=== PATIENT | male | born 1955 | race Caucasian/White ===

== ENCOUNTER 2020-03-28 07:58 | Inpatient (IN) | payer OTHER ==
[2020-03-28] MEDS ORDERED: MECLIZINE 25 MG TAB PO STA (08:03)
[2020-03-28] MEDS ORDERED: hydrALAZINE HCL 20 MG/ML 1 ML VIAL IVP STA ×2 (08:04→08:58)
[2020-03-28] MEDS ORDERED: SODIUM CHLORIDE 0.9% 1,000 ML IV ONE ×2 (08:04→10:40)
--- NOTE | 2020-03-28 08:19 | ED ---
General Adult HPI - General Stated complaint: Dizziness Time Seen by Provider: 03/28/20 07:58 Source: patient, RN notes reviewed, old records reviewed - History of Present Illness Initial comments: This is a 64-year-old male who presents emergency Department with a past medical history significant for COPD and untreated high blood pressure. Patient states she quit smoking 2 weeks ago. Patient states he had 2 large beers last night. Patient states this morning he woke up in bed in the room started spinning sensation got up. Patient states anytime he moves his head the symptoms worsened. Patient states is extremely nauseated but can't vomit. Patient states he has a headache on the left side of his face behind his eye. Patient denies any chest pain or palpitations. Patient denies any shortness of breath or difficulty breathing. Patient denies any recent fever chills or cough. Patient denies any abdominal pain. Patient any back pain. Patient denies any fall this morning. - Related Data Home Medications Medication Instructions Recorded Confirmed Ipratropium-Albuterol Nebulize 3 ml INHALATION RT-QID PRN 03/28/20 03/28/20 [Duoneb 0.5 mg-3 mg/3 ml Soln] Ipratropium/Albuter 20-100Mcg 1 puff INHALATION RT-QID 03/28/20 03/28/20 [Combivent Respimat 20-100Mcg Inhaler] Mometasone/Formoterol [Dulera 200 1 puff INHALATION RT-BID 03/28/20 03/28/20 Mcg-5 Mcg Inhaler] Nicotine 14Mg/24Hr Patch [Habitrol 1 patch TRANSDERM DAILY 03/28/20 03/28/20 14Mg/24Hr Patch] Tiotropium 18 Mcg/Puff [Spiriva] 1 puff INHALATION RT-DAILY 03/28/20 03/28/20 Allergies Allergy/AdvReac Type Severity Reaction Status Date / Time No Known Allergies Allergy Verified 03/28/20 10:23 Review of Systems ROS Statement: Those systems with pertinent positive or pertinent negative responses have been documented in the HPI. ROS Other: All systems not noted in ROS Statement are negative. General Exam - General Exam Comments Initial Comments: GENERAL: Patient is well-developed and well-nourished. Patient is nontoxic and well- hydrated and is in mild distress. ENT: Neck is soft and supple. No significant lymphadenopathy is noted. Oropharynx is clear. Moist mucous membranes. Neck has full range of motion without eliciting any pain. EYES: The sclera were anicteric and conjunctiva were pink and moist. Extraocular movements were intact and pupils were equal round and reactive to light. Eyelid s were unremarkable. PULMONARY: Unlabored respirations. Good breath sounds bilaterally. No audible rales rhonchi or wheezing was noted. CARDIOVASCULAR: There is a regular rate and rhythm without any murmurs gallops or rubs. ABDOMEN: Soft and nontender with normal bowel sounds. SKIN: Skin is clear with no lesions or rashes and otherwise unremarkable. NEUROLOGIC: Patient is alert and oriented x3. Cranial nerves II through XII are grossly intact. Motor and sensory are also intact. Normal speech, volume and content. Symmetrical smile. Cerebellar exam grossly intact. MUSCULOSKELETAL: Normal extremities with adequate strength and full range of motion. LYMPHATICS: No significant lymphadenopathy is noted PSYCHIATRIC: Normal psychiatric evaluation. Course Vital Signs 03/28/20 03/28/20 03/28/20 07:59 08:46 09:07 Temperature 97.7 F Pulse Rate 90 106 H 105 H Respiratory 18 18 18 Rate Blood Pressure 185/111 168/91 161/92 O2 Sat by Pulse 97 96 97 Oximetry 03/28/20 03/28/20 09:20 10:00 Temperature 97.7 F Pulse Rate 106 H 112 H Respiratory 18 18 Rate Blood Pressure 159/86 155/90 O2 Sat by Pulse 97 98 Oximetry Medical Decision Making - Medical Decision Making EKG shows normal sinus rhythm at 85 bpm NM interval is 144 QRS is 88 QT interval 376 QTC is 447. Patient's EKG shows no ST segment elevation or depression. There are no T-wave abnormalities. Patient's had high blood pressure so he did get hydralazine in the emergency department. Patient's chest x-ray showed no acute abnormalities. Patient's CT of the brain shows no acute abnormalities. However when I went back into the room the patient now complained of pain increasing in the lateral aspect of his left eye. Patient also complained of left-sided neck pain does seem to be reproducible with movement or palpation. Patient's heart rate however was up to 120 beats a minute and he stated he felt worsening dyspnea when he came in. Patient's vertigo remains with any movement of the head. I spoke with Dr. Dawson he agreed to admit the patient admitted the patient wrote admitting orders. - Lab Data Result diagrams: 03/28/20 08:11 03/28/20 08:11 Lab Results 03/28/20 03/28/20 03/28/20 Range/Units 08:11 08:11 08:11 WBC 8.1 (3.8-10.6) k/uL RBC 5.22 (4.30-5.90) m/uL Hgb 17.5 (13.0-17.5) gm/dL Hct 52.7 (39.0-53.0) % MCV 101.0 H (80.0-100.0) fL MCH 33.5 (25.0-35.0) pg MCHC 33.2 (31.0-37.0) g/dL RDW 12.4 (11.5-15.5) % Plt Count 270 (150-450) k/uL MPV 7.3 Neutrophils % 53 % Lymphocytes % 33 % Monocytes % 8 % Eosinophils % 3 % Basophils % 1 % Neutrophils # 4.3 (1.3-7.7) k/uL Lymphocytes # 2.7 (1.0-4.8) k/uL Monocytes # 0.6 (0-1.0) k/uL Eosinophils # 0.2 (0-0.7) k/uL Basophils # 0.1 (0-0.2) k/uL PT 9.4 (9.0-12.0) sec INR 0.9 (<1.2) APTT 22.6 (22.0-30.0) sec Sodium 135 L (137-145) mmol/L Potassium 5.0 (3.5-5.1) mmol/L Chloride 105 (98-107) mmol/L Carbon Dioxide 19 L (22-30) mmol/L Anion Gap 11 mmol/L BUN 5 L (9-20) mg/dL Creatinine 0.60 L (0.66-1.25) mg/dL Est GFR (CKD-EPI)AfAm >90 (>60 ml/min/1.73 sqM) Est GFR (CKD-EPI)NonAf >90 (>60 ml/min/1.73 sqM) Glucose 108 H (74-99) mg/dL Calcium 9.0 (8.4-10.2) mg/dL Magnesium 1.8 (1.6-2.3) mg/dL Total Bilirubin 0.6 (0.2-1.3) mg/dL AST 58 (17-59) U/L ALT 68 H (4-49) U/L Alkaline Phosphatase 52 (38-126) U/L Troponin I (0.000-0.034) ng/mL Total Protein 6.7 (6.3-8.2) g/dL Albumin 4.3 (3.5-5.0) g/dL Urine Color Urine Appearance (Clear) Urine pH (5.0-8.0) Ur Specific [place] (1.001-1.035) Urine Protein (Negative) Urine Glucose (UA) (Negative) Urine Ketones (Negative) Urine Blood (Negative) Urine Nitrite (Negative) Urine Bilirubin (Negative) Urine Urobilinogen (<2.0) mg/dL Ur Leukocyte Esterase (Negative) Urine WBC (0-5) /hpf Urine Bacteria (None) /hpf Urine Mucus (None) /hpf Serum Alcohol 13 mg/dL 03/28/20 03/28/20 Range/Units 08:11 09:51 WBC (3.8-10.6) k/uL RBC (4.30-5.90) m/uL Hgb (13.0-17.5) gm/dL Hct (39.0-53.0) % MCV (80.0-100.0) fL MCH (25.0-35.0) pg MCHC (31.0-37.0) g/dL RDW (11.5-15.5) % Plt Count (150-450) k/uL MPV Neutrophils % % Lymphocytes % % Monocytes % % Eosinophils % % Basophils % % Neutrophils # (1.3-7.7) k/uL Lymphocytes # (1.0-4.8) k/uL Monocytes # (0-1.0) k/uL Eosinophils # (0-0.7) k/uL Basophils # (0-0.2) k/uL PT (9.0-12.0) sec INR (<1.2) APTT (22.0-30.0) sec Sodium (137-145) mmol/L Potassium (3.5-5.1) mmol/L Chloride (98-107) mmol/L Carbon Dioxide (22-30) mmol/L Anion Gap mmol/L BUN (9-20) mg/dL Creatinine (0.66-1.25) mg/dL Est GFR (CKD-EPI)AfAm (>60 ml/min/1.73 sqM) Est GFR (CKD-EPI)NonAf (>60 ml/min/1.73 sqM) Glucose (74-99) mg/dL Calcium (8.4-10.2) mg/dL Magnesium (1.6-2.3) mg/dL Total Bilirubin (0.2-1.3) mg/dL AST (17-59) U/L ALT (4-49) U/L Alkaline Phosphatase (38-126) U/L Troponin I <0.012 (0.000-0.034) ng/mL Total Protein (6.3-8.2) g/dL Albumin (3.5-5.0) g/dL Urine Color Light Yellow Urine Appearance Clear (Clear) Urine pH 6.5 (5.0-8.0) Ur Specific [place] 1.008 (1.001-1.035) Urine Protein Negative (Negative) Urine Glucose (UA) Negative (Negative) Urine Ketones Negative (Negative) Urine Blood Negative (Negative) Urine Nitrite Negative (Negative) Urine Bilirubin Negative (Negative) Urine Urobilinogen <2.0 (<2.0) mg/dL Ur Leukocyte Esterase Small H (Negative) Urine WBC 5 (0-5) /hpf Urine Bacteria Rare H (None) /hpf Urine Mucus Rare H (None) /hpf Serum Alcohol mg/dL Critical Care Time Critical Care Time: Yes Disposition Clinical Impression: Tachycardia, Vertigo, Alcohol withdrawal, Hypertensive urgency Disposition: ADMITTED IP TO THIS HOSP Referrals: Chacha Nichols MD [Primary Care Provider] - 1-2 days Time of Disposition: 10:39
[2020-03-28 08:34] LABS: Basophils # (A) 0.1 k/uL (0-0.2); Basophils % (A) 1 %; Eosinophils # (A) 0.2 k/uL (0-0.7); Eosinophils % (A) 3 %; HCT 52.7 % (39.0-53.0); HGB 17.5 gm/dL (13.0-17.5); Lymphocytes # (A) 2.7 k/uL (1.0-4.8); Lymphocytes % (A) 33 %; MCH 33.5 pg (25.0-35.0); MCHC 33.2 g/dL (31.0-37.0); Mean Platelet Volume 7.3; Monocytes # (A) 0.6 k/uL (0-1.0); Monocytes % (A) 8 %; Neutrophils # (A) 4.3 k/uL (1.3-7.7); Neutrophils % (A) 53 %; Platelet Count 270 k/uL (150-450); RBC 5.22 m/uL (4.30-5.90); RDW 12.4 % (11.5-15.5); WBC 8.1 k/uL (3.8-10.6)
--- NOTE | 2020-03-28 08:41 | CT ---
EXAMINATION TYPE: CT brain wo con DATE OF EXAM: 03/28/2020 COMPARISON: None INDICATION: Acute Headache DLP: 1110.4 mGycm, Automated exposure control for dose reduction was used. CONTRAST: None CT of the brain is performed utilizing 3 mm thick sections through the posterior fossa and 3 mm thick sections through the remaining calvarium. Study is performed within 24 hours of arrival to the hosp ital. No abnormal hyperdensity is present to suggest an acute intracranial hemorrhage. No mass lesion is evident. No acute infarcts are evident. Ventricles and sulci are appropriate for the patient age. Paranasal sinuses and mastoid air cells within the [id number] are clear. No acute fractures are ev ident. Tiny amount of soft tissue swelling is over the frontal region centrally. IMPRESSIONS: 1. No acute intracranial process.
--- NOTE | 2020-03-28 08:45 | XR ---
EXAMINATION TYPE: XR chest 2V DATE OF EXAM: 03/28/2020 COMPARISON: NONE HISTORY: Headache and dizziness. Chest pain for period TECHNIQUE: Frontal and lateral views of the chest are obtained. FINDINGS: Slightly elevated left hemidiaphragm. Focal left basilar linear scarring and/or atelectasis . There is no suspicious focal air space opacity, pleural effusion, or pneumothorax seen. The cardi ac silhouette size is within normal limits with atherosclerotic change in the aortic knob. The osse ous structures are intact. IMPRESSION: Focal left basilar linear scarring and/or atelectasis
[2020-03-28 08:47] LABS: INR 0.9 (<1.2); Partial Thromboplastin Time 22.6 sec (22.0-30.0); Prothrombin Time 9.4 sec (9.0-12.0)
[2020-03-28] MEDS ORDERED: amLODIPine 5 MG TAB PO STA (08:58)
[2020-03-28 08:59] LABS: ALT 68 U/L (4-49); AST 58 U/L (17-59); African American GFR (CKD) >90 (>60 ml/min/1.73 sqM); Albumin 4.3 g/dL (3.5-5.0); Alcohol 13 mg/dL; Alkaline Phosphatase 52 U/L (38-126); Anion Gap 11 mmol/L; Blood Urea Nitrogen 5 mg/dL (9-20); Carbon Dioxide 19 mmol/L (22-30); Chloride 105 mmol/L (98-107); Glucose 108 mg/dL (74-99); Magnesium 1.8 mg/dL (1.6-2.3); Non-African American GFR(CKD) >90 (>60 ml/min/1.73 sqM); Sodium 135 mmol/L (137-145); Total Bilirubin 0.6 mg/dL (0.2-1.3); Total Protein 6.7 g/dL (6.3-8.2)
[2020-03-28] MEDS ORDERED: DIAZEPAM 5 MG/ML 2 ML INJ IVP STA (09:00)
[2020-03-28] MEDS ORDERED: LORazepam 2 MG/ML INJ IV STA (09:36)
[2020-03-28 10:23] LABS: Appearance,Urine Clear (Clear); Bacteria,Urine Rare /hpf; Bilirubin,Urine Negative (Negative); Blood,Urine Negative (Negative); Color,Urine Light Yellow; Glucose,Urine (UA) Negative (Negative); Ketones,Urine Negative (Negative); Leukocyte Esterase,Urine Small (Negative); Mucus,Urine Rare /hpf; Nitrite,Urine Negative (Negative); PH, Urine 6.5 (5.0-8.0); Protein,Urine Negative (Negative); Specific Gravity,Urine 1.008 (1.001-1.035); Urobilinogen,Urine <2.0 mg/dL (<2.0); WBC,Urine 5 /hpf (0-5)
[2020-03-28] MEDS ORDERED: THIAMINE 100 MG/ML 2 ML VIAL IM STA (10:41)
[2020-03-28] MEDS ORDERED: LORazepam 2 MG/ML INJ IV PRN ×3 (10:41)
[2020-03-28] MEDS ORDERED: SODIUM CHLORIDE 0.9% 1,000 ML IV STA (11:10)
[2020-03-28] MEDS ORDERED: IPRATROPIUM-ALBUTEROL 3 ML NEB INHALATION PRN ×2 (13:44→19:49)
[2020-03-28] MEDS ORDERED: ALPRAZolam 0.25 MG TAB PO PRN (13:45)
--- NOTE | 2020-03-28 14:36 | HP ---
HISTORY AND PHYSICAL DATE OF SERVICE: 03/28/2020. CHIEF COMPLAINT: Dizziness and weakness. HISTORY OF PRESENT ILLNESS: This 64-year-old gentleman with a past medical history of COPD, history of nicotine dependence, being followed by Dr. Nichols in the outpatient setting apparently quit smoking about few days ago. The patient apparently drinking also. The patient complaining of dizziness and weakness last night and spinning sensation while getting up and the patient came to [facility] admitted for further evaluation and treatment. The CAT scan did not show any acute abnormality. Chest x-ray showed some atelectasis. D-dimer is pending at this time. There is no history of any fever or rigors. The patient is mildly confused. Alcohol level is 13. There is no history of any trauma. PAST MEDICAL HISTORY: History of COPD, history of nicotine dependence. MEDICATIONS: Medications prior to admission home medications are: 1. Habitrol 14. 2. Spiriva. 3. Combivent. 4. DuoNeb. 5. Dulera. ALLERGIES: None. FAMILY HISTORY: No history of heart disease or strokes in the family. SOCIAL HISTORY: Daily alcohol, but previous smoking and stopped about 2 weeks ago. REVIEW OF SYSTEMS: ENT: As mentioned earlier. CARDIOVASCULAR SYSTEM: No angina. RESPIRATORY SYSTEM: As mentioned earlier. GI: No nausea. : No dysuria. NERVOUS SYSTEM: As mentioned earlier. ALLERGIES/IMMUNOLOGY: No asthma or hayfever. MUSCULOSKELETAL: As mentioned earlier. HEMATOLOGY: No history of anemia. ENDOCRINE: No history of diabetes mellitus or hypothyroidism. CONSTITUTIONAL: As mentioned earlier. DERMATOLOGY: Negative. RHEUMATOLOGY: Negative. PSYCHIATRY: As mentioned earlier. PHYSICAL EXAMINATION: The patient is alert and oriented x3. Pulse is 110, blood pressure 158/98, respiration 18, temperature 97.7, pulse ox 97% on room air. HEENT: Conjunctivae normal. NECK: No jugular venous distention. CARDIOVASCULAR: S1, S2 muffled. Tachycardiac. RESPIRATORY: Breath sounds diminished at the bases. A few scattered rhonchi. ABDOMEN: Soft, nontender. No mass palpable. LEGS: No edema, no swelling. NERVOUS SYSTEM: Higher function as mentioned earlier. Moves all 4 limbs. No focal motor or sensory or sensory deficits. LYMPHATICS: No lymphadenopathy of the neck, axillae or groin. SKIN: No ulcer, rash or bleeding. JOINTS: No active deforming arthropathy. LABS: Labs are at this time show: WBC 8.1, hemoglobin 17.5, sodium 135, ALT 68. ASSESSMENT: 1. Dizziness and weakness. Rule out transient ischemic attack, rule out possible alcohol withdrawal syndrome. 2. History of EtOH. 3. History of nicotine dependence. 4. Possible early delirium tremens. 5. Change in mental status, metabolic encephalopathy, possibly. 6. Hyponatremia. 7. Increased ALT. 8. History of chronic obstructive pulmonary disease. 9. History of nicotine dependence. RECOMMENDATIONS AND DISCUSSION: This 64-year-old gentleman presented with multiple complex medical issues, we will monitor the patient closely. Continue the current medications. Continue symptomatic treatment. I will check orthostatic vitals. Neurology evaluation. Complete neurovascular workup otherwise [facility] protocol. The exact reason for the patient's multiple symptomatology is unknown. The transition social worker and case maker to follow the patient with alcohol withdrawal, alcohol rehab programs. Otherwise prognosis guarded. Further recommendations to follow. Home medications continued. A copy of dictation forwarded to Dr. Nichols who is the primary physician. LAURA / TIFFANIN: [id number] /
--- NOTE | 2020-03-28 14:45 | P.CNNES ---
History of Present Illness Consult date: 03/28/20 Requesting physician: Sandee Dawson Reason for Consult: dizziness concerned for TIA History of Present Illness: This is a 64-year-old gentleman with medical history of untreated hypertension, alcohol use COPD, ex-tobacco user who quit 1-2 weeks ago who presented to the emergency department on 03/28/2020 for dizziness. Patient stated that had 2 large beers last night and upon waking up this morning he felt that the room is spinning. He described it as the room is spinning. And that it's mostly with position. When he is resting dizziness resolved. He did feel nauseous but no vomiting. He stated that he had the summary in the ears both but denies any hearing loss. He felt unsteady as a result. Patient denies off any focal weakness, numbness, difficulty getting his words out as slurring her speech. She also feels he is having headache over the left retro-orbital. Orbital left side and he stated that he felt was 10 over 10 could not describe the headache for me. Denies any photophobia photophobia. Denies any radiation. Currently he feels the headache is improved since he received pain medication. Patient stated that he drinks about 6-7 cans of beer daily and he's been doing it for long time. He smokes a pack a day for years and he said that the he had periods that he quit and then years that that he started smoking again but he quit in the last 1-2 weeks. He lives home alone. He denies and being on aspirin. He is on breathing treatment for his COPD. Workup in the hospital consisted of: Initial vital signs was blood pressure of 185/111, heart rate of 90, respiratory of 18, temperature of 97.7 Fahrenheit oral and pulse ox of 97% at room air. His heart rate has been in the 100 to 110s. His sodium is 135. His initial glucose serum was 108. Serum alcohol level is 13 which is slightly above normal (normal is <10). CT head is reported as no acute intracranial process. Upon reviewing there is no acute or subacute ischemia or there is no hemorrhage. I felt there is mild bilateral frontal atrophy. EKG is reported as normal sinus rhythm. Normal EKG. She was given meclizine 25 mg once stat in the ED. As well as the patient was given Valium 3 mg once stat in the ED. LC as well as the patient was started on thiamine 100 mg 1 tablet twice a day in the ED. Review of Systems Review of system: The 12 point system was reviewed and apparent positive and negative per HPI. Past Medical History Past Medical History: COPD History of Any Multi-Drug Resistant Organisms: None Reported Past Surgical History: No Surgical Hx Reported Past Psychological History: No Psychological Hx Reported Smoking Status: Former smoker Past Alcohol Use History: Daily Past Drug Use History: None Reported Medications and Allergies Home Medications Medication Instructions Recorded Confirmed Type Ipratropium-Albuterol Nebulize 3 ml INHALATION RT-QID PRN 03/28/20 03/28/20 History [Duoneb 0.5 mg-3 mg/3 ml Soln] Ipratropium/Albuter 20-100Mcg 1 puff INHALATION RT-QID 03/28/20 03/28/20 History [Combivent Respimat 20-100Mcg Inhaler] Mometasone/Formoterol [Dulera 200 1 puff INHALATION RT-BID 03/28/20 03/28/20 History Mcg-5 Mcg Inhaler] Nicotine 14Mg/24Hr Patch [Habitrol 1 patch TRANSDERM DAILY 03/28/20 03/28/20 History 14Mg/24Hr Patch] Tiotropium 18 Mcg/Puff [Spiriva] 1 puff INHALATION RT-DAILY 03/28/20 03/28/20 History Allergies Allergy/AdvReac Type Severity Reaction Status Date / Time No Known Allergies Allergy Verified 03/28/20 10:23 Physical Examination - Vital Signs Vital Signs: Vital Signs Temp Pulse Resp BP Pulse Ox 03/28/20 13:20 97.7 F 03/28/20 12:00 110 H 18 158/98 97 03/28/20 11:30 118 H 20 164/93 96 03/28/20 11:29 152/85 03/28/20 10:40 20 150/93 03/28/20 10:00 112 H 18 155/90 98 03/28/20 09:20 97.7 F 106 H 18 159/86 97 03/28/20 09:07 105 H 18 161/92 97 03/28/20 08:46 106 H 18 168/91 96 03/28/20 07:59 97.7 F 90 18 185/111 97 Intake and Output 03/27/20 03/28/2003/28/21 22:59 06:59 14:59 Other: Weight 63.503 kg GENERAL: The patient is lying in bed and is not in acute distress. CHEST: The heart rate is regular rate rhythm. No murmurs to auscultation. LUNG: Clear to auscultation bilaterally no wheezing noted throughout. Not labored breathing. ABDOMEN/GI: Bowel sounds present in all 4 quadrants. No tenderness to palpation throughout. NEUROLOGICAL: Higher mental function: The patient is awake, alert, oriented to self, place and time. Patient is following commands. No aphasia and no neglect. Cranial nerves: The pupils are round, equal and reactive to light and accommodation. Visual mojica are full to confrontation throughout. Extraocular movement is intact no nystagmus is noted. Facial sensation is normal to touch throughout. The facial strength is normal throughout. Hearing is normal bilaterally to hand rub. Tongue is midline and moved [id number] without any difficulty. No dysarthria is noted. Shoulder shrug is normal bilaterally. Motor: Gait was attempted but patient was feeling dizzy so gait assessment was deferred. The strength is 5 over 5 throughout. Normal tone and bulk. Cerebellum: Normal finger to nose and heel to navarro bilaterally. Sensation: Sensation is normal to touch throughout. Reflexes (right/left): 2+ throughout except ankles are 1+ bilaterally. Plantars are downgoing bilaterally. Results AST 58 and ALT of 68. Calcium of 9.0 which is normal. - Laboratory Findings CBC and BMP: 03/28/20 08:11 03/28/20 08:11 Abnormal Lab Findings: Abnormal Labs 03/28/20 03/28/20 03/28/20 08:11 08:11 09:51 MCV 101.0 H Sodium 135 L Carbon Dioxide 19 L BUN 5 L Creatinine 0.60 L Glucose 108 H ALT 68 H Ur Leukocyte Esterase Small H Urine Bacteria Rare H Urine Mucus Rare H Assessment and Plan Assessment: This is a 64-year-old gentleman chronic history of alcohol use as well as tobacco use who quit smoking in the last was 2 weeks that presents emergency department for dizziness. He describes the dizziness the room is spinning is mostly with position. He also has a headache on the left orbital retro-orbital temporal region. Has nausea but no vomiting denies any focal weakness or numbness denies getting his words out. Vertigo: Seems Benign positional vertiog Uncontrolled hypertension Very mild hyponatremia Alcohol use (with alcohol level slightly elevated of 13 (normal <10). Ex-tobacco user who quit 2 weeks ago Plan: * CT head is reported as no acute intracranial process. Upon reviewing there is no acute or subacute ischemia or there is no hemorrhage. I felt there is mild bilateral frontal atrophy. * He was given meclizine 25 mg once stat in the ED. As well as the patient was given Valium 3 mg once stat in the ED. * Orthostatic vitals are ordered by the primary team. * Continue thiamine 100 mg 1 tablet twice a day in the ED. * Patient was on folic acid 1 mg daily by the primary team * Patient was also started on aspirin 81 mg daily by the primary team. * I ordered MRI the brain with and without gadolinium to rule out any intracranial process especially the patient's been having a headache. I will think the patient has a transient ischemic attack but if there is any stroke on the MRI then we can proceed with the rest of the stroke workup such as 2-D echo, lipid panel, carotid duplex, physical and occupation therapy. If MRI the brain is negative I recommend that that the patient follows up with ENT as an outpatient as well as the to get the vestibular rehab therapy as an outpatient. * I ordered vitamin B12 and folate levels. * Patient was counseled on alcohol cessation as well as to continue avoiding tobacco use * He is on CIWA protocol defer the management to the primary team We'll defer the rest of the medical management to the primary team. Thank you for the consultation. There is no neurology service over the weekend. Please prefect Serve if needed. Dr. Caicedo will start coverage this coming-up Tuesday. Enrique Hidalgo M.D. Neuro-hospitalist Time with Patient: Greater than 30
[2020-03-28] MEDS: ASPIRIN 81 MG PO SCH (15:44)
[2020-03-28] MEDS: THIAMINE 100 MG TAB PO SCH (15:44)
[2020-03-28 15:51] LABS: C Reactive Protein <5.0 mg/L (<10.0)
[2020-03-28] MEDS: HYDROcodone/APAP 5-325MG 1 EACH TAB PO PRN (19:57)
[2020-03-28] MEDS: HEPARIN SODIUM,PORCINE 5,000 UNIT/ML 1 ML VIAL SQ SCH (19:59)
[2020-03-28] MEDS ORDERED: IPRATROPIUM-ALBUTEROL 3 ML NEB INHALATION SCH (20:00)
[2020-03-28] MEDS: IPRATROPIUM-ALBUTEROL 3 ML NEB INHALATION SCH (20:22)
[2020-03-28] MEDS: SYMBICORT 160-4.5 MCG INHALER INHALATION SCH (20:22)
[2020-03-29] MEDS: THIAMINE 100 MG TAB PO SCH ×2 (06:28→16:34)
[2020-03-29] MEDS: PANTOPRAZOLE 40 MG TABLET PO SCH (06:28)
[2020-03-29] MEDS: IPRATROPIUM-ALBUTEROL 3 ML NEB INHALATION SCH ×4 (07:08→20:30)
[2020-03-29] MEDS: SYMBICORT 160-4.5 MCG INHALER INHALATION SCH ×2 (07:09→20:30)
--- NOTE | 2020-03-29 07:39 | XR ---
EXAMINATION TYPE: XR orbit pre-MRI foreign body DATE OF EXAM: 03/29/2020 COMPARISON: NONE HISTORY: Pre-MRI orbit TECHNIQUE: 2 view submitted FINDINGS: Osseous structures intact. No metallic foreign body overlying the orbits. IMPRESSION: No metallic foreign body overlying the orbits.
[2020-03-29 07:52] LABS: Basophils % (A) 1 %; Eosinophils # (A) 0.1 k/uL (0-0.7); Eosinophils % (A) 1 %; HCT 48.1 % (39.0-53.0); HGB 16.5 gm/dL (13.0-17.5); Lymphocytes # (A) 2.2 k/uL (1.0-4.8); Lymphocytes % (A) 22 %; MCH 34.3 pg (25.0-35.0); MCHC 34.3 g/dL (31.0-37.0); Mean Platelet Volume 6.9; Monocytes # (A) 0.7 k/uL (0-1.0); Monocytes % (A) 7 %; Neutrophils # (A) 6.6 k/uL (1.3-7.7); Neutrophils % (A) 68 %; Platelet Count 271 k/uL (150-450); RBC 4.81 m/uL (4.30-5.90); RDW 11.9 % (11.5-15.5); WBC 9.8 k/uL (3.8-10.6)
[2020-03-29] MEDS ORDERED: TIOTROPIUM 2.5 MCG INHALER INHALATION SCH (08:00)
[2020-03-29 08:05] LABS: African American GFR (CKD) >90 (>60 ml/min/1.73 sqM); Anion Gap 6 mmol/L; Blood Urea Nitrogen 8 mg/dL (9-20); Calcium 9.3 mg/dL (8.4-10.2); Carbon Dioxide 26 mmol/L (22-30); Chloride 104 mmol/L (98-107); Glucose 130 mg/dL (74-99); Non-African American GFR(CKD) >90 (>60 ml/min/1.73 sqM); Potassium 4.4 mmol/L (3.5-5.1); Sodium 136 mmol/L (137-145)
[2020-03-29] MEDS: NICOTINE 14MG/24HR PATCH TRANSDERM SCH (08:34)
[2020-03-29] MEDS: ASPIRIN 81 MG PO SCH (08:34)
[2020-03-29] MEDS: HEPARIN SODIUM,PORCINE 5,000 UNIT/ML 1 ML VIAL SQ SCH ×2 (08:41→22:24)
[2020-03-29] MEDS: HYDROcodone/APAP 5-325MG 1 EACH TAB PO PRN ×3 (08:59→22:24)
[2020-03-29] MEDS: FOLIC ACID 1 MG TAB PO SCH (12:27)
[2020-03-29] MEDS: MULTIVITAMINS, THERA 1 EACH TAB PO SCH (12:27)
--- NOTE | 2020-03-29 12:42 | MR ---
EXAMINATION TYPE: MR brain wo/w con DATE OF EXAM: 03/29/2020 COMPARISON: CT brain 03/28/2020 HISTORY: Headaches TECHNIQUE: Multiplanar, multisequence images of the brain and brainstem is performed without and with IV contras t, utilizing 7 mL intravenous Gadavist . FINDINGS: There is abnormal signal on diffusion imaging within the left cerebellum suspicious for an acute stroke involving the cerebellar hemisphere and vermis. No additional abnormal signal on diffusi on imaging identified. Report was called to the patient's nurse Dorothy on 03/29/2020 at 12:36 PM Mild generalized degenerative change with abnormal signal in the white matter most typical remote lani rovascular ischemia. Craniocervical junction maintained. Partially empty sella turcica. IMPRESSION: 1. Findings suggest remote acute ischemia involving the left cerebellar hemisphere and vermis. No libia dence of midline shift or mass effect.
--- NOTE | 2020-03-29 14:15 | US ---
EXAMINATION TYPE: US carotid duplex BILAT DATE OF EXAM: 03/29/2020 COMPARISON: NONE CLINICAL HISTORY: stroke. vertgio, headache, left neck pain EXAM MEASUREMENTS: RIGHT: Peak Systolic Velocity (PSV) cm/sec ----- Right CCA: 97.3 ----- Right ICA: 66.8 ----- Right ECA: 82.0 ICA/CCA ratio: 0.7 RIGHT: End Diastole cm/sec ----- Right CCA: 21.7 ----- Right ICA: 18.0 ----- Right ECA: 19.3 LEFT: Peak Systolic Velocity (PSV) cm/sec ----- Left CCA: 95.5 ----- Left ICA: 80.5 ----- Left ECA: 113.0 ICA/CCA ratio: 0.8 LEFT: End Diastole cm/sec ----- Left CCA: 21.0 ----- Left ICA: 30.8 ----- Left ECA: 21.1 VERTEBRALS (direction of flow): Right Vertebral: Antegrade Left Vertebral: Antegrade Rhythm: Normal Mild heterogenous plaque with no significant stenosis seen IMPRESSION: There is antegrade flow in the vertebral arteries. There is minimal plaque formation. Images and emily urements suggest less than 20% stenosis in both internal carotid arteries. Criteria for Assigning % of Stenosis / Diameter reduction (Estimation based on the indirect measurements of the internal carotid artery velocities (ICA PSV). 1. Normal (no stenosis)=ICA PSV < 125 cm/s: ratio < 2.0: ICA EDV<40 cm/s. 2. Less than 50% stenosis=ICA PSV < 125 cm/s: ratio < 2.0: ICA EDV<40 cm/s. 3. 50 to 69% stenosis=ICA PSV of 125 to 230 cm/s: ration 2.0 ? 4.0: ICA EDV 40-100 cm/s. 4. Greater than 70% stenosis to near occlusion= ICA PSV > 230 cm/s: ratio > 4.0: ICA EDV > 100 cm/s. 5. Near occlusion= ICA PSV velocities may be low or undetectable: variable ratio and ICA EDV. 6. Total occlusion=unable to detect flow.
[2020-03-29] MEDS: ATORVASTATIN 10 MG TAB PO SCH (16:34)
[2020-03-29] MEDS: hydrALAZINE HCL 20 MG/ML 1 ML VIAL IVP PRN (17:26)
[2020-03-29] MEDS: MECLIZINE 12.5 MG TAB PO SCH (22:24)
[2020-03-30] MEDS: THIAMINE 100 MG TAB PO SCH ×2 (06:22→17:17)
[2020-03-30] MEDS: PANTOPRAZOLE 40 MG TABLET PO SCH (06:22)
[2020-03-30] MEDS: HYDROcodone/APAP 5-325MG 1 EACH TAB PO PRN ×2 (06:24→18:06)
[2020-03-30 07:36] LABS: Basophils % (A) 1 %; Eosinophils # (A) 0.1 k/uL (0-0.7); Eosinophils % (A) 2 %; HCT 46.2 % (39.0-53.0); HGB 16.1 gm/dL (13.0-17.5); Lymphocytes # (A) 2.1 k/uL (1.0-4.8); Lymphocytes % (A) 30 %; MCH 34.9 pg (25.0-35.0); MCHC 34.9 g/dL (31.0-37.0); MCV 100.1 fL (80.0-100.0); Mean Platelet Volume 7.1; Monocytes # (A) 0.7 k/uL (0-1.0); Monocytes % (A) 10 %; Neutrophils # (A) 3.8 k/uL (1.3-7.7); Neutrophils % (A) 56 %; Platelet Count 265 k/uL (150-450); RBC 4.61 m/uL (4.30-5.90); WBC 6.8 k/uL (3.8-10.6)
[2020-03-30 07:56] LABS: African American GFR (CKD) >90 (>60 ml/min/1.73 sqM); Anion Gap 6 mmol/L; Blood Urea Nitrogen 10 mg/dL (9-20); Calcium 9.1 mg/dL (8.4-10.2); Carbon Dioxide 25 mmol/L (22-30); Chloride 103 mmol/L (98-107); Cholesterol 145 mg/dL (<200); Glucose 111 mg/dL (74-99); HDL Cholesterol 61 mg/dL (40-60); LDL Cholesterol,Calculated 69 mg/dL (0-99); Non-African American GFR(CKD) >90 (>60 ml/min/1.73 sqM); Sodium 134 mmol/L (137-145); Triglycerides 75 mg/dL (<150)
[2020-03-30] MEDS: NICOTINE 14MG/24HR PATCH TRANSDERM SCH (08:22)
[2020-03-30] MEDS: HEPARIN SODIUM,PORCINE 5,000 UNIT/ML 1 ML VIAL SQ SCH ×2 (08:22→19:37)
[2020-03-30] MEDS: ASPIRIN 81 MG PO SCH (08:22)
[2020-03-30] MEDS: ATORVASTATIN 10 MG TAB PO SCH (08:22)
[2020-03-30] MEDS: CYCLOBENZAPRINE 5 MG TAB PO PRN ×2 (08:22→19:51)
[2020-03-30] MEDS: MECLIZINE 12.5 MG TAB PO SCH ×2 (08:23→19:37)
[2020-03-30] MEDS: hydrALAZINE HCL 20 MG/ML 1 ML VIAL IVP PRN (08:33)
[2020-03-30] MEDS: IPRATROPIUM-ALBUTEROL 3 ML NEB INHALATION SCH ×4 (08:42→19:28)
[2020-03-30] MEDS: SYMBICORT 160-4.5 MCG INHALER INHALATION SCH ×2 (08:42→19:27)
[2020-03-30] MEDS: MULTIVITAMINS, THERA 1 EACH TAB PO SCH (12:30)
[2020-03-30] MEDS: FOLIC ACID 1 MG TAB PO SCH (12:30)
[2020-03-30] MEDS ORDERED: METOPROLOL TARTRATE 25 MG TAB PO STA (13:04)
[2020-03-30] MEDS: CLOPIDOGREL 75 MG TAB PO SCH (13:07)
[2020-03-30 13:17] LABS: ALT 74 U/L (4-49); AST 41 U/L (17-59)
--- NOTE | 2020-03-30 13:36 | ECHOF ---
Referral Reason:stroke MEASUREMENTS -------- HEIGHT: 165.1 cm WEIGHT: 71.2 kg BP: IVSd: 1.2 cm (0.6 - 1.1) LVIDd: 3.0 cm (3.9 - 5.3) LVPWd: 1.6 cm (0.6 - 1.1) IVSs: 1.8 cm LVIDs: 1.7 cm LVPWs: 2.0 cm MV E Deonte: 0.64 m/s MV DecT: 140 ms MV A Deonte: 0.89 m/s MV E/A Ratio: 0.73 RAP: 5.00 mmHg RVSP: 8.09 mmHg FINDINGS -------- Sinus rhythm. Resting tachycardia (HR>100bpm). This was a technically difficult study with suboptimal views. The left ventricular size is normal. There is mild concentric left ventricular hypertrophy. Overa ll left ventricular systolic function is normal with, an EF between 55 - 60 %. The RV was not well visualized. The left atrium was not well visualized. The right atrium was not well visualized. Lumason used The aortic valve was not well visualized. The mitral valve was not well visualized. There is trace mitral regurgitation. The tricuspid valve was not well visualized. Trace tricuspid regurgitation present. Right ventric ular systolic pressure is normal at < 35 mmHg. The pulmonic valve was not well visualized. The aortic root size is normal. IVC Not well visulized. There is no pericardial effusion. CONCLUSIONS -------- 1. There is mild concentric left ventricular hypertrophy. 2. Overall left ventricular systolic function is normal with, an EF between 55 - 60 %. 3. There is trace mitral regurgitation. 4. Trace tricuspid regurgitation present. [employer]: Dorothy Rivera, [facility]
--- NOTE | 2020-03-30 15:07 | CT ---
EXAMINATION TYPE: CT angio head neck DATE OF EXAM: 03/30/2020 COMPARISON: None HISTORY: cerebellar stroke CT DLP: 1486.9 mGycm Automated exposure control for dose reduction was used. CONTRAST: Performed with IV Contrast, patient injected with 65 mL of Isovue 370. Images of the brain were obtained without contrast. Images were obtained from the aortic arch to the vertex of the brain with IV contrast and 3-D post processed images. FINDINGS: The noncontrast images show 3.5 cm rounded area of hypodensity in the medial inferior left cerebellar hemisphere consistent with an infarct. There is no mass effect. Fourth ventricle appears normal. The re is 4 mm hypodensity in the left thalamus. There is cerebral cortical atrophy. There is normal branching pattern of the great vessels on the aortic arch. There is bilateral arteria l flow in the subclavian arteries. There is arterial flow in the common internal and external carotid arteries. There is mild plaque formation at the carotid artery bifurcations. Lumen narrowing is less than 10%. There is no evidence of carotid or vertebral artery aneurysm or dissection. There is arter ial flow in the vertebral arteries and left vertebral artery is small. There is arterial flow in the vertebrobasilar artery system. There appears to be lumen narrowing of the proximal left subclavian ar hien with 50% stenosis. There is arterial flow in the anterior middle and posterior cerebral arteries. I see no evidence of i ntracranial arterial stenosis. There is no mass effect. There is normal contrast enhancement of the v enous sinuses. 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 The proximal left vertebral ar hien is small compared to the right and the distal vertebral arteries are fairly symmetric. This is s uggestive of decreased flow and hemodynamic stenosis involving the left vertebral artery. Subacute infarct left cerebral hemisphere is a change compared to the CT scan 2 days ago.
[2020-03-30] MEDS: SODIUM CHLORIDE 0.9% 1,000 ML IV SCH (17:17)
--- NOTE | 2020-03-30 17:23 | P.PN ---
Subjective Progress Note Date: 03/29/20 Principal diagnosis: dizziness and weakness Mr. Wolfe is a 63-year-old male with a past medical history of COPD, alcohol abuse being followed by Dr. Solis in outpatient setting, coming to this hospital with a chief complaint of dizziness. Patient states that he was feeling dizzy and was having weakness last night and that he has spinning sensation while getting up and so came to the hospital for further evaluation. Patient had a CAT scan of the head that was not showing any acute abnormality. He also had a chest x-ray that was showing atelectasis. His alcohol level was 13. Neurology was consulted, whose been evaluating the patient. On 03/29/2020 - patient was seen and examined on the general medical floors. Patient states that he had an MRI done, after that his dizziness has improved. Patient denies having any headaches, slurring of speech or vision changes. He states that his dizziness has improved. He is able to get up and go to the bathroom by himself without feeling dizzy. Patient denies having any weakness of his extremities. He denies having any chest pain or palpitations. Patient has mild difficulty in breathing, states that he smoked for quite a long time. He denies having any cough. Patient denies having any fevers chills or rigors. Normal pain nausea vomiting or diarrhea. No dysuria or hematuria. On reviewing his vitals temperature is 98.9, heart rate 90s to 100s, respiratory rate 18, blood pressure 160 05/19/1998, saturating at 96% on room air. Patient's labs from this morning showing white count of 9.8, hemoglobin 16.5, platelets 271. Sodium 136, potassium 4.4, chloride 104, bicarbonate 26, BUN 8, creatinine 0.82. TSH is 1.920, vitamin B12 462. Active Medications Hydrocodone Bitart/Acetaminophen (Hydrocodone/Apap 5-325mg 1 Each Tab) 1 each PO Q6HR PRN PRN Reason: Pain Last Admin: 03/29/20 16:34 Dose: 1 each Documented by: Albuterol/Ipratropium (Ipratropium-Albuterol 3 Ml Neb) 3 ml INHALATION RT-QID BENNETT Last Admin: 03/29/20 16:55 Dose: 3 ml Documented by: Albuterol/Ipratropium (Ipratropium-Albuterol 3 Ml Neb) 3 ml INHALATION RT-Q2H PRN PRN Reason: Shortness Of Breath Or Wheezing Alprazolam (Alprazolam 0.25 Mg Tab) 0.25 mg PO TID PRN PRN Reason: Anxiety Aspirin (Aspirin 81 Mg) 81 mg PO DAILY [facility] Last Admin: 03/29/20 08:34 Dose: 81 mg Documented by: Atorvastatin Calcium (Atorvastatin 10 Mg Tab) 10 mg PO DAILY [facility] Last Admin: 03/29/20 16:34 Dose: 10 mg Documented by: Budesonide/Formoterol Fumarate (Symbicort 160-4.5 Mcg Inhaler) 1 puff INHALATION RT-BID [facility] Last Admin: 03/29/20 07:09 Dose: 1 puff Documented by: Folic Acid (Folic Acid 1 Mg Tab) 1 mg PO DAILY@1200 [facility] Last Admin: 03/29/20 12:27 Dose: 1 mg Documented by: Heparin Sodium (Porcine) (Heparin Sodium,Porcine 5,000 Unit/Ml 1 Ml Vial) 5,000 unit SQ Q12HR [facility] Last Admin: 03/29/20 08:41 Dose: Not Given Documented by: Hydralazine HCl (Hydralazine Hcl 20 Mg/Ml 1 Ml Vial) 10 mg IVP Q6HR PRN PRN Reason: Blood Pressure - High Last Admin: 03/29/20 17:26 Dose: 10 mg Documented by: Lorazepam (Lorazepam 2 Mg/Ml Inj) 1 mg IV Q2HR PRN PRN Reason: CIWA 8 or 9 Last Admin: 03/28/20 11:32 Dose: 1 mg Documented by: Lorazepam (Lorazepam 2 Mg/Ml Inj) 1 mg IV Q1HR PRN PRN Reason: CIWA 10 to 15 Lorazepam (Lorazepam 2 Mg/Ml Inj) 2 mg IV Q10M PRN PRN Reason: CIWA 16 or higher Stop: 03/30/20 10:41 Meclizine HCl (Meclizine 12.5 Mg Tab) 12.5 mg PO BID [facility] Multivitamins (Multivitamins, Thera 1 Each Tab) 1 each PO DAILY@1200 [facility] Last Admin: 03/29/20 12:27 Dose: 1 each Documented by: Nicotine (Nicotine 14mg/24hr Patch) 1 patch TRANSDERM DAILY [facility] Last Admin: 03/29/20 08:34 Dose: 1 patch Documented by: Pantoprazole Sodium (Pantoprazole 40 Mg Tablet) 40 mg PO AC-BRKFST [facility] Last Admin: 03/29/20 06:28 Dose: 40 mg Documented by: Thiamine HCl (Thiamine 100 Mg Tab) 100 mg PO BID-W/MEALS [facility] Last Admin: 03/29/20 16:34 Dose: 100 mg Documented by: Objective - Vital Signs Vital signs: Vital Signs Temp 98.9 F 03/29/20 16:30 Pulse 100 03/29/20 17:04 Resp 18 03/29/20 16:30 BP 154/101 03/29/20 16:30 Pulse Ox 96 03/29/20 16:30 Intake & Output 03/28/20 03/29/20 03/29/20 18:59 06:59 18:59 Intake Total 236 336 Balance 236 336 Weight 70.5 kg 71.6 kg Intake: Oral 236 336 Other: Voiding Method Toilet Toilet Toilet # Voids 1 2 1 # Bowel Movements 1 - Exam PHYSICAL EXAMINATION: GENERAL: The patient is alert and oriented X3, in any acute distress. Well developed, well nourished. HEENT: Pupils are round and equally reacting to light. EOMI. No scleral icterus. No conjunctival pallor. Normocephalic, atraumatic. No pharyngeal erythema. No thyromegaly. CARDIOVASCULAR: S1 and S2 present. PULMONARY: Diminished breath sounds in all lung mojica. Prolonged expiration. No wheezing or crackles. ABDOMEN: Soft, nontender, nondistended, normoactive bowel sounds. No palpable organomegaly. MUSCULOSKELETAL: No joint swelling or deformity. EXTREMITIES: No cyanosis, clubbing, or pedal edema. NEUROLOGICAL: Speech is normal, no deviation of the tongue. No facial droop, strength is 5 out of 5 in all 4 extremities. Normal reflexes. Gait is normal. No focal neurological deficits. - Labs CBC & Chem 7: 03/30/20 06:45 03/30/20 06:45 Labs: Abnormal Lab Results - Last 24 Hours (Table) 03/29/20 03/29/20 Range/Units 07:22 07:22 Sodium 136 L (137-145) mmol/L BUN 8 L (9-20) mg/dL Glucose 130 H (74-99) mg/dL HDL Cholesterol 64 H (40-60) mg/dL Assessment and Plan Assessment: ASSESSMENT Dizziness/vertigo Alcohol abuse Nicotine dependence Hyponatremia mild Increased ALT History of COPD PLAN: Neurology was consulted, stroke/TIA workup in progress. Patient had a CAT scan of the brain that was negative for any acute intracranial process. MRI of the brain done earlier this afternoon showing remote acute ischemia involving the left cerebellar hemisphere and redness. No evidence of midline shift or mass effect. Patient had an echocardiogram, results are pending. For now continue every 4 neuro checks, aspirin, statin. Bilateral carotid artery Doppler ordered an MRI of the brain ordered. Continue with the rest of his current medication regimen. Further recommendations to follow depending on the progress of the patient. The results of the tests and treatment plan was discussed in detail with the patient at bedside today.
--- NOTE | 2020-03-30 17:33 | P.PN ---
Progress Note - Text Progress Note Date: 03/30/20 I was contacted via [employer] by nurse yesterday stating that she was notified that patient had remote stroke over left cerebellar. I did not hear acute on conversation. Upon reviewing the MRI of brain report today the impression was remote acute stroke over the left cerebellar/vermis. I personally reviewed the MRI Brain images and MRI showed subacute stroke over left cereberallar/versmis because of changes on FLIAIR. I spoke with reading radiologist about the findiings and he felt it should be read acute to subacute stroke. Acute left cerebelar stroke. Seems embolic. Did not receive tpa since outside window (even on presentation he was outside window). EtOH use I ordered CTA head/neck. Ordered q4 neuro checks. Pending 2D echo and possible consider MAURIZIO to rule out cardioembolic Please avoid any hypertensive medication and keep him permisissive hypertensive. Treat if SBP >200/100. Patient is currently on ASA 81mg daily and added Plavix 75mg daily (not on home antiplateletes). Increased Lipitor to 20mg daily (I think patient would benefit from high dose statin but problem is he is heavy alcohol use). Ordered repeat AST/ALT. Dr. Caicedo will start service starting tomorrow (03/31/2020). Enrique Hidalgo MD Neuro-Hospitalist.
[2020-03-30] MEDS ORDERED: METOPROLOL TARTRATE 25 MG TAB PO SCH (21:00)
[2020-03-30] MEDS ORDERED: ATORVASTATIN 20 MG TAB PO SCH (21:00)
[2020-03-31] MEDS: HEPARIN SODIUM,PORCINE 5,000 UNIT/ML 1 ML VIAL SQ SCH ×2 (01:03→09:29)
[2020-03-31] MEDS: SODIUM CHLORIDE 0.9% 1,000 ML IV SCH (06:56)
[2020-03-31] MEDS: PANTOPRAZOLE 40 MG TABLET PO SCH (06:56)
[2020-03-31] MEDS: THIAMINE 100 MG TAB PO SCH (06:56)
[2020-03-31 07:45] LABS: Basophils % (A) 1 %; Eosinophils # (A) 0.2 k/uL (0-0.7); Eosinophils % (A) 3 %; HCT 46.6 % (39.0-53.0); HGB 15.9 gm/dL (13.0-17.5); Lymphocytes % (A) 29 %; MCH 34.4 pg (25.0-35.0); MCHC 34.2 g/dL (31.0-37.0); MCV 100.5 fL (80.0-100.0); Mean Platelet Volume 7.2; Monocytes # (A) 0.6 k/uL (0-1.0); Monocytes % (A) 9 %; Neutrophils # (A) 3.9 k/uL (1.3-7.7); Neutrophils % (A) 57 %; Platelet Count 262 k/uL (150-450); RBC 4.64 m/uL (4.30-5.90); WBC 6.9 k/uL (3.8-10.6)
[2020-03-31 08:02] LABS: African American GFR (CKD) >90 (>60 ml/min/1.73 sqM); Anion Gap 7 mmol/L; Blood Urea Nitrogen 9 mg/dL (9-20); Calcium 9.1 mg/dL (8.4-10.2); Carbon Dioxide 24 mmol/L (22-30); Chloride 105 mmol/L (98-107); Glucose 108 mg/dL (74-99); Non-African American GFR(CKD) >90 (>60 ml/min/1.73 sqM); Potassium 4.1 mmol/L (3.5-5.1); Sodium 136 mmol/L (137-145)
[2020-03-31] MEDS: SYMBICORT 160-4.5 MCG INHALER INHALATION SCH (08:49)
[2020-03-31] MEDS: IPRATROPIUM-ALBUTEROL 3 ML NEB INHALATION SCH ×3 (08:49→16:02)
[2020-03-31] MEDS ORDERED: METOPROLOL TARTRATE 25 MG TAB PO SCH (09:00)
[2020-03-31] MEDS: MECLIZINE 12.5 MG TAB PO SCH (09:29)
[2020-03-31] MEDS: ASPIRIN 81 MG PO SCH (09:29)
[2020-03-31] MEDS: CLOPIDOGREL 75 MG TAB PO SCH (09:29)
[2020-03-31] MEDS: NICOTINE 14MG/24HR PATCH TRANSDERM SCH (09:30)
[2020-03-31] MEDS ORDERED: ACETAMINOPHEN TAB 325 MG TAB PO PRN (09:34)
[2020-03-31 11:28] VITALS: RESP 18; TEMP 97.8
--- NOTE | 2020-03-31 12:11 | P.GSCN ---
History of Present Illness Consult date: 03/31/20 Reason for Consult: stenosis of vetebral artery History of present illness: Is a pleasant 64-year-old male patient who came into the emergency room on Tuesday after experiencing acute onset of dizziness with nausea and vomiting. He denies any past medical history other than COPD related to smoking. He also states he drinks around 6 beers a day. He quit smoking two years ago and had a relapse at holiday, now quit again. He also states he had a headache that he describes as an aching pain behind his left eye. Symptoms persisted through Tuesday. He had multiple episodes of vomiting and dry heaves related to the dizziness. The patient had a CT angiogram of the head and neck which showed 50% stenosis of the proximal left subclavian artery. The proximal left vertebral artery is small compared to the right and the distal vertebral arteries are fairly symmetric. This is suggestive of decreased flow and hemodynamic stenosis involving the left vertebral artery and hence vascular surgery was consulted. The CT angiogram of the head showed subacute infarct left cerebral hemisphere is a change compared to a computed tomography scan 2 days prior. He had a carotid duplex performed which showed antegrade flow in the vertebral arteries. There is minimal plaque formation. Images and measurement suggests less than 20% stenosis in both internal carotid arteries. MRI of the brain findings that suggested subacute to acute ischemia involving the left cerebellar hemisphere and vermis. No midline shift or mass effect. He denies any previous knowledge of carotid stenosis or knowledge of vertebral artery stenosis. The patient states he is no longer having any dizziness, headache has resolved, however he states he has a stiff left neck with pain. He denies any upper or lower tremor any weakness, he denies any dizziness, blurred vision, difficulty speaking or swallowing. He is alert and oriented 3. He is answering his questions appropriately and follows commands. Past Medical History Past Medical History: COPD History of Any Multi-Drug Resistant Organisms: None Reported Past Surgical History: No Surgical Hx Reported Additional Past Surgical History / Comment(s): tubes in ears at a young age Past Anesthesia/Blood Transfusion Reactions: No Reported Reaction Past Psychological History: No Psychological Hx Reported Smoking Status: Former smoker Past Alcohol Use History: Daily Past Drug Use History: None Reported - Past Family History Father Additional Family Medical History / Comment(s): "his heart stopped" Medications and Allergies Home Medications Medication Instructions Recorded Confirmed Type Ipratropium-Albuterol Nebulize 3 ml INHALATION RT-QID PRN 03/28/20 03/28/20 History [Duoneb 0.5 mg-3 mg/3 ml Soln] Ipratropium/Albuter 20-100Mcg 1 puff INHALATION RT-QID 03/28/20 03/28/20 History [Combivent Respimat 20-100Mcg Inhaler] Mometasone/Formoterol [Dulera 200 1 puff INHALATION RT-BID 03/28/20 03/28/20 History Mcg-5 Mcg Inhaler] Nicotine 14Mg/24Hr Patch [Habitrol 1 patch TRANSDERM DAILY 03/28/20 03/28/20 History 14Mg/24Hr Patch] Tiotropium 18 Mcg/Puff [Spiriva] 1 puff INHALATION RT-DAILY 03/28/20 03/28/20 History Allergies Allergy/AdvReac Type Severity Reaction Status Date / Time No Known Allergies Allergy Verified 03/28/20 10:23 Surgical - Exam Vital Signs Temp Pulse Resp BP Pulse Ox 97.7 F 90 18 185/111 97 03/28/20 07:59 03/28/20 07:59 03/28/20 07:59 03/28/20 07:59 03/28/20 07:[address] of brain without contrast showed no acute intracranial process CT angiogram of the head and neck which showed 50% stenosis of the proximal left subclavian artery. The proximal left vertebral artery is small compared to the right and the distal vertebral arteries are fairly symmetric. This is suggestive of decreased flow and hemodynamic stenosis involving the left vertebral artery. The CT angiogram of the head showed subacute infarct left cerebral hemisphere is a change compared to a computed tomography scan 2 days prior. Carotid duplex performed which showed antegrade flow in the vertebral arteries. There is minimal plaque formation. Images and measurement suggests less than 20% stenosis in both internal carotid arteries. MRI of the brain findings that suggested subacute to acute ischemia involving the left cerebellar hemisphere and vermis. No midline shift or mass effect. - Labs 03/31/20 07:11 03/31/20 07:11 Abnormal Lab Results - Last 24 Hours (Table) 03/30/20 03/31/20 03/31/20 Range/Units 06:45 07:11 07:11 MCV 100.5 H (80.0-100.0) fL Sodium 136 L (137-145) mmol/L Glucose 108 H (74-99) mg/dL ALT 74 H (4-49) U/L Diabetes panel 03/30/20 03/31/20 Range/Units 06:45 07:11 Sodium 136 L (137-145) mmol/L Potassium 4.1 (3.5-5.1) mmol/L Chloride 105 (98-107) mmol/L Carbon Dioxide 24 (22-30) mmol/L BUN 9 (9-20) mg/dL Creatinine 0.74 (0.66-1.25) mg/dL Glucose 108 H (74-99) mg/dL Calcium 9.1 (8.4-10.2) mg/dL AST 41 (17-59) U/L ALT 74 H (4-49) U/L Calcium panel 03/31/20 Range/Units 07:11 Calcium 9.1 (8.4-10.2) mg/dL Pituitary panel 03/31/20 Range/Units 07:11 Sodium 136 L (137-145) mmol/L Potassium 4.1 (3.5-5.1) mmol/L Chloride 105 (98-107) mmol/L Carbon Dioxide 24 (22-30) mmol/L BUN 9 (9-20) mg/dL Creatinine 0.74 (0.66-1.25) mg/dL Glucose 108 H (74-99) mg/dL Calcium 9.1 (8.4-10.2) mg/dL Adrenal panel 03/30/20 03/31/20 Range/Units 06:45 07:11 Sodium 136 L (137-145) mmol/L Potassium 4.1 (3.5-5.1) mmol/L Chloride 105 (98-107) mmol/L Carbon Dioxide 24 (22-30) mmol/L BUN 9 (9-20) mg/dL Creatinine 0.74 (0.66-1.25) mg/dL Glucose 108 H (74-99) mg/dL Calcium 9.1 (8.4-10.2) mg/dL AST 41 (17-59) U/L ALT 74 H (4-49) U/L Assessment and Plan Assessment: 1. Stenosis of left vertebral artery 2. Acute left cerebelar stroke, per neurology likely embolic 3. Dizziness, resolved 4. Headache, resolved 5. The COPD 6. Tobacco use Plan: 1. Smoking cessation 2. Supportive care 3. Agree with aspirin, statin, and Plavix 4. History of heavy EtOH use 5. Appreciate neurology and cardiology recommendations 6. There are no acute indications for any vascular surgical intervention at this time. Patient to follow-up with Dr. Urrutia in outpatient setting. Thank you for this consultation and allowing us to take part in the plan of care of your patient during his hospital stay. The impression and plan of care has been dictated as directed. Dr. Urrutia I performed a history and examination of this patient, discussed the same with the dictator. I agree with the dictator's note ,documented as a scribe. Any additional findings or plans will be noted.
[2020-03-31] MEDS: FOLIC ACID 1 MG TAB PO SCH (12:42)
[2020-03-31] MEDS: MULTIVITAMINS, THERA 1 EACH TAB PO SCH (12:42)
--- NOTE | 2020-03-31 13:32 | P.CRDCN ---
History of Present Illness Consult date: 03/31/20 History of present illness: CHIEF COMPLAINT: Tachycardia HISTORY OF PRESENT ILLNESS: This is a 64-year-old male with a past medical history significant for COPD, nicotine dependence, and alcohol abuse. 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 We have been asked to see the patient in consultation for tachycardia. Patient initially presented to the hospital secondary to dizziness. He has been diagnosed with a CVA. He is being followed by neurology. He is receiving aspirin, Plavix, and Lipitor. An event monitor has been ordered by neurology. Telemetry reviewed revealing sinus tachycardia yesterday. No evidence of atrial fibrillation. Patients heart rate is controlled at this time. DIAGNOSTICS: EKG reveals sinus rhythm with no signs of acute ischemia Chest xray focal left basilar linear scarring and/or atelectasis Laboratory data: WBC 6.9. Hemoglobin 15.9. Platelet count 262. Sodium 136. Potassium 4.1. BUN 9. Creatinine 0.74. Current home cardiac medications include none Echocardiogram completed revealing ejection fraction 55-60%, trace mitral regurgitation and trace tricuspid regurgitation REVIEW OF SYSTEMS: At the time of my exam: CONSTITUTIONAL: Denies fever or chills. HEENT: Denies blurred vision, vision changes, or eye pain. Denies hemoptysis CARDIOVASCULAR: Denies chest pain, orthopnea, PND or palpitations RESPIRATORY: No shortness of breath. GASTROINTESTINAL: Denies abdominal pain. Denies nausea or vomiting. HEMATOLOGIC: Denies bleeding disorders. GENITOURINARY: Denies any blood in urine. SKIN: Denies pruitis. Denies rash. PHYSICAL EXAM: VITAL SIGNS: Reviewed. GENERAL: Well-developed in no acute distress. HEENT: Head is normocephalic. Pupils are equal, round. Sclerae anicteric. Mucous membranes of the mouth are moist. Neck supple. No JVD or thyromegaly LUNGS: Respirations even and unlabored. Lungs essentially clear to auscultation bilaterally. HEART: Regular rate and rhythm. S1 and S2 heard. Systolic murmur noted. ABDOMEN: Soft. Nondistended. Nontender. EXTREMITIES: Normal range of motion. No clubbing or cyanosis. Peripheral pulses intact. No lower extremity edema NEUROLOGIC: Awake and alert. Oriented x 3. ASSESSMENT: Acute CVA Alcohol withdrawal Sinus tachycardia, likely secondary to ETOH withdrawal COPD Nicotine dependence PLAN: Neurology following Continue current cardiac medications Begin metoprolol 25 mg BID Patient to have event monitor placed at discharge Patient is currently stable from a cardiac perspective. We will sign off. Please reconsult if needed. He may follow up outpatient with Dr. Redman. Nurse practitioner note has been reviewed by physician. Signing provider agrees with the documented findings, assessment, and plan of care. Past Medical History Past Medical History: COPD History of Any Multi-Drug Resistant Organisms: None Reported Past Surgical History: No Surgical Hx Reported Additional Past Surgical History / Comment(s): tubes in ears at a young age Past Anesthesia/Blood Transfusion Reactions: No Reported Reaction Past Psychological History: No Psychological Hx Reported Smoking Status: Former smoker Past Alcohol Use History: Daily Past Drug Use History: None Reported - Past Family History Father Additional Family Medical History / Comment(s): "his heart stopped" Medications and Allergies Home Medications Medication Instructions Recorded Confirmed Type Ipratropium-Albuterol Nebulize 3 ml INHALATION RT-QID PRN 03/28/20 03/28/20 History [Duoneb 0.5 mg-3 mg/3 ml Soln] Ipratropium/Albuter 20-100Mcg 1 puff INHALATION RT-QID 03/28/20 03/28/20 History [Combivent Respimat 20-100Mcg Inhaler] Mometasone/Formoterol [Dulera 200 1 puff INHALATION RT-BID 03/28/20 03/28/20 History Mcg-5 Mcg Inhaler] Nicotine 14Mg/24Hr Patch [Habitrol 1 patch TRANSDERM DAILY 03/28/20 03/28/20 History 14Mg/24Hr Patch] Tiotropium 18 Mcg/Puff [Spiriva] 1 puff INHALATION RT-DAILY 03/28/20 03/28/20 History Allergies Allergy/AdvReac Type Severity Reaction Status Date / Time No Known Allergies Allergy Verified 03/28/20 10:23 Physical Exam Vitals: Vital Signs Temp Pulse Pulse Resp BP Pulse Ox 03/31/20 11:27 97.8 F 92 18 157/100 97 03/31/20 08:59 92 03/31/20 08:49 92 03/31/20 08:00 97.3 F L 87 17 164/91 96 03/31/20 04:00 97.6 F 83 18 144/94 94 L 03/31/20 02:00 90 18 03/31/20 00:00 98 F 90 18 141/88 94 L 03/30/20 20:00 97.7 F 87 18 143/98 92 L 03/30/20 16:44 100 03/30/20 16:35 100 03/30/20 16:00 98.8 F 84 16 159/96 97 03/30/20 12:30 98.1 F 132 H 16 115/84 95 03/30/20 12:06 102 H 03/30/20 11:53 106 H Intake and Output 03/30/20 03/31/20 03/31/20 22:59 06:59 14:59 Intake Total 236 480 Balance 236 480 Intake: Oral 236 480 Other: Voiding Method Toilet Toilet Toilet # Voids 2 3 1 Weight 63.8 kg Results 03/31/20 07:11 03/31/20 07:11 Cardiac Enzymes 03/30/20 Range/Units 06:45 AST 41 (17-59) U/L CBC 03/31/20 Range/Units 07:11 WBC 6.9 (3.8-10.6) k/uL RBC 4.64 (4.30-5.90) m/uL Hgb 15.9 (13.0-17.5) gm/dL Hct 46.6 (39.0-53.0) % Plt Count 262 (150-450) k/uL Comprehensive Metabolic Panel 03/30/20 03/31/20 Range/Units 06:45 07:11 Sodium 136 L (137-145) mmol/L Potassium 4.1 (3.5-5.1) mmol/L Chloride 105 (98-107) mmol/L Carbon Dioxide 24 (22-30) mmol/L BUN 9 (9-20) mg/dL Creatinine 0.74 (0.66-1.25) mg/dL Glucose 108 H (74-99) mg/dL Calcium 9.1 (8.4-10.2) mg/dL AST 41 (17-59) U/L ALT 74 H (4-49) U/L Current Medications Generic Name Dose Route Start Last Admin Trade Name Freq PRN Reason Stop Dose Admin Acetaminophen 650 mg 03/31/20 09:34 03/31/20 09:42 Acetaminophen Tab 325 Mg Tab PO 650 mg Q6HR PRN Administration Fever and/ or Pain Hydrocodone Bitart/Acetaminophen 1 each 03/28/20 13:45 03/30/20 18:06 Hydrocodone/Apap 5-325mg 1 Each Tab PO 1 each Q6HR PRN Administration Pain Albuterol/Ipratropium 3 ml 03/28/20 20:00 03/31/20 08:49 Ipratropium-Albuterol 3 Ml Neb INHALATION 3 ml RT-QID EBNNETT Administration Albuterol/Ipratropium 3 ml 03/28/20 19:49 Ipratropium-Albuterol 3 Ml Neb INHALATION RT-Q2H PRN Shortness Of Breath Or Wheezing Alprazolam 0.25 mg 03/28/20 13:45 Alprazolam 0.25 Mg Tab PO TID PRN Anxiety Aspirin 81 mg 03/28/20 14:00 03/31/20 09:29 Aspirin 81 Mg PO 81 mg DAILY BENNETT Administration Atorvastatin Calcium 20 mg 03/30/20 21:00 03/30/20 19:37 Atorvastatin 20 Mg Tab PO 20 mg HS BENNETT Administration Budesonide/Formoterol Fumarate 1 puff 03/28/20 20:00 03/31/20 08:49 Symbicort 160-4.5 Mcg Inhaler INHALATION 1 puff RT-BID BENNETT Administration Clopidogrel Bisulfate 75 mg 03/30/20 12:30 03/31/20 09:29 Clopidogrel 75 Mg Tab PO 75 mg DAILY BENNETT Administration Cyclobenzaprine HCl 5 mg 03/30/20 07:59 03/30/20 19:51 Cyclobenzaprine 5 Mg Tab PO 5 mg BID PRN Administration Muscle Spasm Folic Acid 1 mg 03/29/20 12:00 03/30/20 12:30 Folic Acid 1 Mg Tab PO 1 mg DAILY@1200 BENNETT Administration Heparin Sodium (Porcine) 5,000 unit 03/28/20 21:00 03/31/20 09:29 Heparin Sodium,Porcine 5,000 Unit/Ml 1 Ml Vial SQ Not Given Q12HR BENNETT Sodium Chloride 1,000 mls @ 75 mls/hr 03/30/20 16:30 03/31/20 06:56 Saline 0.9% IV 75 mls/hr .[id number] BENNETT Administration Lorazepam 1 mg 03/28/20 10:41 03/28/20 11:32 Lorazepam 2 Mg/Ml Inj IV 1 mg Q2HR PRN Administration CIWA 8 or 9 Lorazepam 1 mg 03/28/20 10:41 Lorazepam 2 Mg/Ml Inj IV Q1HR PRN CIWA 10 to 15 Meclizine HCl 12.5 mg 03/29/20 21:00 03/31/20 09:29 Meclizine 12.5 Mg Tab PO 12.5 mg BID BENNETT Administration Metoprolol Tartrate 25 mg 03/31/20 09:00 Metoprolol Tartrate 25 Mg Tab PO BID [facility] Multivitamins 1 each 03/29/20 12:00 03/30/20 12:30 Multivitamins, Thera 1 Each Tab PO 1 each DAILY@1200 BENNETT Administration Nicotine 1 patch 03/29/20 09:00 03/31/20 09:30 Nicotine 14mg/24hr Patch TRANSDERM 1 patch DAILY BENNETT Administration Pantoprazole Sodium 40 mg 03/29/20 07:30 03/31/20 06:56 Pantoprazole 40 Mg Tablet PO 40 mg [id number] BENNETT Administration Thiamine HCl 100 mg 03/28/20 17:30 03/31/20 06:56 Thiamine 100 Mg Tab PO 100 mg BID-W/MEALS BENNETT Administration Intake and Output 03/30/20 03/31/20 03/31/20 22:59 06:59 14:59 Intake Total 236 480 Balance 236 480 Intake: Oral 236 480 Other: Voiding Method Toilet Toilet Toilet # Voids 2 3 1 Weight 63.8 kg 03/31/20 07:11 03/31/20 07:11
[2020-03-31 17:10] VITALS: BP 164/95; PULSE 83
--- NOTE | 2020-03-31 17:32 | P.PN ---
Subjective Progress Note Date: 03/31/20 Patient was seen by Dr. Enrique Hidalgo in consultation on 03/28/2020. Please refer to his consultation for details. Patient actually admitted for dizziness, nausea. Patient's MRI of the brain revealed subacute to acute ischemia involving the left cerebellar hemisphere and vermis. No midline shift or mass effect. 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 The proximal left vertebral artery is small compared to the right and distal vertebral arteries are fairly symmetric. This suggestive of decreased flow and hemodynamic stenosis involving the left vertebral artery. Subacute infarct in the left cerebral hemisphere is a change compared to computed tomography scan of head 2 days ago. 2-D echo showed mild concentric LVH. EF is 55-60%. Trace MR. Carotid Doppler showed antegrade flow in the vertebral arteries. Less than 20% stenosis bilateral ICA. B12 462, TSH is normal, total cholesterol 145, LDL 69, HDL 61 and triglycerides 75. Blood alcohol level was borderline 13. Patient at present offers no complaints. Wants to go home. Patient says all his symptoms have resolved. Telemetry monitoring showing sinus rhythm with sinus tachycardia. No aphasia. Objective - Vital Signs Vital signs: Vital Signs Temp 97.8 F 03/31/20 16:00 Pulse 83 03/31/20 16:00 Resp 18 03/31/20 16:00 BP 164/95 03/31/20 16:00 Pulse Ox 97 03/31/20 16:00 Intake & Output 03/30/20 03/31/20 03/31/20 18:59 06:59 18:59 Intake Total 1396 1020 Balance 1396 1020 Weight 63.8 kg Intake: Oral 1396 1020 Other: Voiding Method Toilet Toilet Toilet # Voids 2 3 2 - Exam Patient's mental status, speech and language services are normal. Cranial nerves are normal. On muscle strength testing there is no pronator drift and the strength is normal in arms and legs. Sensations are equal with no neglect. No ataxia for [id number] testing. Tone and bulk of muscles normal. - Labs CBC & Chem 7: 03/31/20 07:11 03/31/20 07:11 Labs: Abnormal Lab Results - Last 24 Hours (Table) 03/31/20 03/31/20 Range/Units 07:11 07:11 MCV 100.5 H (80.0-100.0) fL Sodium 136 L (137-145) mmol/L Glucose 108 H (74-99) mg/dL Assessment and Plan Assessment: * Continue dual antiplatelet medications, perhaps for 3 weeks and then maintain on aspirin regimen. * Continue Lipitor. * 2-D echo showed no embolic source. * Telemetric monitoring showing no atrial fibrillation. May consider Holter monitoring/loop recorder as outpatient. * Recommended abstinence from alcohol. * Tobacco cessation. * Neurologically clear for discharge. Plan: * Acute to subacute stroke left cerebellar hemisphere and vermis. * Hypertension * Tobacco use * Alcoholism
--- NOTE | 2020-03-31 19:03 | P.DS ---
Providers Date of admission: 03/28/20 10:41 Expected date of discharge: 03/31/20 Attending physician: Sandee Dawson Consults: 03/28/20 13:45 Consult Physician Routine Consulting Provider: Enrique Hidalgo Consult Reason/Comments: tia?? Do you want consulting provider notified?: Yes 03/30/20 13:00 Consult Physician Routine Consulting Provider: Tea Hensley Consult Reason/Comments: tachycardia Do you want consulting provider notified?: Yes 03/30/20 16:21 Consult Physician Urgent Consulting Provider: Eduin Richards Consult Reason/Comments: stenosis of vetebral artery Do you want consulting provider notified?: Yes Primary care physician: Simone Abbott [facility] Course: C/0 - dizziness and weakness HPI - Mr. Wolfe is a 63-year-old male with a past medical history of COPD, alcohol abuse being followed by Dr. Solis in outpatient setting, coming to this hospital with a chief complaint of dizziness. Patient states that he was feeling dizzy and was having weakness last night and that he has spinning sensation while getting up and so came to the hospital for further evaluation. Patient had a CAT scan of the head that was not showing any acute abnormality. He also had a chest x-ray that was showing atelectasis. His alcohol level was 13. Hospital course -Neurology was consulted, stroke/TIA workup in progress. Patient had a CAT scan of the brain that was negative for any acute intracranial process. Patient had an echocardiogram showing ejection fraction of 55-60%. Bilateral carotid artery Doppler showing antegrade flow in the vertebral arteries, minimal plague formation, less than 20% stenosis in both internal carotid arteries. MRI of the brain done showing subacute to acute ischemia involving the left cerebellar hemisphere and vermis. No evidence of midline shift or mass effect. 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 The proximal left vertebral artery is small compared to the right and distal vertebral arteries are fairly symmetric. This is suggestive of decreased flow went home on dynamic stenosis involving the left vertebral artery. Subacute fracture left cerebral hemisphere is a change compared to the CAT scan 2 days ago. Patient's to be continued on aspirin, statin. Plavix was added. Vascular surgery will be consulted - no acute intervention recommended, continue with medical management.. Cardiology will also be consulted- echocardiogram done showed ejection fraction of 55-60% with trace mitral regurgitation. They recommended event monitor, which the patient received at the time of discharge. So the patient was cleared by neurology, vascular surgery and cardiology. He is being discharged home on aspirin, Plavix, atorvastatin, metoprolol. Discussed with him in detail about being compliant with these medications. Also discussed at length about quitting alcohol. He is advised to follow-up with his PCP in 2- 3 days. Also advised to follow-up with cardiology in 1 week. DISCHARGE DIAGNOSIS Acute/subacute stroke Alcohol abuse Nicotine dependence Hyponatremia mild Increased ALT History of COPD Follow-up : He is advised to follow-up with his PCP in 2-3 days. Also advised to follow-up with cardiology in 1 week. 40 minutes spent towards the discharge of the patient Patient Condition at Discharge: Fair Plan - Discharge Summary New Discharge Prescriptions: New Meclizine [Antivert] 12.5 mg PO BID 10 Days #20 tab Aspirin 81 mg PO DAILY 30 Days #30 chew Folic Acid 1 mg PO DAILY@1200 30 Days #30 tab Atorvastatin [Lipitor] 20 mg PO HS 30 Days #30 tab Metoprolol Tartrate [Lopressor] 25 mg PO BID 30 Days #60 tab Multivitamins, Thera [Multivitamin (formulary)] 1 each PO DAILY@1200 30 Days #30 tab Clopidogrel [Plavix] 75 mg PO DAILY 30 Days #30 tab Thiamine [Vitamin B-1] 100 mg PO BID-W/MEALS 30 Days #30 tab Continue Tiotropium 18 Mcg/Puff [Spiriva] 1 puff INHALATION RT-DAILY Ipratropium/Albuter 20-100Mcg [Combivent Respimat 20-100Mcg Inhaler] 1 puff INHALATION RT-QID Ipratropium-Albuterol Nebulize [Duoneb 0.5 mg-3 mg/3 ml Soln] 3 ml INHALATION RT-QID PRN PRN Reason: Shortness Of Breath Mometasone/Formoterol [Dulera 200 Mcg-5 Mcg Inhaler] 1 puff INHALATION RT-BID Nicotine 14Mg/24Hr Patch [Habitrol] 1 patch TRANSDERM DAILY 14 Days #14 patch Discharge Medication List Ipratropium-Albuterol Nebulize [Duoneb 0.5 mg-3 mg/3 ml Soln] 3 ml INHALATION RT-QID PRN 03/28/20 [History] Ipratropium/Albuter 20-100Mcg [Combivent Respimat 20-100Mcg Inhaler] 1 puff INHALATION RT-QID 03/28/20 [History] Mometasone/Formoterol [Dulera 200 Mcg-5 Mcg Inhaler] 1 puff INHALATION RT-BID 03/28/20 [History] Tiotropium 18 Mcg/Puff [Spiriva] 1 puff INHALATION RT-DAILY 03/28/20 [History] Aspirin 81 mg PO DAILY 30 Days #30 chew 03/31/20 [Rx] Atorvastatin [Lipitor] 20 mg PO HS 30 Days #30 tab 03/31/20 [Rx] Clopidogrel [Plavix] 75 mg PO DAILY 30 Days #30 tab 03/31/20 [Rx] Folic Acid 1 mg PO DAILY@1200 30 Days #30 tab 03/31/20 [Rx] Meclizine [Antivert] 12.5 mg PO BID 10 Days #20 tab 03/31/20 [Rx] Metoprolol Tartrate [Lopressor] 25 mg PO BID 30 Days #60 tab 03/31/20 [Rx] Multivitamins, Thera [Multivitamin (formulary)] 1 each PO DAILY@1200 30 Days #30 tab 03/31/20 [Rx] Nicotine 14Mg/24Hr Patch [Habitrol] 1 patch TRANSDERM DAILY 14 Days #14 patch 03/31/20 [Rx] Thiamine [Vitamin B-1] 100 mg PO BID-W/MEALS 30 Days #30 tab 03/31/20 [Rx] Follow up Appointment(s)/Referral(s): Chacha Nichols MD [Primary Care Provider] - 1-2 days (April 03 9:10) Keagan Brooks MD [REFERRING] - 1 Week (neurology ) Rodrigo Redman DO [STAFF PHYSICIAN] - 1 Week (office will call you with appt. time) Patient Instructions/Handouts: Vertigo (DC), Self Care Measures After a Stroke (GEN), Tachycardia (GEN) Activity/Diet/Wound Care/Special Instructions: activity limited until follow up heart healthy diet Discharge Disposition: HOME SELF-CARE
--- NOTE | 2020-03-31 19:03 | P.PN ---
Subjective Progress Note Date: 03/30/20 Principal diagnosis: Acute / Sub Acute Stroke Mr. Wolfe is a 63-year-old male with a past medical history of COPD, alcohol abuse being followed by Dr. Solis in outpatient setting, coming to this hospital with a chief complaint of dizziness. Patient states that he was feelin g dizzy and was having weakness last night and that he has spinning sensation while getting up and so came to the hospital for further evaluation. Patient had a CAT scan of the head that was not showing any acute abnormality. He also had a chest x-ray that was showing atelectasis. His alcohol level was 13. Neurology was consulted, whose been evaluating the patient. On 03/29/2020 - patient was seen and examined on the general medical floors. Patient states that he had an MRI done, after that his dizziness has improved. Patient denies having any headaches, slurring of speech or vision changes. He states that his dizziness has improved. He is able to get up and go to the bathroom by himself without feeling dizzy. Patient denies having any weakness of his extremities. He denies having any chest pain or palpitations. Patient has mild difficulty in breathing, states that he smoked for quite a long time. He denies having any cough. Patient denies having any fevers chills or rigors. Normal pain nausea vomiting or diarrhea. No dysuria or hematuria. On reviewing his vitals temperature is 98.9, heart rate 90s to 100s, respiratory rate 18, blood pressure 160 05/19/1998, saturating at 96% on room air. Patient's labs from this morning showing white count of 9.8, hemoglobin 16.5, platelets 271. Sodium 136, potassium 4.4, chloride 104, bicarbonate 26, BUN 8, creatinine 0.82. TSH is 1.920, vitamin B12 462. On 03/30/2020 - patient is seen and examined on the general medical floors. Patient states that his dizziness is improved. He denies having any headaches, slurring of speech or vision changes. Patient denies having any weakness of his extremities. No chest pain or palpitations. No cough or difficulty breathing. Patient denies having any abdominal pain, nausea vomiting or diarrhea. No dysuria or hematuria. On reviewing the vitals temperature of 98.9, heart rate between 100s to 110s, respiratory rate 18, blood pressure 148 been 98, saturating at 94% on room air. On reviewing her labs from this morning white count of 6.8, hemoglobin 16.1 MCV 100.1 and platelets 265. Sodium 134, impression 4, chloride 103, bicarbonate 25, BUN 10, creatinine 0.73. TSH of 1.9-0, LDL 69, HDL 61, total cholesterol 145. Active Medications Hydrocodone Bitart/Acetaminophen (Hydrocodone/Apap 5-325mg 1 Each Tab) 1 each PO Q6HR PRN PRN Reason: Pain Last Admin: 03/30/20 06:24 Dose: 1 each Documented by: Albuterol/Ipratropium (Ipratropium-Albuterol 3 Ml Neb) 3 ml INHALATION RT-QID [facility] Last Admin: 03/30/20 16:35 Dose: 3 ml Documented by: Albuterol/Ipratropium (Ipratropium-Albuterol 3 Ml Neb) 3 ml INHALATION RT-Q2H PRN PRN Reason: Shortness Of Breath Or Wheezing Alprazolam (Alprazolam 0.25 Mg Tab) 0.25 mg PO TID PRN PRN Reason: Anxiety Aspirin (Aspirin 81 Mg) 81 mg PO DAILY [facility] Last Admin: 03/30/20 08:22 Dose: 81 mg Documented by: Atorvastatin Calcium (Atorvastatin 20 Mg Tab) 20 mg PO [facility] Budesonide/Formoterol Fumarate (Symbicort 160-4.5 Mcg Inhaler) 1 puff INHALATION RT-BID [facility] Last Admin: 03/30/20 08:42 Dose: 1 puff Documented by: Clopidogrel Bisulfate (Clopidogrel 75 Mg Tab) 75 mg PO DAILY [facility] Last Admin: 03/30/20 13:07 Dose: 75 mg Documented by: Cyclobenzaprine HCl (Cyclobenzaprine 5 Mg Tab) 5 mg PO BID PRN PRN Reason: Muscle Spasm Last Admin: 03/30/20 08:22 Dose: 5 mg Documented by: Folic Acid (Folic Acid 1 Mg Tab) 1 mg PO DAILY@1200 [facility] Last Admin: 03/30/20 12:30 Dose: 1 mg Documented by: Heparin Sodium (Porcine) (Heparin Sodium,Porcine 5,000 Unit/Ml 1 Ml Vial) 5,000 unit SQ Q12HR [facility] Last Admin: 03/30/20 08:22 Dose: Not Given Documented by: Sodium Chloride (Saline 0.9%) 1,000 mls @ 75 mls/hr IV .[id number] [facility] Last Admin: 03/30/20 17:17 Dose: 75 mls/hr Documented by: Lorazepam (Lorazepam 2 Mg/Ml Inj) 1 mg IV Q2HR PRN PRN Reason: CIWA 8 or 9 Last Admin: 03/28/20 11:32 Dose: 1 mg Documented by: Lorazepam (Lorazepam 2 Mg/Ml Inj) 1 mg IV Q1HR PRN PRN Reason: CIWA 10 to 15 Meclizine HCl (Meclizine 12.5 Mg Tab) 12.5 mg PO BID [facility] Last Admin: 03/30/20 08:23 Dose: 12.5 mg Documented by: Multivitamins (Multivitamins, Thera 1 Each Tab) 1 each PO DAILY@1200 [facility] Last Admin: 03/30/20 12:30 Dose: 1 each Documented by: Nicotine (Nicotine 14mg/24hr Patch) 1 patch TRANSDERM DAILY [facility] Last Admin: 03/30/20 08:22 Dose: 1 patch Documented by: Pantoprazole Sodium (Pantoprazole 40 Mg Tablet) 40 mg PO AC-BRKFST [facility] Last Admin: 03/30/20 06:22 Dose: 40 mg Documented by: Thiamine HCl (Thiamine 100 Mg Tab) 100 mg PO BID-W/MEALS [facility] Last Admin: 03/30/20 17:17 Dose: 100 mg Documented by: Objective - Vital Signs Vital signs: Vital Signs Temp 98.2 F 03/30/20 08:20 Pulse 102 H 03/30/20 12:06 Resp 16 03/30/20 08:20 BP 164/96 03/30/20 08:20 Pulse Ox 96 03/30/20 08:20 Intake & Output 03/29/20 03/30/20 03/30/20 18:59 06:59 18:59 Intake Total 336 680 Balance 336 680 Weight 63.6 kg Intake: Oral 336 680 Other: Voiding Method Toilet Toilet Toilet # Voids 1 1 - Exam PHYSICAL EXAMINATION: GENERAL: The patient is alert and oriented X3, in any acute distress. Well developed, well nourished. HEENT: Pupils are round and equally reacting to light. EOMI. No scleral icterus. No conjunctival pallor. Normocephalic, atraumatic. CARDIOVASCULAR: S1 and S2 present. PULMONARY: Diminished breath sounds in all lung mojica. Prolonged expiration. No wheezing or crackles. ABDOMEN: Soft, nontender, nondistended, normoactive bowel sounds. No palpable organomegaly. MUSCULOSKELETAL: No joint swelling or deformity. EXTREMITIES: No cyanosis, clubbing, or pedal edema. NEUROLOGICAL: Speech is normal, no deviation of the tongue. No facial droop, strength is 5 out of 5 in all 4 extremities. Normal reflexes. Gait is normal. No focal neurological deficits. - Labs CBC & Chem 7: 03/30/20 06:45 03/30/20 06:45 Labs: Abnormal Lab Results - Last 24 Hours (Table) 03/29/20 03/30/20 03/30/20 Range/Units 07:22 06:45 06:45 MCV 100.1 H (80.0-100.0) fL Sodium 134 L (137-145) mmol/L Glucose 111 H (74-99) mg/dL HDL Cholesterol 64 H 61 H (40-60) mg/dL Assessment and Plan Assessment: ASSESSMENT Acute/subacute stroke Alcohol abuse Nicotine dependence Hyponatremia mild Increased ALT History of COPD PLAN: Neurology was consulted, stroke/TIA workup in progress. Patient had a CAT scan of the brain that was negative for any acute intracranial process. Patient had an echocardiogram showing ejection fraction of 55-60%. Bilateral carotid artery Doppler showing antegrade flow in the vertebral arteries, minimal plague formation, less than 20% stenosis in both internal carotid arteries. MRI of the brain done showing subacute to acute ischemia involving the left cerebellar hemisphere and vermis. No evidence of midline shift or mass effect. 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 The proximal left vertebral artery is small compared to the right and distal vertebral arteries are fairly symmetric. This is suggestive of decreased flow went home on dynamic stenosis involving the left vertebral artery. Subacute fracture left cerebral hemisphere is a change compared to the CAT scan 2 days ago. Patient's to be continued on aspirin, statin. Plavix was added. Vascular surgery will be consulted. Cardiology will also be consulted. Discussed the patient's stated results with neurology Dr. Hidalgo over the phone. Further recommendations to follow depending on the progress of the patient. The results of the tests and treatment plan was discussed in detail with the patient at bedside today.
== END 2020-03-31 17:33 | disposition home or self-care (01) | DRG 64 ==
LOC: EC 07:58 → 3SCARD 10:41
PROVIDERS: ADMIT Hospitalist; ATTEND Hospitalist
DX: I63.442 Cerebral infarction due to embolism of left cerebellar artery (principal); G93.41 Metabolic encephalopathy; E87.1 Hypo-osmolality and hyponatremia; F10.239 Alcohol dependence with withdrawal, unspecified; J98.11 Atelectasis; J44.9 Chronic obstructive pulmonary disease, unspecified; I11.9 Hypertensive heart disease without heart failure; I16.0 Hypertensive urgency; H81.10 Benign paroxysmal vertigo, unspecified ear; Z20.822 Contact with and (suspected) exposure to COVID-19; G31.9 Degenerative disease of nervous system, unspecified; I77.1 Stricture of artery; I65.02 Occlusion and stenosis of left vertebral artery; M62.838 Other muscle spasm; F41.9 Anxiety disorder, unspecified; F17.211 Nicotine dependence, cigarettes, in remission; M54.2 Cervicalgia; Y90.0 Blood alcohol level of less than 20 mg/100 ml; M54.9 Dorsalgia, unspecified; Z79.51 Long term (current) use of inhaled steroids; Z79.899 Other long term (current) drug therapy
CPT/HCPCS: 36415; 70030; 70450; 70496; 70498; 70553; 71046; 80048; 80053; 80061; 80320; 81001; 82607; 82747; 83735; 84443; 84450; 84460; 84484; 85025; 85379; 85610; 85652; 85730; 86140; 87635; 93005; 93270; 93306; 93880; 94640; 96361; 96372; 96374; 96375; 96376; 99291

== ENCOUNTER 2021-07-04 16:05 | Emergency (ER) | payer OTHER ==
[2021-07-04 16:30] VITALS: TEMP 98
[2021-07-04] MEDS ORDERED: MORPHINE SULFATE 2 MG/ML SYRINGE IVP STA (17:42)
[2021-07-04] MEDS ORDERED: ONDANSETRON 4 MG/2 ML VIAL IVP STA (17:42)
[2021-07-04] MEDS ORDERED: SODIUM CHLORIDE 0.9% 1,000 ML IV STA (17:42)
[2021-07-04 18:16] LABS: Appearance,Urine Clear (Clear); Bilirubin,Urine Negative (Negative); Blood,Urine Negative (Negative); Color,Urine Colorless; Glucose,Urine (UA) Negative (Negative); Ketones,Urine Negative (Negative); Leukocyte Esterase,Urine Negative (Negative); Nitrite,Urine Negative (Negative); PH, Urine 6.5 (5.0-8.0); Protein,Urine Negative (Negative); Specific Gravity,Urine 1.002 (1.001-1.035); Urobilinogen,Urine <2.0 mg/dL (<2.0)
[2021-07-04 18:20] LABS: Basophils # (A) 0.1 k/uL (0-0.2); Basophils % (A) 1 %; Eosinophils # (A) 0.2 k/uL (0-0.7); Eosinophils % (A) 2 %; HCT 49.6 % (39.0-53.0); HGB 16.9 gm/dL (13.0-17.5); Lymphocytes % (A) 36 %; MCHC 34.1 g/dL (31.0-37.0); MCV 99.9 fL (80.0-100.0); Mean Platelet Volume 6.9; Monocytes # (A) 0.6 k/uL (0-1.0); Monocytes % (A) 5 %; Neutrophils # (A) 5.9 k/uL (1.3-7.7); Neutrophils % (A) 53 %; Platelet Count 325 k/uL (150-450); RBC 4.97 m/uL (4.30-5.90); RDW 13.2 % (11.5-15.5); WBC 11.2 k/uL (3.8-10.6)
[2021-07-04 18:23] LABS: INR 0.8 (<1.2); Partial Thromboplastin Time 24.5 sec (22.0-30.0); Prothrombin Time 9.5 sec (9.0-12.0)
[2021-07-04 18:26] LABS: ALT 23 U/L (4-49); AST 27 U/L (17-59); African American GFR (CKD) >90 (>60 ml/min/1.73 sqM); Alkaline Phosphatase 70 U/L (38-126); Amylase 68 U/L (30-110); Anion Gap 15 mmol/L; Blood Urea Nitrogen 4 mg/dL (9-20); Calcium 9.3 mg/dL (8.4-10.2); Carbon Dioxide 20 mmol/L (22-30); Chloride 94 mmol/L (98-107); Glucose 79 mg/dL (74-99); Lipase 67 U/L (23-300); Non-African American GFR(CKD) >90 (>60 ml/min/1.73 sqM); Potassium 4.2 mmol/L (3.5-5.1); Sodium 129 mmol/L (137-145); Total Bilirubin 0.6 mg/dL (0.2-1.3); Total Protein 7.5 g/dL (6.3-8.2)
--- NOTE | 2021-07-04 18:36 | ED ---
General Adult HPI - General Chief complaint: Abdominal Pain Stated complaint: back pain-abdominal pain Time Seen by Provider: 07/04/21 17:27 Source: patient Mode of arrival: ambulatory Limitations: no limitations - History of Present Illness Initial comments: This 65-year-old male with a past medical history of COPD presents to the emergency department with abdominal pain that has been constant since Tuesday. Patient states on Tuesday he noticed a dull aching in his lower right quadrant that has been there since. He states over the last couple days he has noticed a radiating to his right flank. Patient states he has been taking Tylenol which has minimally relieved the pain. Patient states the pain worsens if he pushes on his right lower quadrant. Patient describes the pain as burning and a dull ache. Patient states his pain is 6/10. Patient states he experienced some similar pain in his past when he had diverticulitis states on his left side. Patient denies any history of kidney stones. Patient states he does still have his appendix. Patient denies any fevers or changes in bowel or bladder retention/incontinence, lower back pain, neck pain. Patient denies any chest pain, shortness of breath, nausea, vomiting or diarrhea/constipation, urinary burning, urgency, hesitancy, increased urgency, headache or lightheadedness, dizziness, change in vision, or change in appetite. - Related Data Home Medications Medication Instructions Recorded Confirmed Ipratropium/Albuter 20-100Mcg 1 puff INHALATION RT-QID 03/28/20 07/04/21 [Combivent Respimat 20-100Mcg Inhaler] Mometasone/Formoterol [Dulera 200 1 puff INHALATION RT-BID 03/28/20 07/04/21 Mcg-5 Mcg Inhaler] Tiotropium 18 Mcg/Puff [Spiriva] 1 puff INHALATION RT-DAILY 03/28/20 07/04/21 Allergies Allergy/AdvReac Type Severity Reaction Status Date / Time No Known Allergies Allergy Verified 07/04/21 19:30 Review of Systems ROS Statement: Those systems with pertinent positive or pertinent negative responses have been documented in the HPI. ROS Other: All systems not noted in ROS Statement are negative. Past Medical History Past Medical History: COPD History of Any Multi-Drug Resistant Organisms: None Reported Past Surgical History: No Surgical Hx Reported Additional Past Surgical History / Comment(s): tubes in ears at a young age Past Anesthesia/Blood Transfusion Reactions: No Reported Reaction Past Psychological History: No Psychological Hx Reported Smoking Status: Current every day smoker Past Alcohol Use History: Daily Past Drug Use History: None Reported - Past Family History Father Additional Family Medical History / Comment(s): "his heart stopped" General Exam Limitations: no limitations General appearance: alert, in no apparent distress Head exam: Present: atraumatic, normocephalic, normal inspection Eye exam: Present: normal appearance, PERRL, EOMI. Absent: scleral icterus, conjunctival injection, periorbital swelling Pupils: Present: normal accommodation ENT exam: Present: normal exam, normal oropharynx, mucous membranes moist Neck exam: Present: normal inspection, full ROM. Absent: tenderness, meningis mus, lymphadenopathy Respiratory exam: Present: normal lung sounds bilaterally. Absent: respiratory distress, wheezes, rales, rhonchi, stridor, chest wall tenderness Cardiovascular Exam: Present: regular rate, normal rhythm, normal heart sounds. Absent: systolic murmur, diastolic murmur, rubs, gallop, clicks GI/Abdominal exam: Present: soft, tenderness (Right lower quadrant tenderness to palpation), normal bowel sounds. Absent: distended, guarding, rebound, rigid Extremities exam: Present: normal inspection, full ROM, normal capillary refill. Absent: tenderness, pedal edema, joint swelling, calf tenderness Back exam: Present: normal inspection, full ROM. Absent: CVA tenderness (R), CVA tenderness (L), paraspinal tenderness, vertebral tenderness Neurological exam: Present: alert, oriented X3, CN II-XII intact Psychiatric exam: Present: normal affect, normal mood Skin exam: Present: warm, dry, intact, normal color. Absent: rash Course Vital Signs 07/04/21 07/04/21 07/04/21 16:28 19:43 21:12 Temperature 98 F Pulse Rate 73 79 78 Respiratory 20 18 18 Rate Blood Pressure 146/85 182/99 161/98 O2 Sat by Pulse 97 97 97 Oximetry Medical Decision Making - Medical Decision Making This 65-year-old male presents to the emergency department with right lower quadrant pain radiating to his right flank 5 days. Labs with white blood cells 11.2, sodium 129, 1 L normal saline given to patient, regulation without any acute abnormalities. Urine unremarkable. CT abdomen and pelvis with contrast impression 1 normality of the abdomen and pelvis. Appendix not seen. There are some large bowel diverticula without evidence of diverticulitis. Enlarged prostate measuring 5.7 cm with calcifications. Bladder scan with 500; patient verbally agreed for catheter to be placed and 1,000 was drained. I did advise that catheter be kept in place until patient followed up with urology, however patient did refuse and stated he wanted it removed prior to being discharged. I did discuss that with urinary retention we recommend that patient be sent home with catheter until seen by urology, however he still refused. I did inform patient that he does have an enlarged prostate per CT scan and instruct him to follow up with his primary care doctor regarding this and he verbally stated he would call on Tuesday. Patient did not want me to perform a rectal exam. Patient 's abdominal pain did significantly decrease after urine was drained from the patient's bladder. Patient was requesting discharge and stated he would follow- up and call his primary care doctor along with the urologist on Tuesday morning. Strict return precautions were discussed. Patient verbally agreed to plan. Patient sent home in stable condition. Case discussed in detail with my attending, . - Lab Data Result diagrams: 07/04/21 17:59 07/04/21 17:59 Lab Results 07/04/21 07/04/21 07/04/21 Range/Units 17:59 17:59 17:59 WBC 11.2 H (3.8-10.6) k/uL RBC 4.97 (4.30-5.90) m/uL Hgb 16.9 (13.0-17.5) gm/dL Hct 49.6 (39.0-53.0) % MCV 99.9 (80.0-100.0) fL MCH 34.0 (25.0-35.0) pg MCHC 34.1 (31.0-37.0) g/dL RDW 13.2 (11.5-15.5) % Plt Count 325 (150-450) k/uL MPV 6.9 Neutrophils % 53 % Lymphocytes % 36 % Monocytes % 5 % Eosinophils % 2 % Basophils % 1 % Neutrophils # 5.9 (1.3-7.7) k/uL Lymphocytes # 4.0 (1.0-4.8) k/uL Monocytes # 0.6 (0-1.0) k/uL Eosinophils # 0.2 (0-0.7) k/uL Basophils # 0.1 (0-0.2) k/uL PT 9.5 (9.0-12.0) sec INR 0.8 (<1.2) APTT 24.5 (22.0-30.0) sec Sodium (137-145) mmol/L Potassium (3.5-5.1) mmol/L Chloride (98-107) mmol/L Carbon Dioxide (22-30) mmol/L Anion Gap mmol/L BUN (9-20) mg/dL Creatinine (0.66-1.25) mg/dL Est GFR (CKD-EPI)AfAm (>60 ml/min/1.73 sqM) Est GFR (CKD-EPI)NonAf (>60 ml/min/1.73 sqM) Glucose (74-99) mg/dL Plasma Lactic Acid Sagar (0.7-2.0) mmol/L Calcium (8.4-10.2) mg/dL Total Bilirubin (0.2-1.3) mg/dL AST (17-59) U/L ALT (4-49) U/L Alkaline Phosphatase (38-126) U/L Total Protein (6.3-8.2) g/dL Albumin (3.5-5.0) g/dL Amylase (30-110) U/L Lipase (23-300) U/L Urine Color Colorless Urine Appearance Clear (Clear) Urine pH 6.5 (5.0-8.0) Ur Specific [place] 1.002 (1.001-1.035) Urine Protein Negative (Negative) Urine Glucose (UA) Negative (Negative) Urine Ketones Negative (Negative) Urine Blood Negative (Negative) Urine Nitrite Negative (Negative) Urine Bilirubin Negative (Negative) Urine Urobilinogen <2.0 (<2.0) mg/dL Ur Leukocyte Esterase Negative (Negative) 07/04/21 07/04/21 Range/Units 17:59 17:59 WBC (3.8-10.6) k/uL RBC (4.30-5.90) m/uL Hgb (13.0-17.5) gm/dL Hct (39.0-53.0) % MCV (80.0-100.0) fL MCH (25.0-35.0) pg MCHC (31.0-37.0) g/dL RDW (11.5-15.5) % Plt Count (150-450) k/uL MPV Neutrophils % % Lymphocytes % % Monocytes % % Eosinophils % % Basophils % % Neutrophils # (1.3-7.7) k/uL Lymphocytes # (1.0-4.8) k/uL Monocytes # (0-1.0) k/uL Eosinophils # (0-0.7) k/uL Basophils # (0-0.2) k/uL PT (9.0-12.0) sec INR (<1.2) APTT (22.0-30.0) sec Sodium 129 L (137-145) mmol/L Potassium 4.2 (3.5-5.1) mmol/L Chloride 94 L (98-107) mmol/L Carbon Dioxide 20 L (22-30) mmol/L Anion Gap 15 mmol/L BUN 4 L (9-20) mg/dL Creatinine 0.57 L (0.66-1.25) mg/dL Est GFR (CKD-EPI)AfAm >90 (>60 ml/min/1.73 sqM) Est GFR (CKD-EPI)NonAf >90 (>60 ml/min/1.73 sqM) Glucose 79 (74-99) mg/dL Plasma Lactic Acid Sagar 1.5 (0.7-2.0) mmol/L Calcium 9.3 (8.4-10.2) mg/dL Total Bilirubin 0.6 (0.2-1.3) mg/dL AST 27 (17-59) U/L ALT 23 (4-49) U/L Alkaline Phosphatase 70 (38-126) U/L Total Protein 7.5 (6.3-8.2) g/dL Albumin 5.0 (3.5-5.0) g/dL Amylase 68 (30-110) U/L Lipase 67 (23-300) U/L Urine Color Urine Appearance (Clear) Urine pH (5.0-8.0) Ur Specific [place] (1.001-1.035) Urine Protein (Negative) Urine Glucose (UA) (Negative) Urine Ketones (Negative) Urine Blood (Negative) Urine Nitrite (Negative) Urine Bilirubin (Negative) Urine Urobilinogen (<2.0) mg/dL Ur Leukocyte Esterase (Negative) Disposition Clinical Impression: Abdominal pain, Urinary retention, Enlarged prostate Disposition: HOME SELF-CARE Condition: Stable Instructions (If sedation given, give patient instructions): Urinary Retention in Men (ED), Enlarged Prostate (BPH) (ED), Abdominal Pain (ED) Additional Instructions: Please follow-up with urology on Tuesday. Follow-up with her primary care provider early next week. Return to the emergency department with any new, worsening, or concerning symptoms. Is patient prescribed a controlled substance at d/c from ED?: No Referrals: Chacha Nichols MD [Primary Care Provider] - 1-2 days James Carbajal MD [STAFF PHYSICIAN] - 1-2 days Time of Disposition: 22:03
--- NOTE | 2021-07-04 19:12 | CT ---
EXAMINATION TYPE: CT abdomen pelvis w con DATE OF EXAM: 07/04/2021 COMPARISON: None HISTORY: Right sided abdominal pain x [address] DLP: 557.1 mGycm Automated exposure control for dose reduction was used. CONTRAST: Performed with IV Contrast, patient injected with 100 mL of Isovue 300. Images obtained from the diaphragm to the floor of the pelvis with IV contrast. Lung bases are clear. There is no pleural effusion. Heart size is normal. No pericardial effusion. Liver spleen and stomach gallbladder appear intact. Bile ducts are nondilated. Pancreas appears morenita l. There is no adrenal mass. Kidneys show satisfactory contrast opacification. There is no hydronephrosi s. Delayed images show normal renal excretion. Ureters are not dilated. Bladder distends smoothly. Th ere is enlarged prostate measuring 5.7 cm with calcification. There is no inguinal hernia. No free fl uid in the pelvis. There are some sigmoid diverticula. No diverticulitis. There is no retroperitoneal adenopathy. There is no mesenteric edema. No ascites or free air. No bowel obstruction. Appendix not seen. No sig n of thickened appendix. Lumbar vertebra appear intact. No compression fracture. There is narrowing at the L4-5 disc space wit h spurring. Posterior elements are intact. No compression fracture. The bony pelvis is intact. Hip hector ints are intact. There is slight lumbar levoscoliosis. IMPRESSION: No acute abnormality of the abdomen and pelvis. I do not see a cause for right-sided pain. Appendix not seen. There are some large bowel diverticula without evidence of diverticulitis. Enlarge d prostate.
[2021-07-04 19:46] VITALS: RESP 18
[2021-07-04] MEDS ORDERED: LIDOCAINE URO-JET JELLY 2% 5 ML KIT URETHRAL ONE (20:53)
[2021-07-04 21:13] VITALS: PULSE 78
[2021-07-04 22:19] VITALS: BP 159/98
== END 2021-07-04 22:34 | disposition home or self-care (01) ==
LOC: EC 16:05
DX: N40.0 Benign prostatic hyperplasia without lower urinary tract symptoms (principal); F17.200 Nicotine dependence, unspecified, uncomplicated
CPT/HCPCS: 51798; 36415; 80053; 82150; 83605; 83690; 85025; 85610; 85730; 81003; 74177; 99284; Q9967

== ENCOUNTER 2022-01-16 13:08 | Emergency (ER) | payer OTHER, MEDICARE ==
[2022-01-16 13:19] VITALS: PULSE 68; RESP 16; TEMP 98.5
[2022-01-16] MEDS ORDERED: ACET/COD 300 MG/30 MG STARTER PACK 6 TAB BTL PO STA (13:45)
[2022-01-16] MEDS ORDERED: METOPROLOL TARTRATE 25 MG TAB PO STA (13:45)
[2022-01-16] MEDS ORDERED: PENICILLIN VK 500MG STARTER 4 TAB BTL PO STA (13:45)
--- NOTE | 2022-01-16 13:51 | ED ---
General Adult HPI - General Chief complaint: Dental/Oral Stated complaint: jaw swelling Time Seen by Provider: 01/16/22 13:19 Source: patient, RN notes reviewed Mode of arrival: ambulatory Limitations: no limitations - History of Present Illness Initial comments: Patient is a pleasant 66-year-old male presenting to the emergency department with concerns for toothache and jaw swelling. Onset of symptoms was yesterday, symptoms worsen this morning. Swelling has somewhat decreased since this morning. Discomfort is left lower tooth. Patient states he is only seen a dentist a couple times previously. No fevers. No dyspnea or dysphagia. - Related Data Home Medications Medication Instructions Recorded Confirmed Ipratropium/Albuter 20-100Mcg 1 puff INHALATION RT-QID 03/28/20 07/04/21 [Combivent Respimat 20-100Mcg Inhaler] Mometasone/Formoterol [Dulera 200 1 puff INHALATION RT-BID 03/28/20 07/04/21 Mcg-5 Mcg Inhaler] Tiotropium 18 Mcg/Puff [Spiriva] 1 puff INHALATION RT-DAILY 03/28/20 07/04/21 Previous Rx's Medication Instructions Recorded Penicillin V Potassium [Pen Vee K] 500 mg PO QID #40 tablet 01/16/22 Allergies Allergy/AdvReac Type Severity Reaction Status Date / Time No Known Allergies Allergy Verified 07/04/21 19:30 Review of Systems ROS Statement: Those systems with pertinent positive or pertinent negative responses have been documented in the HPI. ROS Other: All systems not noted in ROS Statement are negative. Constitutional: Denies: fever Eyes: Denies: eye pain ENT: Reports: as per HPI, dental pain. Denies: ear pain, throat pain Respiratory: Denies: dyspnea Cardiovascular: Denies: chest pain Endocrine: Denies: fatigue Gastrointestinal: Denies: abdominal pain Genitourinary: Denies: dysuria Musculoskeletal: Denies: back pain Skin: Denies: rash Neurological: Denies: weakness Past Medical History Past Medical History: COPD History of Any Multi-Drug Resistant Organisms: None Reported Past Surgical History: No Surgical Hx Reported Additional Past Surgical History / Comment(s): tubes in ears at a young age Past Anesthesia/Blood Transfusion Reactions: No Reported Reaction Past Psychological History: No Psychological Hx Reported Smoking Status: Current every day smoker Past Alcohol Use History: Daily Past Drug Use History: None Reported - Past Family History Father Additional Family Medical History / Comment(s): "his heart stopped" General Exam Limitations: no limitations General appearance: alert, in no apparent distress Head exam: Present: normocephalic Eye exam: Present: normal appearance ENT exam: Present: other (Left lower second premolar with mild lateral swelling and tenderness. No erythema. Externally there is mild left mandibular swelling.) Neck exam: Present: normal inspection. Absent: tenderness, lymphadenopathy Respiratory exam: Present: normal lung sounds bilaterally Cardiovascular Exam: Present: regular rate, normal rhythm GI/Abdominal exam: Present: soft. Absent: tenderness Extremities exam: Present: normal inspection Neurological exam: Present: alert Psychiatric exam: Present: normal affect, normal mood Skin exam: Present: normal color Course Vital Signs 01/16/22 13:16 Temperature 98.5 F Pulse Rate 68 Respiratory 16 Rate Blood Pressure 186/106 O2 Sat by Pulse 98 Oximetry Medical Decision Making - Medical Decision Making Patient advised I&D however refuses and wants to try antibiotics. Patient also advised medication and workup for hypertension. Patient also refuses this. Patient states he does have history of hypertension however was taken off his medications. Patient states he is going to have close follow-up with his primary care physician and is agreeable to this. Patient states he has old prescription at home for antihypertensives and can restart this. Disposition Clinical Impression: Dental abscess, Hypertension Disposition: HOME SELF-CARE Instructions (If sedation given, give patient instructions): Dental Abscess (ED), Hypertension (ED) Additional Instructions: Prescription sent to pharmacy. Please do follow-up with your primary care physician beginning of the week. Have primary care physician recheck blood pressure. Resume your blood pressure medication. Please do also follow-up with dentist as soon as possible. Return for increased pain, swelling, fever, difficulty breathing or swallowing, worsening symptoms or any other concerns. Prescriptions: Penicillin V Potassium [Pen Vee K] 500 mg PO QID #40 tablet Is patient prescribed a controlled substance at d/c from ED?: No Referrals: Caridad Malone DO [Primary Care Provider] - 1-2 days Time of Disposition: 13:51
[2022-01-16 14:03] VITALS: BP 140/100
== END 2022-01-16 14:08 | disposition home or self-care (01) ==
LOC: EC 13:08
DX: K04.7 Periapical abscess without sinus (principal); I10 Essential (primary) hypertension; J44.9 Chronic obstructive pulmonary disease, unspecified; F17.200 Nicotine dependence, unspecified, uncomplicated; Z79.899 Other long term (current) drug therapy; Z88.0 Allergy status to penicillin
CPT/HCPCS: 99282

== ENCOUNTER 2022-02-25 09:24 | Inpatient (IN) | payer MEDICARE, OTHER ==
[2022-02-25] MEDS ORDERED: SODIUM CHLORIDE 0.9% 1,000 ML IV STA ×4 (09:55→14:20)
[2022-02-25] MEDS ORDERED: IPRATROPIUM-ALBUTEROL 3 ML NEB INHALATION STA (09:55)
[2022-02-25] MEDS ORDERED: methylPREDNISolone SOD SUCCI 125 MG/2 ML VIAL IV STA (09:55)
[2022-02-25 10:12] LABS: Basophils # (A) 0.1 k/uL (0-0.2); Basophils % (A) 1 %; Eosinophils % (A) 0 %; HCT 47.7 % (39.0-53.0); HGB 17.1 gm/dL (13.0-17.5); Lymphocytes # (A) 1.4 k/uL (1.0-4.8); Lymphocytes % (A) 11 %; MCHC 35.8 g/dL (31.0-37.0); MCV 97.8 fL (80.0-100.0); Mean Platelet Volume 7.8; Monocytes # (A) 0.4 k/uL (0-1.0); Monocytes % (A) 3 %; Neutrophils # (A) 10.9 k/uL (1.3-7.7); Neutrophils % (A) 84 %; Platelet Count 227 k/uL (150-450); RBC 4.87 m/uL (4.30-5.90); RDW 12.6 % (11.5-15.5); WBC 12.9 k/uL (3.8-10.6)
[2022-02-25 10:26] LABS: ALT 22 U/L (4-49); AST 44 U/L (17-59); African American GFR (CKD) >90 (>60 ml/min/1.73 sqM); Albumin 4.7 g/dL (3.5-5.0); Alkaline Phosphatase 66 U/L (38-126); Anion Gap 13 mmol/L; Blood Urea Nitrogen 6 mg/dL (9-20); Calcium 8.9 mg/dL (8.4-10.2); Carbon Dioxide 22 mmol/L (22-30); Chloride 86 mmol/L (98-107); Glucose 120 mg/dL (74-99); Magnesium 1.6 mg/dL (1.6-2.3); Non-African American GFR(CKD) >90 (>60 ml/min/1.73 sqM); Potassium 4.4 mmol/L (3.5-5.1); Sodium 121 mmol/L (137-145); Total Bilirubin 0.5 mg/dL (0.2-1.3); Total Protein 6.9 g/dL (6.3-8.2)
[2022-02-25 10:34] LABS: INR 0.9 (<1.2); Partial Thromboplastin Time 28.9 sec (22.0-30.0); Prothrombin Time 9.7 sec (9.0-12.0)
--- NOTE | 2022-02-25 10:48 | XR ---
EXAMINATION TYPE: XR chest 2V DATE OF EXAM: 02/25/2022 COMPARISON: 03/28/2020 TECHNIQUE: PA and lateral views submitted. HISTORY: Fever and cough FINDINGS: The lungs are clear and there is no pneumothorax, pleural effusion, or focal pneumonia. Sclerotic d ensity overlying the left humerus likely on the basis of bone island. Heart size normal. Diffuse hype rinflation. Atherosclerotic change aorta. No overt failure. IMPRESSION: 1. No acute process. Correlate for COPD.
[2022-02-25] MEDS ORDERED: HEPARIN SODIUM 1,000 UN/ML (10ML VL) IV ONE (11:28)
[2022-02-25] MEDS ORDERED: HEPARIN SODIUM 1,000 UN/ML (10ML VL) IV PRN (11:28)
--- NOTE | 2022-02-25 11:31 | ED ---
General Adult HPI - General Chief complaint: Upper Respiratory Infection Stated complaint: ALPA Time Seen by Provider: 02/25/22 09:30 Source: patient, RN notes reviewed, old records reviewed Mode of arrival: ambulatory Limitations: no limitations - History of Present Illness Initial comments: Patient is a 66-year-old male with past medical history remarkable for COPD, history of intermittent daily beer use without any history of withdrawals who presents emergency Department complaining of shortness of breath. Has been ongoing for at least 1-2 days and progressively worse. Thinks it may be related to bronchitis. No known sick contacts. Does have a mildly productive cough. Endorses subjective fevers at home as well. Denies any chest pain. Endorses shortness of breath. Denies abdominal pain, nausea, vomiting. Denies lightheadedness. States he does feel little anxious at this time. States he has been attempting to use his home breathing treatments without much success which swiped presents today for further evaluation.Denies any leg swelling, heart failure. Denies any history of blood clots. - Related Data Home Medications Medication Instructions Recorded Confirmed Albuterol Sulfate [Ventolin HFA] 2 puff INHALATION RT-QID PRN 02/25/22 02/25/22 Fluticasone/Umeclidin/Vilanter 1 puff INHALATION RT-DAILY 02/25/22 02/25/22 [Trelemonica Ellipta 200-62.5-25] Allergies Allergy/AdvReac Type Severity Reaction Status Date / Time No Known Allergies Allergy Verified 02/25/22 11:42 Review of Systems ROS Statement: Those systems with pertinent positive or pertinent negative responses have been documented in the HPI. Review of Systems: CONST: Denies fever EYES: Denies blurry vision ENT: Denies nasal congestion C/V: Denies Chest pain RESP: Endorses shortness of breath GI: Denies abdominal pain : Denies dysuria SKIN: Denies rash. MSK: Denies joint pain. NEURO: Denies headache ROS Other: All systems not noted in ROS Statement are negative. Past Medical History Past Medical History: COPD Additional Past Medical History / Comment(s): chronic bronchitis History of Any Multi-Drug Resistant Organisms: None Reported Past Surgical History: No Surgical Hx Reported Additional Past Surgical History / Comment(s): tubes in ears at a young age Past Anesthesia/Blood Transfusion Reactions: No Reported Reaction Past Psychological History: No Psychological Hx Reported Smoking Status: Current every day smoker Past Alcohol Use History: Daily Past Drug Use History: None Reported - Past Family History Father Additional Family Medical History / Comment(s): "his heart stopped" General Exam - General Exam Comments Initial Comments: General: Appears in no acute distress. HEAD: Normal with no signs of head trauma. EYES: PERRLA, EOMI, conjunctiva normal, no discharge. ENT: Hearing grossly intact, normal oropharynx. RESPIRATORY: Reduced breath sounds bilaterally, wheezing bilaterally. Mildly increased work of breathing. Pulse ox is within normal limits on 2 L nasal can nula. It is not on oxygen at home. C/V: Tachycardic with a regular rhythm.. S1 and S2 auscultated, no edema, peripheral pulses 2+ and intact throughout ABD: Abd is soft, nontender, nondistended EXT: Normal range of motion, no obvious deformity SKIN: No rashes or lesions observed on exposed skin. NEURO: Alert and oriented x 4. Cranial nerves II-XII intact. No focal sensory or strength deficits. Limitations: no limitations Course Vital Signs 02/25/22 02/25/22 02/25/22 09:27 10:14 10:23 Temperature 98.9 F Pulse Rate 132 H 120 H 122 H Respiratory 20 Rate Blood Pressure 155/109 O2 Sat by Pulse 97 Oximetry Fraction of Inspired Oxygen (FIO2) 02/25/22 02/25/22 02/25/22 11:10 11:23 11:35 Temperature Pulse Rate 147 H 126 H Respiratory 28 H 24 Rate Blood Pressure 162/104 158/94 O2 Sat by Pulse 95 98 Oximetry Fraction of 28 Inspired Oxygen (FIO2) 02/25/22 02/25/22 02/25/22 12:18 12:49 13:28 Temperature Pulse Rate 126 H 152 H Respiratory 24 Rate Blood Pressure 165/95 O2 Sat by Pulse 99 Oximetry Fraction of 35 Inspired Oxygen (FIO2) 02/25/22 02/25/22 02/25/22 13:30 13:31 14:29 Temperature 98.8 F Pulse Rate 165 H 165 H 160 H Respiratory 40 H 38 H Rate Blood Pressure 170/101 170/101 155/102 O2 Sat by Pulse 94 L 96 Oximetry Fraction of Inspired Oxygen (FIO2) 02/25/22 15:46 Temperature Pulse Rate 158 H Respiratory 38 H Rate Blood Pressure 175/107 O2 Sat by Pulse 98 Oximetry Fraction of Inspired Oxygen (FIO2) Medical Decision Making - Medical Decision Making Based on the patient's presentation and physical exam, I do believe that the patient is likely having a respiratory infectious process as well as a COPD exacerbation. Cannot rule out ACS at this time either. We will obtain broad workup including chest x-ray, d-dimer screening, EKG, cardiac infectious labs. Covid, flu, RSV will be sent and tested for. He'll be placed on BiPAP to help w ith his breathing, as well as administer IV steroids and breathing treatments. Patient was in agreement this plan. He'll be given an aspirin. Vital signs other than the sinus tachycardia are within acceptable limits. EKG shows sinus tachycardia with no signs of acute ischemia. Chest x-ray as in terpreted by me reveals no evidence of acute cardio pulmonary process. No infiltrate. Laboratory studies revealed a mild leukocytosis of 12.9. D-dimer is within normal limits. She has an elevated lactic acid of 3.3, he is hyponatremic to 121 and hypochloremic 86, and the patient has an elevated troponin of 3.42 and normal BNP. Patient is flu positive, Covid and RSV negative. Repeat EKG was obtained at this time due to the elevated troponin and it showed no dynamic changes. No suggestion of acute ischemic changes. I did update the patient at this time. Appears he is dehydrated, septic. He also has neck to COPD exacerbation. On reevaluation, patient remains tachycardic however he does appear anxious at this time and will be given a dose of Ativan. I discussed with him his workup. Due to the NSTEMi I will start him on a heparin drip. He received 2 boluses of normal saline and we will repeat basic metabolic panel to evaluate sodium at that time. He'll be sent on Tamiflu and was also started on empiric thank mice and cefepime for sepsis. Sepsis criteria was met at 11:40. Patient was started on empiric in about accept this time. Patient is already received 30 mL per KG IV fluids and was started on a maintenance drip. Lactic acid is elevated. Vital signs are relatively stable as he remains tachycardic appears acutely anxious at this time. We'll continue to monitor him. He was in agreement with this plan. Patient was in agreement with the plan for admission. I spoke with the admitting physician, Dr. Shafer who was in agreement this plan. He'll follow- up on the repeat troponin as he agrees it is likely a type II NSTEMI. Cardiology was consulted. Echo was ordered. Pulmonology was consulted. Patient was admitted in serious condition. We'll continue BiPAP, breathing treatments at this time. We will also continue IV steroids. - Lab Data Result diagrams: 02/25/22 09:58 02/25/22 09:58 Lab Results 02/25/22 02/25/22 02/25/22 Range/Units 09:58 09:58 09:58 WBC 12.9 H (3.8-10.6) k/uL RBC 4.87 (4.30-5.90) m/uL Hgb 17.1 (13.0-17.5) gm/dL Hct 47.7 (39.0-53.0) % MCV 97.8 (80.0-100.0) fL MCH 35.0 (25.0-35.0) pg MCHC 35.8 (31.0-37.0) g/dL RDW 12.6 (11.5-15.5) % Plt Count 227 (150-450) k/uL MPV 7.8 Neutrophils % 84 % Lymphocytes % 11 % Monocytes % 3 % Eosinophils % 0 % Basophils % 1 % Neutrophils # 10.9 H (1.3-7.7) k/uL Lymphocytes # 1.4 (1.0-4.8) k/uL Monocytes # 0.4 (0-1.0) k/uL Eosinophils # 0.0 (0-0.7) k/uL Basophils # 0.1 (0-0.2) k/uL PT 9.7 (9.0-12.0) sec INR 0.9 (<1.2) APTT 28.9 (22.0-30.0) sec D-Dimer 0.44 (<0.60) mg/L FEU Sodium 121 L (137-145) mmol/L Potassium 4.4 (3.5-5.1) mmol/L Chloride 86 L (98-107) mmol/L Carbon Dioxide 22 (22-30) mmol/L Anion Gap 13 mmol/L BUN 6 L (9-20) mg/dL Creatinine 0.61 L (0.66-1.25) mg/dL Est GFR (CKD-EPI)AfAm >90 (>60 ml/min/1.73 sqM) Est GFR (CKD-EPI)NonAf >90 (>60 ml/min/1.73 sqM) Glucose 120 H (74-99) mg/dL Lactic Ac Sepsis Rflx Plasma Lactic Acid Sagar (0.7-2.0) mmol/L Calcium 8.9 (8.4-10.2) mg/dL Magnesium 1.6 (1.6-2.3) mg/dL Total Bilirubin 0.5 (0.2-1.3) mg/dL AST 44 (17-59) U/L ALT 22 (4-49) U/L Alkaline Phosphatase 66 (38-126) U/L Troponin I (0.000-0.034) ng/mL NT-Pro-B Natriuret Pep pg/mL Total Protein 6.9 (6.3-8.2) g/dL Albumin 4.7 (3.5-5.0) g/dL Coronavirus (PCR) (Not Detectd) Influenza Type A RNA (Not Detectd) Influenza Type B (PCR) (Not Detectd) RSV (PCR) (Negative) 02/25/22 02/25/22 02/25/22 Range/Units 09:58 09:58 09:58 WBC (3.8-10.6) k/uL RBC (4.30-5.90) m/uL Hgb (13.0-17.5) gm/dL Hct (39.0-53.0) % MCV (80.0-100.0) fL MCH (25.0-35.0) pg MCHC (31.0-37.0) g/dL RDW (11.5-15.5) % Plt Count (150-450) k/uL MPV Neutrophils % % Lymphocytes % % Monocytes % % Eosinophils % % Basophils % % Neutrophils # (1.3-7.7) k/uL Lymphocytes # (1.0-4.8) k/uL Monocytes # (0-1.0) k/uL Eosinophils # (0-0.7) k/uL Basophils # (0-0.2) k/uL PT (9.0-12.0) sec INR (<1.2) APTT (22.0-30.0) sec D-Dimer (<0.60) mg/L FEU Sodium (137-145) mmol/L Potassium (3.5-5.1) mmol/L Chloride (98-107) mmol/L Carbon Dioxide (22-30) mmol/L Anion Gap mmol/L BUN (9-20) mg/dL Creatinine (0.66-1.25) mg/dL Est GFR (CKD-EPI)AfAm (>60 ml/min/1.73 sqM) Est GFR (CKD-EPI)NonAf (>60 ml/min/1.73 sqM) Glucose (74-99) mg/dL Lactic Ac Sepsis Rflx Plasma Lactic Acid Sagar 3.3 H* (0.7-2.0) mmol/L Calcium (8.4-10.2) mg/dL Magnesium (1.6-2.3) mg/dL Total Bilirubin (0.2-1.3) mg/dL AST (17-59) U/L ALT (4-49) U/L Alkaline Phosphatase (38-126) U/L Troponin I 3.420 H* (0.000-0.034) ng/mL NT-Pro-B Natriuret Pep 276 pg/mL Total Protein (6.3-8.2) g/dL Albumin (3.5-5.0) g/dL Coronavirus (PCR) (Not Detectd) Influenza Type A RNA (Not Detectd) Influenza Type B (PCR) (Not Detectd) RSV (PCR) (Negative) 02/25/22 02/25/22 02/25/22 Range/Units 10:15 10:15 11:02 WBC (3.8-10.6) k/uL RBC (4.30-5.90) m/uL Hgb (13.0-17.5) gm/dL Hct (39.0-53.0) % MCV (80.0-100.0) fL MCH (25.0-35.0) pg MCHC (31.0-37.0) g/dL RDW (11.5-15.5) % Plt Count (150-450) k/uL MPV Neutrophils % % Lymphocytes % % Monocytes % % Eosinophils % % Basophils % % Neutrophils # (1.3-7.7) k/uL Lymphocytes # (1.0-4.8) k/uL Monocytes # (0-1.0) k/uL Eosinophils # (0-0.7) k/uL Basophils # (0-0.2) k/uL PT (9.0-12.0) sec INR (<1.2) APTT (22.0-30.0) sec D-Dimer (<0.60) mg/L FEU Sodium (137-145) mmol/L Potassium (3.5-5.1) mmol/L Chloride (98-107) mmol/L Carbon Dioxide (22-30) mmol/L Anion Gap mmol/L BUN (9-20) mg/dL Creatinine (0.66-1.25) mg/dL Est GFR (CKD-EPI)AfAm (>60 ml/min/1.73 sqM) Est GFR (CKD-EPI)NonAf (>60 ml/min/1.73 sqM) Glucose (74-99) mg/dL Lactic Ac Sepsis Rflx Y Plasma Lactic Acid Sagar (0.7-2.0) mmol/L Calcium (8.4-10.2) mg/dL Magnesium (1.6-2.3) mg/dL Total Bilirubin (0.2-1.3) mg/dL AST (17-59) U/L ALT (4-49) U/L Alkaline Phosphatase (38-126) U/L Troponin I (0.000-0.034) ng/mL NT-Pro-B Natriuret Pep pg/mL Total Protein (6.3-8.2) g/dL Albumin (3.5-5.0) g/dL Coronavirus (PCR) Not Detected (Not Detectd) Influenza Type A RNA Detected H (Not Detectd) Influenza Type B (PCR) Not Detected (Not Detectd) RSV (PCR) Negative (Negative) - EKG Data -: EKG Interpreted by Me EKG Comments: 12-lead Electrocardiogram Interpretation Note EKG was reviewed and interpreted by myself. 12-lead ECG performed at 0926 is interpreted by me as revealing sinus tachycardia at a rate of 127 beats per minute. Amelia is normal. TN interval is 157 ms, QRS duration is 101 ms, QTc is 378 ms.. There were no ST or T wave abnormalities to suggest myocardial ischemia or injury. R wave progression across the precordium was satisfactory. By my interpretation this EKG is non-diagnostic for acute ischemia. When compared with EKG from March 2020, no significant change except for the sinus tachycardia 12-lead Electrocardiogram Interpretation Note EKG was reviewed and interpreted by myself. 12-lead ECG performed at 1120 is interpreted by me as revealing sinus tachycardia at a rate of 134 beats per minute. Amelia is normal. TN interval is 150 ms, QRS duration is 101 ms, QTc is 379 ms.. There were no ST or T wave abnormalities to suggest myocardial ischemia or injury. R wave progression across the precordium was satisfactory. By my interpretation this EKG is non-diagnostic for acute ischemia. This change when compared with EKG from earlier today. Critical Care Time Critical Care Time: Yes Total Critical Care Time: 35 Critical Care Time: Upon my evaluation, this patient had a high probability of imminent or life-threatening deterioration due to NSTEMI, sepsis, influenza infection, sinus tachycardia, noninvasive positive pressure ventilation requirements which required my direct attention, intervention, and personal management. I have personally provided 35 minutes of critical care time exclusive of time spent on separately billable procedures. Time includes review of laboratory data, radiology results, discussion with consultants, and monitoring for potential decompensation. Interventions were performed as documented in my note. Disposition Clinical Impression: NSTEMI (non-ST elevated myocardial infarction), Tachycardia, Dehydration, COPD exacerbation, Influenza, Sepsis Disposition: ADMITTED IP TO THIS HOSP Condition: Serious Time of Disposition: 11:50
[2022-02-25] MEDS ORDERED: VANCOMYCIN IV PER PHARMACY 1 EACH MISC MISCELLANE PRN (11:40)
[2022-02-25] MEDS ORDERED: VANCOMYCIN 1,250 MG in SODIUM CHLORIDE 0.9% 250 ML IVPB STA (11:42)
[2022-02-25] MEDS: HEPARIN SOD,PORK IN 0.45% NACL 25,000 UNIT in 0.45% NACL 1 250ML.BAG IV SCH (11:46)
[2022-02-25] MEDS: CEFEPIME 2 GM in SODIUM CHLORIDE 0.9% 100 ML IVPB SCH ×2 (12:18→20:05)
[2022-02-25] MEDS ORDERED: NICOTINE 21MG/24HR PATCH TRANSDERM STA (12:25)
[2022-02-25] MEDS: IPRATROPIUM-ALBUTEROL 3 ML NEB INHALATION STA ×2 (12:48→13:00)
[2022-02-25] MEDS ORDERED: ASPIRIN 325 MG TAB PO STA (12:50)
[2022-02-25] MEDS ORDERED: NALOXONE 0.4 MG/ML 1 ML VIAL IV PRN (12:57)
[2022-02-25] MEDS ORDERED: LORazepam 2 MG/ML INJ IV STA ×3 (13:07→17:38)
[2022-02-25] MEDS ORDERED: ONDANSETRON 4 MG/2 ML VIAL IVP STA (13:26)
[2022-02-25] MEDS ORDERED: KETOROLAC 15 MG/ML 1 ML VIAL IVP STA (13:35)
[2022-02-25] MEDS: OSELTAMIVIR 75 MG CAP PO SCH ×2 (15:42→20:05)
--- NOTE | 2022-02-25 15:50 | P.CNPUL ---
History of Present Illness Consult date: 02/25/22 Requesting physician: Caridad Malone Reason for consult: dyspnea, cough, COPD, hypoxemia, abnormal CXR/CT Chief complaint: Shortness of breath. History of present illness: Pulmonary consult dated 02/25/2022. 66-year-old male with history of COPD, presents to the emergency room, on February 25, at 9:30 in the morning, with complaints of shortness of breath, chest congestion, and cough. He's been feeling ill for the last 1-2 days prior to admission, and more so in the last 24 hours. The patient has a mildly productive cough. No chest pain. No abdominal pain, nausea, vomiting, or diarrhea. The patient is seen in the emergency room, room 11. The patient is short of breath, and is on BiPAP at 12/5 and 35%. He is receiving IV heparin. No IV fluids. The patient has a history of heavy tobacco use, and does have a history of COPD. Chest x-ray showed only COPD. Troponin was elevated at 3.420. He did test positive for influenza A. White count 12.9, hemoglobin 17.1, hematocrit 47.7, and platelet count was normal. Coagulation studies and d-dimer were noted. They were normal. Sodium 121, potassium 4.4, chlorides 86, CO2 22, anion gap 13, BUN 6, creatinine 0.61. Lactic acid was 3.3. Repeat was 2.1. Troponin was 3.420. N-terminal proBNP was normal. Repeat troponin was 5.390. He did test positive for influenza A. Chest x-ray showed changes only of COPD. Review of Systems REVIEW OF SYSTEMS: CONSTITUTIONAL: Weakness. NEUROLOGIC: [ Negative.] HEENT: [ Negative.] CARDIAC: Denies chest pain. PULMONARY: Shortness of breath, and mildly productive cough. GI: [Negative.] : [Negative.] RHEUMATOLOGIC: [ Negative.] IMMUNOLOGIC: [ Negative.] ENDOCRINE: [Negative. ] DERMATOLOGIC: [Negative.] Past Medical History Past Medical History: COPD Additional Past Medical History / Comment(s): chronic bronchitis History of Any Multi-Drug Resistant Organisms: None Reported Past Surgical History: No Surgical Hx Reported Additional Past Surgical History / Comment(s): tubes in ears at a young age Past Anesthesia/Blood Transfusion Reactions: No Reported Reaction Past Psychological History: No Psychological Hx Reported Smoking Status: Current every day smoker Past Alcohol Use History: Daily Past Drug Use History: None Reported - Past Family History Father Additional Family Medical History / Comment(s): "his heart stopped" Medications and Allergies Home Medications Medication Instructions Recorded Confirmed Type Albuterol Sulfate [Ventolin HFA] 2 puff INHALATION RT-QID PRN 02/25/22 02/25/22 History Fluticasone/Umeclidin/Vilanter 1 puff INHALATION RT-DAILY 02/25/22 02/25/22 History [Trelemonica Ellipta 200-62.5-25] Allergies Allergy/AdvReac Type Severity Reaction Status Date / Time No Known Allergies Allergy Verified 02/25/22 11:42 Physical Exam Osteopathic Statement: *. No significant issues noted on an osteopathic structural exam other than those noted in the History and Physical/Consult. Vitals: Vital Signs Temp Pulse Resp BP Pulse Ox FiO2 02/25/22 14:29 98.8 F 160 H 38 H 155/102 96 02/25/22 13:31 165 H 40 H 170/101 94 L 02/25/22 13:30 165 H 170/101 02/25/22 13:28 35 02/25/22 12:49 152 H 02/25/22 12:18 126 H 24 165/95 99 02/25/22 11:35 126 H 24 158/94 98 02/25/22 11:23 28 02/25/22 11:10 147 H 28 H 162/104 95 02/25/22 10:23 122 H 02/25/22 10:14 120 H 02/25/22 09:27 98.9 F 132 H 20 155/109 97 Intake and Output 02/25/22 02/25/22 02/25/22 06:59 14:59 22:59 Other: Weight 63.503 kg No acute distress, lethargic, but does arouse. Patient mildly tachypneic. R espiratory rate in the low 20s. Currently on BiPAP at 12/5 and 35%. HEENT examination is grossly unremarkable. Neck supple. Full range of motion. No adenopathy thyromegaly or neck vein distention. Cardiovascular examination reveals regular rhythm rate. S1-S2 normal. No S3 or S4. No discernible murmur noted. Heart rate 150. Lungs reveal coarse bilateral rhonchi. No wheezes. No crackles. Breath sounds equal but diminished throughout. Saturations are 96% on BiPAP. Abdomen soft bowel sounds are heard. No masses or tenderness. Extremities are intact. No cyanosis clubbing or edema. Skin is without rash or lesion. Neurologic examination is brief but nonfocal. Results - Laboratory Findings CBC and BMP: 02/25/22 09:58 12 09:58 PT/INR, D-dimer PT 9.7 sec (9.0-12.0) 02/25/22 09:58 INR 0.9 (<1.2) 02/25/22 09:58 D-Dimer 0.44 mg/L FEU (<0.60) 02/25/22 09:58 Abnormal lab findings: Abnormal Labs 02/25/22 02/25/22 02/25/22 09:58 09:58 09:58 WBC 12.9 H Neutrophils # 10.9 H Sodium 121 L Chloride 86 L BUN 6 L Creatinine 0.61 L Glucose 120 H Plasma Lactic Acid Sagar 3.3 H* Troponin I Influenza Type A RNA 02/25/22 02/25/22 02/25/22 09:58 10:15 14:30 WBC Neutrophils # Sodium Chloride BUN Creatinine Glucose Plasma Lactic Acid Sagar Troponin I 3.420 H* 5.390 H* Influenza Type A RNA Detected H 02/25/22 14:30 WBC Neutrophils # Sodium Chloride BUN Creatinine Glucose Plasma Lactic Acid Sagar 2.1 H* Troponin I Influenza Type A RNA - Diagnostic Findings Chest x-ray: image reviewed Assessment and Plan Assessment: Shortness of breath, likely secondary to COPD exacerbation, complicated by and/or triggered by influenza A, without obvious viral pneumonia. Rule out non-ST segment elevation myocardial infarction. History of COPD from chronic tobacco use. History of alcohol abuse. History of acute/subacute stroke. Plan: Plan dated 03/07/2022. The patient was started on cefepime and vancomycin. The patient was also given a dose of Solu-Medrol, and is currently on BiPAP. He was given albuterol sulfate and ipratropium bromide. I will add a pro-calcitonin level if not or ready done. The patient will be placed on Symbicort, as well as updrafts. In addition, I will continue him on some steroids. Additional recommendations and suggestions are forthcoming. If the pro-calcitonin level is normal, we will discontinue antibiotics. The patient was given Tamiflu. Time with Patient: Greater than 30
[2022-02-25] MEDS ORDERED: METOPROLOL SUCCINATE (ER) 25 MG TAB.ER.24H PO STA (15:56)
[2022-02-25] MEDS ORDERED: LABETALOL 5 MG/ML VIAL MDV IVP STA (16:00)
[2022-02-25] MEDS ORDERED: METOPROLOL TARTRATE 5 MG/5 ML VIAL IVP STA (16:09)
[2022-02-25 17:42] LABS: VBG PH 7.26 (7.31-7.41)
[2022-02-25] MEDS: SYMBICORT 160-4.5 MCG INHALER INHALATION SCH (19:44)
[2022-02-25] MEDS: methylPREDNISolone SOD SUCCI 125 MG/2 ML VIAL IV SCH ×2 (20:00→23:46)
[2022-02-25] MEDS ORDERED: METOPROLOL TARTRATE 5 MG/5 ML VIAL IVP SCH (21:00)
[2022-02-26] MEDS: VANCOMYCIN 1,250 MG in SODIUM CHLORIDE 0.9% 250 ML IVPB SCH ×3 (00:01→23:14)
[2022-02-26] MEDS: CEFEPIME 2 GM in SODIUM CHLORIDE 0.9% 100 ML IVPB SCH ×3 (03:20→21:17)
[2022-02-26] MEDS: methylPREDNISolone SOD SUCCI 125 MG/2 ML VIAL IV SCH ×4 (06:09→23:14)
[2022-02-26 06:25] LABS: Glucose,Whole Blood 123 mg/dL (70-110)
[2022-02-26] MEDS ORDERED: HEPARIN SODIUM,PORCINE 2,500 UNIT in SODIUM CHLORIDE 0.9% 250 ML IRRIGATION PRN (07:00)
[2022-02-26] MEDS ORDERED: HEPARIN SODIUM,PORCINE 10,000 UNIT in SODIUM CHLORIDE 0.9% 1,000 ML IRRIGATION PRN (07:00)
[2022-02-26] MEDS: SYMBICORT 160-4.5 MCG INHALER INHALATION SCH ×2 (07:50→20:09)
[2022-02-26] MEDS: ATORVASTATIN 80 MG TAB PO SCH (09:07)
[2022-02-26] MEDS: METOPROLOL TARTRATE 50 MG TAB PO SCH ×2 (09:07→21:17)
[2022-02-26] MEDS: ASPIRIN 81 MG PO SCH (09:07)
[2022-02-26] MEDS: OSELTAMIVIR 75 MG CAP PO SCH ×2 (09:07→21:39)
[2022-02-26] MEDS ORDERED: ALPRAZolam 0.25 MG TAB PO PRN (09:37)
[2022-02-26] MEDS ORDERED: NITROGLYCERIN SL TABS 0.4 MG TAB SUBLINGUAL PRN (09:37)
[2022-02-26] MEDS ORDERED: ASPIRIN 325 MG TAB PO STA (09:37)
[2022-02-26] MEDS ORDERED: ALPRAZolam 0.5 MG TAB PO PRN (09:37)
[2022-02-26] MEDS ORDERED: ASPIRIN 81 MG PO STA (09:46)
[2022-02-26] MEDS ORDERED: ACETAMINOPHEN TAB 325 MG TAB PO PRN (11:12)
--- NOTE | 2022-02-26 11:48 | CA ---
Transthoracic Echo Report Name: Bud Wolfe Age: 66 Gender: M : 1955 Exam Date: 02/26/2022 08:58 Exam Location: [facility] Ht (in): 65 Wt (lb): 140 Ordering Physician: Bernabe Malone MD Attending/Referring Phys: Er Nurse Ruby Allen RDCS Procedure CPT: Indications: nstemi Cardiac Hx: Technical Quality: Very technically difficult study Contrast 1: Lumason Total Dose (mL): 4 Contrast 2: Total Dose (mL): MEASUREMENTS (Male / Female) Normal Values 2D ECHO LV Diastolic Diameter PLAX 4.3 cm 4.2 - 5.9 / 3.9 - 5.3 cm LV Systolic Diameter PLAX 3.6 cm IVS Diastolic Thickness 1.2 cm 0.6 - 1.0 / 0.6 - 0.9 cm LVPW Diastolic Thickness 1.2 cm 0.6 - 1.0 / 0.6 - 0.9 cm LV Relative Wall Thickness 0.6 RV Internal Dim ED PLAX 2.6 cm LA Systolic Diameter LX 3.3 cm 3.0 - 4.0 / 2.7 - 3.8 cm M-MODE Aortic Root Diameter MM 3.0 cm LA Systolic Diameter MM 2.9 cm LA Ao Ratio MM 1.0 MV E Point Septal Separation 1.7 cm AV Cusp Separation MM 1.7 cm DOPPLER TR Peak Velocity 261.9 cm/s TR Peak Gradient 27.4 mmHg Right Ventricular Systolic Press 32.4 mmHg FINDINGS Left Ventricle Mildly increased septal wall thickness. Mildly increased left ventricular wall thickness. Left ventricular ejection fraction is estimated at 35-40 %. Anterseptal, septal hypokinesis. Right Ventricle Normal right ventricular size and function. Right ventricular systolic pressure within normal limits. Right Atrium Normal right atrial size. Left Atrium Normal left atrial size. Mitral Valve Mitral annular calcification. Mild mitral regurgitation. Aortic Valve Trileaflet aortic valve. Aortic valve sclerosis. Tricuspid Valve Structurally normal tricuspid valve. Mild tricuspid regurgitation. Pulmonic Valve Structurally normal pulmonic valve. Pericardium Echo free space anterior to the right ventricle likely represents a fat pad. Aorta Normal size aortic root and proximal ascending aorta. CONCLUSIONS Reduced LV systolic function with anterior apical and distal septal, severe hypokinesis/akinesis Left ventricular ejection fraction 35% Previewed by: Dr. Kyle Smallwood MD (Electronically Signed) Final Date: 26 February 2022 11:47
[2022-02-26 12:02] LABS: Basophils # (A) 0.1 k/uL (0-0.2); Basophils % (A) 1 %; Eosinophils # (A) 0.1 k/uL (0-0.7); Eosinophils % (A) 1 %; HCT 46.6 % (39.0-53.0); HGB 15.7 gm/dL (13.0-17.5); Lymphocytes # (A) 2.4 k/uL (1.0-4.8); Lymphocytes % (A) 19 %; MCH 34.6 pg (25.0-35.0); MCHC 33.7 g/dL (31.0-37.0); MCV 102.6 fL (80.0-100.0); Macrocytosis Slight; Monocytes # (A) 0.2 k/uL (0-1.0); Monocytes % (A) 2 %; Neutrophils # (A) 9.8 k/uL (1.3-7.7); Neutrophils % (A) 77 %; Platelet Count 201 k/uL (150-450); RBC 4.54 m/uL (4.30-5.90); WBC 12.7 k/uL (3.8-10.6)
[2022-02-26] MEDS: PANTOPRAZOLE 40 MG/10 ML VIAL IVP SCH (12:03)
--- NOTE | 2022-02-26 12:03 | P.CRDCN ---
History of Present Illness History of present illness: HISTORY OF PRESENT ILLNESS: This is a 66-year-old male with a past medical history significant for CVA, COPD, tobacco dependence, and alcohol abuse.He followed up once in the office in [address] Redman. We have been asked to see the patient in consultation for NSTEMI. Patient presented to the hospital secondary to shortness of breath and cough. Over the past 2 days his shortness of breath has worsened. He also endorsed cough, fever and chills at home. He denies any chest pain, palpitations, lightheadedness, dizziness. On admission he was found to be positive for influenza A. He was hypoxic, tachycardic, tachypnea. He also was noted to have significantly elevated troponins up to 7.9. No known history of CAD, VT. No recent cardiac workup. DIAGNOSTICS: * EKG reveals revealed sinus tachycardia, rate 127, no significant ischemic changes or ST-T wave abnormalities * Echocardiogram revealed an EF of 3540 % and tear septal and septal hypokinesis, mild mitral regurgitation, mild tricuspid regurgitation, prior echocardiogram and 2020 patient had normal EF of 5560% * Chest xray COPD * Laboratory data: Troponin 3.4, 5.3, 7.9. WBC 12.19, 17.1, platelets 227, sodium 121, potassium 4.4, BUN 6, serum creatinine 0.6, magnesium 1.6 REVIEW OF SYSTEMS: At the time of my exam: CONSTITUTIONAL: +reported fever +chills. HEENT: Denies blurred vision, vision changes, or eye pain. Denies hemoptysis CARDIOVASCULAR: Denies chest pain, orthopnea, PND or palpitations RESPIRATORY: + shortness of breath. +cough GASTROINTESTINAL: Denies abdominal pain. Denies nausea or vomiting. HEMATOLOGIC: Denies bleeding disorders. GENITOURINARY: Denies any blood in urine. SKIN: Denies pruitis. Denies rash. PHYSICAL EXAM: VITAL SIGNS: Reviewed. GENERAL: Well-developed in no acute distress. HEENT: Head is normocephalic. Pupils are equal, round. Sclerae anicteric. Mucous membranes of the mouth are moist. Neck supple. No JVD or thyromegaly LUNGS: Respirations even and unlabored. Lungs diminished to auscultation bilaterally. HEART: Regular rate and rhythm. S1 and S2 heard. Systolic murmur noted. ABDOMEN: Soft. Nondistended. Nontender. EXTREMITIES: Normal range of motion. No clubbing or cyanosis. Peripheral pulses intact. No lower extremity edema NEUROLOGIC: Awake and alert. Oriented x 3. ASSESSMENT: NSTEMI Cardiomyopathy, ischemic vs non-ischemic Shortness of breath Influenza A COPD Exacerbation History of CVA History of alcohol abuse Nicotine dependence PLAN: Recommend cardiac catheterization I have discussed the risks, benefits and alternative therapies for the above- mentioned procedure and for both sedation/analgesia as well as necessary blood product administration, if indicated, as they pertain to this patient. The patient has indicated understanding and acceptance of the risks and procedures discussed. Questions have been answered appropriately and he is agreeable to move forward with the above-stated procedure. Discontinue IV Lopressor and start metoprolol tartrate 50mg BID Continue IV heparin, aspirin, statin Start ACEI Further recommendations based on clinical course Nurse practitioner note has been reviewed by physician. Signing provider agrees with the documented findings, assessment, and plan of care. Past Medical History Past Medical History: COPD, Seizure Disorder Additional Past Medical History / Comment(s): chronic bronchitis History of Any Multi-Drug Resistant Organisms: None Reported Past Surgical History: No Surgical Hx Reported Additional Past Surgical History / Comment(s): tubes in ears at a young age Past Anesthesia/Blood Transfusion Reactions: No Reported Reaction Past Psychological History: No Psychological Hx Reported Smoking Status: Current every day smoker Past Alcohol Use History: Daily Past Drug Use History: None Reported - Past Family History Father Additional Family Medical History / Comment(s): "his heart stopped" Medications and Allergies Home Medications Medication Instructions Recorded Confirmed Type Albuterol Sulfate [Ventolin HFA] 2 puff INHALATION RT-QID PRN 02/25/22 02/25/22 History Fluticasone/Umeclidin/Vilanter 1 puff INHALATION RT-DAILY 02/25/22 02/25/22 History [Trelemonica Ellipta 200-62.5-25] Allergies Allergy/AdvReac Type Severity Reaction Status Date / Time No Known Allergies Allergy Verified 02/25/22 11:42 Physical Exam Vitals: Vital Signs Temp Pulse Pulse Resp BP BP Pulse Ox 02/26/22 04:00 98.8 F 109 H 24 140/95 97 02/26/22 00:10 28 H 100 02/26/22 00:00 97.8 F 100 30 H 114/81 99 02/25/22 21:40 101 H 26 H 121/89 99 02/25/22 20:00 97.6 F 119 H 36 H 125/95 99 02/25/22 19:42 02/25/22 17:45 124 H 34 H 109/82 98 02/25/22 16:43 128 H 113/86 02/25/22 16:17 02/25/22 16:15 97.9 F 121 H 38 H 100/68 96 02/25/22 15:46 158 H 38 H 175/107 98 02/25/22 14:29 98.8 F 160 H 38 H 155/102 96 02/25/22 13:31 165 H 40 H 170/101 94 L 02/25/22 13:30 165 H 170/101 02/25/22 13:28 02/25/22 12:49 152 H 02/25/22 12:18 126 H 24 165/95 99 02/25/22 11:35 126 H 24 158/94 98 02/25/22 11:23 02/25/22 11:10 147 H 28 H 162/104 95 02/25/22 10:23 122 H 02/25/22 10:14 120 H 02/25/22 09:27 98.9 F 132 H 20 155/109 97 FiO2 02/26/22 04:00 02/26/22 00:10 02/26/22 00:00 35 02/25/22 21:40 35 02/25/22 20:00 35 02/25/22 19:42 35 02/25/22 17:45 02/25/22 16:43 02/25/22 16:17 35 02/25/22 16:15 02/25/22 15:46 02/25/22 14:29 02/25/22 13:31 02/25/22 13:30 02/25/22 13:28 35 02/25/22 12:49 02/25/22 12:18 02/25/22 11:35 02/25/22 11:23 28 02/25/22 11:10 02/25/22 10:23 02/25/22 10:14 02/25/22 09:27 Intake and Output 02/25/22 02/26/22 02/26/22 22:59 06:59 14:59 Intake Total 49.149 Output Total 200 300 Balance -150.851 -300 Intake: Intake, IV Titration 49.149 Amount Heparin Sod,Pork in 0.45% 49.149 NaCl 25,000 unit In 0.45 % NaCl 1 250ml.bag @ 12 UNITS/KG/HR 7.62 mls/hr IV .Q24H [facility] Rx#: [id number] Output: Urine 200 300 Other: Voiding Method Urinal Urinal # Voids 1 1 Weight 63.503 kg Results 02/25/22 09:58 02/25/22 09:58 Cardiac Enzymes 02/25/22 02/25/22 02/25/22 Range/Units 09:58 09:58 14:30 AST 44 (17-59) U/L Troponin I 3.420 H* 5.390 H* (0.000-0.034) ng/mL 02/25/22 Range/Units 17:17 AST (17-59) U/L Troponin I 7.970 H* (0.000-0.034) ng/mL Coagulation 02/25/22 02/25/22 02/25/22 Range/Units 09:58 17:17 23:41 PT 9.7 (9.0-12.0) sec APTT 28.9 >200.0 H* 50.3 H (22.0-30.0) sec CBC 02/25/22 Range/Units 09:58 WBC 12.9 H (3.8-10.6) k/uL RBC 4.87 (4.30-5.90) m/uL Hgb 17.1 (13.0-17.5) gm/dL Hct 47.7 (39.0-53.0) % Plt Count 227 (150-450) k/uL Comprehensive Metabolic Panel 02/25/22 Range/Units 09:58 Sodium 121 L (137-145) mmol/L Potassium 4.4 (3.5-5.1) mmol/L Chloride 86 L (98-107) mmol/L Carbon Dioxide 22 (22-30) mmol/L BUN 6 L (9-20) mg/dL Creatinine 0.61 L (0.66-1.25) mg/dL Glucose 120 H (74-99) mg/dL Calcium 8.9 (8.4-10.2) mg/dL AST 44 (17-59) U/L ALT 22 (4-49) U/L Alkaline Phosphatase 66 (38-126) U/L Total Protein 6.9 (6.3-8.2) g/dL Albumin 4.7 (3.5-5.0) g/dL Current Medications Generic Name Dose Route Start Last Admin Trade Name Freq PRN Reason Stop Dose Admin Albuterol/Ipratropium 3 ml 02/25/22 12:42 Ipratropium-Albuterol 3 Ml Neb INHALATION RT-Q2H PRN Shortness Of Breath Or Wheezing Budesonide/Formoterol Fumarate 2 puff 02/25/22 20:00 02/25/22 19:44 Symbicort 160-4.5 Mcg Inhaler INHALATION 2 puff RT-BID [facility] Administration Heparin Sodium (Porcine) 0 unit 02/25/22 11:28 Heparin Sodium 1,000 Un/Ml (10ml Vl) IV PER PROTOCOL PRN Low PTT Protocol Heparin Sodium/Sodium Chloride 250 mls @ 7.62 mls/hr 02/25/22 11:30 02/25/22 20:17 25,000 unit/ Sodium Chloride IV 8 units/kg/hr .Q24H [facility] 5.08 mls/hr Titration Protocol 12 UNITS/KG/HR Cefepime HCl 2 gm/ Sodium 100 mls @ 25 mls/hr 02/25/22 12:00 02/26/22 03:20 Chloride IVPB 25 mls/hr Q8H [facility] Administration Protocol Vancomycin HCl 1,250 mg/ 250 mls @ 125 mls/hr 02/26/22 00:00 02/26/22 00:01 Sodium Chloride IVPB 125 mls/hr Q12H [facility] Administration Methylprednisolone Sodium Succinate 60 mg 02/25/22 18:00 02/26/22 06:09 Methylprednisolone Sod Succi 125 Mg/2 Ml Vial IV 60 mg Q6HR [facility] Administration Metoprolol Tartrate 5 mg 02/25/22 21:00 02/25/22 20:04 Metoprolol Tartrate 5 Mg/5 Ml Vial IVP 5 mg BID B[facility]T Administration Naloxone HCl 0.2 mg 02/25/22 12:57 Naloxone 0.4 Mg/Ml 1 Ml Vial IV Q2M PRN Opioid Reversal Oseltamivir Phosphate 75 mg 02/25/22 12:45 02/25/22 20:05 Oseltamivir 75 Mg Cap PO 03/01/22 21:01 75 mg Q12HR [facility] Administration Protocol Intake and Output 02/25/22 02/26/22 02/26/22 22:59 06:59 14:59 Intake Total 49.149 Output Total 200 300 Balance -150.851 -300 Intake: Intake, IV Titration 49.149 Amount Heparin Sod,Pork in 0.45% 49.149 NaCl 25,000 unit In 0.45 % NaCl 1 250ml.bag @ 12 UNITS/KG/HR 7.62 mls/hr IV .Q24H [facility] Rx#: [id number] Output: Urine 200 300 Other: Voiding Method Urinal Urinal # Voids 1 1 Weight 63.503 kg 02/25/22 09:58 02/25/22 09:58
[2022-02-26] MEDS: lisinopriL 5 MG TAB PO SCH (12:11)
[2022-02-26 12:12] LABS: Glucose,Whole Blood 183 mg/dL (70-110)
[2022-02-26 12:13] LABS: INR 0.9 (<1.2); Partial Thromboplastin Time 52.6 sec (22.0-30.0); Prothrombin Time 9.9 sec (9.0-12.0)
[2022-02-26 12:22] LABS: African American GFR (CKD) >90 (>60 ml/min/1.73 sqM); Anion Gap 7 mmol/L; Blood Urea Nitrogen 16 mg/dL (9-20); Calcium 8.1 mg/dL (8.4-10.2); Carbon Dioxide 19 mmol/L (22-30); Chloride 104 mmol/L (98-107); Glucose 182 mg/dL (74-99); Non-African American GFR(CKD) >90 (>60 ml/min/1.73 sqM); Potassium 4.3 mmol/L (3.5-5.1); Sodium 130 mmol/L (137-145)
[2022-02-26] MEDS: HEPARIN SOD,PORK IN 0.45% NACL 25,000 UNIT in 0.45% NACL 1 250ML.BAG IV SCH ×2 (12:52→23:14)
--- NOTE | 2022-02-26 15:09 | P.PN ---
Subjective Progress Note Date: 02/26/22 Principal diagnosis: Shortness of breath. Pulmonary consult dated 02/25/2022. 66-year-old male with history of COPD, presents to the emergency room, on February 25, at 9:30 in the morning, with complaints of shortness of breath, chest congestion, and cough. He's been feeling ill for the last 1-2 days prior to admission, and more so in the last 24 hours. The patient has a mildly productive cough. No chest pain. No abdominal pain, nausea, vomiting, or diarrhea. The patient is seen in the emergency room, room 11. The patient is short of breath, and is on BiPAP at 12/5 and 35%. He is receiving IV heparin. No IV fluids. The patient has a history of heavy tobacco use, and does have a history of COPD. Chest x-ray showed only COPD. Troponin was elevated at 3.420. He did test positive for influenza A. White count 12.9, hemoglobin 17.1, hematocrit 47.7, and platelet count was normal. Coagulation studies and d-dimer were noted. They were normal. Sodium 121, potassium 4.4, chlorides 86, CO2 22, anion gap 13, BUN 6, creatinine 0.61. Lactic acid was 3.3. Repeat was 2.1. Troponin was 3.420. N-terminal proBNP was normal. Repeat troponin was 5.390. He did test positive for influenza A. Chest x-ray showed changes only of COPD. Progress note dated 02/26/2022. 66-year-old male, seen in the emergency room yesterday in consultation. He seen today in room 369. The patient is currently on 0.9, at 100 mL an hour, IV heparin, and 2 L of nasal oxygen. The patient was admitted with a COPD exacerbation, influenza A infection, and possible non-ST segment elevation myocardial infarction. White count 12.7, hemoglobin 15.7, hematocrit 46.6, and platelet count 201,000. PT 9.9, INR 0.9, and PTT is 52.6. Sodium 130, potassium 4.3, chlorides 104, CO2 19, BUN 16, creatinine 0.56. Troponins were 3.420, 5.390, and 7.970. Objective - Vital Signs Vital signs: Vital Signs Temp 98.8 F 02/26/22 12:01 Pulse 85 02/26/22 14:07 Resp 19 02/26/22 14:07 BP 128/86 02/26/22 12:01 Pulse Ox 98 02/26/22 12:01 FiO2 35 02/26/22 00:00 Intake & Output 02/25/22 02/26/22 02/26/22 18:59 06:59 18:59 Intake Total 49.149 0 Output Total 500 300 Balance 49.149 -500 -300 Weight 63.503 kg 63.503 kg Intake: Intake, IV Titration 49.149 0 Amount Heparin Sod,Pork in 0.45% 49.149 0 NaCl 25,000 unit In 0.45 % NaCl 1 250ml.bag @ 12 UNITS/KG/HR 7.62 mls/hr IV .Q24H [facility] Rx#: [id number] Output: Urine 500 300 Other: Voiding Method Urinal Urinal # Voids 1 2 - Exam No acute distress, alert and awake, and no respiratory distress, currently on 2 L. Yesterday, he was on BiPAP. HEENT examination is grossly unremarkable. Neck supple. Full range of motion. No adenopathy thyromegaly or neck vein distention. Cardiovascular examination reveals regular rhythm rate. S1-S2 normal. No S3 or S4. No discernible murmur noted. Heart rate 85 bpm. Lungs reveal coarse bilateral rhonchi. No wheezes. No crackles. Breath sounds equal but diminished throughout. 2 L saturation is 98%. Abdomen soft bowel sounds are heard. No masses or tenderness. Extremities are intact. No cyanosis clubbing or edema. Skin is without rash or lesion. Neurologic examination is brief but nonfocal. - Labs CBC & Chem 7: 02/26/22 11:49 02/26/22 11:49 Labs: Abnormal Lab Results - Last 24 Hours (Table) 02/25/22 02/25/22 02/25/22 Range/Units 14:30 17:17 17:17 WBC (3.8-10.6) k/uL MCV (80.0-100.0) fL Neutrophils # (1.3-7.7) k/uL APTT >200.0 H* (22.0-30.0) sec VBG pH (7.31-7.41) VBG HCO3 (24-28) mmol/L Sodium (137-145) mmol/L Carbon Dioxide (22-30) mmol/L Creatinine (0.66-1.25) mg/dL Glucose (74-99) mg/dL POC Glucose (mg/dL) (70-110) mg/dL Plasma Lactic Acid Sagar (0.7-2.0) mmol/L Calcium (8.4-10.2) mg/dL Troponin I 5.390 H* 7.970 H* (0.000-0.034) ng/mL Procalcitonin (0.02-0.09) ng/mL 02/25/22 02/25/22 02/25/22 Range/Units 17:17 17:17 17:17 WBC (3.8-10.6) k/uL MCV (80.0-100.0) fL Neutrophils # (1.3-7.7) k/uL APTT (22.0-30.0) sec VBG pH 7.26 L (7.31-7.41) VBG HCO3 18 L (24-28) mmol/L Sodium (137-145) mmol/L Carbon Dioxide (22-30) mmol/L Creatinine (0.66-1.25) mg/dL Glucose (74-99) mg/dL POC Glucose (mg/dL) (70-110) mg/dL Plasma Lactic Acid Sagar 3.1 H* (0.7-2.0) mmol/L Calcium (8.4-10.2) mg/dL Troponin I (0.000-0.034) ng/mL Procalcitonin 2.10 H (0.02-0.09) ng/mL 02/25/22 02/25/22 02/26/22 Range/Units 20:37 23:41 06:22 WBC (3.8-10.6) k/uL MCV (80.0-100.0) fL Neutrophils # (1.3-7.7) k/uL APTT 50.3 H (22.0-30.0) sec VBG pH (7.31-7.41) VBG HCO3 (24-28) mmol/L Sodium (137-145) mmol/L Carbon Dioxide (22-30) mmol/L Creatinine (0.66-1.25) mg/dL Glucose (74-99) mg/dL POC Glucose (mg/dL) 123 H (70-110) mg/dL Plasma Lactic Acid Sagar 2.6 H* (0.7-2.0) mmol/L Calcium (8.4-10.2) mg/dL Troponin I (0.000-0.034) ng/mL Procalcitonin (0.02-0.09) ng/mL 02/26/22 02/26/22 02/26/22 Range/Units 11:49 11:49 11:49 WBC 12.7 H (3.8-10.6) k/uL MCV 102.6 H (80.0-100.0) fL Neutrophils # 9.8 H (1.3-7.7) k/uL APTT 52.6 H (22.0-30.0) sec VBG pH (7.31-7.41) VBG HCO3 (24-28) mmol/L Sodium 130 L (137-145) mmol/L Carbon Dioxide 19 L (22-30) mmol/L Creatinine 0.56 L (0.66-1.25) mg/dL Glucose 182 H (74-99) mg/dL POC Glucose (mg/dL) (70-110) mg/dL Plasma Lactic Acid Sagar (0.7-2.0) mmol/L Calcium 8.1 L (8.4-10.2) mg/dL Troponin I (0.000-0.034) ng/mL Procalcitonin (0.02-0.09) ng/mL 02/26/22 Range/Units 12:10 WBC (3.8-10.6) k/uL MCV (80.0-100.0) fL Neutrophils # (1.3-7.7) k/uL APTT (22.0-30.0) sec VBG pH (7.31-7.41) VBG HCO3 (24-28) mmol/L Sodium (137-145) mmol/L Carbon Dioxide (22-30) mmol/L Creatinine (0.66-1.25) mg/dL Glucose (74-99) mg/dL POC Glucose (mg/dL) 183 H (70-110) mg/dL Plasma Lactic Acid Sagar (0.7-2.0) mmol/L Calcium (8.4-10.2) mg/dL Troponin I (0.000-0.034) ng/mL Procalcitonin (0.02-0.09) ng/mL Microbiology - Last 24 Hours (Table) 02/25/22 11:45 Blood Culture - Preliminary Blood No Growth after 24 hours 02/25/22 11:30 Blood Culture - Preliminary Blood No Growth after 24 hours Assessment and Plan Assessment: Shortness of breath, likely secondary to COPD exacerbation, complicated by and/or triggered by influenza A, without obvious viral pneumonia. Rule out non-ST segment elevation myocardial infarction. History of COPD from chronic tobacco use. History of alcohol abuse. History of acute/subacute stroke. Plan: Plan dated 02/25/2022. The patient was started on cefepime and vancomycin. The patient was also given a dose of Solu-Medrol, and is currently on BiPAP. He was given albuterol sulfate and ipratropium bromide. I will add a pro-calcitonin level if not or ready done. The patient will be placed on Symbicort, as well as updrafts. In addition, I will continue him on some steroids. Additional recommendations and suggestions are forthcoming. If the pro-calcitonin level is normal, we will discontinue antibiotics. The patient was given Tamiflu. Plan dated 02/26/2022. From the pulmonary standpoint, the patient's on Symbicort, updrafts with albuterol sulfate and ipratropium bromide, and Solu-Medrol. The patient is much more stable from the pulmonary standpoint, as he's currently on 2 L, whereas yesterday, he was on BiPAP. We will continue to follow and make recommendations along the way. The patient is on Tamiflu. He has been seen by cardiology. The patient continues on IV heparin. Prognosis is guarded. Time with Patient: Less than 30
[2022-02-26] MEDS: IPRATROPIUM-ALBUTEROL 3 ML NEB INHALATION PRN ×2 (15:40→20:09)
--- NOTE | 2022-02-26 15:51 | P.HPIM ---
History of Present Illness H&P Date: 02/26/22 Chief Complaint: Worsening shortness of breath, cough This is a 66-year-old gentleman passed medical history of COPD, nicotine dependence, alcohol abuse, CVA and multiple other medical issues presented to the ER with worsening shortness of breath , productive cough and fevers over the last week. Reports he attempted NyQuil, chicken noodle soup ,Vernors and breathing treatments at home but symptoms progressed. Denies chest pain, palpitations or shortness of breath. Denies any nausea, vomiting or diarrhea. Denies any abdominal pain. On admission, tachypnic, tachycardic, hypoxic requiring BiPAP at 35%, IV fluid resuscitation. Tested positive for influenza A ,chest x-ray reporting COPD.Elevated troponins,up to 7.9 ( 3.4, 5.3, 7.9),. EKG reporting sinus tachycardia, echo pending. T-max 99.1, WBC 12.7, preliminary blood cultures no growth after 24 hours. MCV 102.6, platelets 201, d-dimer 0.44, venous gas as noted, sodium 121 on admission-with IV fluid resuscitation, improved up to 1:30 as well as lactic acid 2.6 now 1.3, potassium 4.3 bicarb 19 BUN 16, creatinine 0.56 blood sugars 120s to 180s. Magnesium 1.6, repeat level pending. Antibiotics of cefepime and vancomycin initiated. Respiratory status much improved this morning, weaned off of BiPAP and currently down to 2 L nasal cannula maintaining O2 sats in the 90s. Review of Systems ROS Statement: Those systems with pertinent positive or pertinent negative responses have been documented in the HPI. ROS Other: All systems not noted in ROS Statement are negative. Past Medical History Past Medical History: COPD, Seizure Disorder Additional Past Medical History / Comment(s): chronic bronchitis History of Any Multi-Drug Resistant Organisms: None Reported Past Surgical History: No Surgical Hx Reported Additional Past Surgical History / Comment(s): tubes in ears at a young age Past Anesthesia/Blood Transfusion Reactions: No Reported Reaction Past Psychological History: No Psychological Hx Reported Smoking Status: Current every day smoker Past Alcohol Use History: Daily Past Drug Use History: None Reported - Past Family History Father Additional Family Medical History / Comment(s): "his heart stopped" Medications and Allergies Home Medications Medication Instructions Recorded Confirmed Type Albuterol Sulfate [Ventolin HFA] 2 puff INHALATION RT-QID PRN 02/25/22 02/25/22 History Fluticasone/Umeclidin/Vilanter 1 puff INHALATION RT-DAILY 02/25/22 02/25/22 History [Yesica May 200-62.5-25] Allergies Allergy/AdvReac Type Severity Reaction Status Date / Time No Known Allergies Allergy Verified 02/25/22 11:42 Physical Exam Vitals: Vital Signs Temp Pulse Pulse Resp BP BP Pulse Ox 02/26/22 10:41 107 H 20 02/26/22 09:00 99.1 F 107 H 20 142/90 100 02/26/22 07:50 90 L 02/26/22 04:00 98.8 F 109 H 24 140/95 97 02/26/22 00:10 28 H 100 02/26/22 00:00 97.8 F 100 30 H 114/81 99 02/25/22 21:40 101 H 26 H 121/89 99 02/25/22 20:00 97.6 F 119 H 36 H 125/95 99 02/25/22 19:42 02/25/22 17:45 124 H 34 H 109/82 98 02/25/22 16:43 128 H 113/86 02/25/22 16:17 02/25/22 16:15 97.9 F 121 H 38 H 100/68 96 02/25/22 15:46 158 H 38 H 175/107 98 02/25/22 14:29 98.8 F 160 H 38 H 155/102 96 02/25/22 13:31 165 H 40 H 170/101 94 L 02/25/22 13:30 165 H 170/101 02/25/22 13:28 02/25/22 12:49 152 H 02/25/22 12:18 126 H 24 165/95 99 02/25/22 11:35 126 H 24 158/94 98 02/25/22 11:23 02/25/22 11:10 147 H 28 H 162/104 95 FiO2 02/26/22 10:41 02/26/22 09:00 02/26/22 07:50 02/26/22 04:00 02/26/22 00:10 02/26/22 00:00 35 02/25/22 21:40 35 02/25/22 20:00 35 02/25/22 19:42 35 02/25/22 17:45 02/25/22 16:43 02/25/22 16:17 35 02/25/22 16:15 02/25/22 15:46 02/25/22 14:29 02/25/22 13:31 02/25/22 13:30 02/25/22 13:28 35 02/25/22 12:49 02/25/22 12:18 02/25/22 11:35 02/25/22 11:23 28 02/25/22 11:10 Intake and Output 02/25/22 02/26/22 02/26/22 22:59 06:59 14:59 Intake Total 49.149 Output Total 200 300 Balance -150.851 -300 Intake: Intake, IV Titration 49.149 Amount Heparin Sod,Pork in 0.45% 49.149 NaCl 25,000 unit In 0.45 % NaCl 1 250ml.bag @ 12 UNITS/KG/HR 7.62 mls/hr IV .Q24H [facility] Rx#: [id number] Output: Urine 200 300 Other: Voiding Method Urinal Urinal Urinal # Voids 1 1 2 Weight 63.503 kg PHYSICAL EXAM: VITAL SIGNS: As above GENERAL: Sitting up in bed, mildly increased respiratory effort HEENT: Conjunctivae normal. eyes normal.MMM. NECK: Supple, No JVD. No thyroid enlargement. No LNs CARDIOVASCULAR: S1, S2 regular. Positive systolic murmur RESPIRATION: Breath sounds diminished in the bases. Scattered coarse rhonchi throughout. ABDOMEN: Soft, nontender . Nondistended ,No guarding. no masses palpable. No ascites, No hepatosplenomegaly.Bowel sounds heard. LEGS: No edema. no swelling PSYCHIATRY: Alert and oriented X3, mood and affect normal. NERVOUS SYSTEM: Cranial N 2-12 grossly normal. No focal deficits. Strength and sensation grossly intact. Skin: Warm and dry ,no rash Results CBC & Chem 7: 02/26/22 11:49 02/26/22 11:49 Labs: Abnormal Lab Results - Last 24 Hours (Table) 02/25/22 02/25/22 02/25/22 Range/Units 09:58 09:58 10:15 APTT (22.0-30.0) sec VBG pH (7.31-7.41) VBG HCO3 (24-28) mmol/L POC Glucose (mg/dL) (70-110) mg/dL Plasma Lactic Acid Sagar 3.3 H* (0.7-2.0) mmol/L Troponin I 3.420 H* (0.000-0.034) ng/mL Procalcitonin (0.02-0.09) ng/mL Influenza Type A RNA Detected H (Not Detectd) 02/25/22 02/25/22 02/25/22 Range/Units 14:30 14:30 17:17 APTT >200.0 H* (22.0-30.0) sec VBG pH (7.31-7.41) VBG HCO3 (24-28) mmol/L POC Glucose (mg/dL) (70-110) mg/dL Plasma Lactic Acid Sagar 2.1 H* (0.7-2.0) mmol/L Troponin I 5.390 H* (0.000-0.034) ng/mL Procalcitonin (0.02-0.09) ng/mL Influenza Type A RNA (Not Detectd) 02/25/22 02/25/22 02/25/22 Range/Units 17:17 17:17 17:17 APTT (22.0-30.0) sec VBG pH 7.26 L (7.31-7.41) VBG HCO3 18 L (24-28) mmol/L POC Glucose (mg/dL) (70-110) mg/dL Plasma Lactic Acid Sagar (0.7-2.0) mmol/L Troponin I 7.970 H* (0.000-0.034) ng/mL Procalcitonin 2.10 H (0.02-0.09) ng/mL Influenza Type A RNA (Not Detectd) 02/25/22 02/25/22 02/25/22 Range/Units 17:17 20:37 23:41 APTT 50.3 H (22.0-30.0) sec VBG pH (7.31-7.41) VBG HCO3 (24-28) mmol/L POC Glucose (mg/dL) (70-110) mg/dL Plasma Lactic Acid Sagar 3.1 H* 2.6 H* (0.7-2.0) mmol/L Troponin I (0.000-0.034) ng/mL Procalcitonin (0.02-0.09) ng/mL Influenza Type A RNA (Not Detectd) 02/26/22 Range/Units 06:22 APTT (22.0-30.0) sec VBG pH (7.31-7.41) VBG HCO3 (24-28) mmol/L POC Glucose (mg/dL) 123 H (70-110) mg/dL Plasma Lactic Acid Sagar (0.7-2.0) mmol/L Troponin I (0.000-0.034) ng/mL Procalcitonin (0.02-0.09) ng/mL Influenza Type A RNA (Not Detectd) Thrombosis Risk Factor Assmnt - Choose All That Apply Each Risk Factor Represents 2 Points: Age 61-74 years Thrombosis Risk Factor Assessment Total Risk Factor Score: 2 Thrombosis Risk Factor Assessment Level: Low Risk Assessment and Plan Assessment: Acute hypoxic respiratory failure secondary to acute COPD exacerbation related to acute influenza A Sepsis secondary to the above Elevated troponins, NSTEMI Cardiomyopathy, type unclear, EF decreased 35% from normal LV function. Dehydrated Nicotine dependence Alcohol abuse History of CVA Plan: Continue on current medication regime ,monitoring and symptomatic treatment. Continue on Tamiflu .Aggressive pulmonary toileting with nebulized bronchodilators, Symbicort, IV steroids, IV antibiotics of vancomycin, cefepime. Close monitoring of renal function with repeat labs ordered for a.m. Evaluated by cardiology, echo reporting reduced LV systolic function with anterior apical and distal septal, severe hypokinesis/akinesis, EF 35%,recommending cardiac catheterization. Anticoagulated on IV heparin drip, continues on beta charly, JOSE inhibitor, aspirin and statin. Smoking cessation and alcohol abstinence reinforced. Prognosis guarded given multiple complex medical issues. The impression and plan of care has been dictated as directed. : I performed a history and examination of this patient, discussed the same with the dictator. I agree with the dictator's note ,documented as a scribe. Any additional findings or plans will be noted.
[2022-02-26] MEDS ORDERED: DEXTROSE 50% SYRINGE 50 ML IVP PRN ×2 (16:50)
[2022-02-26 16:52] LABS: Glucose,Whole Blood 153 mg/dL (70-110)
[2022-02-26] MEDS: INSULIN ASPART (NovoLOG) 100 UNIT/ML VIAL SQ SCH ×2 (17:41→21:17)
[2022-02-26] MEDS: NICOTINE 21MG/24HR PATCH TRANSDERM SCH (18:47)
[2022-02-26 20:22] LABS: Glucose,Whole Blood 152 mg/dL (70-110)
[2022-02-26] MEDS: SODIUM CHLORIDE 0.9% 1,000 ML in EMPTY BAG 1 BAG IV SCH (21:16)
[2022-02-27] MEDS: SODIUM CHLORIDE 0.9% 1,000 ML in EMPTY BAG 1 BAG IV SCH ×2 (00:12→17:04)
[2022-02-27] MEDS: CEFEPIME 2 GM in SODIUM CHLORIDE 0.9% 100 ML IVPB SCH ×3 (03:23→20:42)
--- NOTE | 2022-02-27 06:00 | P.PN ---
Subjective Progress Note Date: 02/27/22 Principal diagnosis: Non-ST elevation KS This is a 66-year-old gentleman who was admitted to the hospital with increasing shortness of breath. He was diagnosed with influenza. We consulted to see the patient because of abnormal troponin which was consistent with acute coronary syndrome. He underwent further investigation including an echo which revealed impaired LV function with EF between 30-35% and evidence of anterior wall hypokinesia. February [id number] The patient was seen this morning. He continues to be symptomatic into shortness of breath. No symptoms of chest pain or chest discomfort. Currently he is on aspirin and heparin. The plan is to proceed with coronary angiogram later on today in the next few hours. Objective - Vital Signs Vital signs: Vital Signs Temp 97.7 F 02/27/22 03:36 Pulse 66 02/27/22 03:36 Resp 20 02/27/22 03:36 BP 152/94 02/27/22 03:36 Pulse Ox 99 02/27/22 03:36 FiO2 35 02/26/22 00:00 Intake & Output 02/26/22 02/26/22 02/27/22 06:59 18:59 06:59 Intake Total 0 376.906 Output Total 500 300 700 Balance -500 -300 -323.094 Weight 63.503 kg Intake: Intake, IV Titration 0 136.906 Amount Heparin Sod,Pork in 0.45% 0 136.906 NaCl 25,000 unit In 0.45 % NaCl 1 250ml.bag @ 12 UNITS/KG/HR 7.62 mls/hr IV .Q24H [facility] Rx#: [id number] Oral 240 Output: Urine 500 300 700 Other: Voiding Method Urinal Urinal Urinal # Voids 1 2 1 - Constitutional General appearance: Present: no acute distress - Respiratory Respiratory: bilateral: diminished - Cardiovascular Rhythm: regular - Labs CBC & Chem 7: 02/26/22 11:49 02/26/22 11:49 Labs: Abnormal Lab Results - Last 24 Hours (Table) 02/26/22 02/26/22 02/26/22 Range/Units 06:22 11:49 11:49 WBC 12.7 H (3.8-10.6) k/uL MCV 102.6 H (80.0-100.0) fL Neutrophils # 9.8 H (1.3-7.7) k/uL APTT (22.0-30.0) sec Sodium 130 L (137-145) mmol/L Carbon Dioxide 19 L (22-30) mmol/L Creatinine 0.56 L (0.66-1.25) mg/dL Glucose 182 H (74-99) mg/dL POC Glucose (mg/dL) 123 H (70-110) mg/dL Calcium 8.1 L (8.4-10.2) mg/dL 02/26/22 02/26/22 02/26/22 Range/Units 11:49 12:10 16:50 WBC (3.8-10.6) k/uL MCV (80.0-100.0) fL Neutrophils # (1.3-7.7) k/uL APTT 52.6 H (22.0-30.0) sec Sodium (137-145) mmol/L Carbon Dioxide (22-30) mmol/L Creatinine (0.66-1.25) mg/dL Glucose (74-99) mg/dL POC Glucose (mg/dL) 183 H 153 H (70-110) mg/dL Calcium (8.4-10.2) mg/dL 02/26/22 Range/Units 20:21 WBC (3.8-10.6) k/uL MCV (80.0-100.0) fL Neutrophils # (1.3-7.7) k/uL APTT (22.0-30.0) sec Sodium (137-145) mmol/L Carbon Dioxide (22-30) mmol/L Creatinine (0.66-1.25) mg/dL Glucose (74-99) mg/dL POC Glucose (mg/dL) 152 H (70-110) mg/dL Calcium (8.4-10.2) mg/dL Microbiology - Last 24 Hours (Table) 02/25/22 11:45 Blood Culture - Preliminary Blood No Growth after 24 hours 02/25/22 11:30 Blood Culture - Preliminary Blood No Growth after 24 hours Assessment and Plan Assessment: Assessment Acute non-ST elevation myocardial infarction Shortness of breath Influenza A Multiple comorbid conditions None Continue the current medical regimen Proceed with coronary angiogram Further recommendation to follow that
[2022-02-27] MEDS: methylPREDNISolone SOD SUCCI 125 MG/2 ML VIAL IV SCH ×4 (06:08→23:43)
[2022-02-27] MEDS: OSELTAMIVIR 75 MG CAP PO SCH ×2 (06:08→20:42)
[2022-02-27] MEDS: ASPIRIN 81 MG PO SCH (06:08)
[2022-02-27] MEDS: NICOTINE 21MG/24HR PATCH TRANSDERM SCH (06:08)
[2022-02-27] MEDS: lisinopriL 5 MG TAB PO SCH (06:08)
[2022-02-27] MEDS: METOPROLOL TARTRATE 50 MG TAB PO SCH ×2 (06:08→20:42)
[2022-02-27] MEDS: PANTOPRAZOLE 40 MG/10 ML VIAL IVP SCH (06:08)
[2022-02-27] MEDS: ATORVASTATIN 80 MG TAB PO SCH (06:08)
[2022-02-27 06:16] LABS: Glucose,Whole Blood 142 mg/dL (70-110)
[2022-02-27] MEDS: INSULIN ASPART (NovoLOG) 100 UNIT/ML VIAL SQ SCH ×4 (06:16→20:42)
[2022-02-27] MEDS: IPRATROPIUM-ALBUTEROL 3 ML NEB INHALATION PRN ×4 (08:41→20:17)
[2022-02-27] MEDS: SYMBICORT 160-4.5 MCG INHALER INHALATION SCH ×2 (08:41→20:18)
[2022-02-27] MEDS ORDERED: VERAPAMIL 2.5 MG/ML 2 ML AMP ONE (09:36)
[2022-02-27] MEDS ORDERED: IV FLUID CONTINUATION 1,000 ML IV ONE (10:00)
[2022-02-27 10:01] LABS: Basophils % (A) 0 %; Eosinophils % (A) 0 %; HCT 41.4 % (39.0-53.0); HGB 14.2 gm/dL (13.0-17.5); Lymphocytes # (A) 2.2 k/uL (1.0-4.8); Lymphocytes % (A) 19 %; MCH 34.3 pg (25.0-35.0); MCHC 34.4 g/dL (31.0-37.0); MCV 99.8 fL (80.0-100.0); Mean Platelet Volume 8.3; Monocytes # (A) 0.5 k/uL (0-1.0); Monocytes % (A) 5 %; Neutrophils # (A) 8.4 k/uL (1.3-7.7); Neutrophils % (A) 75 %; Platelet Count 186 k/uL (150-450); RBC 4.14 m/uL (4.30-5.90); RDW 13.3 % (11.5-15.5); WBC 11.3 k/uL (3.8-10.6)
[2022-02-27] MEDS ORDERED: HEPARIN SODIUM 1,000 UN/ML (10ML VL) ONE (10:09)
[2022-02-27] MEDS ORDERED: MIDAZOLAM 2 MG/2 ML VIAL IV ONE ×2 (10:14→10:22)
[2022-02-27] MEDS ORDERED: fentaNYL (PF) 50 MCG/ML 2 ML AMP ONE (10:15)
[2022-02-27] MEDS ORDERED: fentaNYL (PF) 50 MCG/1 ML VIAL IV ONE (10:15)
[2022-02-27] MEDS ORDERED: LIDOCAINE 1% INJ 10MG/ML (5 ML VIAL-PF) SQ ONE (10:16)
[2022-02-27] MEDS ORDERED: VERAPAMIL SYRINGE (5 MG/10 ML) INTRAARTER ONE (10:17)
[2022-02-27 10:27] LABS: African American GFR (CKD) >90 (>60 ml/min/1.73 sqM); Anion Gap 6 mmol/L; Blood Urea Nitrogen 16 mg/dL (9-20); Calcium 8.4 mg/dL (8.4-10.2); Carbon Dioxide 24 mmol/L (22-30); Chloride 103 mmol/L (98-107); Glucose 127 mg/dL (74-99); Non-African American GFR(CKD) >90 (>60 ml/min/1.73 sqM); Potassium 4.1 mmol/L (3.5-5.1); Sodium 133 mmol/L (137-145)
[2022-02-27] MEDS ORDERED: HEPARIN SODIUM 1,000 UN/ML (10ML VL) IV ONE (10:35)
[2022-02-27] MEDS ORDERED: IOPAMIDOL-370 100ML BTL INJ ONE (10:36)
[2022-02-27] MEDS ORDERED: RX INFO: IV CONTRAST WAS GIVEN 1 EACH MISC MISCELLANE PRN (10:38)
--- NOTE | 2022-02-27 10:44 | P.PCN ---
Date of Procedure: 02/27/22 Operative Findings: CARDIAC CATHETERIZATION PERFORMING PHYSICIAN: Fox Gusman MD, RPVI PROCEDURE PERFORMED: 1. Selective right and left coronary angiogram 2. Left heart catheterization 3. Right radial angiogram INDICATION: Acute non-ST elevation myocardial infarction COMPLICATION: None APPROACH: Right radial artery LEVEL OF SEDATION: Moderate with a sedation length of 20 minutes PROCEDURE DESCRIPTION: After obtaining an informed consent, the patient was brought to cardiac laborer wharf. Local anesthesia was performed using lidocaine subcutaneously. The right radial artery was cannulated using Seldinger technique, the guidewire passed easily, following that we advanced a 5-[place] sheath dilator assembly, the wire and dilator were removed and sheath was flushed. Following that, 2 mg of verapamil. Selective right and left coronary angiogram using a 6-[place] JR4 and JL 3.5 catheters. Following that we did left heart catheterization using 6-[place] pigtail catheter. The procedure was completed there was no complication. SELECTIVE CORONARY ANGIOGRAM: The right coronary artery: Medium caliber vessel ansa dominant vessel. The mid RCA has a focal lesion by the bifurcation of the acute marginal branch appeared to be in the range of 50- 60%. Left main: Is angiographically normal. Bifurcates into a LCx and LAD. The left main short The left circumflex: Large caliber vessel and nondominant vessel. The LCx appears to have mild disease only. It gives rises into an OM1 which is a large caliber vessel seems to be angiographically normal and 0.2 which works as PDA and also appears to be angiographically normal The left anterior descending artery: Large-caliber vessel. The LAD appears to be angiographically normal. Gives rises into a large septal patient intake representative branch. HEMODYNAMICS: The LVEDP was about 20 mmHg was no significant gradient across aortic valve CONCLUSION: 1. Intermediate lesion involving the mid RCA appears to be in the range of 50%. 2. Elevated left-sided filling pressure. The LVEDP was 20 mmHg POSTPROCEDURE MANAGEMENT: The patient had an echo showed wall motion abnormalities in the anterior/septal territories. The lesion was identified on the heart catheterization was in the RCA territory. Giving that I feel that the RCA lesion is a bystander lesion and beside that the lesion is only intermediate and seems to be stable and not thrombotic lesion. With that being said I advised conservative medical approach including aggressive cholesterol control and risk factors modification and follow-up with the patient. Beside that maximize medical treatment for cardiomyopathy.
[2022-02-27] MEDS ORDERED: SODIUM CHLORIDE 0.9% 1,000 ML IV SCH (10:45)
[2022-02-27] MEDS: VANCOMYCIN 1,250 MG in SODIUM CHLORIDE 0.9% 250 ML IVPB SCH ×2 (11:42→23:44)
[2022-02-27 11:57] LABS: Glucose,Whole Blood 140 mg/dL (70-110)
--- NOTE | 2022-02-27 13:19 | P.PN ---
Subjective Progress Note Date: 02/27/22 Principal diagnosis: Shortness of breath. Pulmonary consult dated 02/25/2022. 66-year-old male with history of COPD, presents to the emergency room, on February 25, at 9:30 in the morning, with complaints of shortness of breath, chest congestion, and cough. He's been feeling ill for the last 1-2 days prior to admission, and more so in the last 24 hours. The patient has a mildly productive cough. No chest pain. No abdominal pain, nausea, vomiting, or diarrhea. The patient is seen in the emergency room, room 11. The patient is short of breath, and is on BiPAP at 12/5 and 35%. He is receiving IV heparin. No IV fluids. The patient has a history of heavy tobacco use, and does have a history of COPD. Chest x-ray showed only COPD. Troponin was elevated at 3.420. He did test positive for influenza A. White count 12.9, hemoglobin 17.1, hematocrit 47.7, and platelet count was normal. Coagulation studies and d-dimer were noted. They were normal. Sodium 121, potassium 4.4, chlorides 86, CO2 22, anion gap 13, BUN 6, creatinine 0.61. Lactic acid was 3.3. Repeat was 2.1. Troponin was 3.420. N-terminal proBNP was normal. Repeat troponin was 5.390. He did test positive for influenza A. Chest x-ray showed changes only of COPD. Progress note dated 02/26/2022. 66-year-old male, seen in the emergency room yesterday in consultation. He seen today in room 369. The patient is currently on 0.9, at 100 mL an hour, IV heparin, and 2 L of nasal oxygen. The patient was admitted with a COPD exacerbation, influenza A infection, and possible non-ST segment elevation myocardial infarction. White count 12.7, hemoglobin 15.7, hematocrit 46.6, and platelet count 201,000. PT 9.9, INR 0.9, and PTT is 52.6. Sodium 130, potassium 4.3, chlorides 104, CO2 19, BUN 16, creatinine 0.56. Troponins were 3.420, 5.390, and 7.970. Progress note dated 02/27/2022. 66-year-old male seen in the emergency room 2 days ago. He seen in room 369 today. He had a cardiac catheterization today which showed a 50% lesion in his mid RCA. There was no intervention. Currently, the patient is on 2 L of oxygen. He is getting saline at 75 mL an hour. The patient did test positive for influenza A. White count 11.3, he will 14.2, hematocrit 41.4, platelet count 286,000. PTT was 44.8. Sodium 133, potassium 4.1, chlorides 103, CO2 24, BUN 16, creatinine 0.58. Calcium is 8.4. Objective - Vital Signs Vital signs: Vital Signs Temp 97.7 F 02/27/22 03:36 Pulse 82 02/27/22 12:23 Resp 18 02/27/22 12:23 BP 135/84 02/27/22 12:23 Pulse Ox 97 02/27/22 12:23 FiO2 35 02/26/22 00:00 Intake & Output 02/26/22 02/27/22 02/27/22 18:59 06:59 18:59 Intake Total 376.906 100 Output Total 300 700 Balance -300 -323.094 100 Intake: IV 100 Intake, IV Titration 136.906 Amount Heparin Sod,Pork in 0.45% 136.906 NaCl 25,000 unit In 0.45 % NaCl 1 250ml.bag @ 12 UNITS/KG/HR 7.62 mls/hr IV .Q24H [facility] Rx#: [id number] Oral 240 Output: Urine 300 700 Other: Voiding Method Urinal Urinal Urinal # Voids 2 1 - Exam No acute distress, alert and awake, and no respiratory distress, currently on 2 L. Yesterday, he was on BiPAP. HEENT examination is grossly unremarkable. Neck supple. Full range of motion. No adenopathy thyromegaly or neck vein distention. Cardiovascular examination reveals regular rhythm rate. S1-S2 normal. No S3 or S4. No discernible murmur noted. Heart rate 80 bpm. Lungs reveal coarse bilateral rhonchi. No wheezes. No crackles. Breath sounds equal but diminished throughout. 2 L saturation is 97 %. Abdomen soft bowel sounds are heard. No masses or tenderness. Extremities are intact. No cyanosis clubbing or edema. Skin is without rash or lesion. Neurologic examination is brief but nonfocal. - Labs CBC & Chem 7: 02/27/22 09:04 02/27/22 09:04 Labs: Abnormal Lab Results - Last 24 Hours (Table) 02/26/22 02/26/22 02/26/22 Range/Units 11:49 16:50 20:21 WBC (3.8-10.6) k/uL RBC (4.30-5.90) m/uL Neutrophils # 9.8 H (1.3-7.7) k/uL APTT (22.0-30.0) sec Sodium (137-145) mmol/L Creatinine (0.66-1.25) mg/dL Glucose (74-99) mg/dL POC Glucose (mg/dL) 153 H 152 H (70-110) mg/dL 02/27/22 02/27/22 02/27/22 Range/Units 06:14 09:04 09:04 WBC 11.3 H (3.8-10.6) k/uL RBC 4.14 L (4.30-5.90) m/uL Neutrophils # 8.4 H (1.3-7.7) k/uL APTT (22.0-30.0) sec Sodium 133 L (137-145) mmol/L Creatinine 0.58 L (0.66-1.25) mg/dL Glucose 127 H (74-99) mg/dL POC Glucose (mg/dL) 142 H (70-110) mg/dL 02/27/22 02/27/22 Range/Units 09:04 11:55 WBC (3.8-10.6) k/uL RBC (4.30-5.90) m/uL Neutrophils # (1.3-7.7) k/uL APTT 44.8 H (22.0-30.0) sec Sodium (137-145) mmol/L Creatinine (0.66-1.25) mg/dL Glucose (74-99) mg/dL POC Glucose (mg/dL) 140 H (70-110) mg/dL Microbiology - Last 24 Hours (Table) 02/25/22 11:45 Blood Culture - Preliminary Blood No Growth after 24 hours 02/25/22 11:30 Blood Culture - Preliminary Blood No Growth after 24 hours Assessment and Plan Assessment: Shortness of breath, likely secondary to COPD exacerbation, complicated by and/or triggered by influenza A, without obvious viral pneumonia. Rule out non-ST segment elevation myocardial infarction. Cardiac catheterization revealing a 50% lesion in the mid RCA, without intervention on catheterization. History of COPD from chronic tobacco use. History of alcohol abuse. History of acute/subacute stroke. Plan: Plan dated 02/25/2022. The patient was started on cefepime and vancomycin. The patient was also given a dose of Solu-Medrol, and is currently on BiPAP. He was given albuterol sulfate and ipratropium bromide. I will add a pro-calcitonin level if not or ready done. The patient will be placed on Symbicort, as well as updrafts. In addition, I will continue him on some steroids. Additional recommendations and suggestions are forthcoming. If the pro-calcitonin level is normal, we will discontinue antibiotics. The patient was given Tamiflu. Plan dated 02/26/2022. From the pulmonary standpoint, the patient's on Symbicort, updrafts with albuterol sulfate and ipratropium bromide, and Solu-Medrol. The patient is much more stable from the pulmonary standpoint, as he's currently on 2 L, whereas yesterday, he was on BiPAP. We will continue to follow and make recommendations along the way. The patient is on Tamiflu. He has been seen by cardiology. The patient continues on IV heparin. Prognosis is guarded. Plan dated 02/27/2022. The patient's getting appropriate treatment for his pulmonary status. Cardiac catheterization revealed a mid RCA lesion, 50%. There is no intervention. The patient is currently on Tamiflu for his influenza A. We will continue to follow make recommendations were appropriate. Labs, x-rays, medications are reviewed. Prognosis is guarded. Time with Patient: Less than 30
[2022-02-27 16:46] LABS: Glucose,Whole Blood 228 mg/dL (70-110)
[2022-02-27 17:05] LABS: Chol/HDL Ratio 2.54 Ratio; LDL Cholesterol,Calculated 55.5 mg/dL (0.0-131.0)
[2022-02-27 20:27] LABS: Glucose,Whole Blood 227 mg/dL (70-110)
[2022-02-28] MEDS: CEFEPIME 2 GM in SODIUM CHLORIDE 0.9% 100 ML IVPB SCH ×3 (03:29→21:20)
[2022-02-28 05:56] LABS: African American GFR (CKD) >90 (>60 ml/min/1.73 sqM); Non-African American GFR(CKD) >90 (>60 ml/min/1.73 sqM)
[2022-02-28 06:09] LABS: Glucose,Whole Blood 155 mg/dL (70-110)
--- NOTE | 2022-02-28 06:17 | P.PN ---
Subjective Progress Note Date: 02/28/22 Principal diagnosis: Non-ST elevation NV This is a 66-year-old gentleman who was admitted to the hospital with increasing shortness of breath. He was diagnosed with influenza. We consulted to see the patient because of abnormal troponin which was consistent with acute coronary syndrome. He underwent further investigation including an echo which revealed impaired LV function with EF between 30-35% and evidence of anterior wall hypokinesia. February [id number] The patient was seen this morning. He continues to be symptomatic into shortness of breath. No symptoms of chest pain or chest discomfort. Currently he is on aspirin and heparin. The plan is to proceed with coronary angiogram later on today in the next few hours. February [id number] The patient was seen and evaluated this morning. He states he is feeling better. The shortness of breath has improved. No symptoms of chest pain or chest discomfort and no dizziness or lightheadedness and no feeling of heart racing or fluttering or presyncope or syncope. He underwent coronary angiogram yesterday and that showed intermediate lesion involving the mid right coronary artery was mild disease involving the left coronary system. Maximize medical treatment was advised. He continues to be hypertensive. I'm going to increase the dose of lisinopril and add Aldactone to the current medical regimen for b nakia blood pressure control and also for the cardiomyopathy. Potential discharge in the next 24 hours. 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 Objective - Vital Signs Vital signs: Vital Signs Temp 97.7 F 02/28/22 03:56 Pulse 70 02/28/22 03:56 Resp 16 02/28/22 03:56 BP 164/95 02/28/22 03:56 Pulse Ox 97 02/28/22 03:56 FiO2 35 02/26/22 00:00 Intake & Output 02/27/22 02/27/22 02/28/22 06:59 18:59 06:59 Intake Total 376.287 783 6823 Output Total 700 350 500 Balance -323.094 -250 580 Intake: IV 100 Intake, IV Titration 136.906 Amount Heparin Sod,Pork in 0.45% 136.906 NaCl 25,000 unit In 0.45 % NaCl 1 250ml.bag @ 12 UNITS/KG/HR 7.62 mls/hr IV .Q24H [facility] Rx#: [id number] Oral 240 1080 Output: Urine 700 350 500 Other: Voiding Method Urinal Urinal Urinal # Voids 1 1 1 - Constitutional General appearance: Present: no acute distress - Respiratory Respiratory: bilateral: CTA - Cardiovascular Rhythm: regular Heart sounds: normal: S1, S2 Abnormal Heart Sounds: Present: systolic murmur - Labs CBC & Chem 7: 02/27/22 09:04 02/28/22 03:49 Labs: Abnormal Lab Results - Last 24 Hours (Table) 02/27/22 02/27/22 02/27/22 Range/Units 06:14 09:04 09:04 WBC 11.3 H (3.8-10.6) k/uL RBC 4.14 L (4.30-5.90) m/uL Neutrophils # 8.4 H (1.3-7.7) k/uL APTT (22.0-30.0) sec Sodium 133 L (137-145) mmol/L Creatinine 0.58 L (0.66-1.25) mg/dL Glucose 127 H (74-99) mg/dL POC Glucose (mg/dL) 142 H (70-110) mg/dL 02/27/22 02/27/22 02/27/22 Range/Units 09:04 11:55 16:44 WBC (3.8-10.6) k/uL RBC (4.30-5.90) m/uL Neutrophils # (1.3-7.7) k/uL APTT 44.8 H (22.0-30.0) sec Sodium (137-145) mmol/L Creatinine (0.66-1.25) mg/dL Glucose (74-99) mg/dL POC Glucose (mg/dL) 140 H 228 H (70-110) mg/dL 02/27/22 02/28/22 Range/Units 20:25 06:08 WBC (3.8-10.6) k/uL RBC (4.30-5.90) m/uL Neutrophils # (1.3-7.7) k/uL APTT (22.0-30.0) sec Sodium (137-145) mmol/L Creatinine (0.66-1.25) mg/dL Glucose (74-99) mg/dL POC Glucose (mg/dL) 227 H 155 H (70-110) mg/dL Microbiology - Last 24 Hours (Table) 02/25/22 11:45 Blood Culture - Preliminary Blood No Growth after 48 hours 02/25/22 11:30 Blood Culture - Preliminary Blood No Growth after 48 hours Assessment and Plan Assessment: Assessment Acute non-ST elevation myocardial infarction Shortness of breath Influenza A Intermediate CAD involving the mid RCA Stress-induced cardiomyopathy None Continue the current medical regimen Increase the dose of lisinopril Add Aldactone to the current medical regimen Possible discharge in the next 24 hour
[2022-02-28] MEDS: methylPREDNISolone SOD SUCCI 125 MG/2 ML VIAL IV SCH ×3 (06:27→16:58)
[2022-02-28] MEDS: INSULIN ASPART (NovoLOG) 100 UNIT/ML VIAL SQ SCH ×4 (06:27→21:17)
[2022-02-28] MEDS: SYMBICORT 160-4.5 MCG INHALER INHALATION SCH ×2 (07:41→19:13)
[2022-02-28] MEDS: IPRATROPIUM-ALBUTEROL 3 ML NEB INHALATION PRN ×4 (07:41→19:13)
[2022-02-28] MEDS: SPIRONOLACTONE 25 MG TAB PO SCH (09:03)
[2022-02-28] MEDS: OSELTAMIVIR 75 MG CAP PO SCH ×2 (09:03→21:19)
[2022-02-28] MEDS: METOPROLOL TARTRATE 50 MG TAB PO SCH ×2 (09:03→21:20)
[2022-02-28] MEDS: ATORVASTATIN 80 MG TAB PO SCH (09:03)
[2022-02-28] MEDS: PANTOPRAZOLE 40 MG/10 ML VIAL IVP SCH (09:04)
[2022-02-28] MEDS: lisinopriL 10 MG TAB PO SCH (09:04)
[2022-02-28] MEDS: ASPIRIN 81 MG PO SCH (09:04)
[2022-02-28] MEDS: NICOTINE 21MG/24HR PATCH TRANSDERM SCH (09:04)
--- NOTE | 2022-02-28 11:58 | P.PN ---
Subjective Progress Note Date: 02/28/22 Principal diagnosis: Shortness of breath. Pulmonary consult dated 02/25/2022. 66-year-old male with history of COPD, presents to the emergency room, on February 25, at 9:30 in the morning, with complaints of shortness of breath, chest congestion, and cough. He's been feeling ill for the last 1-2 days prior to admission, and more so in the last 24 hours. The patient has a mildly productive cough. No chest pain. No abdominal pain, nausea, vomiting, or diarrhea. The patient is seen in the emergency room, room 11. The patient is short of breath, and is on BiPAP at 12/5 and 35%. He is receiving IV heparin. No IV fluids. The patient has a history of heavy tobacco use, and does have a history of COPD. Chest x-ray showed only COPD. Troponin was elevated at 3.420. He did test positive for influenza A. White count 12.9, hemoglobin 17.1, hematocrit 47.7, and platelet count was normal. Coagulation studies and d-dimer were noted. They were normal. Sodium 121, potassium 4.4, chlorides 86, CO2 22, anion gap 13, BUN 6, creatinine 0.61. Lactic acid was 3.3. Repeat was 2.1. Troponin was 3.420. N-terminal proBNP was normal. Repeat troponin was 5.390. He did test positive for influenza A. Chest x-ray showed changes only of COPD. Progress note dated 02/26/2022. 66-year-old male, seen in the emergency room yesterday in consultation. He seen today in room 369. The patient is currently on 0.9, at 100 mL an hour, IV heparin, and 2 L of nasal oxygen. The patient was admitted with a COPD exacerbation, influenza A infection, and possible non-ST segment elevation myocardial infarction. White count 12.7, hemoglobin 15.7, hematocrit 46.6, and platelet count 201,000. PT 9.9, INR 0.9, and PTT is 52.6. Sodium 130, potassium 4.3, chlorides 104, CO2 19, BUN 16, creatinine 0.56. Troponins were 3.420, 5.390, and 7.970. Progress note dated 02/27/2022. 66-year-old male seen in the emergency room 2 days ago. He seen in room 369 today. He had a cardiac catheterization today which showed a 50% lesion in his mid RCA. There was no intervention. Currently, the patient is on 2 L of oxygen. He is getting saline at 75 mL an hour. The patient did test positive for influenza A. White count 11.3, he will 14.2, hematocrit 41.4, platelet count 286,000. PTT was 44.8. Sodium 133, potassium 4.1, chlorides 103, CO2 24, BUN 16, creatinine 0.58. Calcium is 8.4. Progress note dated 02/28/2022. 66-year-old male seen in the emergency room, 3 days ago. He is seen today in room 369. The patient had a cardiac catheterization which showed a 50% lesion in the mid RCA. There is no intervention. Currently, he is resting comfortably. He's on no supplemental oxygen. Saturations are 92%. He did test positive for influenza A. Labs today include a creatinine of 0.67. Glucose was 155. Blood cultures are negative. Objective - Vital Signs Vital signs: Vital Signs Temp 98.1 F 02/28/22 09:01 Pulse 80 02/28/22 11:37 Resp 18 02/28/22 10:31 BP 174/93 02/28/22 09:01 Pulse Ox 92 L 02/28/22 09:01 FiO2 35 02/26/22 00:00 Intake & Output 02/27/22 02/28/22 02/28/22 18:59 06:59 18:59 Intake Total 100 1080 450 Output Total 350 900 Balance -250 180 450 Intake: IV 100 Oral 1080 450 Output: Urine 350 900 Other: Voiding Method Urinal Urinal Urinal # Voids 1 1 - Exam No acute distress, alert and awake, and no respiratory distress, currently on room air. HEENT examination is grossly unremarkable. Neck supple. Full range of motion. No adenopathy thyromegaly or neck vein distention. Cardiovascular examination reveals regular rhythm rate. S1-S2 normal. No S3 or S4. No discernible murmur noted. Heart rate 80 bpm. Lungs reveal coarse bilateral rhonchi. No wheezes. No crackles. Breath sounds equal but diminished throughout. Room air saturation is 92%. Abdomen soft bowel sounds are heard. No masses or tenderness. Extremities are intact. No cyanosis clubbing or edema. Skin is without rash or lesion. Neurologic examination is brief but nonfocal. - Labs CBC & Chem 7: 02/27/22 09:04 02/28/22 03:49 Labs: Abnormal Lab Results - Last 24 Hours (Table) 02/27/22 02/27/22 02/27/22 Range/Units 11:55 16:44 20:25 POC Glucose (mg/dL) 140 H 228 H 227 H (70-110) mg/dL 02/28/22 Range/Units 06:08 POC Glucose (mg/dL) 155 H (70-110) mg/dL Microbiology - Last 24 Hours (Table) 02/25/22 11:45 Blood Culture - Preliminary Blood No Growth after 48 hours 02/25/22 11:30 Blood Culture - Preliminary Blood No Growth after 48 hours Assessment and Plan Assessment: Shortness of breath, likely secondary to COPD exacerbation, complicated by and/or triggered by influenza A, without obvious viral pneumonia. Rule out non-ST segment elevation myocardial infarction. Cardiac catheterization revealing a 50% lesion in the mid RCA, without intervention on catheterization. History of COPD from chronic tobacco use. History of alcohol abuse. History of acute/subacute stroke. Plan: Plan dated 02/25/2022. The patient was started on cefepime and vancomycin. The patient was also given a dose of Solu-Medrol, and is currently on BiPAP. He was given albuterol sulfate and ipratropium bromide. I will add a pro-calcitonin level if not or ready done. The patient will be placed on Symbicort, as well as updrafts. In addition, I will continue him on some steroids. Additional recommendations and suggestions are forthcoming. If the pro-calcitonin level is normal, we will discontinue antibiotics. The patient was given Tamiflu. Plan dated 02/26/2022. From the pulmonary standpoint, the patient's on Symbicort, updrafts with albuterol sulfate and ipratropium bromide, and Solu-Medrol. The patient is much more stable from the pulmonary standpoint, as he's currently on 2 L, whereas yesterday, he was on BiPAP. We will continue to follow and make recommendations along the way. The patient is on Tamiflu. He has been seen by cardiology. The patient continues on IV heparin. Prognosis is guarded. Plan dated 02/27/2022. The patient's getting appropriate treatment for his pulmonary status. Cardiac catheterization revealed a mid RCA lesion, 50%. There is no intervention. The patient is currently on Tamiflu for his influenza A. We will continue to follow make recommendations were appropriate. Labs, x-rays, medications are reviewed. Prognosis is guarded. Plan dated 02/28/2022. The patient continues on Symbicort, and breathing treatments with albuterol sulfate and ipratropium bromide. The patient also continues on Solu-Medrol. In addition, the patient continues on Tamiflu. He was started on vancomycin and cefepime in the emergency room. I believe those made as could probably be discontinued. No additional recommendations are made at this time. Clinically, the patient looks well. The catheterization report was reviewed. No intervention. Time with Patient: Less than 30
[2022-02-28] MEDS: SODIUM CHLORIDE 0.9% 1,000 ML in EMPTY BAG 1 BAG IV SCH (12:03)
[2022-02-28] MEDS: VANCOMYCIN 1,250 MG in SODIUM CHLORIDE 0.9% 250 ML IVPB SCH (12:10)
[2022-02-28 12:11] LABS: Glucose,Whole Blood 148 mg/dL (70-110)
--- NOTE | 2022-02-28 12:46 | P.PN ---
Subjective Progress Note Date: 02/27/22 66-year-old gentleman passed medical history of COPD, nicotine dependence, alcohol abuse, CVA and multiple other medical issues presented to the ER with worsening shortness of breath , productive cough and fevers over the last week. Reports he attempted NyQuil, chicken noodle soup ,Vernors and breathing treatments at home but symptoms progressed. Denies chest pain, palpitations or shortness of breath. Denies any nausea, vomiting or diarrhea. Denies any abdominal pain. On admission, tachypnic, tachycardic, hypoxic requiring BiPAP at 35%, IV fluid resuscitation. Tested positive for influenza A ,chest x-ray reporting COPD.Elevated troponins,up to 7.9 ( 3.4, 5.3, 7.9),. EKG reporting sinus tachycardia, echo pending. T-max 99.1, WBC 12.7, preliminary blood cultures no growth after 24 hours. MCV 102.6, platelets 201, d-dimer 0.44, venous gas as noted, sodium 121 on admission-with IV fluid resuscitation, improved up to 1:30 as well as lactic acid 2.6 now 1.3, potassium 4.3 bicarb 19 BUN 16, creatinine 0.56 blood sugars 120s to 180s. Magnesium 1.6, repeat level pending. Antibiotics of cefepime and vancomycin initiated. Respiratory status much improved this morning, weaned off of BiPAP and currently down to 2 L nasal cannula maintaining O2 sats in the 90s. Objective - Vital Signs Vital signs: Vital Signs Temp 97.7 F 02/27/22 03:36 Pulse 80 02/27/22 12:07 Resp 18 02/27/22 11:53 BP 149/88 02/27/22 11:53 Pulse Ox 95 02/27/22 11:53 FiO2 35 02/26/22 00:00 Intake & Output 02/26/22 02/27/22 02/27/22 18:59 06:59 18:59 Intake Total 376.906 100 Output Total 300 700 Balance -300 -323.094 100 Intake: IV 100 Intake, IV Titration 136.906 Amount Heparin Sod,Pork in 0.45% 136.906 NaCl 25,000 unit In 0.45 % NaCl 1 250ml.bag @ 12 UNITS/KG/HR 7.62 mls/hr IV .Q24H [facility] Rx#: [id number] Oral 240 Output: Urine 300 700 Other: Voiding Method Urinal Urinal Urinal # Voids 2 1 - Exam GENERAL: Sitting up in bed, mildly increased respiratory effort HEENT: Conjunctivae normal. eyes normal.MMM. NECK: Supple, No JVD. No thyroid enlargement. No LNs CARDIOVASCULAR: S1, S2 regular. Positive systolic murmur RESPIRATION: Breath sounds diminished in the bases. Scattered coarse rhonchi throughout. ABDOMEN: Soft, nontender . Nondistended ,No guarding. no masses palpable. No ascites, No hepatosplenomegaly.Bowel sounds heard. LEGS: No edema. no swelling PSYCHIATRY: Alert and oriented X3, mood and affect normal. NERVOUS SYSTEM: Cranial N 2-12 grossly normal. No focal deficits. Strength and sensation grossly intact. Skin: Warm and dry ,no rash - Labs CBC & Chem 7: 02/27/22 09:04 02/28/22 03:49 Labs: Abnormal Lab Results - Last 24 Hours (Table) 02/26/22 02/26/22 02/26/22 Range/Units 11:49 11:49 11:49 WBC 12.7 H (3.8-10.6) k/uL RBC (4.30-5.90) m/uL MCV 102.6 H (80.0-100.0) fL Neutrophils # 9.8 H (1.3-7.7) k/uL APTT 52.6 H (22.0-30.0) sec Sodium 130 L (137-145) mmol/L Carbon Dioxide 19 L (22-30) mmol/L Creatinine 0.56 L (0.66-1.25) mg/dL Glucose 182 H (74-99) mg/dL POC Glucose (mg/dL) (70-110) mg/dL Calcium 8.1 L (8.4-10.2) mg/dL 02/26/22 02/26/22 02/27/22 Range/Units 16:50 20:21 06:14 WBC (3.8-10.6) k/uL RBC (4.30-5.90) m/uL MCV (80.0-100.0) fL Neutrophils # (1.3-7.7) k/uL APTT (22.0-30.0) sec Sodium (137-145) mmol/L Carbon Dioxide (22-30) mmol/L Creatinine (0.66-1.25) mg/dL Glucose (74-99) mg/dL POC Glucose (mg/dL) 153 H 152 H 142 H (70-110) mg/dL Calcium (8.4-10.2) mg/dL 02/27/22 02/27/22 02/27/22 Range/Units 09:04 09:04 09:04 WBC 11.3 H (3.8-10.6) k/uL RBC 4.14 L (4.30-5.90) m/uL MCV (80.0-100.0) fL Neutrophils # 8.4 H (1.3-7.7) k/uL APTT 44.8 H (22.0-30.0) sec Sodium 133 L (137-145) mmol/L Carbon Dioxide (22-30) mmol/L Creatinine 0.58 L (0.66-1.25) mg/dL Glucose 127 H (74-99) mg/dL POC Glucose (mg/dL) (70-110) mg/dL Calcium (8.4-10.2) mg/dL 02/27/22 Range/Units 11:55 WBC (3.8-10.6) k/uL RBC (4.30-5.90) m/uL MCV (80.0-100.0) fL Neutrophils # (1.3-7.7) k/uL APTT (22.0-30.0) sec Sodium (137-145) mmol/L Carbon Dioxide (22-30) mmol/L Creatinine (0.66-1.25) mg/dL Glucose (74-99) mg/dL POC Glucose (mg/dL) 140 H (70-110) mg/dL Calcium (8.4-10.2) mg/dL Microbiology - Last 24 Hours (Table) 02/25/22 11:45 Blood Culture - Preliminary Blood No Growth after 24 hours 02/25/22 11:30 Blood Culture - Preliminary Blood No Growth after 24 hours Assessment and Plan Assessment: Acute hypoxic respiratory failure secondary to acute COPD exacerbation related to acute influenza A Sepsis secondary to the above Elevated troponins, NSTEMI Cardiomyopathy, type unclear, EF decreased 35% from normal LV function. Dehydrated Nicotine dependence Alcohol abuse History of CVA Plan: Continue on current medication regime ,monitoring and symptomatic treatment. Continue on Tamiflu .Aggressive pulmonary toileting with nebulized bronchodilators, Symbicort, IV steroids, IV antibiotics of vancomycin, cefepime. Close monitoring of renal function with repeat labs ordered for a.m. Evaluated by cardiology, echo reporting reduced LV systolic function with anterior apical and distal septal, severe hypokinesis/akinesis, EF 35%,recommending cardiac catheterization. Anticoagulated on IV heparin drip, continues on beta charly, JOSE inhibitor, aspirin and statin. Smoking cessation and alcohol abstinence reinforced. Prognosis guarded given multiple complex medical issues.
[2022-02-28 16:41] LABS: Glucose,Whole Blood 160 mg/dL (70-110)
--- NOTE | 2022-02-28 18:07 | P.PN ---
Subjective Progress Note Date: 02/28/22 Principal diagnosis: Acute hypoxic respiratory failure secondary to acute COPD exacerbation related to acute influenza A Sepsis secondary to the above Elevated troponins, NSTEMI 66-year-old gentleman passed medical history of COPD, nicotine dependence, alcohol abuse, CVA and multiple other medical issues presented to the ER with worsening shortness of breath , productive cough and fevers over the last week. Reports he attempted NyQuil, chicken noodle soup ,Vernors and breathing treatments at home but symptoms progressed. Denies chest pain, palpitations or shortness of breath. Denies any nausea, vomiting or diarrhea. Denies any abdominal pain. On admission, tachypnic, tachycardic, hypoxic requiring BiPAP at 35%, IV fluid resuscitation. Tested positive for influenza A ,chest x-ray reporting COPD.Elevated troponins,up to 7.9 ( 3.4, 5.3, 7.9),. EKG reporting sinus tachycardia, echo pending. T-max 99.1, WBC 12.7, preliminary blood cul tures no growth after 24 hours. MCV 102.6, platelets 201, d-dimer 0.44, venous gas as noted, sodium 121 on admission-with IV fluid resuscitation, improved up to 1:30 as well as lactic acid 2.6 now 1.3, potassium 4.3 bicarb 19 BUN 16, creatinine 0.56 blood sugars 120s to 180s. Magnesium 1.6, repeat level pending. Antibiotics of cefepime and vancomycin initiated. Respiratory status much improved this morning, weaned off of BiPAP and currently down to 2 L nasal cannula maintaining O2 sats in the 90s. 02/28/2022 Patient is seen and evaluated in room at bedside The patient had a cardiac catheterization which showed a 50% lesion in the mid RCA. There is no intervention. Currently, he is resting comfortably. He's on no supplemental oxygen. Saturations are 92%. He did test positive for influenza A. Labs today include a creatinine of 0.67. Glucose was 155. Blood cultures are negative. patient continues on Symbicort, and breathing treatments with albuterol sulfate and ipratropium bromide. The patient also continues on Solu-Medrol. In addition, the patient continues on Tamiflu. He underwent coronary angiogram yesterday and that showed intermediate lesion involving the mid right coronary artery was mild disease involving the left coronary system. Maximize medical treatment was advised. He continues to be hypertensive. I'm going to increase the dose of lisinopril and add Aldactone to the current medical regimen for better blood pressure control and also for the cardiomyopathy. Potential discharge in the next 24 hours. 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 Objective - Vital Signs Vital signs: Vital Signs Temp 98.1 F 02/28/22 09:01 Pulse 81 02/28/22 12:09 Resp 18 02/28/22 12:09 BP 167/97 02/28/22 12:09 Pulse Ox 94 L 02/28/22 12:09 FiO2 35 02/26/22 00:00 Intake & Output 02/27/22 02/28/22 02/28/22 18:59 06:59 18:59 Intake Total 100 1080 450 Output Total 350 900 Balance -250 180 450 Intake: IV 100 Oral 1080 450 Output: Urine 350 900 Other: Voiding Method Urinal Urinal Urinal # Voids 1 1 - Exam GENERAL: Sitting up in bed, mildly increased respiratory effort HEENT: Conjunctivae normal. eyes normal.MMM. NECK: Supple, No JVD. No thyroid enlargement. No LNs CARDIOVASCULAR: S1, S2 regular. Positive systolic murmur RESPIRATION: Breath sounds diminished in the bases. Scattered coarse rhonchi throughout. ABDOMEN: Soft, nontender . Nondistended ,No guarding. no masses palpable. No ascites, No hepatosplenomegaly.Bowel sounds heard. LEGS: No edema. no swelling PSYCHIATRY: Alert and oriented X3, mood and affect normal. NERVOUS SYSTEM: Cranial N 2-12 grossly normal. No focal deficits. Strength and sensation grossly intact. Skin: Warm and dry ,no rash - Labs CBC & Chem 7: 02/27/22 09:04 02/28/22 03:49 Labs: Abnormal Lab Results - Last 24 Hours (Table) 02/27/22 02/27/22 02/28/22 Range/Units 16:44 20:25 06:08 POC Glucose (mg/dL) 228 H 227 H 155 H (70-110) mg/dL 02/28/22 Range/Units 12:00 POC Glucose (mg/dL) 148 H (70-110) mg/dL Microbiology - Last 24 Hours (Table) 02/25/22 11:45 Blood Culture - Preliminary Blood No Growth after 48 hours 02/25/22 11:30 Blood Culture - Preliminary Blood No Growth after 48 hours Assessment and Plan Assessment: Acute hypoxic respiratory failure secondary to acute COPD exacerbation related to acute influenza A Sepsis secondary to the above Elevated troponins, NSTEMI Cardiomyopathy, type unclear, EF decreased 35% from normal LV function. Dehydrated Nicotine dependence Alcohol abuse History of CVA Plan: Continue on current medication regime ,monitoring and symptomatic treatment. Continue on Tamiflu .Aggressive pulmonary toileting with nebulized bronchodilators, Symbicort, IV steroids, IV antibiotics of vancomycin, cefepime. Close monitoring of renal function with repeat labs ordered for a.m. Evaluated by cardiology, echo reporting reduced LV systolic function with anterior apical and distal septal, severe hypokinesis/akinesis, EF 35%,recommending cardiac catheterization. Anticoagulated on IV heparin drip, continues on beta charly, JOSE inhibitor, aspirin and statin. Smoking cessation and alcohol abstinence reinforced. Prognosis guarded given multiple complex medical issues.
[2022-02-28 19:54] LABS: Glucose,Whole Blood 182 mg/dL (70-110)
[2022-03-01] MEDS: methylPREDNISolone SOD SUCCI 125 MG/2 ML VIAL IV SCH ×3 (01:28→12:43)
[2022-03-01] MEDS: VANCOMYCIN 1,250 MG in SODIUM CHLORIDE 0.9% 250 ML IVPB SCH ×2 (01:28→12:09)
[2022-03-01] MEDS: SODIUM CHLORIDE 0.9% 1,000 ML in EMPTY BAG 1 BAG IV SCH ×2 (01:28→17:04)
[2022-03-01] MEDS: CEFEPIME 2 GM in SODIUM CHLORIDE 0.9% 100 ML IVPB SCH ×2 (05:41→12:08)
[2022-03-01 06:33] LABS: Glucose,Whole Blood 163 mg/dL (70-110)
[2022-03-01] MEDS: INSULIN ASPART (NovoLOG) 100 UNIT/ML VIAL SQ SCH ×4 (06:44→21:28)
[2022-03-01 08:01] LABS: Basophils % (A) 0 %; Eosinophils % (A) 0 %; HCT 39.6 % (39.0-53.0); HGB 14.2 gm/dL (13.0-17.5); Lymphocytes % (A) 30 %; MCH 35.1 pg (25.0-35.0); MCHC 35.9 g/dL (31.0-37.0); MCV 97.8 fL (80.0-100.0); Mean Platelet Volume 9.1; Monocytes # (A) 0.7 k/uL (0-1.0); Monocytes % (A) 7 %; Neutrophils % (A) 60 %; Platelet Count 183 k/uL (150-450); RBC 4.05 m/uL (4.30-5.90); RDW 13.5 % (11.5-15.5); WBC 10.1 k/uL (3.8-10.6)
[2022-03-01 08:24] LABS: African American GFR (CKD) >90 (>60 ml/min/1.73 sqM); Anion Gap 5 mmol/L; Blood Urea Nitrogen 15 mg/dL (9-20); Calcium 7.9 mg/dL (8.4-10.2); Carbon Dioxide 29 mmol/L (22-30); Chloride 97 mmol/L (98-107); Glucose 151 mg/dL (74-99); Non-African American GFR(CKD) >90 (>60 ml/min/1.73 sqM); Potassium 2.8 mmol/L (3.5-5.1); Sodium 131 mmol/L (137-145)
[2022-03-01] MEDS: ATORVASTATIN 80 MG TAB PO SCH (08:24)
[2022-03-01] MEDS: SPIRONOLACTONE 25 MG TAB PO SCH (08:24)
[2022-03-01] MEDS: OSELTAMIVIR 75 MG CAP PO SCH ×2 (08:24→21:34)
[2022-03-01] MEDS: METOPROLOL TARTRATE 50 MG TAB PO SCH ×2 (08:24→21:35)
[2022-03-01] MEDS: lisinopriL 10 MG TAB PO SCH ×2 (08:24→21:35)
[2022-03-01] MEDS: ASPIRIN 81 MG PO SCH (08:25)
[2022-03-01] MEDS: PANTOPRAZOLE 40 MG/10 ML VIAL IVP SCH (08:25)
[2022-03-01] MEDS: NICOTINE 21MG/24HR PATCH TRANSDERM SCH (08:25)
[2022-03-01] MEDS: SYMBICORT 160-4.5 MCG INHALER INHALATION SCH ×2 (08:29→19:05)
[2022-03-01] MEDS: IPRATROPIUM-ALBUTEROL 3 ML NEB INHALATION PRN ×4 (08:29→19:05)
[2022-03-01] MEDS ORDERED: POTASSIUM CHLORIDE ER 20 MEQ TAB.ER PO STA (10:29)
[2022-03-01 11:41] LABS: Glucose,Whole Blood 130 mg/dL (70-110)
[2022-03-01] MEDS ORDERED: Potassium Replacement Protocol 1 EACH MISC MISCELLANE PRN ×2 (12:54→16:27)
[2022-03-01] MEDS ORDERED: MAGNESIUM SULFATE-D5W PMX 1 GM in DEXTROSE/WATER 1 100ML.BAG IVPB ONE (13:00)
--- NOTE | 2022-03-01 13:02 | P.PN ---
Subjective Progress Note Date: 03/01/22 C6-year-old gentleman who was admitted to the hospital with increasing shortness of breath. He was diagnosed with influenza. And was noted to have abnormal troponins consistent with acute coronary syndrome. Echocardiogram revealed impaired LV function with EF between 30-35% and evidence of anterior wall hypokinesia. He subsequently underwent coronary angiogram on February 27 which showed intermediate lesion involving the mid RCA with mild disease involving the left coronary system. He is overall been feeling a bit better. He is currently on aspirin 81 mg daily, atorvastatin 80 mg daily, lisinopril 10 mg daily, metoprolol 50 mg by mouth twice a day and Aldactone 25 mg by mouth daily. Labs this morning showed a potassium of 2.7 and he's been supplemented. Renal function is stable. Blood pressure remains elevated. Objective - Vital Signs Vital signs: Vital Signs Temp 98.2 F 03/01/22 08:18 Pulse 80 03/01/22 08:42 Resp 18 03/01/22 08:18 BP 168/84 03/01/22 08:18 Pulse Ox 94 L 03/01/22 08:32 FiO2 35 02/26/22 00:00 Intake & Output 02/28/22 03/01/22 03/01/22 18:59 06:59 18:59 Intake Total 912 Balance 912 Intake: Oral 912 Other: Voiding Method Urinal Urinal # Voids 3 1 2 - Exam PHYSICAL EXAMINATION: HEENT: Head is atraumatic, normocephalic. Pupils equal, round. Neck is supple. There is no elevated jugular venous pressure. HEART EXAMINATION: Heart sounds regular, S1 and S2 normal. Systolic murmur. CHEST EXAMINATION: Lungs are clear to auscultation and precussion. No chest wall tenderness is noted on palpation or with deep breathing. ABDOMEN: Soft, nontender. Bowel sounds are heard. No organomegaly noted. EXTREMITIES: 2+ peripheral pulses with no evidence of peripheral edema and no calf tenderness noted. NEUROLOGIC patient is awake, alert and oriented x3. . - Labs CBC & Chem 7: 03/01/22 07:07 03/01/22 12:02 Labs: Abnormal Lab Results - Last 24 Hours (Table) 02/28/22 02/28/22 02/28/22 Range/Units 12:00 16:30 19:52 RBC (4.30-5.90) m/uL MCH (25.0-35.0) pg Sodium (137-145) mmol/L Potassium (3.5-5.1) mmol/L Chloride (98-107) mmol/L Creatinine (0.66-1.25) mg/dL Glucose (74-99) mg/dL POC Glucose (mg/dL) 148 H 160 H 182 H (70-110) mg/dL Calcium (8.4-10.2) mg/dL 03/01/22 03/01/22 03/01/22 Range/Units 06:31 07:07 07:07 RBC 4.05 L (4.30-5.90) m/uL MCH 35.1 H (25.0-35.0) pg Sodium 131 L (137-145) mmol/L Potassium 2.8 L (3.5-5.1) mmol/L Chloride 97 L (98-107) mmol/L Creatinine 0.46 L (0.66-1.25) mg/dL Glucose 151 H (74-99) mg/dL POC Glucose (mg/dL) 163 H (70-110) mg/dL Calcium 7.9 L (8.4-10.2) mg/dL 03/01/22 03/01/22 Range/Units 08:41 11:40 RBC (4.30-5.90) m/uL MCH (25.0-35.0) pg Sodium (137-145) mmol/L Potassium 2.7 L* (3.5-5.1) mmol/L Chloride (98-107) mmol/L Creatinine (0.66-1.25) mg/dL Glucose (74-99) mg/dL POC Glucose (mg/dL) 130 H (70-110) mg/dL Calcium (8.4-10.2) mg/dL Microbiology - Last 24 Hours (Table) 02/25/22 11:45 Blood Culture - Preliminary Blood No Growth after 72 hours 02/25/22 11:30 Blood Culture - Preliminary Blood No Growth after 72 hours Assessment and Plan Assessment: Acute non-ST elevation myocardial infarction Shortness of breath Influenza A Intermediate 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 From our standpoint patient may be discharged home he will follow-up in the office with Dr. Redman in about a week. MATCHBOOK [employer] note has been reviewed, I agree with a documented findings and plan of care. Patient was seen and examined.
--- NOTE | 2022-03-01 13:15 | P.PN ---
Subjective Progress Note Date: 03/01/22 66-year-old male with history of COPD, admission, with mildly productive cough. No chest pain. No abdominal pain, nausea, vomiting, or diarrhea. The patient is short of breath, and was on BiPAP at 12/5 and 35%. He is receiving IV heparin. No IV fluids. The patient has a history of heavy tobacco use, and does have a history of COPD. Chest x-ray showed only COPD. Troponin was elevated at 3.420. He did test positive for influenza A. Chest x-ray showed changes only of COPD. the patient improved and the patient is currently off the BiPAP and the patient is currently on room air oxygen. Cardiac catheterization was done and the patient was found to have 50% lesion in the mid RCA. No intervention was recommended. He is doing extremely well for now. Pulse ox is 94% on room air oxygen. He is currently on IV Solu-Medrol 60 mg every 6 hours. Is on DuoNeb nebulized treatments as needed, he is also on a combination of cefepime and vancomycin and this was started on the patient from emergency department. His chest x-ray at the time of admission was consistent with COPD without any acute cardiopulmonary process. His pro calcitonin level was at 2.1. The WBC count is at 10.1 with a hemoglobin of 14 and a platelet count of 183. Rest of the electrolytes are being replaced including the potassium level, BUN is a 50 with a creatinine of 0.46 and a magnesium level is at 1.7. Sodium is at 131. He has been maintained on Trelegy Ellipta on an outpatient basis in addition to albuterol rescue inhaler when necessary. Objective - Vital Signs Vital signs: Vital Signs Temp 98.2 F 03/01/22 08:18 Pulse 77 03/01/22 12:27 Resp 16 03/01/22 11:51 BP 139/84 03/01/22 11:51 Pulse Ox 94 L 03/01/22 11:51 FiO2 35 02/26/22 00:00 Intake & Output 02/28/22 03/01/22 03/01/22 18:59 06:59 18:59 Intake Total 912 Balance 912 Intake: Oral 912 Other: Voiding Method Urinal Urinal # Voids 3 1 2 - Exam No acute distress, alert and awake, and no respiratory distress, currently on room air. HEENT examination is grossly unremarkable. Neck supple. Full range of motion. No adenopathy thyromegaly or neck vein distention. Cardiovascular examination reveals regular rhythm rate. S1-S2 normal. No S3 or S4. No discernible murmur noted. Heart rate 80 bpm. Lungs reveal coarse bilateral rhonchi. No wheezes. No crackles. Breath sounds equal but diminished throughout. Room air saturation is 92%. Abdomen soft bowel sounds are heard. No masses or tenderness. Extremities are intact. No cyanosis clubbing or edema. Skin is without rash or lesion. Neurologic examination is brief but nonfocal. - Labs CBC & Chem 7: 03/01/22 07:07 03/01/22 12:02 Labs: Abnormal Lab Results - Last 24 Hours (Table) 02/28/22 02/28/22 03/01/22 Range/Units 16:30 19:52 06:31 RBC (4.30-5.90) m/uL MCH (25.0-35.0) pg Sodium (137-145) mmol/L Potassium (3.5-5.1) mmol/L Chloride (98-107) mmol/L Creatinine (0.66-1.25) mg/dL Glucose (74-99) mg/dL POC Glucose (mg/dL) 160 H 182 H 163 H (70-110) mg/dL Calcium (8.4-10.2) mg/dL 03/01/22 03/01/22 03/01/22 Range/Units 07:07 07:07 08:41 RBC 4.05 L (4.30-5.90) m/uL MCH 35.1 H (25.0-35.0) pg Sodium 131 L (137-145) mmol/L Potassium 2.8 L 2.7 L* (3.5-5.1) mmol/L Chloride 97 L (98-107) mmol/L Creatinine 0.46 L (0.66-1.25) mg/dL Glucose 151 H (74-99) mg/dL POC Glucose (mg/dL) (70-110) mg/dL Calcium 7.9 L (8.4-10.2) mg/dL 03/01/22 03/01/22 Range/Units 11:40 12:02 RBC (4.30-5.90) m/uL MCH (25.0-35.0) pg Sodium (137-145) mmol/L Potassium 3.0 L (3.5-5.1) mmol/L Chloride (98-107) mmol/L Creatinine (0.66-1.25) mg/dL Glucose (74-99) mg/dL POC Glucose (mg/dL) 130 H (70-110) mg/dL Calcium (8.4-10.2) mg/dL Microbiology - Last 24 Hours (Table) 02/25/22 11:45 Blood Culture - Preliminary Blood No Growth after 72 hours 02/25/22 11:30 Blood Culture - Preliminary Blood No Growth after 72 hours Assessment and Plan Plan: Shortness of breath, likely secondary to COPD exacerbation, complicated by and/or triggered by influenza A, without obvious viral pneumonia. Rule out non-ST segment elevation myocardial infarction. Cardiac catheterization revealing a 50% lesion in the mid RCA, without intervention on catheterization. History of COPD from chronic tobacco use. History of alcohol abuse. History of acute/subacute stroke. Plan: The patient will keep continue Tamiflu and will complete the course of Tamiflu Discontinue the IV Solu-Medrol and start the patient on prednisone burst taper The patient has Trelegy Ellipta 100 at home which she should continue Repeat pro-calcitonin level Stop all other antibiotics Possible discharge home
[2022-03-01] MEDS: predniSONE 20 MG TAB PO SCH (13:22)
[2022-03-01] MEDS: POTASSIUM CHLORIDE ER 20 MEQ TAB.ER PO SCH ×6 (13:22→22:29)
--- NOTE | 2022-03-01 16:24 | P.DS ---
Providers Date of admission: 02/25/22 12:57 Expected date of discharge: 03/01/22 Attending physician: Mathew Shafer MD Consults: 02/25/22 11:43 Consult Physician Urgent Consulting Provider: [facility] Consult Reason/Comments: nstemi Do you want consulting provider notified?: Yes 02/25/22 12:57 Consult Physician Routine Consulting Provider: Obed Hidalgo Consult Reason/Comments: copd exacerbation, pneumonia Do you want consulting provider notified?: Yes, Notify in am Primary care physician: Caridad Malone Hospital Course: Final Diagnoses: Acute hypoxic respiratory failure secondary to acute COPD exacerbation related to acute influenza A Sepsis secondary to the above Elevated troponins, Acute NSTEMI, Cardiac catheterization completed with 50% lesion in the mid RCA discovered,without intervention. Cardiomyopathy, type unclear, EF decreased 35% from normal LV function. Hypertension Dehydrated Nicotine dependence. Alcohol abuse. History of CVA Hospital course:This is a 66-year-old gentleman passed medical history of COPD, nicotine dependence, alcohol abuse, CVA and multiple other medical issues presented to the ER with worsening shortness of breath , productive cough and fevers over the last week. Reports he attempted NyQuil, chicken noodle soup ,Vern[place] and breathing treatments at home but symptoms progressed. Denies chest pain, palpitations or shortness of breath. Denies any nausea, vomiting or diarrhea. Denies any abdominal pain. On admission, tachypnic, tachycardic, hypoxic requiring BiPAP at 35%, IV fluid resuscitation. Tested positive for influenza A ,chest x-ray reporting COPD.Elevated troponins,up to 7.9 ( 3.4, 5.3, 7.9),. EKG reporting sinus tachycardia, echo pending. T-max 99.1, WBC 12.7, preliminary blood cultures no growth after 24 hours. MCV 102.6, platelets 201, d-dimer 0.44, venous gas as noted, sodium 121 on admission-with IV fluid resuscitation, improved up to 1:30 as well as lactic acid 2.6 now 1.3, potassium 4.3 bicarb 19 BUN 16, creatinine 0.56 blood sugars 120s to 180s. Magnesium 1.6, repeat level pending. Antibiotics of cefepime and vancomycin initiated. Respiratory status much improved this morning, weaned off of BiPAP and currently down to 2 L nasal cannula maintaining O2 sats in the 90s. Continues on Tamiflu .Aggressive pulmonary toileting with nebulized bronchodilators, Symbicort, IV steroids, IV antibiotics of vancomycin, cefepime. Evaluated by cardiology, echo reporting reduced LV systolic function with anterior apical and distal septal, severe hypokinesis/akinesis, EF 35% ,recommending cardiac catheterization. Cardiac catheterization completed with 50% lesion in the mid RCA discovered. No intervention was recommended. Maintained on beta charly, JOSE inhibitor, aspirin and statin. Significant clinical improvement .Smoking cessation and alcohol abstinence reinforced. Cleared by both pulmonary and cardiology for discharge. No further antibiotic therapy recommended as per pulmonary. Patient will be discharged home today in a stable condition with guarded prognosis pending supplementation of potassium and magnesium with repeat levels within normal limits. The impression and plan of care has been dictated as directed. : I performed a history and examination of this patient, discussed the same with the dictator. I agree with the dictator's note ,documented as a scribe. Any additional findings or plans will be noted. Patient Condition at Discharge: Stable Plan - Discharge Summary Discharge Rx Participant: No New Discharge Prescriptions: New Spironolactone [Aldactone] 25 mg PO DAILY #30 tab Metoprolol Tartrate [Lopressor] 50 mg PO BID #60 tab Nitroglycerin Sl Tabs [Nitrostat] 0.4 mg SUBLINGUAL Q5M PRN #100 tab PRN Reason: Chest Pain lisinopriL [Zestril] 10 mg PO BID #60 tab predniSONE 10 mg PO DIRECTED #18 tab Nicotine 21Mg/24Hr Patch [Habitrol] 1 patch TRANSDERM DAILY #30 patch Oseltamivir [Tamiflu] 75 mg PO Q12HR #2 cap Aspirin 81 mg PO DAILY #30 tab Atorvastatin [Lipitor] 80 mg PO DAILY #30 tab Continue Fluticasone/Umeclidin/Vilanter [Trelegy Ellipta 200-62.5-25] 1 puff INHALATION RT-DAILY Albuterol Sulfate [Ventolin HFA] 2 puff INHALATION RT-QID PRN PRN Reason: Shortness Of Breath Discharge Medication List Albuterol Sulfate [Ventolin HFA] 2 puff INHALATION RT-QID PRN 02/25/22 [History] Fluticasone/Umeclidin/Vilanter [Trelegy Ellipta 200-62.5-25] 1 puff INHALATION RT-DAILY 02/25/22 [History] Aspirin 81 mg PO DAILY #30 tab 03/01/22 [Rx] Atorvastatin [Lipitor] 80 mg PO DAILY #30 tab 03/01/22 [Rx] Metoprolol Tartrate [Lopressor] 50 mg PO BID #60 tab 03/01/22 [Rx] Nicotine 21Mg/24Hr Patch [Habitrol] 1 patch TRANSDERM DAILY #30 patch 03/01/22 [Rx] Nitroglycerin Sl Tabs [Nitrostat] 0.4 mg SUBLINGUAL Q5M PRN #100 tab 03/01/22 [Rx] Oseltamivir [Tamiflu] 75 mg PO Q12HR #2 cap 03/01/22 [Rx] Spironolactone [Aldactone] 25 mg PO DAILY #30 tab 03/01/22 [Rx] lisinopriL [Zestril] 10 mg PO BID #60 tab 03/01/22 [Rx] predniSONE 10 mg PO DIRECTED #18 tab 03/01/22 [Rx] Follow up Appointment(s)/Referral(s): Mathew Shafer MD [STAFF PHYSICIAN] - 1 Week Rodrigo Redman DO [STAFF PHYSICIAN] - 1 Week Activity/Diet/Wound Care/Special Instructions: Pending electrolytes supplementation and repeat levels. No further antibiotics as per airbrush artist photography/sexual assault social worker.
[2022-03-01 16:41] LABS: Glucose,Whole Blood 182 mg/dL (70-110)
[2022-03-01 20:38] LABS: Glucose,Whole Blood 183 mg/dL (70-110)
[2022-03-02] MEDS: INSULIN ASPART (NovoLOG) 100 UNIT/ML VIAL SQ SCH ×2 (06:10→12:06)
[2022-03-02 06:11] LABS: Glucose,Whole Blood 134 mg/dL (70-110)
[2022-03-02 08:07] VITALS: BP 173/96; RESP 16; TEMP 98.1
[2022-03-02] MEDS: IPRATROPIUM-ALBUTEROL 3 ML NEB INHALATION PRN ×2 (08:42→12:27)
[2022-03-02] MEDS: SYMBICORT 160-4.5 MCG INHALER INHALATION SCH (08:42)
[2022-03-02] MEDS: NICOTINE 21MG/24HR PATCH TRANSDERM SCH (09:27)
[2022-03-02] MEDS: SPIRONOLACTONE 25 MG TAB PO SCH (09:27)
[2022-03-02] MEDS: lisinopriL 10 MG TAB PO SCH (09:27)
[2022-03-02] MEDS: ASPIRIN 81 MG PO SCH (09:27)
[2022-03-02] MEDS: predniSONE 20 MG TAB PO SCH (09:27)
[2022-03-02] MEDS: METOPROLOL TARTRATE 50 MG TAB PO SCH (09:27)
[2022-03-02] MEDS: ATORVASTATIN 80 MG TAB PO SCH (09:27)
[2022-03-02] MEDS: PANTOPRAZOLE 40 MG/10 ML VIAL IVP SCH (09:27)
[2022-03-02 10:57] LABS: African American GFR (CKD) >90 (>60 ml/min/1.73 sqM); Anion Gap 6 mmol/L; Blood Urea Nitrogen 17 mg/dL (9-20); Calcium 8.5 mg/dL (8.4-10.2); Carbon Dioxide 27 mmol/L (22-30); Chloride 99 mmol/L (98-107); Glucose 142 mg/dL (74-99); Magnesium 2.1 mg/dL (1.6-2.3); Non-African American GFR(CKD) >90 (>60 ml/min/1.73 sqM); Potassium 4.1 mmol/L (3.5-5.1); Sodium 132 mmol/L (137-145)
[2022-03-02 11:34] VITALS: BMI 23.3
[2022-03-02 12:47] VITALS: PULSE 84
--- NOTE | 2022-03-02 14:49 | P.PN ---
Subjective Progress Note Date: 03/02/22 66-year-old male with history of COPD, admission, with mildly productive cough. No chest pain. No abdominal pain, nausea, vomiting, or diarrhea. The patient is short of breath, and was on BiPAP at 12/5 and 35%. He is receiving IV heparin. No IV fluids. The patient has a history of heavy tobacco use, and does have a history of COPD. Chest x-ray showed only COPD. Troponin was elevated at 3.420. He did test positive for influenza A. Chest x-ray showed changes only of COPD. the patient improved and the patient is currently off the BiPAP and the patient is currently on room air oxygen. Cardiac catheterization was done and the patient was found to have 50% lesion in the mid RCA. No intervention was recommended. He is doing extremely well for now. Pulse ox is 94% on room air oxygen. He is currently on IV Solu-Medrol 60 mg every 6 hours. Is on DuoNeb nebulized treatments as needed, he is also on a combination of cefepime and vancomycin and this was started on the patient from emergency department. His chest x-ray at the time of admission was consistent with COPD without any acute cardiopulmonary process. His pro calcitonin level was at 2.1. The WBC count is at 10.1 with a hemoglobin of 14 and a platelet count of 183. Rest of the electrolytes are being replaced including the potassium level, BUN is a 50 with a creatinine of 0.46 and a magnesium level is at 1.7. Sodium is at 131. He has been maintained on Trelegy Ellipta on an outpatient basis in addition to albuterol rescue inhaler when necessary. On 03/02/2022, the patient is no specific complaints. The patient's pro- calcitonin level has dropped. No cough. No sputum production. Shortness of breath. Considerably. No nausea or vomiting. No fever or chills. The patient will be discharged home today on Trelegy Ellipta 1 puff a day in addition to his respiratory failure and a prednisone burst taper. The patient will be also given nicotine patch. Smoking cessation counseling was already done. Antibiotics were stopped yesterday. On today's evaluation, BUN is at 70 with a creatinine of 0.5 and a sodium level is at 132. Objective - Vital Signs Vital signs: Vital Signs Temp 98.1 F 03/02/22 08:00 Pulse 84 12/13/22 12:46 Resp 16 03/02/22 08:00 BP 173/96 03/02/22 08:00 Pulse Ox 96 03/02/22 08:45 FiO2 35 02/26/22 00:00 Intake & Output 03/01/22 03/02/22 03/02/22 18:59 06:59 18:59 Intake Total 240 Balance 240 Weight 63.503 kg Intake: Oral 240 Other: Voiding Method Urinal # Voids 1 1 - Exam No acute distress, alert and awake, and no respiratory distress, currently on room air. HEENT examination is grossly unremarkable. Neck supple. Full range of motion. No adenopathy thyromegaly or neck vein distention. Cardiovascular examination reveals regular rhythm rate. S1-S2 normal. No S3 or S4. No discernible murmur noted. Heart rate 80 bpm. Lungs reveal coarse bilateral rhonchi. No wheezes. No crackles. Breath sounds equal but diminished throughout. Room air saturation is 92%. Abdomen soft bowel sounds are heard. No masses or tenderness. Extremities are intact. No cyanosis clubbing or edema. Skin is without rash or lesion. Neurologic examination is brief but nonfocal. - Labs CBC & Chem 7: 03/01/22 07:07 03/02/22 10:12 Labs: Abnormal Lab Results - Last 24 Hours (Table) 03/01/22 03/01/22 03/01/22 Range/Units 12:02 15:57 16:39 Sodium (137-145) mmol/L Potassium 2.9 L (3.5-5.1) mmol/L Creatinine (0.66-1.25) mg/dL Glucose (74-99) mg/dL POC Glucose (mg/dL) 182 H (70-110) mg/dL Procalcitonin 0.25 H (0.02-0.09) ng/mL 03/01/22 03/02/22 03/02/22 Range/Units 20:36 06:10 10:12 Sodium 132 L (137-145) mmol/L Potassium (3.5-5.1) mmol/L Creatinine 0.58 L (0.66-1.25) mg/dL Glucose 142 H (74-99) mg/dL POC Glucose (mg/dL) 183 H 134 H (70-110) mg/dL Procalcitonin (0.02-0.09) ng/mL Microbiology - Last 24 Hours (Table) 02/25/22 11:45 Blood Culture - Preliminary Blood No Growth after 120 hours 02/25/22 11:30 Blood Culture - Preliminary Blood No Growth after 120 hours Assessment and Plan Plan: Shortness of breath, likely secondary to COPD exacerbation, complicated by and/or triggered by influenza A, without obvious viral pneumonia. Clinically improved and the patient overall respiratory status is improved and shortness of breath is recovered and the patient is back to baseline Rule out non-ST segment elevation myocardial infarction. Cardiac catheterization revealing a 50% lesion in the mid RCA, without intervention on catheterization. History of COPD from chronic tobacco use. History of alcohol abuse. History of acute/subacute stroke. Plan: The patient completed a course of Tamiflu Pro calcitonin level has dropped The patient has Trelegy Ellipta 100 at home and this can be continued on outpatient basis Prednisone burst taper Albuterol rescue inhaler Possible discharge home today
--- NOTE | 2022-03-04 08:13 | CDI ---
Documentation Clarification Form Date: 03/04/22 From: Carolyn Newton Admit Date: 02/25/2022 12:57:00 PM Patient Name: Bud Wolfe Visit Number: [id number] Discharge Date: 03/02/2022 01:29:00 PM ATTENTION: The Clinical Documentation Specialists (CDI) and [facility] Coding Staff appreciate your assistance in clarifying documentation. Please respond to the clarification below the line at the bottom and electronically sign. The CDI & [facility] Coding staff will review the response and follow-up if needed. Please note: Queries are made part of the Legal Health Record. If you have any questions, please contact the author of this message via ITS. Dr. Mathew Shafer, Conflicting documentation has been found in the medical record. As attending physician, please provide clarification. ED Note state "I spoke with the admitting physician, Dr. Shafer who was in agreement this plan. He'll follow- up on the repeat troponin as he agrees it is likely a type II NSTEMI." Per your H&P "Elevated troponins, NSTEMI" Cardiology consult "NSTEMI" History/Risk Factors: Sepsis, acute hypoxia respiratory failure, AE COPD, hyponatremia, takotsubo syndrome Clinical Indicators: SOB and cough with fever at home. No chest pain. Positive for influenza A. Heart cath performed - The lesion was identified on the heart catheterization was in the RCA territory. Giving that I feel that the RCA lesion is a bystander lesion and beside that the lesion is only intermediate and seems to be stable and not thrombotic lesion. Treatment: Heparin drip Please clarify which diagnosis is most appropriate: [ ] Type II AL [ X] NSTEMI [ ] Other (please specify) [ ] Unable to determine MTDD
== END 2022-03-02 13:29 | disposition home or self-care (01) | DRG 871 ==
LOC: EC 09:24 → 3SCARD 12:57
PROVIDERS: ADMIT Family Medicine; ATTEND Family Medicine
PROC: 5A09357 Assistance with Respiratory Ventilation, Less than 24 Consecutive Hours, Continuous Positive Airway Pressure (ICD-10-PCS; 2022-02-25)
PROC: B2111ZZ Fluoroscopy of Multiple Coronary Arteries using Low Osmolar Contrast (ICD-10-PCS; principal; 2022-02-27 10:25)
PROC: 4A023N7 Measurement of Cardiac Sampling and Pressure, Left Heart, Percutaneous Approach (ICD-10-PCS; principal; 2022-02-27 10:25)
DX: A41.9 Sepsis, unspecified organism (principal); I21.4 Non-ST elevation (NSTEMI) myocardial infarction; J96.01 Acute respiratory failure with hypoxia; J44.1 Chronic obstructive pulmonary disease with (acute) exacerbation; E87.1 Hypo-osmolality and hyponatremia; I51.81 Takotsubo syndrome; Z20.822 Contact with and (suspected) exposure to COVID-19; E87.8 Other disorders of electrolyte and fluid balance, not elsewhere classified; J10.1 Influenza due to other identified influenza virus with other respiratory manifestations; I25.10 Atherosclerotic heart disease of native coronary artery without angina pectoris; E86.0 Dehydration; I10 Essential (primary) hypertension; F10.10 Alcohol abuse, uncomplicated; F17.200 Nicotine dependence, unspecified, uncomplicated; Z71.6 Tobacco abuse counseling; Z79.51 Long term (current) use of inhaled steroids; Z86.73 Personal history of transient ischemic attack (TIA), and cerebral infarction without residual deficits
CPT/HCPCS: 36415; 71046; 80048; 80053; 80061; 80202; 82565; 82803; 83605; 83735; 83880; 84132; 84145; 84484; 85025; 85379; 85610; 85730; 87040; 87502; 87634; 87635; 93005; 93306; 93458; 94640; 94660; 94760; 96361; 96365; 96366; 96368; 96375; 96376; 99291

== ENCOUNTER 2022-06-22 15:45 | Inpatient (IN) | payer MEDICARE, OTHER ==
[2022-06-22] MEDS ORDERED: FAMOTIDINE 20 MG/2 ML VIAL IV STA (16:04)
[2022-06-22] MEDS ORDERED: methylPREDNISolone SOD SUCCI 125 MG/2 ML VIAL IV STA (16:04)
[2022-06-22] MEDS ORDERED: diphenhydrAMINE 50 MG/ML 1 ML VIAL IVP STA (16:04)
--- NOTE | 2022-06-22 16:17 | ED ---
General Adult HPI - General Chief complaint: Allergic Reaction Stated complaint: Allergic reaction Time Seen by Provider: 06/22/22 15:57 Source: patient, RN notes reviewed, old records reviewed Mode of arrival: ambulatory Limitations: no limitations - History of Present Illness Initial comments: 66 yo male who presents for evaluation of lower lip swelling. Patient notices this morning when he woke. He had seen his dentist for evaluation and the dent ist did not feel this was related to dental infection. The patient is currently on lisinopril. He took this medication this morning. No tongue swelling, no difficulty breathing. No vomiting. - Related Data Home Medications Medication Instructions Recorded Confirmed Albuterol Sulfate [Ventolin HFA] 2 puff INHALATION RT-QID PRN 02/25/22 06/22/22 Fluticasone/Umeclidin/Vilanter 1 puff INHALATION RT-DAILY 02/25/22 06/22/22 [Trelegy Ellipta 200-62.5-25] Previous Rx's Medication Instructions Recorded Aspirin 81 mg PO DAILY #30 tab 03/01/22 Atorvastatin [Lipitor] 80 mg PO DAILY #30 tab 03/01/22 Metoprolol Tartrate [Lopressor] 50 mg PO BID #60 tab 03/01/22 Nitroglycerin Sl Tabs [Nitrostat] 0.4 mg SUBLINGUAL Q5M PRN #100 tab 03/01/22 Spironolactone [Aldactone] 25 mg PO DAILY #30 tab 03/01/22 Allergies Allergy/AdvReac Type Severity Reaction Status Date / Time lisinopril Allergy Anaphylaxis Verified 06/22/22 16:39 Review of Systems ROS Statement: Those systems with pertinent positive or pertinent negative responses have been documented in the HPI. ROS Other: All systems not noted in ROS Statement are negative. Past Medical History Past Medical History: Coronary Artery Disease (CAD), COPD, Seizure Disorder Additional Past Medical History / Comment(s): chronic bronchitis History of Any Multi-Drug Resistant Organisms: None Reported Past Surgical History: No Surgical Hx Reported Additional Past Surgical History / Comment(s): tubes in ears at a young age Past Anesthesia/Blood Transfusion Reactions: No Reported Reaction Past Psychological History: No Psychological Hx Reported Smoking Status: Current every day smoker Past Alcohol Use History: Daily Past Drug Use History: None Reported - Past Family History Father Additional Family Medical History / Comment(s): "his heart stopped" General Exam Limitations: no limitations General appearance: alert, in no apparent distress Head exam: Present: atraumatic, normocephalic Eye exam: Present: normal appearance, PERRL ENT exam: Present: other (Swelling and angioedema of the lower lip. The tongue is within normal limits, there is no uvular swelling or posterior oropharyngeal swelling. No stridor.) Respiratory exam: Present: normal lung sounds bilaterally. Absent: respiratory distress, wheezes, stridor Cardiovascular Exam: Present: regular rate, normal rhythm GI/Abdominal exam: Present: soft. Absent: distended, tenderness, guarding Extremities exam: Present: normal inspection, normal capillary refill. Absent: pedal edema Neurological exam: Present: alert, oriented X3, CN II-XII intact. Absent: motor sensory deficit Psychiatric exam: Present: normal affect, normal mood Skin exam: Present: warm, dry, intact. Absent: cyanosis, diaphoretic Course Vital Signs 06/22/22 06/22/22 06/22/22 15:49 16:19 18:00 Temperature 97.9 F 97.7 F Pulse Rate 76 70 Respiratory 20 16 16 Rate Blood Pressure 190/92 167/80 O2 Sat by Pulse 92 L 96 Oximetry 06/22/22 18:53 Temperature Pulse Rate 76 Respiratory 16 Rate Blood Pressure 154/86 O2 Sat by Pulse 96 Oximetry Medical Decision Making - Medical Decision Making Was pt. sent in by a medical professional or institution ([facility], [employer] INST[employer]ER, urgent care, hospital, or penitentiary...) When possible be specific @ -[No] Did you speak to anyone other than the patient for history (EMS, parent, family, police, friend...)? What history was obtained from this source @ -[No] Did you review nursing and triage notes (agree or disagree)? Why? @ -[I reviewed and agree with nursing and triage notes] Were old charts reviewed (outside hosp., previous admission, EMS record, old EKG, old radiological studies, urgent care reports/EKG's, penitentiary records)? Report findings @ -Reviewed prior laboratory testing Differential Diagnosis (chest pain, altered mental status, abdominal pain women, abdominal pain men, vaginal bleeding, weakness, fever, dyspnea, syncope, headache, dizziness, GI bleed, back pain, seizure, CVA, palpatations, mental health, musculoskeletal)? @ -Angioedema, ALLERGIC reaction, dental infection EKG interpreted by me (3pts min.). @ -[As above] X-rays interpreted by me (1pt min.). @ -Chest x-ray showing hyperinflation, no focal pneumonia or acute findings. CT interpreted by me (1pt min.). @ -[None done] U/S interpreted by me (1pt. min.). @ -[None done] What testing was considered but not performed or refused? (CT, X-rays, U/S, labs)? Why? @ -[None] What meds were considered but not given or refused? Why? @ -[None] Did you discuss the management of the patient with other professionals (professionals i.e. , PA, METER INSTALLER, lab, RT, psych nurse, social insurance adviser, cigar head piercer, teacher, safety security officer, rehabilitation caseworker)? Give summary @ -Case discussed with Dr. Shafer Was smoking cessation discussed for >3mins.? @ -[No] Was critical care preformed (if so, how long)? @ -[No] Were there social determinants of health that impacted care today? How? (Homelessness, low income, unemployed, alcoholism, drug addiction, transportation, low edu. Level, literacy, decrease access to med. care, retirement, rehab)? @ -[No] Was there de-escalation of care discussed even if they declined (Discuss DNR or withdrawal of care, Hospice)? DNR status @ -[No] What co-morbidities impacted this encounter? (DM, HTN, Smoking, COPD, CAD, Cancer, CVA, ARF, Chemo, Hep., AIDS, mental health diagnosis, sleep apnea, morbid obesity)? @ -Hypertension Was patient admitted / discharged? Hospital course, mention meds given and route, prescriptions, significant lab abnormalities, going to OR and other pertinent info. @ -66-year-old male presenting with lower lip swelling, exam consistent with angioedema likely secondary to JOSE inhibitor. This medication will be discontinued and listed as an ALLERGY. The patient is given steroids, Benadryl, Pepcid. Did obtain basic laboratory testing which revealed a significant hyponatremia at 116. Patient placed on normal saline at 75 mL an hour. This will be repeated in the morning. He is asymptomatic with regards to his hyponatremia. Patient will be continued on steroids, Pepcid and Benadryl. Undiagnosed new problem with uncertain prognosis? @ -[No] Drug Therapy requiring intensive monitoring for toxicity (Heparin, Nitro, Insulin, Cardizem)? @ -[No] Were any procedures done? @ -[No] Diagnosis/symptom? @ -[Angioedema, hyponatremia] Acute, or Chronic, or Acute on Chronic? @ -[Acute] Uncomplicated (without systemic symptoms) or Complicated (systemic symptoms)? @ -[Complicated] Side effects of treatment? @ -[No] Exacerbation, Progression, or Severe Exacerbation? @ -[No] Poses a threat to life or bodily function? How? (Chest pain, USA, GA, pneumonia, PE, COPD, DKA, ARF, appy, cholecystitis, CVA, Diverticulitis, Homicidal, Suicidal, threat to staff... and all critical care pts) @ -[JOSE inhibitor-induced angioedema with concern for airway compromise and respiratory arrest] - Lab Data Result diagrams: 06/22/22 16:15 06/22/22 17:58 Lab Results 06/22/22 06/22/22 06/22/22 Range/Units 16:15 16:15 16:15 WBC 16.6 H (3.8-10.6) k/uL RBC 3.45 L (4.30-5.90) m/uL Hgb 12.2 L (13.0-17.5) gm/dL Hct 35.0 L (39.0-53.0) % MCV 101.4 H (80.0-100.0) fL MCH 35.4 H (25.0-35.0) pg MCHC 34.9 (31.0-37.0) g/dL RDW 13.0 (11.5-15.5) % Plt Count 432 (150-450) k/uL MPV 7.0 Neutrophils % 51 % Lymphocytes % 42 % Monocytes % 5 % Eosinophils % 1 % Basophils % 0 % Neutrophils # 8.4 H (1.3-7.7) k/uL Lymphocytes # 6.9 H (1.0-4.8) k/uL Monocytes # 0.8 (0-1.0) k/uL Eosinophils # 0.1 (0-0.7) k/uL Basophils # 0.1 (0-0.2) k/uL Manual Slide Review Performed PT 9.7 (9.0-12.0) sec INR 0.9 (<1.2) APTT 26.4 (22.0-30.0) sec Sodium 116 L* (137-145) mmol/L Potassium 5.9 H (3.5-5.1) mmol/L Chloride 82 L (98-107) mmol/L Carbon Dioxide 19 L (22-30) mmol/L Anion Gap 15 mmol/L BUN 13 (9-20) mg/dL Creatinine 0.82 (0.66-1.25) mg/dL Est GFR (CKD-EPI)AfAm >90 (>60 ml/min/1.73 sqM) Est GFR (CKD-EPI)NonAf >90 (>60 ml/min/1.73 sqM) Glucose 83 (74-99) mg/dL Calcium 9.4 (8.4-10.2) mg/dL Total Bilirubin 0.8 (0.2-1.3) mg/dL AST 31 (17-59) U/L ALT 23 (4-49) U/L Alkaline Phosphatase 65 (38-126) U/L Total Protein 7.0 (6.3-8.2) g/dL Albumin 4.7 (3.5-5.0) g/dL 06/22/22 Range/Units 17:58 WBC (3.8-10.6) k/uL RBC (4.30-5.90) m/uL Hgb (13.0-17.5) gm/dL Hct (39.0-53.0) % MCV (80.0-100.0) fL MCH (25.0-35.0) pg MCHC (31.0-37.0) g/dL RDW (11.5-15.5) % Plt Count (150-450) k/uL MPV Neutrophils % % Lymphocytes % % Monocytes % % Eosinophils % % Basophils % % Neutrophils # (1.3-7.7) k/uL Lymphocytes # (1.0-4.8) k/uL Monocytes # (0-1.0) k/uL Eosinophils # (0-0.7) k/uL Basophils # (0-0.2) k/uL Manual Slide Review PT (9.0-12.0) sec INR (<1.2) APTT (22.0-30.0) sec Sodium 114 L* (137-145) mmol/L Potassium 5.3 H (3.5-5.1) mmol/L Chloride 84 L (98-107) mmol/L Carbon Dioxide 19 L (22-30) mmol/L Anion Gap 11 mmol/L BUN 13 (9-20) mg/dL Creatinine 0.74 (0.66-1.25) mg/dL Est GFR (CKD-EPI)AfAm >90 (>60 ml/min/1.73 sqM) Est GFR (CKD-EPI)NonAf >90 (>60 ml/min/1.73 sqM) Glucose 75 (74-99) mg/dL Calcium 9.0 (8.4-10.2) mg/dL Total Bilirubin (0.2-1.3) mg/dL AST (17-59) U/L ALT (4-49) U/L Alkaline Phosphatase (38-126) U/L Total Protein (6.3-8.2) g/dL Albumin (3.5-5.0) g/dL Disposition Clinical Impression: Angioedema, Dehydration, Hyponatremia Disposition: ADMITTED IP TO THIS HOSP Condition: Stable Is patient prescribed a controlled substance at d/c from ED?: No Referrals: Caridad Malone DO [Primary Care Provider] - 1-2 days Time of Disposition: 19:02
[2022-06-22 17:05] LABS: Basophils # (A) 0.1 k/uL (0-0.2); Basophils % (A) 0 %; Eosinophils # (A) 0.1 k/uL (0-0.7); Eosinophils % (A) 1 %; HGB 12.2 gm/dL (13.0-17.5); Lymphocytes # (A) 6.9 k/uL (1.0-4.8); Lymphocytes % (A) 42 %; MCH 35.4 pg (25.0-35.0); MCHC 34.9 g/dL (31.0-37.0); MCV 101.4 fL (80.0-100.0); Monocytes # (A) 0.8 k/uL (0-1.0); Monocytes % (A) 5 %; Neutrophils # (A) 8.4 k/uL (1.3-7.7); Neutrophils % (A) 51 %; Platelet Count 432 k/uL (150-450); RBC 3.45 m/uL (4.30-5.90); WBC 16.6 k/uL (3.8-10.6)
[2022-06-22 17:22] LABS: ALT 23 U/L (4-49); AST 31 U/L (17-59); African American GFR (CKD) >90 (>60 ml/min/1.73 sqM); Albumin 4.7 g/dL (3.5-5.0); Alkaline Phosphatase 65 U/L (38-126); Anion Gap 15 mmol/L; Blood Urea Nitrogen 13 mg/dL (9-20); Calcium 9.4 mg/dL (8.4-10.2); Carbon Dioxide 19 mmol/L (22-30); Chloride 82 mmol/L (98-107); Glucose 83 mg/dL (74-99); Non-African American GFR(CKD) >90 (>60 ml/min/1.73 sqM); Total Bilirubin 0.8 mg/dL (0.2-1.3)
[2022-06-22 17:39] LABS: INR 0.9 (<1.2); Partial Thromboplastin Time 26.4 sec (22.0-30.0); Prothrombin Time 9.7 sec (9.0-12.0)
[2022-06-22 17:40] LABS: Potassium 5.9 mmol/L (3.5-5.1); Sodium 116 mmol/L (137-145)
[2022-06-22] MEDS: SODIUM CHLORIDE 0.9% 1,000 ML IV SCH (18:26)
[2022-06-22 18:31] LABS: African American GFR (CKD) >90 (>60 ml/min/1.73 sqM); Anion Gap 11 mmol/L; Blood Urea Nitrogen 13 mg/dL (9-20); Carbon Dioxide 19 mmol/L (22-30); Chloride 84 mmol/L (98-107); Glucose 75 mg/dL (74-99); Non-African American GFR(CKD) >90 (>60 ml/min/1.73 sqM); Potassium 5.3 mmol/L (3.5-5.1)
[2022-06-22 18:33] LABS: Sodium 114 mmol/L (137-145)
[2022-06-22] MEDS ORDERED: diphenhydrAMINE 50 MG/ML 1 ML VIAL IVP PRN (18:56)
[2022-06-22] MEDS ORDERED: NALOXONE 0.4 MG/ML 1 ML VIAL IV PRN (18:57)
[2022-06-22] MEDS ORDERED: ALBUTEROL HFA INHALER INHALATION PRN (18:58)
--- NOTE | 2022-06-22 19:09 | XR ---
EXAMINATION TYPE: XR chest 2V DATE OF EXAM: 06/22/2022 6:48 PM COMPARISON: Chest radiographs from 02/25/2022 TECHNIQUE: XR chest 2V Frontal and lateral views of the chest. CLINICAL INDICATION:Male, 66 years old with history of hypoxia +; FINDINGS: Lungs/Pleura: There is flattening of the diaphragm with increased lucency of the lungs. No evidence o f pneumothorax, pleural effusion or focal consolidation. Pulmonary vascularity: Unremarkable. Heart/mediastinum: Cardiomediastinal silhouette is unremarkable. Atherosclerotic calcifications are seen in the aorta. Musculoskeletal: No acute osseous pathology. IMPRESSION: 1. No acute cardiopulmonary disease process. 2. COPD changes.
[2022-06-22] MEDS ORDERED: DEXAMETHASONE SOD PHOSPHATE 10 MG/ML 1 ML VIAL IVP STA (19:14)
[2022-06-22] MEDS ORDERED: LORazepam 2 MG/ML INJ IV PRN ×3 (19:17)
[2022-06-22] MEDS ORDERED: THIAMINE 100 MG/ML 2 ML VIAL IM STA (19:17)
[2022-06-22] MEDS: NICOTINE 21MG/24HR PATCH TRANSDERM SCH (21:03)
[2022-06-22] MEDS: METOPROLOL TARTRATE 50 MG TAB PO SCH (21:03)
[2022-06-22] MEDS: FAMOTIDINE 20 MG TAB PO SCH (21:03)
[2022-06-23] MEDS ORDERED: methylPREDNISolone SOD SUCCI 125 MG/2 ML VIAL IV SCH
[2022-06-23] MEDS: ACETAMINOPHEN TAB 325 MG TAB PO PRN ×2 (00:08→16:38)
[2022-06-23] MEDS: DEXAMETHASONE SOD PHOSPHATE 4 MG/ML 1 ML VIAL IVP SCH ×5 (00:09→23:41)
[2022-06-23 01:48] LABS: Chloride 85 mmol/L (98-107)
[2022-06-23 01:49] LABS: African American GFR (CKD) >90 (>60 ml/min/1.73 sqM); Anion Gap 10 mmol/L; Blood Urea Nitrogen 15 mg/dL (9-20); Calcium 9.3 mg/dL (8.4-10.2); Carbon Dioxide 20 mmol/L (22-30); Glucose 138 mg/dL (74-99); Non-African American GFR(CKD) >90 (>60 ml/min/1.73 sqM); Potassium 5.8 mmol/L (3.5-5.1)
[2022-06-23 01:55] LABS: Sodium 115 mmol/L (137-145)
[2022-06-23] MEDS ORDERED: NON FORMULARY DRUG (Fluticasone/Umeclidin/Vilanter [Trelegy Ellipta 200-62.5-25] 1 EACH Bl INHALATION SCH (08:00)
--- NOTE | 2022-06-23 08:10 | P.CNPUL ---
History of Present Illness Consult date: 06/23/22 Requesting physician: Obed Davey Reason for consult: other (Angioedema) Chief complaint: Throat and lip swelling History of present illness: I am seeing this patient in new consultation today 06/23/2022 in regard to some angioedema. This is a pleasant 66-year-old male with past medical history of hypertension maintained on lisinopril, coronary artery disease, COPD, seizure disorder, alcoholism, current smoker. Yesterday morning the patient noticed some lip swelling and went to his dentist for evaluation. The dentist did not feel that the inflammation is related to infection or abscess, and he was sent to [facility]. Patient is currently sitting up in bed, on room air, in no acute distress. There is obvious lower facial swelling sparing his tongue and posterior pharynx. Patient has no audible stridor. He is maintained on Decadron IV 4 mg every 6 hours, Pepcid twice a day, Benadryl. Patient's lisinopril has been stopped. Incidentally, patient was found to be severely hyponatremic on arrival. Initial sodium level is 116, and most recent sodium 115. He is currently asymptomatic. Nephrology is on the case. Patient has normal saline infusing at 50 ML's per hour. Patient does have significant history of alcoholism. He drinks about a sixpack of beer per day. A urine sodium, urine osmolality, serum osmolality, TSH are pending. Patient denies starting any new medications recently. Chest x-ray done on arrival showed no acute cardiopulmonary process with some background COPD. CBC on arrival shows a WBC count of 16.6, hemoglobin 12.2, hematocrit 35, platelets 432,000. Patient's most recent BMP 1 AM shows sodium 115, potassium 5.8, chloride 85, serum CO2 20, BUN 15, creatinine 0.79, glucose 138. Vital signs are stable at this time. Review of Systems REVIEW OF SYSTEMS: CONSTITUTIONAL: Denies any recent significant weight loss or weight gain. EYES: Denies change in vision. EARS, NOSE, MOUTH, THROAT: Denies headaches, denies sore throat. Reports lower facial swelling. CARDIOVASCULAR: Denies chest pain, palpitations or syncopal episodes. RESPIRATORY: Denies shortness of breath, cough, congestion or hemoptysis. GASTROINTESTINAL: Denies change in appetite, abdominal pain, nausea and vomit ing, or diarrhea GENITOURINARY: Denies hematuria, denies infections. MUSKULOSKELETAL: Denies pain, denies swelling. INTEGUMENTARY: Denies rash, denies eczema. NEUROLOGICAL: Denies recent memory loss, no recent seizure activity. PSYCHIATRIC: Denies anxiety, denies depression. HEMATOLOGIC/LYMPHATIC: Denies anemia, denies enlarged lymph node Past Medical History Past Medical History: Coronary Artery Disease (CAD), COPD, Seizure Disorder Additional Past Medical History / Comment(s): chronic bronchitis History of Any Multi-Drug Resistant Organisms: None Reported Past Surgical History: Tonsillectomy Additional Past Surgical History / Comment(s): tubes in ears at a young age- unsure if he had this Past Anesthesia/Blood Transfusion Reactions: No Reported Reaction Past Psychological History: No Psychological Hx Reported Smoking Status: Current every day smoker Past Alcohol Use History: Daily Additional Past Alcohol Use History / Comment(s): smokes 1 pack/day or uses nicotine patches. Drinks 4-5 beer/day Past Drug Use History: None Reported - Past Family History Father Additional Family Medical History / Comment(s): "his heart stopped" Medications and Allergies Home Medications Medication Instructions Recorded Confirmed Type Albuterol Sulfate [Ventolin HFA] 2 puff INHALATION RT-QID PRN 02/25/22 06/22/22 History Fluticasone/Umeclidin/Vilanter 1 puff INHALATION RT-DAILY 02/25/22 06/22/22 History [Trelegy Ellipta 200-62.5-25] Aspirin 81 mg PO DAILY #30 tab 03/01/22 06/22/22 Rx Atorvastatin [Lipitor] 80 mg PO DAILY #30 tab 03/01/22 06/22/22 Rx Metoprolol Tartrate [Lopressor] 50 mg PO BID #60 tab 03/01/22 06/22/22 Rx Nitroglycerin Sl Tabs [Nitrostat] 0.4 mg SUBLINGUAL Q5M PRN #100 tab 03/01/22 06/22/22 Rx Spironolactone [Aldactone] 25 mg PO DAILY #30 tab 03/01/22 06/22/22 Rx lisinopriL [Zestril] 10 mg PO BID 06/22/22 06/22/22 History Allergies Allergy/AdvReac Type Severity Reaction Status Date / Time lisinopril Allergy Anaphylaxis Verified 06/22/22 16:39 Physical Exam Vitals: Vital Signs Temp Pulse Pulse Resp BP BP Pulse Ox 06/23/22 04:00 98.2 F 75 18 154/70 96 06/23/22 00:04 97.9 F 74 16 151/73 97 06/22/22 22:22 97.9 F 73 16 129/74 98 06/22/22 18:53 76 16 154/86 96 06/22/22 18:00 97.7 F 70 16 167/80 96 06/22/22 16:19 16 06/22/22 15:49 97.9 F 76 20 190/92 92 L Intake and Output 06/22/22 06/23/22 06/23/22 22:59 06:59 14:59 Other: # Voids 1 Weight 54.431 kg GENERAL EXAM: Alert, 66-year-old white male, comfortable in no apparent distres s. HEAD: Normocephalic and atraumatic EYES: Normal reaction of pupils, equal size. NOSE: Clear with pink turbinates. THROAT: No erythema or exudates. NECK: No masses, no JVD. CHEST: No chest wall deformity. LUNGS: Equal air entry with diminished lung sounds throughout with minimal expiratory wheezes. No stridor. no crackles, rhonchi or dullness. On room air. No conversational dyspnea or accessory muscle use.. CVS: S1 and S2 normal with no audible murmur, regular rhythm. No extra heart sounds ABDOMEN: No hepatosplenomegaly, active bowel sounds, no guarding or rigidity. SPINE: No scoliosis or deformity SKIN: No rashes CENTRAL NERVOUS SYSTEM: No focal deficits, tone is normal in all 4 extremities. EXTREMITIES: There is no peripheral edema, clubbing, or cyanosis. Peripheral pulses are intact. Results - Laboratory Findings CBC and BMP: 06/22/22 16:15 06/23/22 00:58 PT/INR, D-dimer PT 9.7 sec (9.0-12.0) 06/22/22 16:15 INR 0.9 (<1.2) 06/22/22 16:15 Abnormal lab findings: Abnormal Labs 06/22/22 06/22/22 06/22/22 16:15 16:15 17:58 WBC 16.6 H RBC 3.45 L Hgb 12.2 L Hct 35.0 L MCV 101.4 H MCH 35.4 H Neutrophils # 8.4 H Lymphocytes # 6.9 H Sodium 116 L* 114 L* Potassium 5.9 H 5.3 H Chloride 82 L 84 L Carbon Dioxide 19 L 19 L Glucose 06/23/22 00:58 WBC RBC Hgb Hct MCV MCH Neutrophils # Lymphocytes # Sodium 115 L* Potassium 5.8 H Chloride 85 L Carbon Dioxide 20 L Glucose 138 H - Diagnostic Findings Chest x-ray: image reviewed Assessment and Plan Assessment: Angioedema probably related to lisinopril. This medication has been stopped. No airway compromise at the moment. Patient is currently receiving Decadron every 6 hours Severe hyponatremia with most recent sodium 115. Normal saline is infusing at 50 ML's per hour. Possibly related to beer potomania. Patient is clinically asymptomatic at this time. Alcoholism. Patient admits to drinking about 6, 12 ounce beers per day Stable COPD normally maintained on Trelegy and as needed albuterol inhaler Hypertension Hyperlipidemia Coronary artery disease Current smoker Plan: Patient's medications, labs, chest x-ray reviewed Continue IV Decadron every 6 hours, Pepcid twice a day, Benadryl No stridor or sign of airway compromise On room air Continue normal saline infusion at 50 ML's per hour per nephrology recommendation Check TSH Check urine sodium, urine osmolality, serum osmolality Continue bronchodilators, Symbicort inhaler Nicotine replacement offered [facility] protocol We will continue to follow I have personally seen and examined the patient, performed the documentation and the assessment and plan as written. Number of minutes spent on the visit:20 Time with Patient: Greater than 30
[2022-06-23] MEDS: IPRATROPIUM 0.5 MG/2.5 ML NEBU INHALATION SCH ×4 (08:58→22:02)
[2022-06-23] MEDS: SYMBICORT 160-4.5 MCG INHALER INHALATION SCH ×2 (08:58→22:02)
[2022-06-23] MEDS: ASPIRIN 81 MG PO SCH (08:59)
[2022-06-23] MEDS: THIAMINE 100 MG TAB PO SCH (08:59)
[2022-06-23] MEDS: NICOTINE 21MG/24HR PATCH TRANSDERM SCH (08:59)
[2022-06-23] MEDS: FAMOTIDINE 20 MG TAB PO SCH ×2 (08:59→20:28)
[2022-06-23] MEDS: METOPROLOL TARTRATE 50 MG TAB PO SCH ×2 (08:59→20:28)
[2022-06-23] MEDS: ATORVASTATIN 80 MG TAB PO SCH (08:59)
[2022-06-23 09:22] LABS: Basophils % (A) 0 %; Eosinophils % (A) 0 %; HCT 34.3 % (39.0-53.0); HGB 12.2 gm/dL (13.0-17.5); Lymphocytes # (A) 6.8 k/uL (1.0-4.8); Lymphocytes % (A) 42 %; MCH 35.6 pg (25.0-35.0); MCHC 35.6 g/dL (31.0-37.0); MCV 99.8 fL (80.0-100.0); Monocytes # (A) 0.1 k/uL (0-1.0); Monocytes % (A) 1 %; Neutrophils # (A) 8.9 k/uL (1.3-7.7); Neutrophils % (A) 55 %; Platelet Count 412 k/uL (150-450); RBC 3.43 m/uL (4.30-5.90); WBC 16.1 k/uL (3.8-10.6)
[2022-06-23 09:43] LABS: African American GFR (CKD) >90 (>60 ml/min/1.73 sqM); Anion Gap 12 mmol/L; Blood Urea Nitrogen 16 mg/dL (9-20); Calcium 9.3 mg/dL (8.4-10.2); Carbon Dioxide 20 mmol/L (22-30); Chloride 87 mmol/L (98-107); Glucose 216 mg/dL (74-99); Magnesium 1.6 mg/dL (1.6-2.3); Non-African American GFR(CKD) >90 (>60 ml/min/1.73 sqM); Potassium 5.2 mmol/L (3.5-5.1)
[2022-06-23 10:06] LABS: Sodium 119 mmol/L (137-145)
--- NOTE | 2022-06-23 10:36 | P.NPCON ---
History of Present Illness - Reason for Consult hyponatremia - History of Present Illness Reason for consultation: Hyponatremia History of present illness: Patient is a 66-year-old male seen in renal consultation for hyponatremia. Patient states yesterday morning he noticed swelling office left cheek and was concerned about her dental infection. He went to go see his dentist and was subsequently advised to go to the hospital due to concern for ALLERGIC reaction. Patient states he takes lisinopril but has been taking it for years. His sodium level on admission was 116 and dropped to 114 and is up to 119 today. He is currently receiving normal saline at 50 mL an hour. Patient denies history of any malignancy. Denies use of thiazide diuretics. No vomiting or diarrhea. Oral intake has been good. Patient does drink 5-6 cans of beer and about a quart of ice tea on a daily basis. No chest pain or shortness of breath. No history of diabetes. No hematuria. No history of renal disease. Vital signs are stable. General: No acute distress. HEENT: Head exam is unremarkable. LUNGS: No audible rhonchi or wheezes. HEART: Rate and Rhythm are regular. ABDOMEN: Soft, nontender. EXTREMITITES: No edema. Past Medical History Past Medical History: Coronary Artery Disease (CAD), COPD, Seizure Disorder Additional Past Medical History / Comment(s): chronic bronchitis History of Any Multi-Drug Resistant Organisms: None Reported Past Surgical History: Tonsillectomy Additional Past Surgical History / Comment(s): tubes in ears at a young age- unsure if he had this Past Anesthesia/Blood Transfusion Reactions: No Reported Reaction Past Psychological History: No Psychological Hx Reported Smoking Status: Current every day smoker Past Alcohol Use History: Daily Additional Past Alcohol Use History / Comment(s): smokes 1 pack/day or uses nicotine patches. Drinks 4-5 beer/day Past Drug Use History: None Reported - Past Family History Father Additional Family Medical History / Comment(s): "his heart stopped" Medications and Allergies Home Medications Medication Instructions Recorded Confirmed Type Albuterol Sulfate [Ventolin HFA] 2 puff INHALATION RT-QID PRN 02/25/22 06/22/22 History Fluticasone/Umeclidin/Vilanter 1 puff INHALATION RT-DAILY 02/25/22 06/22/22 History [Trelegy Ellipta 200-62.5-25] Aspirin 81 mg PO DAILY #30 tab 03/01/22 06/22/22 Rx Atorvastatin [Lipitor] 80 mg PO DAILY #30 tab 03/01/22 06/22/22 Rx Metoprolol Tartrate [Lopressor] 50 mg PO BID #60 tab 03/01/22 06/22/22 Rx Nitroglycerin Sl Tabs [Nitrostat] 0.4 mg SUBLINGUAL Q5M PRN #100 tab 03/01/22 06/22/22 Rx Spironolactone [Aldactone] 25 mg PO DAILY #30 tab 03/01/22 06/22/22 Rx lisinopriL [Zestril] 10 mg PO BID 06/22/22 06/22/22 History Allergies Allergy/AdvReac Type Severity Reaction Status Date / Time lisinopril Allergy Anaphylaxis Verified 06/22/22 16:39 Physical Exam Vitals: Vital Signs Temp Pulse Pulse Resp BP BP Pulse Ox 06/23/22 09:11 90 06/23/22 09:04 97 06/23/22 09:03 80 06/23/22 04:00 98.2 F 75 18 154/70 96 06/23/22 00:04 97.9 F 74 16 151/73 97 06/22/22 22:22 97.9 F 73 16 129/74 98 06/22/22 18:53 76 16 154/86 96 06/22/22 18:00 97.7 F 70 16 167/80 96 06/22/22 16:19 16 06/22/22 15:49 97.9 F 76 20 190/92 92 L Intake and Output 06/22/22 06/23/22 06/23/22 22:59 06:59 14:59 Intake Total 500 Balance 500 Intake: Oral 500 Other: # Voids 1 Weight 54.431 kg Results - Lab Results Most recent lab results Calcium 9.3 mg/dL (8.4-10.2) 06/23/22 07:55 Magnesium 1.6 mg/dL (1.6-2.3) 06/23/22 07:55 06/23/22 07:55 06/23/22 07:55 Assessment and Plan Plan: Assessment: 1. Hypovolemic hyponatremia with component of excessive fluid intake improving with IV hydration. Sodium level CXIX as of this morning. TSH normal. 2. Hyperkalemia secondary to lisinopril. Improved. 3. Metabolic acidosis secondary to IV fluids. 4. Angioedema likely from lisinopril. 5. Benign hypertension. 6. Alcohol abuse. Plan: Maintain IV fluids. Add 1200 mL fluid restriction. Continue to avoid lisinopril. Add amlodipine. Check serum and urine osmolality and urine sodium level. Check PTH related peptide. Repeat sodium level this afternoon. Thank you for the consultation. I will continue to follow the patient with you during his hospital stay.
[2022-06-23] MEDS: amLODIPine 5 MG TAB PO SCH (11:04)
[2022-06-23] MEDS: MAGNESIUM OXIDE 400 MG TAB PO SCH ×2 (11:04→20:28)
[2022-06-23] MEDS: SODIUM CHLORIDE 0.9% 1,000 ML IV SCH ×2 (11:15→23:54)
[2022-06-24] MEDS: DEXAMETHASONE SOD PHOSPHATE 4 MG/ML 1 ML VIAL IVP SCH (06:18)
[2022-06-24] MEDS: ATORVASTATIN 80 MG TAB PO SCH (08:03)
[2022-06-24] MEDS: THIAMINE 100 MG TAB PO SCH (08:03)
[2022-06-24] MEDS: METOPROLOL TARTRATE 50 MG TAB PO SCH (08:03)
[2022-06-24] MEDS: amLODIPine 5 MG TAB PO SCH (08:03)
[2022-06-24] MEDS: FAMOTIDINE 20 MG TAB PO SCH (08:03)
[2022-06-24] MEDS: MAGNESIUM OXIDE 400 MG TAB PO SCH (08:03)
[2022-06-24] MEDS: ASPIRIN 81 MG PO SCH (08:03)
[2022-06-24] MEDS ORDERED: NICOTINE 21MG/24HR PATCH TRANSDERM SCH (09:00)
[2022-06-24] MEDS: IPRATROPIUM 0.5 MG/2.5 ML NEBU INHALATION SCH ×2 (09:20→12:27)
[2022-06-24] MEDS: SYMBICORT 160-4.5 MCG INHALER INHALATION SCH (09:20)
[2022-06-24 09:42] LABS: African American GFR (CKD) >90 (>60 ml/min/1.73 sqM); Anion Gap 12 mmol/L; Blood Urea Nitrogen 21 mg/dL (9-20); Calcium 9.6 mg/dL (8.4-10.2); Carbon Dioxide 21 mmol/L (22-30); Chloride 94 mmol/L (98-107); Glucose 193 mg/dL (74-99); Non-African American GFR(CKD) >90 (>60 ml/min/1.73 sqM); Potassium 5.3 mmol/L (3.5-5.1); Sodium 127 mmol/L (137-145)
--- NOTE | 2022-06-24 10:55 | P.PN ---
Subjective Patient is seen in follow-up for hyponatremia. Sodium level improving. Maintained on fluid restriction. Oral intake is good. No vomiting or diarrhea. Vital signs are stable. General: No acute distress. HEENT: Head exam is unremarkable. LUNGS: No audible rhonchi or wheezes. HEART: Rate and Rhythm are regular. ABDOMEN: Soft, nontender. EXTREMITITES: No edema. Objective - Vital Signs Vital signs: Vital Signs Temp 98.2 F 06/24/22 08:00 Pulse 81 06/24/22 09:31 Resp 18 06/24/22 08:00 BP 121/59 06/24/22 08:00 Pulse Ox 98 06/24/22 09:22 FiO2 Intake & Output 06/23/22 06/24/22 06/24/22 18:59 06:59 18:59 Intake Total 1218 118 Output Total 400 500 Balance 1218 -400 -382 Intake: Oral 1218 118 Output: Urine 400 500 Other: Voiding Method Toilet # Voids 1 1 - Labs CBC & Chem 7: 06/23/22 07:55 06/24/22 08:57 Labs: Abnormal Lab Results - Last 24 Hours (Table) 06/23/22 06/23/22 06/23/22 Range/Units 07:55 11:34 13:12 Sodium 120 L (137-145) mmol/L Potassium (3.5-5.1) mmol/L Chloride (98-107) mmol/L Carbon Dioxide (22-30) mmol/L BUN (9-20) mg/dL Glucose (74-99) mg/dL Osmolality 258 L (280-301) mosm/kg Ur Random Sodium <20 L (40-220) mmol/L 06/23/22 06/23/22 06/24/22 Range/Units 15:41 20:48 08:57 Sodium 121 L 121 L 127 L (137-145) mmol/L Potassium 5.3 H (3.5-5.1) mmol/L Chloride 94 L (98-107) mmol/L Carbon Dioxide 21 L (22-30) mmol/L BUN 21 H (9-20) mg/dL Glucose 193 H (74-99) mg/dL Osmolality (280-301) mosm/kg Ur Random Sodium (40-220) mmol/L Assessment and Plan Plan: Assessment: 1. Hypovolemic hyponatremia with component of excessive fluid intake improving with IV hydration. Sodium level 127 as of this morning. TSH normal. Urine sodium less than 20 and urine osmolality 263. 2. Hyperkalemia secondary to lisinopril. Stable. 3. Metabolic acidosis secondary to IV fluids. Better. 4. Angioedema likely from lisinopril. Improved. 5. Benign hypertension. Controlled. 6. Alcohol abuse. Plan: Off IV fluids. Maintain fluid restriction. Continue to avoid lisinopril. Add sodium chloride tablet daily. Follow-up PTH related peptide. Repeat BMP and magnesium level 2-3 days postdischarge. Follow up outpatient in 1 week. Advised patient to maintain less than 50 ounces per day fluid restriction.
[2022-06-24] MEDS ORDERED: SODIUM CHLORIDE TAB 1 GM TAB PO SCH (11:00)
--- NOTE | 2022-06-24 11:44 | P.HPIM ---
History of Present Illness H&P Date: 06/23/22 Chief Complaint: ALLERGIC reaction This is a 66-year-old gentleman with past medical history of COPD, nicotine dependence, alcohol abuse, CVA and multiple other medical issues presented to the ER with left cheek swelling, lip swelling without shortness of breath chest pain or palpitations. Presented to the tenderness, concerned about potential dental infection and advised to proceed to the ER secondary to ALLERGIC reaction suspected. Reports he has been on lisinopril since February, has not increased the dose from missed any doses. Consumed beef stroganoff for dinner the evening before that he had cooked himself, with no new spices, mild heartburn during the night. Reports his tongue felt tingly for a few minutes as well. denies throat closing sensation.Denies nausea vomiting or diarrhea. Consumes 5-6 cans of beer daily along with ice tea. Review of Systems ROS Statement: Those systems with pertinent positive or pertinent negative responses have been documented in the HPI. ROS Other: All systems not noted in ROS Statement are negative. Past Medical History Past Medical History: Coronary Artery Disease (CAD), COPD, Seizure Disorder Additional Past Medical History / Comment(s): chronic bronchitis History of Any Multi-Drug Resistant Organisms: None Reported Past Surgical History: Tonsillectomy Additional Past Surgical History / Comment(s): tubes in ears at a young age- unsure if he had this Past Anesthesia/Blood Transfusion Reactions: No Reported Reaction Past Psychological History: No Psychological Hx Reported Smoking Status: Current every day smoker Past Alcohol Use History: Daily Additional Past Alcohol Use History / Comment(s): smokes 1 pack/day or uses nicotine patches. Drinks 4-5 beer/day Past Drug Use History: None Reported - Past Family History Father Additional Family Medical History / Comment(s): "his heart stopped" Medications and Allergies Home Medications Medication Instructions Recorded Confirmed Type Albuterol Sulfate [Ventolin HFA] 2 puff INHALATION RT-QID PRN 02/25/22 06/22/22 History Fluticasone/Umeclidin/Vilanter 1 puff INHALATION RT-DAILY 02/25/22 06/22/22 History [Trelemonica Ellipta 200-62.5-25] Aspirin 81 mg PO DAILY #30 tab 03/01/22 06/22/22 Rx Atorvastatin [Lipitor] 80 mg PO DAILY #30 tab 03/01/22 06/22/22 Rx Metoprolol Tartrate [Lopressor] 50 mg PO BID #60 tab 03/01/22 06/22/22 Rx Nitroglycerin Sl Tabs [Nitrostat] 0.4 mg SUBLINGUAL Q5M PRN #100 tab 03/01/22 06/22/22 Rx Nicotine 21Mg/24Hr Patch [Habitrol] 1 patch TRANSDERM DAILY patch 06/24/22 Rx Thiamine [Vitamin B-1] 100 mg PO DAILY tab 06/24/22 Rx amLODIPine [Norvasc] 5 mg PO DAILY #30 tab 06/24/22 Rx predniSONE 10 mg PO DIRECTED #30 tab 06/24/22 Rx Allergies Allergy/AdvReac Type Severity Reaction Status Date / Time lisinopril Allergy Anaphylaxis Verified 06/22/22 16:39 Physical Exam Vitals: Vital Signs Temp Pulse Pulse Resp BP BP Pulse Ox 06/23/22 12:47 83 06/23/22 12:40 84 06/23/22 12:00 98.1 F 102 H 16 153/71 99 06/23/22 09:11 90 06/23/22 09:04 97 06/23/22 09:03 80 06/23/22 08:00 97.6 F 90 16 141/65 97 06/23/22 04:00 98.2 F 75 18 154/70 96 06/23/22 00:04 97.9 F 74 16 151/73 97 06/22/22 22:22 97.9 F 73 16 129/74 98 06/22/22 18:53 76 16 154/86 96 06/22/22 18:00 97.7 F 70 16 167/80 96 06/22/22 16:19 16 06/22/22 15:49 97.9 F 76 20 190/92 92 L Intake and Output 06/22/22 06/23/22 06/23/22 22:59 06:59 14:59 Intake Total 900 Balance 900 Intake: Oral 900 Other: # Voids 1 1 Weight 54.431 kg PHYSICAL EXAM: VITAL SIGNS: As above GENERAL: Sitting up in bed, mildly increased respiratory effort HEENT: Conjunctivae normal. eyes normal.minimal lip edema ,MMM. NECK: Supple, No JVD. No thyroid enlargement. No LNs CARDIOVASCULAR: S1, S2 regular. Positive systolic murmur RESPIRATION: Breath sounds diminished in the bases. Scattered coarse rhonchi throughout. ABDOMEN: Soft, nontender . Nondistended ,No guarding. no masses palpable. No ascites, No hepatosplenomegaly.Bowel sounds heard. LEGS: No edema. no swelling PSYCHIATRY: Alert and oriented X3, mood and affect normal. NERVOUS SYSTEM: Cranial N 2-12 grossly normal. No focal deficits. Strength and sensation grossly intact. Skin: Warm and dry ,no rash Results CBC & Chem 7: 06/23/22 07:55 06/24/22 08:57 Labs: Abnormal Lab Results - Last 24 Hours (Table) 06/22/22 06/22/22 06/22/22 Range/Units 16:15 16:15 17:58 WBC 16.6 H (3.8-10.6) k/uL RBC 3.45 L (4.30-5.90) m/uL Hgb 12.2 L (13.0-17.5) gm/dL Hct 35.0 L (39.0-53.0) % MCV 101.4 H (80.0-100.0) fL MCH 35.4 H (25.0-35.0) pg Neutrophils # 8.4 H (1.3-7.7) k/uL Lymphocytes # 6.9 H (1.0-4.8) k/uL Sodium 116 L* 114 L* (137-145) mmol/L Potassium 5.9 H 5.3 H (3.5-5.1) mmol/L Chloride 82 L 84 L (98-107) mmol/L Carbon Dioxide 19 L 19 L (22-30) mmol/L Glucose (74-99) mg/dL Osmolality (280-301) mosm/kg 06/23/22 06/23/22 06/23/22 Range/Units 00:58 07:55 07:55 WBC 16.1 H (3.8-10.6) k/uL RBC 3.43 L (4.30-5.90) m/uL Hgb 12.2 L (13.0-17.5) gm/dL Hct 34.3 L (39.0-53.0) % MCV (80.0-100.0) fL MCH 35.6 H (25.0-35.0) pg Neutrophils # 8.9 H (1.3-7.7) k/uL Lymphocytes # 6.8 H (1.0-4.8) k/uL Sodium 115 L* 119 L* (137-145) mmol/L Potassium 5.8 H 5.2 H (3.5-5.1) mmol/L Chloride 85 L 87 L (98-107) mmol/L Carbon Dioxide 20 L 20 L (22-30) mmol/L Glucose 138 H 216 H (74-99) mg/dL Osmolality 258 L (280-301) mosm/kg Thrombosis Risk Factor Assmnt - Choose All That Apply Each Risk Factor Represents 2 Points: Age 61-74 years Thrombosis Risk Factor Assessment Total Risk Factor Score: 2 Thrombosis Risk Factor Assessment Level: Low Risk Assessment and Plan Assessment: Angioedema, suspect related to JOSE inhibitor, discontinued on admission, improving Hypovolemic hyponatremia improving with IV fluid hydration Hyperkalemia, improving CAD, history of NSTEMI, cardiac stenting Cardiomyopathy, type unclear, EF decreased 35% from normal LV function. Hypertension Dehydrated Nicotine dependence. Alcohol abuse. History of CVA Plan: Continue on current medication regime ,monitoring and symptomatic treatment. Continue on Steroids and Benadryl. IV fluids/fluid restriction as per nephrology, close monitoring of sodium. JOSE inhibitor discontinued, Norvasc initiated. Discharge planning in progress for tomorrow The impression and plan of care has been dictated as directed. : I performed a history and examination of this patient, discussed the same with the dictator. I agree with the dictator's note ,documented as a scribe. Any additional findings or plans will be noted.
--- NOTE | 2022-06-24 11:57 | P.DS ---
Providers Date of admission: 06/22/22 18:58 Expected date of discharge: 06/24/22 Attending physician: Mathew Shafer MD Consults: 06/22/22 19:15 Consult Physician Routine Consulting Provider: Sanjeev Santana Consult Reason/Comments: Angioedema, hyponatremia Do you want consulting provider notified?: Already Contacted 06/22/22 22:58 Consult Physician Routine Consulting Provider: Americo Granados Consult Reason/Comments: sodium 114 Do you want consulting provider notified?: Yes, Notify in am Primary care physician: Caridad Malone [facility] Course: Final Diagnoses: Angioedema, suspect related to SIM inhibitor, discontinued on admission, possible beer potomania, improving Hypovolemic hyponatremia improving with IV fluid hydration Hyperkalemia, improving Hypomagnesemia, normalized CAD, history of NSTEMI, cardiac stenting Cardiomyopathy, type unclear, EF decreased 35% from normal LV function. Hypertension Dehydrated Nicotine dependence, nicotine cessation reinforced. Alcohol abuse, alcohol abstinence reinforced History of CVA Hospital course:This is a 66-year-old gentleman with past medical history of COPD, nicotine dependence, alcohol abuse, CVA and multiple other medical issues presented to the ER with left cheek swelling, lip swelling without shortness of breath chest pain or palpitations. Presented to the tenderness, concerned about potential dental infection and advised to proceed to the ER secondary to ALLERGIC reaction suspected. Reports he has been on lisinopril since February, has not increased the dose from missed any doses. Consumed beef stroganoff for dinner the evening before that he had cooked himself, with no new spices, mild heartburn during the night. Reports his tongue felt tingly for a few minutes as well. denies throat closing sensation.Denies nausea vomiting or diarrhea. Consumes 5-6 cans of beer daily along with ice tea. Maintained on Steroids, Benadryl, IV fluids/fluid restriction, Norvasc with SIM inhibitor. Positive diet intake. Sodium improved up to 127. Significant clinical improvement. Denies numbness or tingling. Denies chest pain, palpitations or shortness of breath. Maintaining O2 sats in the high 90s on room air. Ambulating in room, tolerating exertion well. Eager for discharge. Cleared by nephrology for discharge. Patient reporting he has chronic hyponatremia.Patient will be discharged home today in a stable condition with guarded prognosis. The impression and plan of care has been dictated as directed. : I performed a history and examination of this patient, discussed the same with the dictator. I agree with the dictator's note ,documented as a scribe. Any additional findings or plans will be noted. Patient Condition at Discharge: Stable Plan - Discharge Summary Discharge Rx Participant: No New Discharge Prescriptions: New amLODIPine [Norvasc] 5 mg PO DAILY #30 tab predniSONE 10 mg PO DIRECTED #30 tab Thiamine [Vitamin B-1] 100 mg PO DAILY tab Nicotine 21Mg/24Hr Patch [Habitrol] 1 patch TRANSDERM DAILY patch Continue Fluticasone/Umeclidin/Vilanter [Trelegy Ellipta 200-62.5-25] 1 puff INHALATION RT-DAILY Metoprolol Tartrate [Lopressor] 50 mg PO BID #60 tab Nitroglycerin Sl Tabs [Nitrostat] 0.4 mg SUBLINGUAL Q5M PRN #100 tab PRN Reason: Chest Pain Albuterol Sulfate [Ventolin HFA] 2 puff INHALATION RT-QID PRN PRN Reason: Shortness Of Breath Aspirin 81 mg PO DAILY #30 tab Atorvastatin [Lipitor] 80 mg PO DAILY #30 tab Discontinued Spironolactone [Aldactone] 25 mg PO DAILY #30 tab lisinopriL [Zestril] 10 mg PO BID Discharge Medication List Albuterol Sulfate [Ventolin HFA] 2 puff INHALATION RT-QID PRN 02/25/22 [History] Fluticasone/Umeclidin/Vilanter [Trelegy Ellipta 200-62.5-25] 1 puff INHALATION RT-DAILY 02/25/22 [History] Aspirin 81 mg PO DAILY #30 tab 03/01/22 [Rx] Atorvastatin [Lipitor] 80 mg PO DAILY #30 tab 03/01/22 [Rx] Metoprolol Tartrate [Lopressor] 50 mg PO BID #60 tab 03/01/22 [Rx] Nitroglycerin Sl Tabs [Nitrostat] 0.4 mg SUBLINGUAL Q5M PRN #100 tab 03/01/22 [Rx] Nicotine 21Mg/24Hr Patch [Habitrol] 1 patch TRANSDERM DAILY patch 06/24/22 [Rx] Thiamine [Vitamin B-1] 100 mg PO DAILY tab 06/24/22 [Rx] amLODIPine [Norvasc] 5 mg PO DAILY #30 tab 06/24/22 [Rx] predniSONE 10 mg PO DIRECTED #30 tab 06/24/22 [Rx] Follow up Appointment(s)/Referral(s): Mathew Shafer MD [STAFF PHYSICIAN] - 1 Week Americo Granados DO [STAFF PHYSICIAN] - 1 Week Ambulatory/Diagnostic Orders: Basic Metabolic Panel [LAB.AMB] Time Frame: 3 Days, Location: None Selected Patient Instructions/Handouts: Angioedema (GEN) Activity/Diet/Wound Care/Special Instructions: Aldactone on hold secondary to potassum levels 5+. Sim inhib. discontinued, norvasc initiated. Purchase over the counter Sodium Chloride Tabs, take 1 gram daily until follow up.
[2022-06-24 12:11] VITALS: BP 130/71; RESP 16; TEMP 98.1
[2022-06-24 12:36] VITALS: PULSE 82
--- NOTE | 2022-06-24 16:53 | P.PN ---
Subjective Progress Note Date: 06/24/22 Principal diagnosis: Angioedema secondary to lisinopril/JOSE inhibitor and hyponatremia, secondary to be a potomania I am seeing this patient in new consultation today 06/23/2022 in regard to some angioedema. This is a pleasant 66-year-old male with past medical history of hypertension maintained on lisinopril, coronary artery disease, COPD, seizure disorder, alcoholism, current smoker. Yesterday morning the patient noticed some lip swelling and went to his dentist for evaluation. The dentist did not feel that the inflammation is related to infection or abscess, and he was sent to [facility]. Patient is currently sitting up in bed, on room air, in no acute distress. There is obvious lower facial swelling sparing his tongue and posterior pharynx. Patient has no audible stridor. He is maintained on Decadron IV 4 mg every 6 hours, Pepcid twice a day, Benadryl. Patient's lisinopril has been stopped. Incidentally, patient was found to be severely hyponatremic on arrival. Initial sodium level is 116, and most recent sodium 115. He is currently asymptomatic. Nephrology is on the case. Patient has normal saline infusing at 50 ML's per hour. Patient does have significant history of alcoholism. He drinks about a sixpack of beer per day. A urine s odium, urine osmolality, serum osmolality, TSH are pending. Patient denies starting any new medications recently. Chest x-ray done on arrival showed no acute cardiopulmonary process with some background COPD. CBC on arrival shows a WBC count of 16.6, hemoglobin 12.2, hematocrit 35, platelets 432,000. Patient's most recent BMP 1 AM shows sodium 115, potassium 5.8, chloride 85, serum CO2 20, BUN 15, creatinine 0.79, glucose 138. Vital signs are stable at this time. Reevaluated today on 06/24/2022, patient is doing well, his angioedema has resolved, his sodium is up to 127, patient is doing great, asymptomatic, and I will clear him to be discharged home on Medrol Dosepak as directed. And to follow-up with his primary care physician on outpatient basis Objective - Vital Signs Vital signs: Vital Signs Temp 98.1 F 06/24/22 12:00 Pulse 82 06/24/22 12:36 Resp 16 06/24/22 12:00 BP 130/71 06/24/22 12:00 Pulse Ox 100 06/24/22 12:00 FiO2 Intake & Output 06/23/22 06/24/22 06/24/22 18:59 06:59 18:59 Intake Total 1218 118 Output Total 400 500 Balance 1218 -400 -382 Intake: Oral 1218 118 Output: Urine 400 500 Other: Voiding Method Toilet # Voids 1 1 - Exam Physical Exam HEENT:: Revealed a 66-year-old white male in no distress Head: Atraumatic normocephalic [No neck masses.] [No thyromegaly.] [No JVD.] Chest: [Clear throughout, no crackles, no rhonchi, no wheezes.] Cardiac Exam: [Normal S1 and S2, no S3 gallop, no murmur.] Abdomen: [Soft, nontender, no megaly, no rebound, no guarding, normal bowel sounds.] Extremities: [No clubbing, no edema, no cyanosis.] Neurological Exam: [No focal neurologic deficit.] Psychiatric: Normal mood affect and normal mental status examination. Skin: No rashes - Labs CBC & Chem 7: 06/23/22 07:55 06/24/22 08:57 Labs: Abnormal Lab Results - Last 24 Hours (Table) 06/23/22 06/23/22 06/24/22 Range/Units 11:34 20:48 08:57 Sodium 121 L 127 L (137-145) mmol/L Potassium 5.3 H (3.5-5.1) mmol/L Chloride 94 L (98-107) mmol/L Carbon Dioxide 21 L (22-30) mmol/L BUN 21 H (9-20) mg/dL Glucose 193 H (74-99) mg/dL Ur Random Sodium <20 L (40-220) mmol/L Assessment and Plan Assessment: Angioedema probably related to lisinopril. This medication has been stopped. No airway compromise at the moment. Patient is currently receiving Decadron every 6 hours Severe hyponatremia /beer potomania Alcoholism. Patient admits to drinking about 6, 12 ounce beers per day Stable COPD normally maintained on Trelegy and as needed albuterol inhaler Hypertension Hyperlipidemia Coronary artery disease Current smoker Recommendation: We'll clear the patient to be discharged home on Medrol Dosepak as I recommended Advised patient to follow-up with his primary care physician Avoid JOSE inhibitor's Could be seen in the office for COPD if necessary. Time with Patient: Less than 30
[2022-06-25] MEDS ORDERED: methylPREDNISolone 4 MG TAB TAPER PO SCH (09:00)
== END 2022-06-24 13:06 | disposition home or self-care (01) | DRG 916 ==
LOC: EC 15:45 → 3SCARD 18:58
PROVIDERS: ADMIT Family Medicine; ATTEND Family Medicine
DX: T78.3XXA Angioneurotic edema, initial encounter (principal); I42.9 Cardiomyopathy, unspecified; E87.1 Hypo-osmolality and hyponatremia; F10.288 Alcohol dependence with other alcohol-induced disorder; I10 Essential (primary) hypertension; G40.909 Epilepsy, unspecified, not intractable, without status epilepticus; J44.9 Chronic obstructive pulmonary disease, unspecified; T46.4X5A Adverse effect of angiotensin-converting-enzyme inhibitors, initial encounter; I25.10 Atherosclerotic heart disease of native coronary artery without angina pectoris; E86.0 Dehydration; F17.210 Nicotine dependence, cigarettes, uncomplicated; E86.1 Hypovolemia; E87.5 Hyperkalemia; E78.5 Hyperlipidemia, unspecified; E83.42 Hypomagnesemia; K04.7 Periapical abscess without sinus; Z95.5 Presence of coronary angioplasty implant and graft; I25.2 Old myocardial infarction; Z86.73 Personal history of transient ischemic attack (TIA), and cerebral infarction without residual deficits; Z88.8 Allergy status to other drugs, medicaments and biological substances; Z79.899 Other long term (current) drug therapy; Z79.82 Long term (current) use of aspirin; Z79.51 Long term (current) use of inhaled steroids; Z28.311 Partially vaccinated for COVID-19
CPT/HCPCS: 36415; 71046; 80048; 80053; 83735; 83930; 83935; 84295; 84300; 84443; 85025; 85610; 85730; 94640; 94760; 96372; 96374; 96375; 99285

== ENCOUNTER 2022-09-26 19:49 | Inpatient (IN) | payer MEDICARE, OTHER ==
--- NOTE | 2022-09-26 20:33 | ED ---
General Adult HPI - General Chief complaint: Neck Pain/Injury Stated complaint: Nausea Time Seen by Provider: 09/26/22 20:10 Source: EMS Mode of arrival: EMS Limitations: no limitations - History of Present Illness Initial comments: Patient is a 67-year-old male presenting to the emergency room via EMS with multiple complaints including left-sided neck pain, left-sided jaw pain, intermittent dizziness and intermittent blurred vision along with occasional nausea without vomiting. He also reports light sensitivity as well. He states that he was concerned regarding his symptoms as last time he had neck pain and stiffness similar to this he was diagnosed with a TIA. He reports that the symptoms have been ongoing for approximately 1 week. He reports that he has nausea primarily when he is dizzy and his dizziness is worse when laying down. He is unable to describe the dizziness. He reports an unsteadiness but no falls. He was given Zofran by EMS and has not had any nausea or vomiting since his arrival. He denies any chest pain, shortness of breath, abdominal pain, vomiting with his nausea, ear pain, tinnitus, other focal neurological deficits, fevers or chills. In addition to his TIA history is a past medical history significant for CAD, COPD, hypertension, hyperlipidemia, and seizures. - Related Data Home Medications Medication Instructions Recorded Confirmed Albuterol Sulfate [Ventolin HFA] 2 puff INHALATION RT-QID PRN 02/25/22 06/22/22 Fluticasone/Umeclidin/Vilanter 1 puff INHALATION RT-DAILY 02/25/22 06/22/22 [Trelegy Ellipta 200-62.5-25] Previous Rx's Medication Instructions Recorded Aspirin 81 mg PO DAILY #30 tab 03/01/22 Atorvastatin [Lipitor] 80 mg PO DAILY #30 tab 03/01/22 Metoprolol Tartrate [Lopressor] 50 mg PO BID #60 tab 03/01/22 Nitroglycerin Sl Tabs [Nitrostat] 0.4 mg SUBLINGUAL Q5M PRN #100 tab 03/01/22 Nicotine 21Mg/24Hr Patch [Habitrol] 1 patch TRANSDERM DAILY patch 06/24/22 Thiamine [Vitamin B-1] 100 mg PO DAILY tab 06/24/22 amLODIPine [Norvasc] 5 mg PO DAILY #30 tab 06/24/22 predniSONE 10 mg PO DIRECTED #30 tab 06/24/22 Allergies Allergy/AdvReac Type Severity Reaction Status Date / Time lisinopril Allergy Anaphylaxis Verified 06/22/22 16:39 Review of Systems ROS Statement: Those systems with pertinent positive or pertinent negative responses have been documented in the HPI. ROS Other: All systems not noted in ROS Statement are negative. Past Medical History Past Medical History: Coronary Artery Disease (CAD), COPD, CVA/TIA (TIA), Seizure Disorder Additional Past Medical History / Comment(s): chronic bronchitis History of Any Multi-Drug Resistant Organisms: None Reported Past Surgical History: Tonsillectomy Additional Past Surgical History / Comment(s): tubes in ears at a young age- unsure if he had this Past Anesthesia/Blood Transfusion Reactions: No Reported Reaction Past Psychological History: No Psychological Hx Reported Smoking Status: Current every day smoker Past Alcohol Use History: Daily Additional Past Alcohol Use History / Comment(s): smokes 1 pack/day or uses nicotine patches. Drinks 4-5 beer/day Past Drug Use History: None Reported - Past Family History Father Additional Family Medical History / Comment(s): "his heart stopped" General Exam Limitations: no limitations General appearance: alert, in no apparent distress Head exam: Present: atraumatic, normocephalic, normal inspection Eye exam: Present: normal appearance, PERRL, EOMI. Absent: scleral icterus, conjunctival injection, nystagmus, periorbital swelling Pupils: Present: normal accommodation ENT exam: Present: normal exam, mucous membranes moist Neck exam: Present: normal inspection, tenderness (Left), full ROM. Absent: meningismus Respiratory exam: Present: normal lung sounds bilaterally. Absent: respiratory distress, wheezes, rales, rhonchi, stridor Cardiovascular Exam: Present: regular rate, normal rhythm, normal heart sounds. Absent: systolic murmur, diastolic murmur, rubs, gallop, clicks GI/Abdominal exam: Present: soft, normal bowel sounds. Absent: distended, tenderness, guarding, rebound, rigid Extremities exam: Present: normal inspection, full ROM. Absent: pedal edema, joint swelling Back exam: Present: normal inspection, full ROM. Absent: paraspinal tenderness, vertebral tenderness Neurological exam: Present: alert, oriented X3, CN II-XII intact Expanded Speech: Present: fluid speech Cranial nerves: EOM's Intact: Normal, Gag Reflex: Normal, Nystagmus: Normal, Facial Sensation: Normal Cerebellar function: Finger to Nose: Normal, Heel to [place]: Normal Motor strength exam: RUE: 5, LUE: 5, RLE: 5, LLE: 5 [place] Total: 15 Psychiatric exam: Present: flat affect Skin exam: Present: warm, dry, intact, normal color. Absent: rash Course Vital Signs 09/26/22 09/26/22 19:53 22:41 Pulse Rate 73 73 Respiratory 18 18 Rate Blood Pressure 137/78 139/95 O2 Sat by Pulse 98 96 Oximetry Medical Decision Making - Medical Decision Making Was pt. sent in by a medical professional or institution (, PA, STEAM ROLLER OPERATOR, urgent care, hospital, or halfway...) When possible be specific @ -No Did you speak to anyone other than the patient for history (EMS, parent, family, police, friend...)? What history was obtained from this source @ -No Did you review nursing and triage notes (agree or disagree)? Why? @ -I reviewed and agree with nursing and triage notes except also complains of jaw pain, dizziness and intermittent blurred vision all ongoing for approximately a week and half Were old charts reviewed (outside hosp., previous admission, EMS record, old EKG, old radiological studies, urgent care reports/EKG's, halfway records)? Report findings @ -No old charts were reviewed Differential Diagnosis (chest pain, altered mental status, abdominal pain women, abdominal pain men, vaginal bleeding, weakness, fever, dyspnea, syncope, headache, dizziness, GI bleed, back pain, seizure, CVA, palpatations, mental health, musculoskeletal)? @ -Differential Dizziness: Benign paroxysmal positional Vertigo, Menieres disease, otitis media, acoustic neuroma, vertebrobasilar insufficiency, cerebellar stroke, encephalitis, hypovolemic, arrhythmia, coronary artery syndrome, anemia, this is not meant to be an all-inclusive list EKG interpreted by me (3pts min.). @ -Sinus rhythm, ventricular rate 67 bpm, CA interval 146 most seconds, QRS duration 101 ms, QT/QTC 460/431 ms, PRT axes 73, 78, 81 X-rays interpreted by me (1pt min.). @ -Chest x-ray two-view: No pleural effusion, pneumothorax or consolidation. No acute cardiopulmonary process CT interpreted by me (1pt min.). @ -CT brain and cervical spine: No mass or intracranial hemorrhage. No cervical spine fracture or subluxation. Per radiologist report remote left cerebellar ischemic injury and disc osteophyte complex of C3-C4 and C6-C7 with minimal central by anal canal stenosis. U/S interpreted by me (1pt. min.). @ -None done What testing was considered but not performed or refused? (CT, X-rays, U/S, labs)? Why? @ -None What meds were considered but not given or refused? Why? @ -None Did you discuss the management of the patient with other professionals (professionals i.e. , PA, STEAM ROLLER OPERATOR, lab, RT, psych nurse, social media sr strategy manager, brain picker, teacher, chief resource officer, child support case officer)? Give summary @ -Yes, spoke with Dr. Ray regarding patient presentation and workup and recommendation for admission for evaluation by neurology for remote ischemic left cerebellar region. Advise cardiac workup negative. She is accepting of admission and denies any further orders at this time. Will place admission orders to [facility]. Was smoking cessation discussed for >3mins.? @ -No Was critical care preformed (if so, how long)? @ -No Were there social determinants of health that impacted care today? How? (Homeles sness, low income, unemployed, alcoholism, drug addiction, transportation, low edu. Level, literacy, decrease access to med. care, nursing home, rehab)? @ -No Was there de-escalation of care discussed even if they declined (Discuss DNR or withdrawal of care, Hospice)? DNR status @ -No What co-morbidities impacted this encounter? (DM, HTN, Smoking, COPD, CAD, Cancer, CVA, ARF, Chemo, Hep., AIDS, mental health diagnosis, sleep apnea, morbid obesity)? @ -None Was patient admitted / discharged? Hospital course, mention meds given and route, prescriptions, significant lab abnormalities, going to OR and other pertinent info. @ -67-year-old male presenting to the emergency room via EMS with multiple complaints including left-sided neck pain, left-sided jaw pain, intermittent dizziness and intermittent blurred vision along with occasional nausea without vomiting. He also reports light sensitivity as well. He states that he was concerned regarding his symptoms as last time he had neck pain and stiffness similar to this he was diagnosed with a TIA. He reports that the symptoms have been ongoing for approximately 1 week. He reports that he has nausea primarily when he is dizzy and his dizziness is worse when laying down. He is unable to describe the dizziness. He reports an unsteadiness but no falls. He was given Zofran by EMS and has not had any nausea or vomiting since his arrival. Will start complex workup with chest x-ray, EKG, CT of the brain and cervical spine, CBC, CMP, troponin, magnesium along with cardiac enzymes. No nausea at this time no need for anti-medics. Will defer other medication at this time till CT resulted. CT brain demonstrates remote ischemia of the left cerebellar consistent with patient's symptoms and onset. Patient complaining of continued neck pain along with headache will give Norflex and Toradol. Chest x-ray negative for acute cardiopulmonary process. EKG demonstrates sinus rhythm. Laboratory studies show slightly elevated WBC 11.8 likely reactive, coags normal. Chemistry panel demonstrates hyponatremia at 125, normal potassium and normal magnesium. Chloride low at 92 bicarb low at 20 renal function and liver function stable troponin negative. No significant improvement in neck pain with Norflex and Toradol will plan for admission for remote ischemia with neurology consult and place further medications for pain control along with IV hydration for hyponatremia And Zofran for nausea as needed.Spoke with Dr. Ray on for [facility] surfaces covering for patient's primary care provider who is accepting of admi ssion and denies any further orders at this time. Will admit patient in stable condition to observation unit under [facility] for further evaluation and treatment of remote cerebellar ischemia and hyponatremia. Undiagnosed new problem with uncertain prognosis? @ -No Drug Therapy requiring intensive monitoring for toxicity (Heparin, Nitro, Insulin, Cardizem)? @ -No Were any procedures done? @ -No Diagnosis/symptom? @ -Remote left cerebellar ischemia Acute, or Chronic, or Acute on Chronic? @ -Acute Uncomplicated (without systemic symptoms) or Complicated (systemic symptoms)? @ -Complicated Side effects of treatment? @ -No Exacerbation, Progression, or Severe Exacerbation? @ -No Poses a threat to life or bodily function? How? (Chest pain, [place], [place], pneumonia, PE, COPD, DKA, ARF, appy, cholecystitis, CVA, Diverticulitis, Homicidal, Suicidal, threat to staff... and all critical care pts) @ -Yes, remote CVA at risk for further neurological deficits. Diagnosis/symptom? @ -Hyponatremia Acute, or Chronic, or Acute on Chronic? @ -Acute Uncomplicated (without systemic symptoms) or Complicated (systemic symptoms)? @ -Complicated Side effects of treatment? @ -none Exacerbation, Progression, or Severe Exacerbation] @ -no Poses a threat to life or bodily function? @ -Yes, at worst for further electrolyte derangement. Case discussed with Dr. Hawkins. - Lab Data Result diagrams: 09/26/22 21:36 09/26/22 21:36 Lab Results 09/26/22 09/26/22 09/26/22 Range/Units 21:36 21:36 21:36 WBC 11.8 H (3.8-10.6) k/uL RBC 3.71 L (4.30-5.90) m/uL Hgb 13.4 (13.0-17.5) gm/dL Hct 39.3 (39.0-53.0) % MCV 106.2 H (80.0-100.0) fL MCH 36.2 H (25.0-35.0) pg MCHC 34.1 (31.0-37.0) g/dL RDW 12.4 (11.5-15.5) % Plt Count 259 (150-450) k/uL MPV 7.3 Macrocytosis Slight PT 9.4 (9.0-12.0) sec INR 0.9 (<1.2) APTT 22.7 (22.0-30.0) sec Sodium 125 L (137-145) mmol/L Potassium 4.5 (3.5-5.1) mmol/L Chloride 92 L (98-107) mmol/L Carbon Dioxide 20 L (22-30) mmol/L Anion Gap 13 mmol/L BUN 8 L (9-20) mg/dL Creatinine 0.53 L (0.66-1.25) mg/dL Est GFR (CKD-EPI)AfAm >90 (>60 ml/min/1.73 sqM) Est GFR (CKD-EPI)NonAf >90 (>60 ml/min/1.73 sqM) Glucose 90 (74-99) mg/dL Calcium 9.3 (8.4-10.2) mg/dL Magnesium 1.7 (1.6-2.3) mg/dL Total Bilirubin 0.3 (0.2-1.3) mg/dL AST 31 (17-59) U/L ALT 27 (4-49) U/L Alkaline Phosphatase 56 (38-126) U/L Troponin I (0.000-0.034) ng/mL Total Protein 6.8 (6.3-8.2) g/dL Albumin 4.8 (3.5-5.0) g/dL 09/26/22 Range/Units 21:36 WBC (3.8-10.6) k/uL RBC (4.30-5.90) m/uL Hgb (13.0-17.5) gm/dL Hct (39.0-53.0) % MCV (80.0-100.0) fL MCH (25.0-35.0) pg MCHC (31.0-37.0) g/dL RDW (11.5-15.5) % Plt Count (150-450) k/uL MPV Macrocytosis PT (9.0-12.0) sec INR (<1.2) APTT (22.0-30.0) sec Sodium (137-145) mmol/L Potassium (3.5-5.1) mmol/L Chloride (98-107) mmol/L Carbon Dioxide (22-30) mmol/L Anion Gap mmol/L BUN (9-20) mg/dL Creatinine (0.66-1.25) mg/dL Est GFR (CKD-EPI)AfAm (>60 ml/min/1.73 sqM) Est GFR (CKD-EPI)NonAf (>60 ml/min/1.73 sqM) Glucose (74-99) mg/dL Calcium (8.4-10.2) mg/dL Magnesium (1.6-2.3) mg/dL Total Bilirubin (0.2-1.3) mg/dL AST (17-59) U/L ALT (4-49) U/L Alkaline Phosphatase (38-126) U/L Troponin I <0.012 (0.000-0.034) ng/mL Total Protein (6.3-8.2) g/dL Albumin (3.5-5.0) g/dL - Radiology Data Radiology results: report reviewed, image reviewed Disposition Clinical Impression: Acute ischemic vertebrobasilar artery cerebellar stroke, Hyponatremia Disposition: ADMITTED IP TO THIS HOSP Referrals: Caridad Malone DO [Primary Care Provider] - 1-2 days Time of Disposition: 23:13
--- NOTE | 2022-09-26 21:32 | XR ---
EXAMINATION TYPE: XR chest 2V DATE OF EXAM: 09/26/2022 9:25 PM COMPARISON: Chest x-ray 06/22/2022 TECHNIQUE: XR chest 2V . CLINICAL INDICATION:Male, 67 years old with history of Neck pain with nausea; FINDINGS: Lungs/Pleura: There is flattening of the diaphragm with increased lucency of the lungs. No evidence o f pneumothorax, pleural effusion or focal consolidation. Pulmonary vascularity: Unremarkable. Heart/mediastinum: Cardiomediastinal silhouette is unremarkable. Atherosclerotic calcifications are seen in the aorta. Musculoskeletal: Multiple level degenerative disc disease changes seen throughout the spine. IMPRESSION: No acute cardiopulmonary disease/process.
--- NOTE | 2022-09-26 21:49 | CT ---
EXAMINATION TYPE: CT brain cspine wo con CT DLP: 1259.6 mGycm, Automated exposure control for dose reduction was used. DATE OF EXAM: 09/26/2022 9:38 PM COMPARISON: CTA head/neck 03/30/2020, MRI brain 03/29/2020. CLINICAL INDICATION:Male, 67 years old with history of neck pain with dizziness and TIA hx; syncope d izziness TECHNIQUE: Brain: Multiple axial CT images of the brain were obtained without IV contrast. Cspine: Axial CT images from the skull base to the inferior aspect of T2 we obtained without intraven ous contrast. Coronal and sagittal reformatted images were also reviewed. FINDINGS: Brain: Extra-axial spaces: No abnormal extra-axial fluid collections. Ventricular system: Within normal limits Cerebral parenchyma: No acute intraparenchymal hemorrhage or mass effect. The dinh-white junction is well differentiated. Cerebellum: Remote injuries involving the left cerebellar hemisphere. Right cerebellar hemisphere is normal in appearance. Mass effect: No evidence of midline shift. Intracranial vasculature: Atherosclerotic calcifications of the intracranial vessels. Soft tissues: Normal. Calvarium/osseous structures: No depressed skull fracture. Paranasal sinuses and mastoid air cells: Clear.Mastoid air cells are Clear Visualized orbits: Orbital contents are intact. Cervical spine: Fracture: None. Osseous structures: Multilevel degenerative disc disease changes with endplate spurring and disc oste ophyte complex's. Vertebral alignment: Within normal limits. Spinal canal/Neural Foramina: Disc osteophyte complexes at C3-C4 and C6-C7. With at minimal spinal ca nal stenosis. Facet joint uncovertebral joint arthropathy scattered throughout the cervical spine wit h varying degrees of neural foraminal stenosis. Neck soft tissues: Prevertebral soft tissues are within normal limits. Other: The airway is patent. Emphysematous changes of the lung apices bilaterally. No consolidation o r pneumothorax seen. IMPRESSION: 1. No acute intracranial process. 2. Remote left cerebellar ischemic injuries. 3. No evidence of cervical spine fracture. 4. Disc osteophyte complex's of C3-C4 and C6-C7 results in minimal central spinal canal stenosis.
[2022-09-26] MEDS ORDERED: KETOROLAC 15 MG/ML 1 ML VIAL IVP STA (22:07)
[2022-09-26] MEDS ORDERED: ORPHENADRINE 30 MG/ML 2 ML VIAL IVP STA (22:07)
[2022-09-26 22:17] LABS: HCT 39.3 % (39.0-53.0); HGB 13.4 gm/dL (13.0-17.5); MCH 36.2 pg (25.0-35.0); MCHC 34.1 g/dL (31.0-37.0); MCV 106.2 fL (80.0-100.0); Macrocytosis Slight; Mean Platelet Volume 7.3; Platelet Count 259 k/uL (150-450); RBC 3.71 m/uL (4.30-5.90); RDW 12.4 % (11.5-15.5); WBC 11.8 k/uL (3.8-10.6)
[2022-09-26 22:25] LABS: INR 0.9 (<1.2); Partial Thromboplastin Time 22.7 sec (22.0-30.0); Prothrombin Time 9.4 sec (9.0-12.0)
[2022-09-26 22:44] LABS: ALT 27 U/L (4-49); AST 31 U/L (17-59); African American GFR (CKD) >90 (>60 ml/min/1.73 sqM); Albumin 4.8 g/dL (3.5-5.0); Alkaline Phosphatase 56 U/L (38-126); Anion Gap 13 mmol/L; Blood Urea Nitrogen 8 mg/dL (9-20); Calcium 9.3 mg/dL (8.4-10.2); Carbon Dioxide 20 mmol/L (22-30); Chloride 92 mmol/L (98-107); Glucose 90 mg/dL (74-99); Magnesium 1.7 mg/dL (1.6-2.3); Non-African American GFR(CKD) >90 (>60 ml/min/1.73 sqM); Potassium 4.5 mmol/L (3.5-5.1); Sodium 125 mmol/L (137-145); Total Bilirubin 0.3 mg/dL (0.2-1.3); Total Protein 6.8 g/dL (6.3-8.2)
[2022-09-26] MEDS ORDERED: NALOXONE 0.4 MG/ML 1 ML VIAL IV PRN (22:50)
[2022-09-26] MEDS ORDERED: MORPHINE SULFATE 4 MG/ML SYRINGE IV PRN (22:56)
[2022-09-26 23:26] LABS: Eosinophils # (M) 0.12 k/uL (0-0.7); Lymphocytes # (M) 5.66 k/uL (1.0-4.8); Monocytes # (M) 0.47 k/uL (0-1.0); Neutrophils # (M) 5.55 k/uL (1.3-7.7); Neutrophils % (M) 47 %; Nucleated Red Blood Cells 0 /100 WBC (0-0); Total Cells Counted 100
[2022-09-26] MEDS: SODIUM CHLORIDE 0.9% 1,000 ML IV SCH (23:33)
[2022-09-27 08:38] LABS: HCT 41.1 % (39.0-53.0); HGB 13.8 gm/dL (13.0-17.5); MCH 35.4 pg (25.0-35.0); MCHC 33.5 g/dL (31.0-37.0); MCV 105.7 fL (80.0-100.0); Macrocytosis Slight; Mean Platelet Volume 7.8; Platelet Count 275 k/uL (150-450); RBC 3.88 m/uL (4.30-5.90); RDW 12.9 % (11.5-15.5); WBC 11.5 k/uL (3.8-10.6)
[2022-09-27] MEDS: METOPROLOL TARTRATE 50 MG TAB PO SCH ×2 (08:45→20:54)
[2022-09-27] MEDS: ASPIRIN 81 MG PO SCH (08:45)
[2022-09-27] MEDS: ATORVASTATIN 80 MG TAB PO SCH (08:45)
[2022-09-27] MEDS: NICOTINE 21MG/24HR PATCH TRANSDERM SCH (08:48)
[2022-09-27 08:53] LABS: African American GFR (CKD) >90 (>60 ml/min/1.73 sqM); Anion Gap 10 mmol/L; Blood Urea Nitrogen 11 mg/dL (9-20); Calcium 9.3 mg/dL (8.4-10.2); Carbon Dioxide 23 mmol/L (22-30); Chloride 94 mmol/L (98-107); Glucose 87 mg/dL (74-99); Non-African American GFR(CKD) >90 (>60 ml/min/1.73 sqM); Potassium 4.8 mmol/L (3.5-5.1); Sodium 127 mmol/L (137-145)
[2022-09-27] MEDS ORDERED: ALBUTEROL NEBULIZED 2.5 MG/3 ML INHALATION PRN (10:52)
--- NOTE | 2022-09-27 11:21 | P.CNNES ---
History of Present Illness Consult date: 09/27/22 Requesting physician: Lesa Buchanan Reason for Consult: Remote left cerebellar ischemia History of Present Illness: Patient is a 67-year-old right-handed male with history of previous CVA, tobacco use, came to the hospital by ambulance yesterday at 7:49 PM for 1 week history of intermittent headache, and neck pain. He has been waking up every morning with headache, neck pain, which he felt attributed to using too big stuff pillows. However he has been using the same pillows for long time, nothing out of ordinary. He would take Tylenol 2 tablets. After he would stretch, the symptoms would improve a lot, but about 5 hours later he would need Tylenol again. He has been feeling some nausea, dizziness off and on. Nausea he would be taking some [id number] Pepcid as needed. There is no slurred speech, no facial droop, no numbness tingling or focal weakness. No problems with balance. Patient still was able to walk to the groceries, and could do all his errands. Patient states that he woke up yesterday at 6 PM and felt slightly dizzy, nauseated and blurred vision. Therefore he got concerned, therefore decided to come to the ER. As per EMS flowsheet, when they arrived, patient was on the scene sitting upright in chair. Patient stated that he is experiencing neck pain, nausea, blurred vision for 3 days. Patient states last time he felt like this he "had a stroke". He was alert and oriented 4. Stroke scale was negative. EKG showed normal sinus rhythm. Patient's vitals at the scene was blood pressure 148/79, pulse rate 76 respirations 16 saturation 98%, blood sugar 137. Vital signs on arrival blood pressure 137/78. EKG shows sinus rhythm, chest x- ray normal. CT head showed no acute intracranial process. Remote left cerebellar ischemic injuries. No evidence for cervical spinal fracture. Disc osteophyte complex of C3-C4 and C6-C7 resulting in minimal central spinal canal stenosis. On my review of CT head, agree with the findings. Patient's previous CT head from 03/28/2020 was completely normal with no evidence of acute or remote stroke whereas MRI of the brain revealed subacute to acute stroke in the left cerebellum. Patient was placed on DAP for 30 days and then maintained on aspirin 81 mg daily. Patient had a 30 day event monitor placed from 03/31/2020 through 04/29/2020 which revealed sinus mechanism with episode of sinus tachycardia. No evidence of atrial fibrillation or ventricular tachycardia was noted. No pauses were noted. Patient continues to smoke 1 pack per day. After his stroke, he stop smoking for 6 weeks, but then slowly started back again. He also drinks about 4 beers, 4 days a week. No hard liquor. He does take aspirin 81 mg daily. Review of Systems Constitutional: Denies chills, Denies fever Eyes: bilateral blurred vision (Did not check it was both eyes. Temporarily.), denies diplopia, denies loss of vision Ears: bilateral: tinnitus, deny: decreased hearing, ear discharge Ears, nose, mouth and throat: Reports headache, Reports nasal congestion, Reports post-nasal drip, Denies nose pain, Denies sore throat Cardiovascular: Denies chest pain, Denies shortness of breath Respiratory: Reports cough, Reports excessive sputum Gastrointestinal: Reports nausea, Denies abdominal pain, Denies diarrhea, Denies vomiting Musculoskeletal: Reports neck pain, Denies low back pain, Denies myalgias Integumentary: Denies pruritus, Denies rash Neurological: Reports as per HPI Psychiatric: Reports anxiety, Denies depression Endocrine: Denies fatigue, Denies weight change Past Medical History Past Medical History: Coronary Artery Disease (CAD), COPD, CVA/TIA (TIA), Seizure Disorder Additional Past Medical History / Comment(s): chronic bronchitis History of Any Multi-Drug Resistant Organisms: None Reported Past Surgical History: Tonsillectomy Additional Past Surgical History / Comment(s): tubes in ears at a young age- unsure if he had this Past Anesthesia/Blood Transfusion Reactions: No Reported Reaction Past Psychological History: No Psychological Hx Reported Smoking Status: Current every day smoker Past Alcohol Use History: Daily Additional Past Alcohol Use History / Comment(s): smokes 1 pack/day or uses nicotine patches. Drinks 4-5 beer/day Past Drug Use History: None Reported - Past Family History Father Additional Family Medical History / Comment(s): "his heart stopped" Medications and Allergies Home Medications Medication Instructions Recorded Confirmed Type Albuterol Sulfate [Ventolin HFA] 2 puff INHALATION RT-QID PRN 02/25/22 09/27/22 History Fluticasone/Umeclidin/Vilanter 1 puff INHALATION RT-DAILY 02/25/22 09/27/22 History [Trelegy Ellipta 200-62.5-25] Atorvastatin [Lipitor] 80 mg PO DAILY #30 tab 03/01/22 09/27/22 Rx Metoprolol Tartrate [Lopressor] 50 mg PO BID #60 tab 03/01/22 09/27/22 Rx Nitroglycerin Sl Tabs [Nitrostat] 0.4 mg SUBLINGUAL Q5M PRN #100 tab 03/01/22 09/27/22 Rx amLODIPine [Norvasc] 5 mg PO DAILY #30 tab 06/24/22 09/27/22 Rx Aspirin 162 mg PO DAILY 09/27/22 09/27/22 History Allergies Allergy/AdvReac Type Severity Reaction Status Date / Time lisinopril Allergy Anaphylaxis Verified 09/27/22 08:53 Physical Examination - Vital Signs Vital Signs: Vital Signs Pulse Resp BP Pulse Ox 09/27/22 09:23 76 18 140/82 96 09/27/22 09:08 76 09/27/22 06:47 86 18 138/85 95 09/27/22 04:28 77 138/74 95 09/27/22 02:59 62 18 125/69 94 L 09/27/22 01:05 73 18 124/73 96 09/26/22 22:41 73 18 139/95 96 09/26/22 19:53 73 18 137/78 98 Intake and Output 09/26/22 09/27/22 09/27/22 22:59 06:59 14:59 Other: Weight 54.431 kg Patient is an elderly male, in no acute distress. Patient is alert awake oriented to time place and person. Speech and language functions are normal. Patient can name and repeat very well. No aphasia or dysarthria. Attention, concentration and fund of knowledge is adequate. On cranial nerve examination, pupils are equal, round and reacting to light, visual mojica are full on confrontation, with no neglect on double simultaneous stimulation. Extraocular muscles are intact with no nystagmus. Face is symmetric, tongue protrudes to the midline. Palatal elevation and sensation normal, hearing and shoulder shrug normal, facial sensation normal. On muscle strength testing, there is no pronator drift and the strength is normal in arms and legs distally and proximally. Deep tendon reflexes are symmetric very hyperactive and plantars are downgoing. Sensory to touch is equal with no neglect on double simultaneous stimulation. Cerebellar function showed no ataxia for [id number]-ur-gznf testing. No dysdiadoc hokinesia. No ataxia for pecv-vq-[id number] testing on either side. Tone and bulk of muscles normal. Gait deferred.. On general examination, there is no carotid bruit or murmur, S1-S2 audible. Chest is clear on consultation. Abdomen is soft nontender. No organomegaly, bowel sounds present. Peripheral pulses are present. No edema. Results - Laboratory Findings CBC and BMP: 09/27/22 08:16 09/27/22 08:16 Abnormal Lab Findings: Abnormal Labs 09/26/22 09/26/22 09/27/22 21:36 21:36 08:16 WBC 11.8 H RBC 3.71 L MCV 106.2 H MCH 36.2 H Lymphocytes # (Manual) 5.66 H Sodium 125 L 127 L Chloride 92 L 94 L Carbon Dioxide 20 L BUN 8 L Creatinine 0.53 L 0.60 L 09/27/22 08:16 WBC 11.5 H RBC 3.88 L MCV 105.7 H MCH 35.4 H Lymphocytes # (Manual) Sodium Chloride Carbon Dioxide BUN Creatinine Assessment and Plan Assessment: * Intermittent headaches, neck pain, and transient dizziness, blurred vision, unclear etiology. No other focal lateralizing symptoms. Doubt stroke TIA. * History of CVA involving the left cerebellar hemisphere and vermis 03/28/2020 * Hypertension * History of tobacco use * History of alcoholism * COPD * CAD Plan: * MRI brain, evaluate for CVA * Repeat 2-D echo to rule out embolic source * Carotid Doppler * Patient had a 30 day event monitor placed from 03/31/2020 through 04/29/2020 which revealed sinus mechanism with episode of sinus tachycardia. No evidence of atrial fibrillation or ventricular tachycardia was noted. No pauses were noted. * Continue aspirin for now. * Hemoglobin A1c, fasting lipid panel * Recommend complete tobacco cessation. * Optimize control of blood pressure. * Neurology will follow. Thank you for the consult.
[2022-09-27] MEDS: IPRATROPIUM 0.5 MG/2.5 ML NEBU INHALATION SCH ×3 (12:16→20:39)
--- NOTE | 2022-09-27 12:41 | US ---
EXAMINATION TYPE: US carotid duplex BILAT DATE OF EXAM: 09/27/2022 COMPARISON: 03/29/2020 CLINICAL INDICATION: Male, 67 years old with history of Headache, dizziness, blurred vision,?TIA; HEA DACHE, LT NECK PAIN TECHNIQUE: Carotid duplex ultrasound examination. Indirect Doppler criteria was utilized. FINDINGS: EXAM MEASUREMENTS: RIGHT: Peak Systolic Velocity (PSV) cm/sec ----- Right CCA: 104.8 ----- Right ICA: 70.8 ----- Right ECA: 123.3 ICA/CCA ratio: 0.7 RIGHT: End Diastole cm/sec ----- Right CCA: 21.5 ----- Right ICA: 18.4 ----- Right ECA: 0.0 LEFT: Peak Systolic Velocity (PSV) cm/sec ----- Left CCA: 100.2 ----- Left ICA: 87.8 ----- Left ECA: 70.7 ICA/CCA ratio: 0.9 LEFT: End Diastole cm/sec ----- Left CCA: 21.5 ----- Left ICA: 18.6 ----- Left ECA: 7.0 VERTEBRALS (direction of flow): Right Vertebral: Antegrade Left Vertebral: Antegrade Rhythm: Normal IS MANAGER NOTES: No elevated velocities, MINIMAL PLAQUE BILATERAL BULBS IMPRESSION: Atherosclerotic plaque with no significant hemodynamic stenosis by carotid Doppler ultrasound Criteria for Assigning % of Stenosis / Diameter reduction (Estimation based on the indirect measurements of the internal carotid artery velocities (ICA PSV). 1. Normal (no stenosis)=ICA PSV < 125 cm/s: ratio < 2.0: ICA EDV<40 cm/s. 2. Less than 50% stenosis=ICA PSV < 125 cm/s: ratio < 2.0: ICA EDV<40 cm/s. 3. 50 to 69% stenosis=ICA PSV of 125 to 230 cm/s: ration 2.0 ? 4.0: ICA EDV 40-100 cm/s. 4. Greater than 70% stenosis to near occlusion= ICA PSV > 230 cm/s: ratio > 4.0: ICA EDV > 100 cm/s. 5. Near occlusion= ICA PSV velocities may be low or undetectable: variable ratio and ICA EDV. 6. Total occlusion=unable to detect flow.
[2022-09-27] MEDS: traMADol 50 MG TAB PO PRN (13:19)
--- NOTE | 2022-09-27 14:13 | P.HPIM ---
History of Present Illness H&P Date: 09/27/22 This is a 67-year-old gentleman with past medical history significant for COPD, nicotine dependence, alcohol abuse, CVA and multiple other medical issues presented to the ER with complaints of recurrent headache, stiff neck over the last week. Had been taking Tylenol regularly, denies NSAIDs use, without relief. Patient states his daily routines were not interrupted, proceeded to the grocery store and completed his errands. Yesterday developed blurred vision and dizziness with some mild nausea in addition to prior symptoms, prompting his ER visit. Denies numbness or tingling. Denies syncope. Denies chest pain, palpitations or shortness of breath. States has been drinking lots of ice tea. Currently reports neck tightness only. Denies nausea, vomiting or abdominal pain. He reports his dizziness and blurred vision resolved overnight and that these symptoms usually recur during the night. Chest x-ray reported no acute cardiopulmonary disease/process. Brain CT reported no acute intracranial process, remote left cerebellar ischemic injuries, no evidence of cervical spine fracture, disc osteophyte complexes at C3-C4 and C6- C7 results and minimal central spinal canal stenosis. EKG reported sinus rhythm, vital signs stable, blood sugars controlled. Review of Systems ROS Statement: Those systems with pertinent positive or pertinent negative responses have been documented in the HPI. ROS Other: All systems not noted in ROS Statement are negative. Past Medical History Past Medical History: Coronary Artery Disease (CAD), COPD, CVA/TIA (TIA), Seizure Disorder Additional Past Medical History / Comment(s): chronic bronchitis History of Any Multi-Drug Resistant Organisms: None Reported Past Surgical History: Tonsillectomy Additional Past Surgical History / Comment(s): tubes in ears at a young age- unsure if he had this Past Anesthesia/Blood Transfusion Reactions: No Reported Reaction Past Psychological History: No Psychological Hx Reported Smoking Status: Current every day smoker Past Alcohol Use History: Daily Additional Past Alcohol Use History / Comment(s): smokes 1 pack/day or uses nicotine patches. Drinks 4-5 beer/day Past Drug Use History: None Reported - Past Family History Father Additional Family Medical History / Comment(s): "his heart stopped" Medications and Allergies Home Medications Medication Instructions Recorded Confirmed Type Albuterol Sulfate [Ventolin HFA] 2 puff INHALATION RT-QID PRN 02/25/22 09/27/22 History Fluticasone/Umeclidin/Vilanter 1 puff INHALATION RT-DAILY 02/25/22 09/27/22 History [Yesica Ellipta 200-62.5-25] Atorvastatin [Lipitor] 80 mg PO DAILY #30 tab 03/01/22 09/27/22 Rx Metoprolol Tartrate [Lopressor] 50 mg PO BID #60 tab 03/01/22 09/27/22 Rx Nitroglycerin Sl Tabs [Nitrostat] 0.4 mg SUBLINGUAL Q5M PRN #100 tab 03/01/22 09/27/22 Rx amLODIPine [Norvasc] 5 mg PO DAILY #30 tab 06/24/22 09/27/22 Rx Aspirin 162 mg PO DAILY 09/27/22 09/27/22 History Allergies Allergy/AdvReac Type Severity Reaction Status Date / Time lisinopril Allergy Anaphylaxis Verified 09/27/22 08:53 Physical Exam Vitals: Vital Signs Pulse Resp BP Pulse Ox 09/27/22 09:23 76 18 140/82 96 09/27/22 09:08 76 09/27/22 06:47 86 18 138/85 95 09/27/22 04:28 77 138/74 95 09/27/22 02:59 62 18 125/69 94 L 09/27/22 01:05 73 18 124/73 96 09/26/22 22:41 73 18 139/95 96 09/26/22 19:53 73 18 137/78 98 Intake and Output 09/26/22 09/27/22 09/27/22 22:59 06:59 14:59 Other: Weight 54.431 kg PHYSICAL EXAM: VITAL SIGNS: As above GENERAL: Alert and oriented 3, Sitting up in bed, no acute distress, speaks clear, fluent, appropriate HEENT: Normocephalic ,Conjunctivae normal. eyes normal. No facial droop. NECK: Supple, No JVD. No thyroid enlargement. No LNs CARDIOVASCULAR: S1, S2 regular. Positive systolic murmur RESPIRATION: Unlabored, CTA.Breath sounds diminished in the bases. ABDOMEN: Soft, nontender . Nondistended ,No guarding. no masses palpable. No ascites, No hepatosplenomegaly.Bowel sounds heard. LEGS: No edema. no swelling NERVOUS SYSTEM: Cranial N 2-12 grossly normal. No focal deficits. No pronator drift ,Strength and sensation grossly intact. Skin: Warm and dry ,no rash Results CBC & Chem 7: 09/27/22 08:16 09/27/22 08:16 Labs: Abnormal Lab Results - Last 24 Hours (Table) 09/26/22 09/26/22 09/27/22 Range/Units 21:36 21:36 08:16 WBC 11.8 H (3.8-10.6) k/uL RBC 3.71 L (4.30-5.90) m/uL MCV 106.2 H (80.0-100.0) fL MCH 36.2 H (25.0-35.0) pg Lymphocytes # (Manual) 5.66 H (1.0-4.8) k/uL Sodium 125 L 127 L (137-145) mmol/L Chloride 92 L 94 L (98-107) mmol/L Carbon Dioxide 20 L (22-30) mmol/L BUN 8 L (9-20) mg/dL Creatinine 0.53 L 0.60 L (0.66-1.25) mg/dL 09/27/22 Range/Units 08:16 WBC 11.5 H (3.8-10.6) k/uL RBC 3.88 L (4.30-5.90) m/uL MCV 105.7 H (80.0-100.0) fL MCH 35.4 H (25.0-35.0) pg Lymphocytes # (Manual) (1.0-4.8) k/uL Sodium (137-145) mmol/L Chloride (98-107) mmol/L Carbon Dioxide (22-30) mmol/L BUN (9-20) mg/dL Creatinine (0.66-1.25) mg/dL Assessment and Plan Assessment: Recurrent, intermittent headaches, neck pain, blurred vision, dizziness, without syncope ,etiology unclear History of CVA CAD, history of NSTEMI, cardiac stenting Hypertension Nicotine dependence, nicotine cessation reinforced. Alcohol abuse, alcohol abstinence reinforced Plan: Continue on current medication regime ,monitoring and symptomatic treatment. Neurology consult in place, recommendations pending. Home meds reviewed and resumed. Nicotine patch ordered. The impression and plan of care has been dictated as directed. : I performed a history and examination of this patient, discussed the same with the dictator. I agree with the dictator's note ,documented as a scribe. Any additional findings or plans will be noted.
[2022-09-27 16:08] LABS: LDL Cholesterol,Calculated 28.4 mg/dL (0.0-131.0); VLDL Calculation 9.06 mg/dL (5.00-40.00)
[2022-09-27] MEDS: SODIUM CHLORIDE 0.9% 1,000 ML IV SCH (17:36)
[2022-09-27] MEDS: SYMBICORT 160-4.5 MCG INHALER INHALATION SCH (20:39)
[2022-09-28] MEDS: SODIUM CHLORIDE 0.9% 1,000 ML IV SCH ×2 (04:17→13:20)
[2022-09-28] MEDS: ATORVASTATIN 80 MG TAB PO SCH (07:56)
[2022-09-28] MEDS: NICOTINE 21MG/24HR PATCH TRANSDERM SCH (07:56)
[2022-09-28] MEDS: ASPIRIN 81 MG PO SCH (07:56)
[2022-09-28] MEDS: METOPROLOL TARTRATE 50 MG TAB PO SCH (07:56)
[2022-09-28] MEDS ORDERED: NON FORMULARY DRUG (Fluticasone/Umeclidin/Vilanter [Trelegy Ellipta 200-62.5-25] 1 EACH Bl INHALATION SCH (08:00)
[2022-09-28 09:01] VITALS: RESP 18
[2022-09-28] MEDS: IPRATROPIUM 0.5 MG/2.5 ML NEBU INHALATION SCH ×3 (09:41→16:07)
[2022-09-28] MEDS: SYMBICORT 160-4.5 MCG INHALER INHALATION SCH (09:41)
--- NOTE | 2022-09-28 11:22 | CDI ---
Documentation Clarification Form Date: 09/28/2022 11:15:03 AM From: Jia Hammer RN, CCDS Email: [email or web address] Admit Date: 09/26/2022 10:50:00 PM Patient Name: Bud Wolfe Visit Number: [id number] Discharge Date: ATTENTION: The Clinical Documentation Specialists (CDI) and [facility] Coding Staff appreciate your assistance in clarifying documentation. Please respond to the clarification below the line at the bottom and electronically sign. The CDI & [facility] Coding staff will review the response and follow-up if needed. Please note: Queries are made part of the Legal Health Record. If you have any questions, please contact the author of this message via ITS. Dr. Mathew Shafer Your patient has a sodium level of 125 and 127. Please clarify if there is an additional diagnosis and/or clinical significance related to this lab value. History/Risk Factors: CAD, TIA, HLD, HTN and current smoker Clinical indicators: ED: "Chemistry panel demonstrates hyponatremia at 125. IV hydration for hyponatremia." 09/26 Na 125 09/27 Na 127 Treatment: 0.9 NS @75ml/hr. Monitor labs Is there an additional diagnosis and/or clinical significance related to the above lab result/information? [ X ] Hyponatremia [ ] Abnormal Lab Value, not clinically significant [ ] Other condition, please specify [ ] Unable to determine MTDD
[2022-09-28] MEDS: traMADol 50 MG TAB PO PRN (12:10)
--- NOTE | 2022-09-28 16:15 | MR ---
EXAMINATION TYPE: MR brain wo con DATE OF EXAM: 09/28/2022 3:56 PM COMPARISON: CT brain 09/26/2022. CLINICAL INDICATION:Male, 67 years old with history of Stroke TIA; TECHNIQUE: Multi planar, multi sequence imaging was performed through the brain including: T1, T2, In version recovery, Diffusion weighted imaging, and gradient echo imaging. No gadolinium was given. FINDINGS: Remote injury to the left cerebellar hemisphere. No evidence for acute/subacute CVA. Minimal scattere d foci of high T2 signal intensity are seen within the periventricular white matter. Midline structur es show no abnormality. Diffusion-weighted imaging shows no evidence of restricted diffusion. The keiry ceptibility weighted images do not reveal any evidence for micro-hemorrhage. The bone marrow signal is within normal limits. Paranasal sinuses and mastoid air cells: No significant paranasal sinus disease. Visualized orbits: Orbital contents are intact. IMPRESSION: 1. Remote injury to the left cerebellar hemisphere. No evidence for acute/subacute CVA. 2. Minimal Nonspecific white matter changes, likely secondary to small vessel ischemic disease.
[2022-09-28 16:40] VITALS: BP 129/88; PULSE 78; TEMP 96.9
--- NOTE | 2022-09-28 17:29 | CA ---
Transthoracic Echo Report Name: Bud Wolfe Age: 67 Gender: M : 1955 Exam Date: 09/28/2022 13:23 Exam Location: [place] [facility] Ht (in): 65 Wt (lb): 120 Ordering Physician: Rudi Caicedo MD Attending/Referring Phys: Welcome Wagon Host/Hostess Shahram Mejia Procedure CPT: Indications: Headache, dizziness, blurred vision,?TIA Cardiac Hx: Technical Quality: Fair Contrast 1: Agitated Saline Total Dose (mL): 20 Contrast 2: Total Dose (mL): MEASUREMENTS (Male / Female) Normal Values 2D ECHO LV Diastolic Diameter PLAX 4.1 cm 4.2 - 5.9 / 3.9 - 5.3 cm LV Systolic Diameter PLAX 3.0 cm IVS Diastolic Thickness 1.1 cm 0.6 - 1.0 / 0.6 - 0.9 cm LVPW Diastolic Thickness 1.2 cm 0.6 - 1.0 / 0.6 - 0.9 cm LV Relative Wall Thickness 0.6 RV Internal Dim ED PLAX 2.6 cm LVOT Diameter 2.2 cm Aortic Root Diameter 3.0 cm LA Systolic Diameter LX 1.5 cm 3.0 - 4.0 / 2.7 - 3.8 cm LV Diastolic Volume MOD 4C 51.9 cm??? LV Systolic Volume MOD 4C 15.0 cm??? LV Ejection Fraction MOD 4C 71.1 % LV Diastolic Length 4C 6.8 cm LV Systolic Length 4C 5.8 cm DOPPLER MV Peak Velocity 72.9 cm/s MV Peak Gradient 2.1 mmHg MV Mean Velocity 35.6 cm/s MV Mean Gradient 0.6 mmHg MV Velocity Time Integral 22.4 cm Mitral E Point Velocity 58.8 cm/s Mitral A Point Velocity 65.5 cm/s Mitral E to A Ratio 0.9 MV Deceleration Time 205.8 ms PV Peak Velocity 70.0 cm/s PV Peak Gradient 2.0 mmHg FINDINGS Left Ventricle Normal LV size.left ventricular ejection fraction is estimated at 55-60 %. Right Ventricle Normal right ventricular size. Right Atrium Normal right atrial size. Left Atrium Normal left atrial size. Mitral Valve Structurally normal mitral valve. Trace MR. Aortic Valve Aortic valve not well visualized. No aortic valve stenosis or regurgitation. Tricuspid Valve Tricuspid valve not well visualized. No tricuspid regurgitation. Pulmonic Valve Pulmonic valve not well visualized. No pulmonic regurgitation. Pericardium Normal pericardium. Aorta Normal size aortic root and proximal ascending aorta. CONCLUSIONS Technicaly difficult apical views. Off axis and limited imaging. Negative Bubble study. Normal LV function Consider transesophageal echo to definitively rule out cardiac source for thromboembolic phenomenon Previewed by: Dr. Hussein Izquierdo MD (Electronically Signed) Final Date: 28 September 2022 17:28
--- NOTE | 2022-09-28 17:34 | P.PN ---
Subjective Progress Note Date: 09/28/22 States feeling fine. No more neurological symptoms. Slept well last night. Patient is laying comfortably in the bed. Patient has been watching TV, with head leaning forwards, which may produce headache, neck strain and eyestrain. Objective - Vital Signs Vital signs: Vital Signs Temp 96.9 F L 09/28/22 16:00 Pulse 78 09/28/22 16:00 Resp 18 09/28/22 16:00 BP 129/88 09/28/22 16:00 Pulse Ox 96 09/28/22 16:00 FiO2 Intake & Output 09/27/22 09/28/22 09/28/22 18:59 06:59 18:59 Intake Total 520 358 Output Total 1000 Balance 520 -1000 358 Weight 54.431 kg Intake: Oral 520 358 Output: Urine 1000 Other: Voiding Method Toilet Toilet Toilet Urinal Urinal Urinal # Voids 1 - Exam Patient's mental status, speech-language functions are normal. - Labs CBC & Chem 7: 09/27/22 08:16 09/27/22 08:16 Assessment and Plan Assessment: * Intermittent headaches, neck pain, and transient dizziness, blurred vision, unclear etiology. No other focal lateralizing symptoms. Doubt stroke TIA. * History of CVA involving the left cerebellar hemisphere and vermis 03/28/2020 * Hypertension * History of tobacco use * History of alcoholism * COPD * CAD Plan: * MRI brain revealed remote injury to the left cerebellar hemisphere. No evidence for acute/subacute CVA. Minimal nonspecific white matter changes, likely secondary to small vessel ischemic disease. I personally reviewed MRI, I agree with the findings. * 2-D echo revealed normal left ventricular systolic function with EF 55-60%. Normal left atrial size. Technically difficult apical views. Negative bubble study for PFO. * Carotid Doppler revealed arteriosclerotic plaque with no significant stenosis. Antegrade flow in both vertebral arteries. * Patient had a 30 day event monitor placed from 03/31/2020 through 04/29/2020 which revealed sinus mechanism with episode of sinus tachycardia. No evidence of atrial fibrillation or ventricular tachycardia was noted. No pauses were noted. * Continue aspirin 81 mg daily. * Hemoglobin A1c 5.6 * Fasting lipid panel with cholesterol or and 12, LDL 28, HDL 74 and triglycerides 45. Continue Lipitor 80 mg daily. * Recommend complete tobacco cessation. * Recommend complete alcohol cessation as well. * Optimize control of blood pressure. Blood pressure is well controlled. * Neurologically, clear for discharge.
--- NOTE | 2022-09-29 10:01 | P.DS ---
Providers Date of admission: 09/26/22 22:50 Expected date of discharge: 09/28/22 Attending physician: Mathew Shafer MD Consults: 09/26/22 22:56 Consult Physician Urgent Consulting Provider: Enrique Hidalgo Consult Reason/Comments: Remote left cerebellar ischemia Do you want consulting provider notified?: Yes Primary care physician: Caridad Malone [facility] Course: Final Diagnoses: Recurrent, intermittent headaches, neck pain, blurred vision, dizziness, without syncope ,etiology unclear. Suspect neck pain to be muscloskeletal.Reports at home, neck fluctuates between better and worse dependent on his positioning, notes occurs while he was watching TV. Doubt CVA, doubt TIA per neurology/neuro. workup. History of CVA CAD, history of NSTEMI, cardiac stenting Hypertension Nicotine dependence, nicotine cessation reinforced. Alcohol abuse, alcohol abstinence reinforced Hospital course:This is a 67-year-old gentleman with past medical history significant for COPD, nicotine dependence, alcohol abuse, CVA and multiple other medical issues presented to the ER with complaints of recurrent headache, stiff neck over the last week. Had been taking Tylenol regularly, denies NSAIDs use, without relief. Patient states his daily routines were not interrupted, proceeded to the grocery store and completed his errands. Yesterday developed blurred vision and dizziness with some mild nausea in addition to prior symptoms, prompting his ER visit. Denies numbness or tingling. Denies syncope. Denies chest pain, palpitations or shortness of breath. States has been drinking lots of ice tea. Currently reports neck tightness only. Denies nausea, vomiting or abdominal pain. He reports his dizziness and blurred vision resolved overnight and that these symptoms usually recur during the night. Chest x-ray reported no acute cardiopulmonary disease/process. Brain CT reported no acute intracranial process, remote left cerebellar ischemic injuries, no evidence of cervical spine fracture, disc osteophyte complexes at C3-C4 and C6- C7 results and minimal central spinal canal stenosis. EKG reported sinus rhythm, vital signs stable, blood sugars controlled. Significant clinical improvement, symptoms including neck pain/tightness have resolved. Denies weakness, numbness or tingling. Evaluated by neurology with workup completed. MRI of the brain reportedly remote injury to the left cerebellar hemisphere with no evidence of acute/subacute CVA, minimal nonspecific white matter changes likely secondary to small vessel ischemic disease. 2-D echo reported normal LV function with technical difficult apical views and negative bubble study for PFO. Carotid Doppler reported no significant hemodynamic stenosis. Smoking cessation, alcohol abstinence reinforced. Patient has been cleared for discharge by neurology. Patient will be discharged home today in a stable condition with guarded prognosis. The impression and plan of care has been dictated as directed. : I performed a history and examination of this patient, discussed the same with the dictator. I agree with the dictator's note ,documented as a scribe. Any additional findings or plans will be noted. Patient Condition at Discharge: Stable Plan - Discharge Summary Discharge Rx Participant: No New Discharge Prescriptions: New Nicotine 21Mg/24Hr Patch [Habitrol] 1 patch TRANSDERM DAILY patch Continue Fluticasone/Umeclidin/Vilanter [Trelegy Ellipta 200-62.5-25] 1 puff INHALATION RT-DAILY Metoprolol Tartrate [Lopressor] 50 mg PO BID #60 tab Nitroglycerin Sl Tabs [Nitrostat] 0.4 mg SUBLINGUAL Q5M PRN #100 tab PRN Reason: Chest Pain amLODIPine [Norvasc] 5 mg PO DAILY #30 tab Albuterol Sulfate [Ventolin HFA] 2 puff INHALATION RT-QID PRN PRN Reason: Shortness Of Breath Atorvastatin [Lipitor] 80 mg PO DAILY #30 tab Aspirin 162 mg PO DAILY Discharge Medication List Albuterol Sulfate [Ventolin HFA] 2 puff INHALATION RT-QID PRN 02/25/22 [History] Fluticasone/Umeclidin/Vilanter [Trelegy Ellipta 200-62.5-25] 1 puff INHALATION RT-DAILY 02/25/22 [History] Atorvastatin [Lipitor] 80 mg PO DAILY #30 tab 03/01/22 [Rx] Metoprolol Tartrate [Lopressor] 50 mg PO BID #60 tab 03/01/22 [Rx] Nitroglycerin Sl Tabs [Nitrostat] 0.4 mg SUBLINGUAL Q5M PRN #100 tab 03/01/22 [Rx] amLODIPine [Norvasc] 5 mg PO DAILY #30 tab 06/24/22 [Rx] Aspirin 162 mg PO DAILY 09/27/22 [History] Nicotine 21Mg/24Hr Patch [Habitrol] 1 patch TRANSDERM DAILY patch 09/28/22 [Rx] Follow up Appointment(s)/Referral(s): Mathew Shafer MD [STAFF PHYSICIAN] - 1 Week (APPOINTMENT MADE ON TUESDAY, September @ 12:45PM IN THE [facility]) Rudi Caicedo MD [STAFF PHYSICIAN] - As Needed Patient Instructions/Handouts: How to Stop Smoking (ED), Cigarette Smoking and Your Health (GEN), At-Risk Alcohol Use (GEN), Magnetic Resonance Imaging (DC) Activity/Diet/Wound Care/Special Instructions: Set up cab for patient at discharge - [phone]. Discharge Disposition: HOME SELF-CARE
== END 2022-09-28 18:32 | disposition home or self-care (01) | DRG 641 ==
LOC: EC 19:49 → 3SCARD 22:50
PROVIDERS: ADMIT Family Medicine; ATTEND Family Medicine
DX: E87.1 Hypo-osmolality and hyponatremia (principal); F10.11 Alcohol abuse, in remission; J44.9 Chronic obstructive pulmonary disease, unspecified; I10 Essential (primary) hypertension; G40.909 Epilepsy, unspecified, not intractable, without status epilepticus; F17.210 Nicotine dependence, cigarettes, uncomplicated; E78.5 Hyperlipidemia, unspecified; M25.78 Osteophyte, vertebrae; I25.10 Atherosclerotic heart disease of native coronary artery without angina pectoris; Z79.82 Long term (current) use of aspirin; Z86.73 Personal history of transient ischemic attack (TIA), and cerebral infarction without residual deficits; Z79.899 Other long term (current) drug therapy; I25.2 Old myocardial infarction; Z71.6 Tobacco abuse counseling; Z95.5 Presence of coronary angioplasty implant and graft; Z88.8 Allergy status to other drugs, medicaments and biological substances
CPT/HCPCS: 36415; 70450; 70551; 71046; 72125; 80048; 80053; 80061; 83036; 83735; 84484; 85025; 85027; 85610; 85730; 93005; 93306; 93880; 94640; 94760; 96361; 96374; 96375; 99285

== ENCOUNTER 2023-02-19 21:34 | Emergency (ER) | payer MEDICARE, OTHER ==
[2023-02-19 22:00] VITALS: TEMP 97.6
[2023-02-19] MEDS ORDERED: DEXAMETHASONE SOD PHOSPHATE 10 MG/ML 1 ML VIAL IV STA (22:19)
[2023-02-19] MEDS ORDERED: IPRATROPIUM-ALBUTEROL 3 ML NEB INHALATION STA (22:19)
--- NOTE | 2023-02-19 22:29 | ED ---
General Adult HPI - General Chief complaint: Shortness of Breath Stated complaint: SOB Time Seen by Provider: 02/19/23 21:52 Source: patient, EMS Mode of arrival: EMS - History of Present Illness Initial comments: Dictation was produced using [email or web address] dictation software. please excuse any grammatical, word or spelling errors. Chief Complaint: 67-year-old male presents to the ER for one week of dyspnea History of Present Illness: Since 67-year-old male presents to the emergency department for shortness of breath approximately one week is been having coughin g. Denies cough is productive for clear sputum. Denies any fevers currently but he did have some fevers a few days ago. He does report some chills. Does have some sharp chest pain diffusely along his chest. Not worse with deep inspiration. He does not wear oxygen at home. He does have a history of COPD management is primary care doctor. An is a an active tobacco user The ROS documented in this emergency department record has been reviewed and confirmed by me. Those systems with pertinent positive or negative responses have been documented in the HPI. All other systems are other negative and/or noncontributory. - Related Data Home Medications Medication Instructions Recorded Confirmed Albuterol Sulfate [Ventolin HFA] 2 puff INHALATION RT-QID PRN 02/25/22 09/27/22 Fluticasone/Umeclidin/Vilanter 1 puff INHALATION RT-DAILY 02/25/22 09/27/22 [Trelegy Ellipta 200-62.5-25] Aspirin 162 mg PO DAILY 09/27/22 09/27/22 Previous Rx's Medication Instructions Recorded Atorvastatin [Lipitor] 80 mg PO DAILY #30 tab 03/01/22 Metoprolol Tartrate [Lopressor] 50 mg PO BID #60 tab 03/01/22 Nitroglycerin Sl Tabs [Nitrostat] 0.4 mg SUBLINGUAL Q5M PRN #100 tab 03/01/22 amLODIPine [Norvasc] 5 mg PO DAILY #30 tab 06/24/22 Nicotine 21Mg/24Hr Patch [Habitrol] 1 patch TRANSDERM DAILY patch 09/28/22 methylPREDNISolone Dose Pack 4 mg PO DIRECTED #1 packet 02/20/23 [Medrol Dose Pack] Allergies Allergy/AdvReac Type Severity Reaction Status Date / Time lisinopril Allergy Anaphylaxis Verified 02/19/23 21:45 Review of Systems ROS Statement: Those systems with pertinent positive or pertinent negative responses have been documented in the HPI. ROS Other: All systems not noted in ROS Statement are negative. Past Medical History Past Medical History: Coronary Artery Disease (CAD), COPD, CVA/TIA, Seizure Disorder Additional Past Medical History / Comment(s): chronic bronchitis History of Any Multi-Drug Resistant Organisms: None Reported Past Surgical History: Tonsillectomy Additional Past Surgical History / Comment(s): tubes in ears at a young age- unsure if he had this Past Anesthesia/Blood Transfusion Reactions: No Reported Reaction Past Psychological History: No Psychological Hx Reported Smoking Status: Current every day smoker Past Alcohol Use History: Daily Past Drug Use History: None Reported - Past Family History Father History Unknown: Yes Additional Family Medical History / Comment(s): "his heart stopped" General Exam - General Exam Comments Initial Comments: C PHYSICAL EXAM: General Impression: Alert and oriented x3, not in acute distress HEENT: Normocephalic atraumatic, extra-ocular movements intact, pupils equal and reactive to light bilaterally, mucous membranes moist. Cardiovascular: Heart regular rate and rhythm Chest: Able to complete full sentences, no retractions, no tachypnea and diffuse auscultatory rhonchi Abdomen: abdomen soft, non-tender, non-distended, no organomegaly Musculoskeletal: Pulses present and equal in all extremities, no peripheral edema Motor: no focal deficits noted Neurological: CN II-XII grossly intact, no focal motor or sensory deficits noted Skin: Intact with no visualized rashes Psych: Normal affect and mood Course Vital Signs 02/19/23 02/19/23 02/19/23 21:37 21:42 22:30 Temperature 97.6 F Pulse Rate 70 66 69 Respiratory 20 15 16 Rate Blood Pressure 133/79 133/79 117/69 O2 Sat by Pulse 96 95 95 Oximetry 02/19/23 02/19/23 02/19/23 22:48 22:56 23:30 Temperature Pulse Rate 66 69 63 Respiratory 16 Rate Blood Pressure 124/68 O2 Sat by Pulse 95 Oximetry 02/20/23 00:31 Temperature Pulse Rate 70 Respiratory 18 Rate Blood Pressure 144/74 O2 Sat by Pulse 95 Oximetry Medical Decision Making - Medical Decision Making Was pt. sent in by a medical professional or institution (, PA, [employer]OC[employer]ATE, urgent c are, hospital, or fdc...) When possible be specific @ -No Did you speak to anyone other than the patient for history (EMS, parent, family, police, friend...)? What history was obtained from this source @ -No Did you review nursing and triage notes (agree or disagree)? Why? @ -I reviewed and agree with nursing and triage notes Were old charts reviewed (outside hosp., previous admission, EMS record, old EKG, old radiological studies, urgent care reports/EKG's, fdc records)? Report findings @ -No old charts were reviewed Differential Diagnosis (chest pain, altered mental status, abdominal pain women, abdominal pain men, vaginal bleeding, musculoskeletal, weakness, fever, dyspnea, syncope, headache, dizziness, GI bleed, back pain, seizure, CVA, palpatations, mental health)? @ -Differential Dyspnea: Coronary syndrome, arrhythmia, tamponade, asthma, COPD, pulmonary embolism, pneumonia, pneumothorax, pulmonary effusion, anaphylaxis, diabetic ketoacidosis, flailed chest, pulmonary contusion, diaphragmatic rupture, anemia, neuromuscular, this is not meant to be an all-inclusive list. EKG interpreted by me (3pts min.). @ -IMy EKG interpretation: Ventricular rate 64, sinus rhythm,. 160, QRS 11, QTC 427. No MO prolongation, no QTC prolongation, no ST or T-wave changes noted Overall, this EKG is unremarkable X-rays interpreted by me (1pt min.). @ -Chest x-ray is nonacute CT interpreted by me (1pt min.). @ -None done U/S interpreted by me (1pt. min.). @ -None done What testing was considered but not performed or refused? (CT, X-rays, U/S, labs)? Why? @ -None What meds were considered but not given or refused? Why? @ -None Did you discuss the management of the patient with other professionals (professionals i.e. ARELY Lenz, D[employer] MARKET[employer]OCIATE, lab, RT, psych nurse, social sciences instructor, kettle operator, teacher, veterinary medical officer, home health care case manager)? Give summary @ -No Was smoking cessation discussed for >3mins.? @ -No Was critical care preformed (if so, how long)? @ -No Were there social determinants of health that impacted care today? How? (Homelessness, low income, unemployed, alcoholism, drug addiction, transportation, low edu. Level, literacy, decrease access to med. care, halfway, rehab)? @ -No Was there de-escalation of care discussed even if they declined (Discuss DNR or withdrawal of care, Hospice)? DNR status @ -No What co-morbidities impacted this encounter? (DM, HTN, Smoking, COPD, CAD, Cancer, CVA, ARF, Chemo, Hep., AIDS, mental health diagnosis, sleep apnea, morbid obesity)? @ -None Was patient admitted / discharged? Hospital course, mention meds given and route, prescriptions, significant lab abnormalities, going to OR and other pertinent info. @ -67-year-old male past medical history history of COPD and emphysema presents to the ER for shortness breath cough. Vital signs upon arrival are within accep table limits. Patient no acute distress. He does have auscultatory rhonchi bilaterally. Symptoms suggested of COPD versus acute lung process. Labs unremarkable. Mild hyponatremia 137. All testing negative. Patient given DuoNeb and Decadron. Observed in the ER with stable medical condition. Patient discharged with prescription for Medrol Dosepak. States that he has inhalers at home that he is encouraged to use. Undiagnosed new problem with uncertain prognosis? @ -No Drug Therapy requiring intensive monitoring for toxicity (Heparin, Nitro, Insulin, Cardizem)? @ -No Were any procedures done? @ -No Diagnosis/symptom? Acute, or Chronic, or Acute on Chronic? Uncomplicated (without systemic symptoms) or Complicated (systemic symptoms)? @ -COPD Exacerbation Side effects of treatment? @ -No Exacerbation, Progression, or Severe Exacerbation? @ -No Poses a threat to life or bodily function? How? (Chest pain, [place], [place], pneumonia, PE, COPD, DKA, ARF, appy, cholecystitis, CVA, Diverticulitis, Homicidal, Suicidal, threat to staff... and all critical care pts) @ -yes - Lab Data Result diagrams: 02/19/23 22:27 02/19/23 22:27 Lab Results 02/19/23 02/19/23 02/19/23 Range/Units 22:27 22:27 22: WBC 10.2 (3.8-10.6) k/uL RBC 3.99 L (4.30-5.90) m/uL Hgb 14.0 (13.0-17.5) gm/dL Hct 40.8 (39.0-53.0) % MCV 102.3 H (80.0-100.0) fL MCH 35.2 H (25.0-35.0) pg MCHC 34.4 (31.0-37.0) g/dL RDW 13.0 (11.5-15.5) % Plt Count 232 (150-450) k/uL MPV 8.5 Neutrophils % 40 % Lymphocytes % 46 % Monocytes % 8 % Eosinophils % 2 % Basophils % 0 % Neutrophils # 4.0 (1.3-7.7) k/uL Lymphocytes # 4.7 (1.0-4.8) k/uL Monocytes # 0.8 (0-1.0) k/uL Eosinophils # 0.2 (0-0.7) k/uL Basophils # 0.0 (0-0.2) k/uL Macrocytosis Slight Sodium 127 L (137-145) mmol/L Potassium 4.0 (3.5-5.1) mmol/L Chloride 93 L (98-107) mmol/L Carbon Dioxide 20 L (22-30) mmol/L Anion Gap 14 mmol/L BUN 11 (9-20) mg/dL Creatinine 0.63 L (0.66-1.25) mg/dL Est GFR (CKD-EPI)AfAm >90 (>60 ml/min/1.73 sqM) Est GFR (CKD-EPI)NonAf >90 (>60 ml/min/1.73 sqM) Glucose 82 (74-99) mg/dL Plasma Lactic Acid Sagar 2.1 H* (0.7-2.0) mmol/L Calcium 9.2 (8.4-10.2) mg/dL Magnesium 1.7 (1.6-2.3) mg/dL Influenza Type A (PCR) (Not Detectd) Influenza Type B (PCR) (Not Detectd) RSV (PCR) (Not Detectd) SARS-CoV-2 (PCR) (Not Detectd) 02/19/23 Range/Units 22:27 WBC (3.8-10.6) k/uL RBC (4.30-5.90) m/uL Hgb (13.0-17.5) gm/dL Hct (39.0-53.0) % MCV (80.0-100.0) fL MCH (25.0-35.0) pg MCHC (31.0-37.0) g/dL RDW (11.5-15.5) % Plt Count (150-450) k/uL MPV Neutrophils % % Lymphocytes % % Monocytes % % Eosinophils % % Basophils % % Neutrophils # (1.3-7.7) k/uL Lymphocytes # (1.0-4.8) k/uL Monocytes # (0-1.0) k/uL Eosinophils # (0-0.7) k/uL Basophils # (0-0.2) k/uL Macrocytosis Sodium (137-145) mmol/L Potassium (3.5-5.1) mmol/L Chloride (98-107) mmol/L Carbon Dioxide (22-30) mmol/L Anion Gap mmol/L BUN (9-20) mg/dL Creatinine (0.66-1.25) mg/dL Est GFR (CKD-EPI)AfAm (>60 ml/min/1.73 sqM) Est GFR (CKD-EPI)NonAf (>60 ml/min/1.73 sqM) Glucose (74-99) mg/dL Plasma Lactic Acid Sagar (0.7-2.0) mmol/L Calcium (8.4-10.2) mg/dL Magnesium (1.6-2.3) mg/dL Influenza Type A (PCR) Not Detected (Not Detectd) Influenza Type B (PCR) Not Detected (Not Detectd) RSV (PCR) Not Detected (Not Detectd) SARS-CoV-2 (PCR) Not Detected (Not Detectd) Disposition Clinical Impression: COPD exacerbation Disposition: HOME SELF-CARE Condition: Fair Instructions (If sedation given, give patient instructions): COPD (Chronic Obstructive Pulmonary Disease) (ED) Prescriptions: methylPREDNISolone Dose Pack [Medrol Dose Pack] 4 mg PO DIRECTED #1 packet Is patient prescribed a controlled substance at d/c from ED?: No Referrals: Caridad Malone DO [Primary Care Provider] - 1-2 days Time of Disposition: 00:49
[2023-02-19 23:09] LABS: African American GFR (CKD) >90 (>60 ml/min/1.73 sqM); Anion Gap 14 mmol/L; Blood Urea Nitrogen 11 mg/dL (9-20); Calcium 9.2 mg/dL (8.4-10.2); Carbon Dioxide 20 mmol/L (22-30); Chloride 93 mmol/L (98-107); Glucose 82 mg/dL (74-99); Magnesium 1.7 mg/dL (1.6-2.3); Non-African American GFR(CKD) >90 (>60 ml/min/1.73 sqM); Sodium 127 mmol/L (137-145)
[2023-02-19 23:39] LABS: HCT 40.8 % (39.0-53.0); MCH 35.2 pg (25.0-35.0); MCHC 34.4 g/dL (31.0-37.0); MCV 102.3 fL (80.0-100.0); Platelet Count 232 k/uL (150-450); RBC 3.99 m/uL (4.30-5.90); WBC 10.2 k/uL (3.8-10.6)
[2023-02-19 23:40] LABS: Basophils % (A) 0 %; Eosinophils % (A) 2 %; Lymphocytes % (A) 46 %; Macrocytosis Slight; Mean Platelet Volume 8.5; Monocytes % (A) 8 %; Neutrophils % (A) 40 %
[2023-02-19 23:41] LABS: Eosinophils # (A) 0.2 k/uL (0-0.7); Lymphocytes # (A) 4.7 k/uL (1.0-4.8); Monocytes # (A) 0.8 k/uL (0-1.0)
--- NOTE | 2023-02-20 00:03 | XR ---
EXAM: XR Chest, 2 Views CLINICAL HISTORY: ITS.REASON XR Reason: cough TECHNIQUE: Frontal and lateral views of the chest. COMPARISON: Chest 2 views dated 10/06/2022 FINDINGS: Lungs: The lungs remain slightly hyperexpanded with relative flattening of the hemidiaphragms in the lateral projection. No focal airspace consolidation. The pulmonary vasculature is unremarkable. Pleural space: Unremarkable. No pneumothorax. No large pleural effusion. Heart: Unremarkable. No cardiomegaly. Mediastinum: The mediastinal contours are stable and unremarkable. The trachea is midline. Bones/joints: Unremarkable. No acute fracture. IMPRESSION: No acute cardiopulmonary process or significant alteration from the previous examination. Stable hyperinflation.
[2023-02-20 01:01] VITALS: BP 144/74
[2023-02-20 01:29] VITALS: PULSE 66; RESP 16
== END 2023-02-20 01:20 | disposition home or self-care (01) ==
LOC: EC 21:34
DX: J44.1 Chronic obstructive pulmonary disease with (acute) exacerbation (principal); F17.200 Nicotine dependence, unspecified, uncomplicated; I25.10 Atherosclerotic heart disease of native coronary artery without angina pectoris; Z20.822 Contact with and (suspected) exposure to COVID-19; Z79.82 Long term (current) use of aspirin; Z79.899 Other long term (current) drug therapy; Z88.8 Allergy status to other drugs, medicaments and biological substances
CPT/HCPCS: 99285; 36415; 94640; 93005; 80048; 83605; 83735; 85025; 87636; 71046; 96374; J1100

== ENCOUNTER 2023-05-25 19:48 | Emergency (ER) | payer MEDICARE, OTHER ==
--- NOTE | 2023-05-25 20:43 | ED ---
General Adult HPI - General Chief complaint: Neck Pain/Injury Stated complaint: neck pain Time Seen by Provider: 05/25/23 20:00 Source: patient, EMS Mode of arrival: EMS Limitations: no limitations - History of Present Illness Initial comments: 67-year-old male presenting to the ED with a chief complaint of neck pain. Patient reports yesterday started to experience pain behind his right ear and also of the right side of his neck. Today, states he started to feel pain onto the left side of his neck and also behind his left ear. No changes in hearing. No fever. Also does note some chills and rhinorrhea. Patient also notes a cough which is chronic in nature. No changes to this. Patient does report a week ago did have his ear irrigated by his physician due to a cerumen impaction. No chest pain or shortness of breath. No other complaints at this time. - Related Data Home Medications Medication Instructions Recorded Confirmed Albuterol Sulfate [Ventolin HFA] 2 puff INHALATION RT-QID PRN 02/25/22 09/27/22 Fluticasone/Umeclidin/Vilanter 1 puff INHALATION RT-DAILY 02/25/22 09/27/22 [Trelegy Ellipta 200-62.5-25] Aspirin 162 mg PO DAILY 09/27/22 09/27/22 Previous Rx's Medication Instructions Recorded Atorvastatin [Lipitor] 80 mg PO DAILY #30 tab 03/01/22 Metoprolol Tartrate [Lopressor] 50 mg PO BID #60 tab 03/01/22 Nitroglycerin Sl Tabs [Nitrostat] 0.4 mg SUBLINGUAL Q5M PRN #100 tab 03/01/22 amLODIPine [Norvasc] 5 mg PO DAILY #30 tab 06/24/22 Nicotine 21Mg/24Hr Patch [Habitrol] 1 patch TRANSDERM DAILY patch 09/28/22 methylPREDNISolone Dose Pack 4 mg PO DIRECTED #1 packet 02/20/23 [Medrol Dose Pack] Allergies Allergy/AdvReac Type Severity Reaction Status Date / Time lisinopril Allergy Anaphylaxis Verified 02/19/23 21:45 Review of Systems ROS Statement: Those systems with pertinent positive or pertinent negative responses have been documented in the HPI. ROS Other: All systems not noted in ROS Statement are negative. Past Medical History Past Medical History: Coronary Artery Disease (CAD), COPD, CVA/TIA, Seizure Disorder Additional Past Medical History / Comment(s): chronic bronchitis History of Any Multi-Drug Resistant Organisms: None Reported Past Surgical History: Tonsillectomy Additional Past Surgical History / Comment(s): tubes in ears at a young age- unsure if he had this Past Anesthesia/Blood Transfusion Reactions: No Reported Reaction Past Psychological History: No Psychological Hx Reported Smoking Status: Current every day smoker Past Alcohol Use History: Daily Past Drug Use History: None Reported - Past Family History Father History Unknown: Yes Additional Family Medical History / Comment(s): "his heart stopped" General Exam Limitations: no limitations General appearance: alert, in no apparent distress Eye exam: Present: normal appearance ENT exam: Present: normal external ear exam, other (Patient does have tenderness to palpation of the left mastoid process) Neck exam: Present: other (Patient does have tenderness to palpation of his neck bilaterally. Negative Kernig and Brudzinski sign. No meningismus) Respiratory exam: Present: normal lung sounds bilaterally Cardiovascular Exam: Present: regular rate, normal rhythm GI/Abdominal exam: Present: soft Neurological exam: Present: alert, oriented X3 Skin exam: Present: warm, dry Course Vital Signs 05/25/23 19:51 Temperature 97.8 F Pulse Rate 77 Respiratory 18 Rate Blood Pressure 116/72 O2 Sat by Pulse 95 Oximetry Medical Decision Making - Medical Decision Making Was pt. sent in by a medical professional or institution (, [facility], EVENING SITTER, urgent care, hospital, or fci...) When possible be specific @ -No Did you speak to anyone other than the patient for history (EMS, parent, family, police, friend...)? What history was obtained from this source @ -No Did you review nursing and triage notes (agree or disagree)? Why? @ -I reviewed and agree with nursing and triage notes Were old charts reviewed (outside hosp., previous admission, EMS record, old EKG, old radiological studies, urgent care reports/EKG's, fci records)? Report findings @ -No old charts were reviewed Differential Diagnosis (chest pain, altered mental status, abdominal pain women, abdominal pain men, vaginal bleeding, weakness, fever, dyspnea, syncope, headache, dizziness, GI bleed, back pain, seizure, CVA, palpatations, mental health, musculoskeletal)? @ -Mastoiditis, upper respiratory infection. This not meant to be an all- inclusive list. EKG interpreted by me (3pts min.). @ -None X-rays interpreted by me (1pt min.). @ -None done CT interpreted by me (1pt min.). @ -CT soft tissues neck interpreted me showing no evidence of acute finding. U/S interpreted by me (1pt. min.). @ -None done What testing was considered but not performed or refused? (CT, X-rays, U/S, labs)? Why? @ -None What meds were considered but not given or refused? Why? @ -None Did you discuss the management of the patient with other professionals (professionals i.e. , PA, EVENING SITTER, lab, RT, psych nurse, social welfare research worker, donkey doctor, teacher, national service officer, protective services case worker)? Give summary @ -No Was smoking cessation discussed for >3mins.? @ -No Was critical care preformed (if so, how long)? @ -No Were there social determinants of health that impacted care today? How? (Homelessness, low income, unemployed, alcoholism, drug addiction, transportation, low edu. Level, literacy, decrease access to med. care, long term, rehab)? @ -No Was there de-escalation of care discussed even if they declined (Discuss DNR or withdrawal of care, Hospice)? DNR status @ -No What co-morbidities impacted this encounter? (DM, HTN, Smoking, COPD, CAD, Cancer, CVA, ARF, Chemo, Hep., AIDS, mental health diagnosis, sleep apnea, morbid obesity)? @ -None Was patient admitted / discharged? Hospital course, mention meds given and route, prescriptions, significant lab abnormalities, going to OR and other pertinent info. @ -Discharged 67-year-old male presenting to the ED with complaints of pain of his neck and on examination tenderness to palpation of the mastoid process. Aslo does note some chills and rhinorrhea. CT revealed no evidence of mastoiditis or other acute process. Laboratory studies reviewed. Labs are largely unremarkable except for hyponatremia at 125 however review of prior medical records show history of hyponatremia and patient is within baseline at this time. Otherwise vital signs stable afebrile. Discharged home in stable condition. Discussed return preca utions with patient who verbalized Undiagnosed new problem with uncertain prognosis? @ -No Drug Therapy requiring intensive monitoring for toxicity (Heparin, Nitro, Insulin, Cardizem)? @ -No Were any procedures done? @ -No Diagnosis/symptom? @ -Viral URI Acute, or Chronic, or Acute on Chronic? @ -Acute Uncomplicated (without systemic symptoms) or Complicated (systemic symptoms)? @ -Uncomplicated Side effects of treatment? @ -No Exacerbation, Progression, or Severe Exacerbation? @ -No Poses a threat to life or bodily function? How? (Chest pain, [place], [place], pneumonia, PE, COPD, DKA, ARF, appy, cholecystitis, CVA, Diverticulitis, Homicidal, Suicidal, threat to staff... and all critical care pts) @ -No - Lab Data Result diagrams: 05/25/23 21:25 05/25/23 21:25 Lab Results 05/25/23 05/25/23 05/25/23 Range/Units 21:25 21:25 21:25 WBC 12.4 H (3.8-10.6) k/uL RBC 3.65 L (4.30-5.90) m/uL Hgb 13.6 (13.0-17.5) gm/dL Hct 38.6 L (39.0-53.0) % MCV 105.9 H (80.0-100.0) fL MCH 37.3 H (25.0-35.0) pg MCHC 35.2 (31.0-37.0) g/dL RDW 12.9 (11.5-15.5) % Plt Count 234 (150-450) k/uL MPV 7.3 Neutrophils % 70 % Lymphocytes % 19 % Monocytes % 6 % Eosinophils % 2 % Basophils % 1 % Neutrophils # 8.6 H (1.3-7.7) k/uL Lymphocytes # 2.3 (1.0-4.8) k/uL Monocytes # 0.8 (0-1.0) k/uL Eosinophils # 0.2 (0-0.7) k/uL Basophils # 0.1 (0-0.2) k/uL Macrocytosis Slight Sodium 125 L (137-145) mmol/L Potassium 4.3 (3.5-5.1) mmol/L Chloride 95 L (98-107) mmol/L Carbon Dioxide 19 L (22-30) mmol/L Anion Gap 11 mmol/L BUN 7 L (9-20) mg/dL Creatinine 0.58 L (0.66-1.25) mg/dL Est GFR (CKD-EPI)AfAm >90 (>60 ml/min/1.73 sqM) Est GFR (CKD-EPI)NonAf >90 (>60 ml/min/1.73 sqM) Glucose 83 (74-99) mg/dL Calcium 8.9 (8.4-10.2) mg/dL Total Bilirubin 0.4 (0.2-1.3) mg/dL AST 39 (17-59) U/L ALT 37 (4-49) U/L Alkaline Phosphatase 80 (38-126) U/L Total Protein 6.1 L (6.3-8.2) g/dL Albumin 4.5 (3.5-5.0) g/dL Urine Color Colorless Urine Appearance Clear (Clear) Urine pH 6.5 (5.0-8.0) Ur Specific [place] 1.008 (1.001-1.035) Urine Protein Negative (Negative) Urine Glucose (UA) Negative (Negative) Urine Ketones Negative (Negative) Urine Blood Negative (Negative) Urine Nitrite Negative (Negative) Urine Bilirubin Negative (Negative) Urine Urobilinogen <2.0 (<2.0) mg/dL Ur Leukocyte Esterase Negative (Negative) Influenza Type A (PCR) (Not Detectd) Influenza Type B (PCR) (Not Detectd) RSV (PCR) (Not Detectd) SARS-CoV-2 (PCR) (Not Detectd) 05/25/23 Range/Units 21:25 WBC (3.8-10.6) k/uL RBC (4.30-5.90) m/uL Hgb (13.0-17.5) gm/dL Hct (39.0-53.0) % MCV (80.0-100.0) fL MCH (25.0-35.0) pg MCHC (31.0-37.0) g/dL RDW (11.5-15.5) % Plt Count (150-450) k/uL MPV Neutrophils % % Lymphocytes % % Monocytes % % Eosinophils % % Basophils % % Neutrophils # (1.3-7.7) k/uL Lymphocytes # (1.0-4.8) k/uL Monocytes # (0-1.0) k/uL Eosinophils # (0-0.7) k/uL Basophils # (0-0.2) k/uL Macrocytosis Sodium (137-145) mmol/L Potassium (3.5-5.1) mmol/L Chloride (98-107) mmol/L Carbon Dioxide (22-30) mmol/L Anion Gap mmol/L BUN (9-20) mg/dL Creatinine (0.66-1.25) mg/dL Est GFR (CKD-EPI)AfAm (>60 ml/min/1.73 sqM) Est GFR (CKD-EPI)NonAf (>60 ml/min/1.73 sqM) Glucose (74-99) mg/dL Calcium (8.4-10.2) mg/dL Total Bilirubin (0.2-1.3) mg/dL AST (17-59) U/L ALT (4-49) U/L Alkaline Phosphatase (38-126) U/L Total Protein (6.3-8.2) g/dL Albumin (3.5-5.0) g/dL Urine Color Urine Appearance (Clear) Urine pH (5.0-8.0) Ur Specific [place] (1.001-1.035) Urine Protein (Negative) Urine Glucose (UA) (Negative) Urine Ketones (Negative) Urine Blood (Negative) Urine Nitrite (Negative) Urine Bilirubin (Negative) Urine Urobilinogen (<2.0) mg/dL Ur Leukocyte Esterase (Negative) Influenza Type A (PCR) Not Detected (Not Detectd) Influenza Type B (PCR) Not Detected (Not Detectd) RSV (PCR) Not Detected (Not Detectd) SARS-CoV-2 (PCR) Not Detected (Not Detectd) Disposition Clinical Impression: Viral URI Disposition: HOME SELF-CARE Condition: Good Additional Instructions: Please return to the Emergency Department if symptoms worsen or any other concerns. Please follow-up with your PCP. Is patient prescribed a controlled substance at d/c from ED?: No Referrals: None,Stated [REFERRING] - 1-2 days Time of Disposition: 23:43
[2023-05-25 21:45] LABS: Basophils # (A) 0.1 k/uL (0-0.2); Basophils % (A) 1 %; Eosinophils # (A) 0.2 k/uL (0-0.7); Eosinophils % (A) 2 %; HCT 38.6 % (39.0-53.0); HGB 13.6 gm/dL (13.0-17.5); Lymphocytes # (A) 2.3 k/uL (1.0-4.8); Lymphocytes % (A) 19 %; MCH 37.3 pg (25.0-35.0); MCHC 35.2 g/dL (31.0-37.0); MCV 105.9 fL (80.0-100.0); Macrocytosis Slight; Mean Platelet Volume 7.3; Monocytes # (A) 0.8 k/uL (0-1.0); Monocytes % (A) 6 %; Neutrophils # (A) 8.6 k/uL (1.3-7.7); Neutrophils % (A) 70 %; Platelet Count 234 k/uL (150-450); RBC 3.65 m/uL (4.30-5.90); RDW 12.9 % (11.5-15.5); WBC 12.4 k/uL (3.8-10.6)
[2023-05-25 22:01] LABS: ALT 37 U/L (4-49); AST 39 U/L (17-59); African American GFR (CKD) >90 (>60 ml/min/1.73 sqM); Albumin 4.5 g/dL (3.5-5.0); Alkaline Phosphatase 80 U/L (38-126); Anion Gap 11 mmol/L; Blood Urea Nitrogen 7 mg/dL (9-20); Calcium 8.9 mg/dL (8.4-10.2); Carbon Dioxide 19 mmol/L (22-30); Chloride 95 mmol/L (98-107); Glucose 83 mg/dL (74-99); Non-African American GFR(CKD) >90 (>60 ml/min/1.73 sqM); Potassium 4.3 mmol/L (3.5-5.1); Sodium 125 mmol/L (137-145); Total Bilirubin 0.4 mg/dL (0.2-1.3); Total Protein 6.1 g/dL (6.3-8.2)
[2023-05-25 22:21] LABS: Appearance,Urine Clear (Clear); Bilirubin,Urine Negative (Negative); Blood,Urine Negative (Negative); Color,Urine Colorless; Glucose,Urine (UA) Negative (Negative); Ketones,Urine Negative (Negative); Leukocyte Esterase,Urine Negative (Negative); Nitrite,Urine Negative (Negative); PH, Urine 6.5 (5.0-8.0); Protein,Urine Negative (Negative); Specific Gravity,Urine 1.008 (1.001-1.035); Urobilinogen,Urine <2.0 mg/dL (<2.0)
[2023-05-25] MEDS: SODIUM CHLORIDE 0.9% 1,000 ML IV STA (22:46)
[2023-05-25] MEDS: ACETAMINOPHEN TAB 500 MG TAB PO STA (23:11)
--- NOTE | 2023-05-25 23:15 | CT ---
EXAM: CT Neck With Intravenous Contrast CLINICAL HISTORY: r/o mastoiditis. Also neck pain TECHNIQUE: Axial computed tomography images of the neck with intravenous contrast. CTDI is 5.1 mGy and DLP is 194.9 mGy-cm. This CT exam was performed using one or more of the following dose reduction techniques: automated exposure control, adjustment of the mA and/or kV according to patient size, and/or use of iterative reconstruction technique. COMPARISON: No relevant prior studies available. FINDINGS: Oropharynx: Unremarkable. No significant tonsillar enlargement. No peritonsillar abscess. Hypopharynx: Unremarkable. Larynx: Unremarkable. Normal epiglottis. Trachea: Unremarkable. Retropharyngeal space: Unremarkable. Submandibular/parotid glands: Unremarkable. Glands are normal in size. Thyroid: Unremarkable. No enlarged or calcified nodules. Bones/joints: No acute findings. Severe right neural foraminal stenosis at C3/C4. Soft tissues: Unremarkable. Vasculature: No acute findings. Lymph nodes: Unremarkable. No lymphadenopathy. Mastoid air cells: Unremarkable as visualized. No abnormal fluid seen in the mastoid air cells or middle ear cavities. Lung apices: Unremarkable as visualized. IMPRESSION: No acute findings in the neck.
[2023-05-26 00:02] VITALS: BP 159/80; PULSE 95; RESP 16; TEMP 99.1
== END 2023-05-25 23:53 | disposition home or self-care (01) ==
LOC: EC 19:48
DX: J06.9 Acute upper respiratory infection, unspecified (principal); I25.10 Atherosclerotic heart disease of native coronary artery without angina pectoris; F17.200 Nicotine dependence, unspecified, uncomplicated; J44.9 Chronic obstructive pulmonary disease, unspecified; Z79.899 Other long term (current) drug therapy; Z20.822 Contact with and (suspected) exposure to COVID-19; Z79.51 Long term (current) use of inhaled steroids; Z79.82 Long term (current) use of aspirin; Z88.8 Allergy status to other drugs, medicaments and biological substances
CPT/HCPCS: 36415; 80053; 85025; 81003; 87636; 70491; 99284; 96360; Q9967

== ENCOUNTER 2024-05-11 13:00 | Inpatient (IN) | payer MEDICARE, OTHER ==
--- NOTE | 2024-05-11 15:04 | XR ---
EXAMINATION TYPE: XR chest 2V DATE OF EXAM: 05/11/2024 2:56 PM COMPARISON: 02/19/2023 CLINICAL INDICATION: Male, 68 years old with history of difficulty breathing, TECHNIQUE: XR chest 2V view(s) obtained. FINDINGS: The heart size is normal. The pulmonary vasculature is normal. The lungs are clear. Hyperinflation with diaphragms compatible with COPD. IMPRESSION: 1. COPD. 2. No acute pulmonary process. [facility], , 05/11/2024 3:02 PM
[2024-05-11 15:14] LABS: Basophils % (A) 0 %; Eosinophils # (A) 0.1 k/uL (0-0.7); Eosinophils % (A) 1 %; HCT 36.9 % (39.0-53.0); HGB 12.8 gm/dL (13.0-17.5); Lymphocytes # (A) 2.7 k/uL (1.0-4.8); Lymphocytes % (A) 16 %; MCH 37.5 pg (25.0-35.0); MCHC 34.8 g/dL (31.0-37.0); MCV 107.9 fL (80.0-100.0); Macrocytosis Moderate; Mean Platelet Volume 7.2; Monocytes # (A) 0.9 k/uL (0-1.0); Monocytes % (A) 5 %; Neutrophils # (A) 13.1 k/uL (1.3-7.7); Neutrophils % (A) 76 %; Platelet Count 238 k/uL (150-450); RBC 3.42 m/uL (4.30-5.90); RDW 13.3 % (11.5-15.5); WBC 17.4 k/uL (3.8-10.6)
[2024-05-11 15:16] LABS: ALT 15 U/L (4-49); AST 24 U/L (17-59); African American GFR (CKD) >90 (>60 ml/min/1.73 sqM); Albumin 4.1 g/dL (3.5-5.0); Alkaline Phosphatase 87 U/L (38-126); Anion Gap 16 mmol/L; Blood Urea Nitrogen 8 mg/dL (9-20); Calcium 8.9 mg/dL (8.4-10.2); Carbon Dioxide 18 mmol/L (22-30); Chloride 87 mmol/L (98-107); Glucose 66 mg/dL (74-99); Non-African American GFR(CKD) >90 (>60 ml/min/1.73 sqM); Potassium 4.1 mmol/L (3.5-5.1); Sodium 121 mmol/L (137-145); Total Bilirubin 0.6 mg/dL (0.2-1.3); Total Protein 6.1 g/dL (6.3-8.2)
[2024-05-11 15:22] LABS: NT-Pro-B-Type Natriuretic Pept 129 pg/mL
[2024-05-11 15:25] LABS: INR 0.8 (<1.2); Partial Thromboplastin Time 24.3 sec (22.0-30.0); Prothrombin Time 9.4 sec (10.0-12.5)
--- NOTE | 2024-05-11 15:35 | ED ---
SOB HPI - General Chief Complaint: Shortness of Breath Stated Complaint: SOB Time Seen by Provider: 05/11/24 13:10 Source: patient, EMS Mode of arrival: EMS Limitations: no limitations - History of Present Illness Initial Comments: 68-year-old male presents the emergency department reporting shortness of breath and difficulties urinating. Patient reports to increased work of breathing. Does have a history of COPD. States he has an allergic reaction to steroids and they make him "act crazy". Patient also reports to painful urination and weakness. Admits to a nonproductive cough. Denies chest pain. He does not wear home oxygen. No other alleviating, precipitating of modifying factors - Related Data Home Medications Medication Instructions Recorded Confirmed Albuterol Sulfate [Ventolin HFA] 2 puff INHALATION RT-Q4H PRN 02/25/22 05/11/24 Fluticasone/Umeclidin/Vilanter 1 puff INHALATION RT-DAILY 02/25/22 05/11/24 [Trelegy Ellipta 200-62.5-25] Aspirin 81 mg PO DAILY 09/27/22 05/11/24 Acetaminophen Tab [Tylenol Tab] 1,000 mg PO Q6HR 05/11/24 05/11/24 Previous Rx's Medication Instructions Recorded Atorvastatin [Lipitor] 80 mg PO DAILY #30 tab 03/01/22 Metoprolol Tartrate [Lopressor] 50 mg PO BID #60 tab 03/01/22 amLODIPine [Norvasc] 5 mg PO DAILY #30 tab 06/24/22 Allergies Allergy/AdvReac Type Severity Reaction Status Date / Time lisinopril Allergy Anaphylaxis Verified 05/11/24 15:15 Review of Systems ROS Statement: Those systems with pertinent positive or pertinent negative responses have been documented in the HPI. ROS Other: All systems not noted in ROS Statement are negative. Past Medical History Past Medical History: Coronary Artery Disease (CAD), COPD, CVA/TIA, Seizure Disorder Additional Past Medical History / Comment(s): chronic bronchitis History of Any Multi-Drug Resistant Organisms: None Reported Past Surgical History: Tonsillectomy Additional Past Surgical History / Comment(s): tubes in ears at a young age- unsure if he had this Past Anesthesia/Blood Transfusion Reactions: No Reported Reaction Past Psychological History: No Psychological Hx Reported Smoking Status: Current every day smoker Past Alcohol Use History: Daily Past Drug Use History: None Reported - Past Family History Father History Unknown: Yes Additional Family Medical History / Comment(s): "his heart stopped" General Exam Limitations: no limitations General appearance: alert, in no apparent distress Head exam: Present: atraumatic, normocephalic, normal inspection Eye exam: Present: normal appearance, PERRL, EOMI. Absent: scleral icterus, conjunctival injection, periorbital swelling ENT exam: Present: normal exam, mucous membranes moist Neck exam: Present: normal inspection. Absent: tenderness, meningismus, lymphadenopathy Respiratory exam: Present: wheezes (mild). Absent: respiratory distress, rales, rhonchi, stridor Cardiovascular Exam: Present: regular rate, normal rhythm, normal heart sounds. Absent: systolic murmur, diastolic murmur, rubs, gallop, clicks GI/Abdominal exam: Present: soft, normal bowel sounds. Absent: distended, tenderness, guarding, rebound, rigid Extremities exam: Present: normal inspection, full ROM, normal capillary refill. Absent: tenderness, pedal edema, joint swelling, calf tenderness Back exam: Present: normal inspection Neurological exam: Present: alert, oriented X3, CN II-XII intact Psychiatric exam: Present: normal affect, normal mood Skin exam: Present: warm, dry, intact, normal color. Absent: rash Course Vital Signs 05/11/24 05/11/24 05/11/24 13:08 16:47 16:56 Temperature 97.5 F L Pulse Rate 77 78 80 Respiratory 18 Rate Blood Pressure 114/59 O2 Sat by Pulse 98 Oximetry 05/11/24 05/11/24 05/11/24 17:00 20:20 20:28 Temperature Pulse Rate 86 71 76 Respiratory 18 18 18 Rate Blood Pressure 151/85 O2 Sat by Pulse 96 Oximetry 05/11/24 05/11/24 05/12/24 20:40 22:31 00:47 Temperature 99.2 F Pulse Rate 98 103 H 112 H Respiratory 20 18 Rate Blood Pressure 143/77 137/76 O2 Sat by Pulse 97 98 Oximetry 05/12/24 05/12/24 05/12/24 00:58 02:45 04:21 Temperature 98.8 F Pulse Rate 111 H 105 H 102 H Respiratory 18 18 Rate Blood Pressure 119/66 O2 Sat by Pulse 95 Oximetry 05/12/24 05/12/24 05/12/24 04:27 05:00 06:37 Temperature 98.7 F Pulse Rate 108 H 103 H 106 H Respiratory 18 16 16 Rate Blood Pressure 125/69 149/74 O2 Sat by Pulse 96 98 Oximetry 05/12/24 07:25 Temperature 98.3 F Pulse Rate 99 Respiratory 18 Rate Blood Pressure 144/79 O2 Sat by Pulse 99 Oximetry Medical Decision Making - Medical Decision Making Was pt. sent in by a medical professional or institution (, PA, SENIOR MEDICAL TRANSCRIPTIONIST, urgent care, hospital, or snf...) When possible be specific @ -No Did you speak to anyone other than the patient for history (EMS, parent, family, police, friend...)? What history was obtained from this source @ -Spoke with EMS for history Did you review nursing and triage notes (agree or disagree)? Why? @ -I reviewed and agree with nursing and triage notes Were old charts reviewed (outside hosp., previous admission, EMS record, old EKG, old radiological studies, urgent care reports/EKG's, snf records)? Report findings @ -No old charts were reviewed Differential Diagnosis (chest pain, altered mental status, abdominal pain women, abdominal pain men, vaginal bleeding, weakness, fever, dyspnea, syncope, headache, dizziness, GI bleed, back pain, seizure, CVA, palpatations, mental health, musculoskeletal)? @Differential Dyspnea: Coronary syndrome, arrhythmia, tamponade, asthma, COPD, pulmonary embolism, pneumonia, pneumothorax, pulmonary effusion, anaphylaxis, diabetic ketoacidosis, flailed chest, pulmonary contusion, diaphragmatic rupture, anemia, neuromuscular, this is not meant to be an all-inclusive list. EKG interpreted by me (3pts min.). @ -Yes and demonstrates sinus rhythm with a rate of 69. AR interval 148. QRS 94. QTc of 408. No acute ST segment elevations or depressions X-rays interpreted by me (1pt min.). @ -Yes which demonstrates no acute process CT interpreted by me (1pt min.). @ -None done U/S interpreted by me (1pt. min.). @ -None done What testing was considered but not performed or refused? (CT, X-rays, U/S, lab s)? Why? @ -None What meds were considered but not given or refused? Why? @ -None Did you discuss the management of the patient with other professionals (professionals i.e. , PA, SENIOR MEDICAL TRANSCRIPTIONIST, lab, RT, psych nurse, social services specialist, social worker aide, teacher, chief lifestyle officer, caser shoe parts)? Give summary @ -Spoke with Rosenda from [facility] [place] for admission Was smoking cessation discussed for >3mins.? @ -No Was critical care preformed (if so, how long)? @ -No Were there social determinants of health that impacted care today? How? (Homelessness, low income, unemployed, alcoholism, drug addiction, transportation, low edu. Level, literacy, decrease access to med. care, nursing home, rehab)? @ -No Was there de-escalation of care discussed even if they declined (Discuss DNR or withdrawal of care, Hospice)? DNR status @ -No What co-morbidities impacted this encounter? (DM, HTN, Smoking, COPD, CAD, Cancer, CVA, ARF, Chemo, Hep., AIDS, mental health diagnosis, sleep apnea, morbid obesity)? @ -COPD Was patient admitted / discharged? Hospital course, mention meds given and route, prescriptions, significant lab abnormalities, going to OR and other pertinent info. @ -On arrival patient seen and evaluated in hallway . Thorough history and physical exam was performed. IV access was established. Laboratory studies are conducted. Chest x-ray was performed. Patient does provide urine sample which is grossly infected. He has a white count of 17. He is initiated on antibiotics. Viral swab is negative. Patient will be initiated on breathing treatments and steroids. His sodium is 121. Patient denies known reason for low-salt however review of the patient's chart demonstrates that he does have significant alcohol history. Patient will be admitted. Spoke with Rosenda for the admission. Patient awaiting a bed on the floor in stable condition Undiagnosed new problem with uncertain prognosis? @ -No Drug Therapy requiring intensive monitoring for toxicity (Heparin, Nitro, Insulin, Cardizem)? @ -No Were any procedures done? @ -No Diagnosis/symptom? @ -Acute respiratory insufficiency, acute COPD exacerbation, acute UTI, leukocytosis, acute hyponatremia, history of alcoholism Acute, or Chronic, or Acute on Chronic? @ -Acute Uncomplicated (without systemic symptoms) or Complicated (systemic symptoms)? @ -Complicated Side effects of treatment? @ -No Exacerbation, Progression, or Severe Exacerbation? @ -Yes Poses a threat to life or bodily function? How? (Chest pain, USA, SD, pneumonia, PE, COPD, DKA, ARF, appy, cholecystitis, CVA, Diverticulitis, Homicidal, Suicidal, threat to staff... and all critical care pts) @ -No - Lab Data Result diagrams: 05/15/24 06:44 05/15/24 06:44 Lab Results 05/11/24 05/11/24 05/11/24 Range/Units 14:44 14:44 14:44 WBC 17.4 H (3.8-10.6) k/uL RBC 3.42 L (4.30-5.90) m/uL Hgb 12.8 L (13.0-17.5) gm/dL Hct 36.9 L (39.0-53.0) % MCV 107.9 H (80.0-100.0) fL MCH 37.5 H (25.0-35.0) pg MCHC 34.8 (31.0-37.0) g/dL RDW 13.3 (11.5-15.5) % Plt Count 238 (150-450) k/uL MPV 7.2 Neutrophils % 76 % Lymphocytes % 16 % Monocytes % 5 % Eosinophils % 1 % Basophils % 0 % Neutrophils # 13.1 H (1.3-7.7) k/uL Lymphocytes # 2.7 (1.0-4.8) k/uL Monocytes # 0.9 (0-1.0) k/uL Eosinophils # 0.1 (0-0.7) k/uL Basophils # 0.0 (0-0.2) k/uL Macrocytosis Moderate PT 9.4 L (10.0-12.5) sec INR 0.8 (<1.2) APTT 24.3 (22.0-30.0) sec Sodium 121 L (137-145) mmol/L Potassium 4.1 (3.5-5.1) mmol/L Chloride 87 L (98-107) mmol/L Carbon Dioxide 18 L (22-30) mmol/L Anion Gap 16 mmol/L BUN 8 L (9-20) mg/dL Creatinine 0.57 L (0.66-1.25) mg/dL Est GFR (CKD-EPI)AfAm >90 (>60 ml/min/1.73 sqM) Est GFR (CKD-EPI)NonAf >90 (>60 ml/min/1.73 sqM) Glucose 66 L (74-99) mg/dL Plasma Lactic Acid Sagar (0.7-2.0) mmol/L Calcium 8.9 (8.4-10.2) mg/dL Total Bilirubin 0.6 (0.2-1.3) mg/dL AST 24 (17-59) U/L ALT 15 (4-49) U/L Alkaline Phosphatase 87 (38-126) U/L Troponin I (0.000-0.034) ng/mL NT-Pro-B Natriuret Pep 129 pg/mL Total Protein 6.1 L (6.3-8.2) g/dL Albumin 4.1 (3.5-5.0) g/dL Urine Color Urine Appearance (Clear) Urine pH (5.0-8.0) Ur Specific [place] (1.001-1.035) Urine Protein (Negative) Urine Glucose (UA) (Negative) Urine Ketones (Negative) Urine Blood (Negative) Urine Nitrite (Negative) Urine Bilirubin (Negative) Urine Urobilinogen (<2.0) mg/dL Ur Leukocyte Esterase (Negative) Urine RBC (0-5) /hpf Urine WBC (0-5) /hpf Ur Squamous Epith Cells (0-4) /hpf Urine Bacteria (None) /hpf Urine Mucus (None) /hpf Urine Osmolality (400-1100) mOsm/kg Ur Random Sodium (40-220) mmol/L Influenza Type A (PCR) (Not Detectd) Influenza Type B (PCR) (Not Detectd) RSV (PCR) (Not Detectd) SARS-CoV-2 (PCR) (Not Detectd) 05/11/24 05/11/24 05/11/24 Range/Units 14:44 14:44 14:44 WBC (3.8-10.6) k/uL RBC (4.30-5.90) m/uL Hgb (13.0-17.5) gm/dL Hct (39.0-53.0) % MCV (80.0-100.0) fL MCH (25.0-35.0) pg MCHC (31.0-37.0) g/dL RDW (11.5-15.5) % Plt Count (150-450) k/uL MPV Neutrophils % % Lymphocytes % % Monocytes % % Eosinophils % % Basophils % % Neutrophils # (1.3-7.7) k/uL Lymphocytes # (1.0-4.8) k/uL Monocytes # (0-1.0) k/uL Eosinophils # (0-0.7) k/uL Basophils # (0-0.2) k/uL Macrocytosis PT (10.0-12.5) sec INR (<1.2) APTT (22.0-30.0) sec Sodium (137-145) mmol/L Potassium (3.5-5.1) mmol/L Chloride (98-107) mmol/L Carbon Dioxide (22-30) mmol/L Anion Gap mmol/L BUN (9-20) mg/dL Creatinine (0.66-1.25) mg/dL Est GFR (CKD-EPI)AfAm (>60 ml/min/1.73 sqM) Est GFR (CKD-EPI)NonAf (>60 ml/min/1.73 sqM) Glucose (74-99) mg/dL Plasma Lactic Acid Sagar 2.0 (0.7-2.0) mmol/L Calcium (8.4-10.2) mg/dL Total Bilirubin (0.2-1.3) mg/dL AST (17-59) U/L ALT (4-49) U/L Alkaline Phosphatase (38-126) U/L Troponin I <0.012 (0.000-0.034) ng/mL NT-Pro-B Natriuret Pep pg/mL Total Protein (6.3-8.2) g/dL Albumin (3.5-5.0) g/dL Urine Color Urine Appearance (Clear) Urine pH (5.0-8.0) Ur Specific [place] (1.001-1.035) Urine Protein (Negative) Urine Glucose (UA) (Negative) Urine Ketones (Negative) Urine Blood (Negative) Urine Nitrite (Negative) Urine Bilirubin (Negative) Urine Urobilinogen (<2.0) mg/dL Ur Leukocyte Esterase (Negative) Urine RBC (0-5) /hpf Urine WBC (0-5) /hpf Ur Squamous Epith Cells (0-4) /hpf Urine Bacteria (None) /hpf Urine Mucus (None) /hpf Urine Osmolality (400-1100) mOsm/kg Ur Random Sodium (40-220) mmol/L Influenza Type A (PCR) Not Detected (Not Detectd) Influenza Type B (PCR) Not Detected (Not Detectd) RSV (PCR) Not Detected (Not Detectd) SARS-CoV-2 (PCR) Not Detected (Not Detectd) 05/11/24 05/11/24 05/11/24 Range/Units 14:56 14:56 14:56 WBC (3.8-10.6) k/uL RBC (4.30-5.90) m/uL Hgb (13.0-17.5) gm/dL Hct (39.0-53.0) % MCV (80.0-100.0) fL MCH (25.0-35.0) pg MCHC (31.0-37.0) g/dL RDW (11.5-15.5) % Plt Count (150-450) k/uL MPV Neutrophils % % Lymphocytes % % Monocytes % % Eosinophils % % Basophils % % Neutrophils # (1.3-7.7) k/uL Lymphocytes # (1.0-4.8) k/uL Monocytes # (0-1.0) k/uL Eosinophils # (0-0.7) k/uL Basophils # (0-0.2) k/uL Macrocytosis PT (10.0-12.5) sec INR (<1.2) APTT (22.0-30.0) sec Sodium (137-145) mmol/L Potassium (3.5-5.1) mmol/L Chloride (98-107) mmol/L Carbon Dioxide (22-30) mmol/L Anion Gap mmol/L BUN (9-20) mg/dL Creatinine (0.66-1.25) mg/dL Est GFR (CKD-EPI)AfAm (>60 ml/min/1.73 sqM) Est GFR (CKD-EPI)NonAf (>60 ml/min/1.73 sqM) Glucose (74-99) mg/dL Plasma Lactic Acid Sagar (0.7-2.0) mmol/L Calcium (8.4-10.2) mg/dL Total Bilirubin (0.2-1.3) mg/dL AST (17-59) U/L ALT (4-49) U/L Alkaline Phosphatase (38-126) U/L Troponin I (0.000-0.034) ng/mL NT-Pro-B Natriuret Pep pg/mL Total Protein (6.3-8.2) g/dL Albumin (3.5-5.0) g/dL Urine Color Colorless Urine Appearance Clear (Clear) Urine pH 6.0 (5.0-8.0) Ur Specific [place] 1.011 (1.001-1.035) Urine Protein Trace H (Negative) Urine Glucose (UA) Negative (Negative) Urine Ketones 1+ H (Negative) Urine Blood Negative (Negative) Urine Nitrite Negative (Negative) Urine Bilirubin Negative (Negative) Urine Urobilinogen <2.0 (<2.0) mg/dL Ur Leukocyte Esterase Large H (Negative) Urine RBC 2 (0-5) /hpf Urine WBC 73 H (0-5) /hpf Ur Squamous Epith Cells <1 (0-4) /hpf Urine Bacteria Rare H (None) /hpf Urine Mucus Rare H (None) /hpf Urine Osmolality 253 L (400-1100) mOsm/kg Ur Random Sodium <20 L (40-220) mmol/L Influenza Type A (PCR) (Not Detectd) Influenza Type B (PCR) (Not Detectd) RSV (PCR) (Not Detectd) SARS-CoV-2 (PCR) (Not Detectd) Disposition Clinical Impression: Hyponatremia, COPD exacerbation, UTI (urinary tract infection) Disposition: ADMITTED IP TO THIS [facility] Condition: Stable Is patient prescribed a controlled substance at d/c from ED?: No Time of Disposition: 15:47 Decision to Admit Reason: Admit from EC Decision Date: 05/11/24 Decision Time: 15:48
[2024-05-11 15:38] LABS: Influenza A Not Detected (Not Detectd); Influenza B Not Detected (Not Detectd); RSV Not Detected (Not Detectd)
[2024-05-11 15:40] LABS: Appearance,Urine Clear (Clear); Bacteria,Urine Rare /hpf; Bilirubin,Urine Negative (Negative); Blood,Urine Negative (Negative); Color,Urine Colorless; Glucose,Urine (UA) Negative (Negative); Ketones,Urine 1+ (Negative); Leukocyte Esterase,Urine Large (Negative); Mucus,Urine Rare /hpf; Nitrite,Urine Negative (Negative); Protein,Urine Trace (Negative); RBC,Urine 2 /hpf (0-5); Specific Gravity,Urine 1.011 (1.001-1.035); Squamous Epithelial Cell,Urine <1 /hpf (0-4); Urobilinogen,Urine <2.0 mg/dL (<2.0); WBC,Urine 73 /hpf (0-5)
[2024-05-11] MEDS ORDERED: NALOXONE 0.4 MG/ML 1 ML VIAL IV PRN (15:48)
[2024-05-11] MEDS: SODIUM CHLORIDE 0.9% 1,000 ML IV SCH (16:26)
[2024-05-11] MEDS: cefTRIAXone IN SWFI 1,000 MG/10 ML SYRINGE IVP STA (16:27)
[2024-05-11] MEDS: IPRATROPIUM-ALBUTEROL 3 ML NEB INHALATION SCH (16:47)
[2024-05-11 20:52] LABS: African American GFR (CKD) >90 (>60 ml/min/1.73 sqM); Anion Gap 20 mmol/L; Blood Urea Nitrogen 8 mg/dL (9-20); Calcium 8.9 mg/dL (8.4-10.2); Carbon Dioxide 16 mmol/L (22-30); Chloride 87 mmol/L (98-107); Glucose 76 mg/dL (74-99); Non-African American GFR(CKD) >90 (>60 ml/min/1.73 sqM); Potassium 4.1 mmol/L (3.5-5.1); Sodium 123 mmol/L (137-145)
[2024-05-12] MEDS: ACETAMINOPHEN TAB 325 MG TAB PO PRN (01:45)
[2024-05-12 06:58] LABS: Glucose,Whole Blood 130 mg/dL (70-110)
[2024-05-12] MEDS: ASPIRIN 81 MG PO SCH (09:44)
[2024-05-12] MEDS: amLODIPine 5 MG TAB PO SCH (09:44)
[2024-05-12] MEDS: ATORVASTATIN 80 MG TAB PO SCH (09:44)
[2024-05-12] MEDS: METOPROLOL TARTRATE 50 MG TAB PO SCH (09:44)
[2024-05-12 10:10] LABS: Blood Urea Nitrogen 7.9 mg/dL (9.0-27.0); Glucose 135 mg/dL (70-110); HCT 34.9 % (39.6-50.0); HGB 12.6 g/dL (13.0-17.0); MCH 37.3 pg (27.0-32.0); MCHC 36.1 g/dL (32.0-37.0); MCV 103.3 FL (80.0-97.0); NRBC Per 100 WBC 0 X 10*3/uL (0.00-0.01); Platelet Count 250 X 10*3/uL (140-440); RBC 3.38 X 10*6/uL (4.40-5.60); RDW 13.3 % (11.5-14.5); WBC 15.81 X 10*3/uL (4.50-10.00)
[2024-05-12 10:11] LABS: Calcium 8.6 mg/dL (8.7-10.3); Carbon Dioxide 18.8 mmol/L (21.6-31.8); Chloride 91 mmol/L (96-109); Potassium 3.7 mmol/L (3.5-5.5); Sodium 125 mmol/L (135-145)
[2024-05-12 10:54] LABS: Basophils # (A) 0.03 X 10*3/uL (0.00-0.10); Basophils % (A) 0.2 %; Eosinophils # (A) 0.02 X 10*3/uL (0.04-0.35); Eosinophils % (A) 0.1 %; Lymphocytes # (A) 3.17 X 10*3/uL (0.90-5.00); Lymphocytes % (A) 20.1 %; Monocytes # (A) 1.74 X 10*3/uL (0.20-1.00); Neutrophils # (A) 10.76 X 10*3/uL (1.80-7.70); RBC Morphology Normal (Normal)
[2024-05-12] MEDS: SYMBICORT 160-4.5 MCG INHALER INHALATION SCH (11:36)
[2024-05-12] MEDS: NICOTINE 14MG/24HR PATCH TRANSDERM SCH (12:23)
--- NOTE | 2024-05-12 14:10 | P.HPIM ---
History of Present Illness H&P Date: 05/12/24 This is a pleasant 68-year-old male with medical history significant for COPD, coronary artery disease, COPD, seizure disorder, chronic nicotine use and alcohol use. Patient comes in with a complaint of generalized weakness increased fatigue and shortness of breath. He states that since Tuesday he has not been able to tolerate much activity level and has been mostly just going from his bed to the bathroom and back. Because of his inability to tolerate activity he has eating and drinking well. He does feel dehydrated. He also reports feeling short of breath although this is chronic for him he also has a chronic cough with phlegm at baseline. He does not wear any home oxygen and does not see a is architect. Patient does state that he continues to smoke about 1/2-3/4 of a pack per day and is requesting a nicotine patch. He also reports drinking beer a couple a day about every other day. He states that the shortness of breath is essentially his baseline however in the last 24 hours he has been having increased difficulty urinating with a trickling stream and reports that he is having some burning and discomfort. Initial labs reveal a white blood cell count of 7.4, hemoglobin 12.8, sodium level of 121, BUN of 8 creatinine of 0.57 and a glucose of 66, troponin level is negative. His LFTs are within normal limits. His viral scan is negative for influenza RSV and COVID. Patient's urinalysis was abnormal found to have trace protein and 1+ ketones large leukocyte Estrace 73 WBCs with rare bacteria. His urine osmolality is 253 and his urine random sodium is less than 20. Chest x-ray reveals COPD with no acute pulmonary process. There is hyperinflation compatible with COPD. In the ER patient received a dose of IV ceftriaxone he was admitted to the hospital under internal medicine. REVIEW OF SYSTEMS: CONSTITUTIONAL: No fever, no malaise, no fatigue. HEENT: No recent visual problems or hearing problems. Denied any sore throat. CARDIOVASCULAR: No chest pain, orthopnea, PND, no palpitations, no syncope. PULMONARY: No shortness of breath, no cough, no hemoptysis. GASTROINTESTINAL: No diarrhea, no nausea, no vomiting, no abdominal pain. NEUROLOGICAL: No headaches, no weakness, no numbness. HEMATOLOGICAL: Denies any bleeding or petechiae. GENITOURINARY: Denies any burning micturition, frequency, or urgency. MUSCULOSKELETAL/RHEUMATOLOGICAL: Denies any joint pain, swelling, or any muscle pain. ENDOCRINE: Denies any polyuria or polydipsia. The rest of the 14-point review of systems is negative. PHYSICAL EXAMINATION: GENERAL: The patient is alert and oriented x3, not in any acute distress. Well developed, well nourished. HEENT: Pupils are round and equally reacting to light. EOMI. No scleral icterus. No conjunctival pallor. Normocephalic, atraumatic. No pharyngeal erythema. No thyromegaly. CARDIOVASCULAR: S1 and S2 present. No murmurs, rubs, or gallops. PULMONARY: Chest is clear to auscultation, no wheezing or crackles. ABDOMEN: Soft, nontender, nondistended, normoactive bowel sounds. No palpable organomegaly. MUSCULOSKELETAL: No joint swelling or deformity. EXTREMITIES: No cyanosis, clubbing, or pedal edema. NEUROLOGICAL: Gross neurological examination did not reveal any focal deficits. SKIN: No rashes. Assessment and Plan Mild acute COPD exacerbation Urinary tract infection present on admission without sepsis Leukocytosis Weakened urinary stream will check renal ultrasound Hypovolemic hyponatremia from dehydration improving slowly with IV fluids likely component of beer potomania patient has been admitted to the hospital in the past for hyponatremia requiring ICU care. Macrocytic anemia likely from the alcoholism history of stroke History of coronary artery disease and prior cardiac stenting Hypertension Chronic and ongoing nicotine use Chronic alcoholism monitor for acute alcohol withdrawal and will add CIWA protocol GI prophylaxis DVT prophylaxis Full Code Plan Continue IV ceftriaxone and check urine culture Renal ultrasound ordered Continue nicotine patch Repeat sodium level at 1500 and continue normal saline at 75 mls/hr for now If sodium not improving will consult nephrology Add ativan ciwa protocol and monitor for acute agitation, and signs of alcohol withdrawal Continue symbicort scheduled and scheduled updrafts. Patient refuses systemic steroids at this time Check vitamin B12 and Folate level Repeat labs in the AM Physical therapy and occupational therapy have been consulted for evaluation The impression and plan of care has been dictated by Nurse Francy Nelson titioner as directed. Dr. Bello MD I have performed a history and physical examination and medical decision making of this patient, discussed the same with the dictator, and agree with the dictators assessment and plan as written, documented as a scribe. Based on total visit time, I have performed more than 50% of this visit. Past Medical History Past Medical History: Coronary Artery Disease (CAD), COPD, CVA/TIA, Seizure Disorder Additional Past Medical History / Comment(s): chronic bronchitis History of Any Multi-Drug Resistant Organisms: None Reported Past Surgical History: Tonsillectomy Additional Past Surgical History / Comment(s): tubes in ears at a young age- unsure if he had this Past Anesthesia/Blood Transfusion Reactions: No Reported Reaction Past Psychological History: No Psychological Hx Reported Smoking Status: Current every day smoker Past Alcohol Use History: Daily Additional Past Alcohol Use History / Comment(s): smokes 0.5 pack/day or uses nicotine patches. Drinks 4-5 beer/day Past Drug Use History: None Reported - Past Family History Father History Unknown: Yes Additional Family Medical History / Comment(s): "his heart stopped" Medications and Allergies Home Medications Medication Instructions Recorded Confirmed Type Albuterol Sulfate [Ventolin HFA] 2 puff INHALATION RT-Q4H PRN 02/25/22 05/11/24 History Fluticasone/Umeclidin/Vilanter 1 puff INHALATION RT-DAILY 02/25/22 05/11/24 History [Trelegy Ellipta 200-62.5-25] Atorvastatin [Lipitor] 80 mg PO DAILY #30 tab 03/01/22 05/11/24 Rx Metoprolol Tartrate [Lopressor] 50 mg PO BID #60 tab 03/01/22 05/11/24 Rx amLODIPine [Norvasc] 5 mg PO DAILY #30 tab 06/24/22 05/11/24 Rx Aspirin 81 mg PO DAILY 09/27/22 05/11/24 History Acetaminophen Tab [Tylenol Tab] 1,000 mg PO Q6HR 05/11/24 05/11/24 History Allergies Allergy/AdvReac Type Severity Reaction Status Date / Time lisinopril Allergy Anaphylaxis Verified 05/11/24 15:15 Physical Exam Vitals: Vital Signs Temp Pulse Pulse Resp BP BP Pulse Ox 05/12/24 12:29 98.4 F 91 16 129/81 96 05/12/24 11:51 98 05/12/24 11:36 96 05/12/24 08:45 98.3 F 109 H 16 150/90 95 05/12/24 07:25 98.3 F 99 18 144/79 99 05/12/24 06:37 98.7 F 106 H 16 149/74 98 05/12/24 05:00 103 H 16 125/69 96 05/12/24 04:27 108 H 18 05/12/24 04:21 102 H 18 05/12/24 02:45 98.8 F 105 H 119/66 95 05/12/24 00:58 111 H 18 05/12/24 00:47 112 H 18 05/11/24 22:31 103 H 137/76 98 05/11/24 20:40 99.2 F 98 20 143/77 97 05/11/24 20:28 76 18 05/11/24 20:20 71 18 05/11/24 17:00 86 18 151/85 96 05/11/24 16:56 80 05/11/24 16:47 78 Intake and Output 05/11/24 05/12/24 05/12/24 22:59 06:59 14:59 Intake Total 1800 Balance 1800 Intake: Oral 1800 Other: Voiding Method Toilet Urinal # Voids 5 Weight 49.895 kg Results CBC & Chem 7: 05/12/24 06:44 05/12/24 06:44 Labs: Abnormal Lab Results - Last 24 Hours (Table) 05/11/24 05/11/24 05/11/24 Range/Units 14:44 14:44 14:44 WBC 17.4 H (3.8-10.6) k/uL RBC 3.42 L (4.30-5.90) m/uL Hgb 12.8 L (13.0-17.5) gm/dL Hct 36.9 L (39.0-53.0) % MCV 107.9 H (80.0-100.0) fL MCH 37.5 H (25.0-35.0) pg MPV (9.5-12.2) FL Immature Gran # (0.00-0.04) X 10*3/uL Neutrophils # 13.1 H (1.3-7.7) k/uL Monocytes # (0.20-1.00) X 10*3/uL Eosinophils # (0.04-0.35) X 10*3/uL PT 9.4 L (10.0-12.5) sec Sodium 121 L (137-145) mmol/L Chloride 87 L (98-107) mmol/L Carbon Dioxide 18 L (22-30) mmol/L Anion Gap (4.00-12.00) mmol/L BUN 8 L (9-20) mg/dL Creatinine 0.57 L (0.66-1.25) mg/dL Glucose 66 L (74-99) mg/dL POC Glucose (mg/dL) (70-110) mg/dL Osmolality (275-295) mOsm/kg Calcium (8.7-10.3) mg/dL Total Protein 6.1 L (6.3-8.2) g/dL Urine Protein (Negative) Urine Ketones (Negative) Ur Leukocyte Esterase (Negative) Urine WBC (0-5) /hpf Urine Bacteria (None) /hpf Urine Mucus (None) /hpf Urine Osmolality (400-1100) mOsm/kg Ur Random Sodium (40-220) mmol/L 05/11/24 05/11/24 05/11/24 Range/Units 14:56 14:56 14:56 WBC (3.8-10.6) k/uL RBC (4.30-5.90) m/uL Hgb (13.0-17.5) gm/dL Hct (39.0-53.0) % MCV (80.0-100.0) fL MCH (25.0-35.0) pg MPV (9.5-12.2) FL Immature Gran # (0.00-0.04) X 10*3/uL Neutrophils # (1.3-7.7) k/uL Monocytes # (0.20-1.00) X 10*3/uL Eosinophils # (0.04-0.35) X 10*3/uL PT (10.0-12.5) sec Sodium (137-145) mmol/L Chloride (98-107) mmol/L Carbon Dioxide (22-30) mmol/L Anion Gap (4.00-12.00) mmol/L BUN (9-20) mg/dL Creatinine (0.66-1.25) mg/dL Glucose (74-99) mg/dL POC Glucose (mg/dL) (70-110) mg/dL Osmolality (275-295) mOsm/kg Calcium (8.7-10.3) mg/dL Total Protein (6.3-8.2) g/dL Urine Protein Trace H (Negative) Urine Ketones 1+ H (Negative) Ur Leukocyte Esterase Large H (Negative) Urine WBC 73 H (0-5) /hpf Urine Bacteria Rare H (None) /hpf Urine Mucus Rare H (None) /hpf Urine Osmolality 253 L (400-1100) mOsm/kg Ur Random Sodium <20 L (40-220) mmol/L 05/11/24 05/11/24 05/12/24 Range/Units 20:11 20:11 06:44 WBC 15.81 H (3.8-10.6) k/uL RBC 3.38 L (4.30-5.90) m/uL Hgb 12.6 L (13.0-17.5) gm/dL Hct 34.9 L (39.0-53.0) % MCV 103.3 H (80.0-100.0) fL MCH 37.3 H (25.0-35.0) pg MPV 9.0 L (9.5-12.2) FL Immature Gran # 0.09 H (0.00-0.04) X 10*3/uL Neutrophils # 10.76 H (1.3-7.7) k/uL Monocytes # 1.74 H (0.20-1.00) X 10*3/uL Eosinophils # 0.02 L (0.04-0.35) X 10*3/uL PT (10.0-12.5) sec Sodium 123 L (137-145) mmol/L Chloride 87 L (98-107) mmol/L Carbon Dioxide 16 L (22-30) mmol/L Anion Gap (4.00-12.00) mmol/L BUN 8 L (9-20) mg/dL Creatinine 0.54 L (0.66-1.25) mg/dL Glucose (74-99) mg/dL POC Glucose (mg/dL) (70-110) mg/dL Osmolality 265 L (275-295) mOsm/kg Calcium (8.7-10.3) mg/dL Total Protein (6.3-8.2) g/dL Urine Protein (Negative) Urine Ketones (Negative) Ur Leukocyte Esterase (Negative) Urine WBC (0-5) /hpf Urine Bacteria (None) /hpf Urine Mucus (None) /hpf Urine Osmolality (400-1100) mOsm/kg Ur Random Sodium (40-220) mmol/L 05/12/24 05/12/24 Range/Units 06:44 06:57 WBC (3.8-10.6) k/uL RBC (4.30-5.90) m/uL Hgb (13.0-17.5) gm/dL Hct (39.0-53.0) % MCV (80.0-100.0) fL MCH (25.0-35.0) pg MPV (9.5-12.2) FL Immature Gran # (0.00-0.04) X 10*3/uL Neutrophils # (1.3-7.7) k/uL Monocytes # (0.20-1.00) X 10*3/uL Eosinophils # (0.04-0.35) X 10*3/uL PT (10.0-12.5) sec Sodium 125 L (137-145) mmol/L Chloride 91 L (98-107) mmol/L Carbon Dioxide 18.8 L (22-30) mmol/L Anion Gap 15.20 H (4.00-12.00) mmol/L BUN 7.9 L (9-20) mg/dL Creatinine 0.5 L (0.66-1.25) mg/dL Glucose 135 H (74-99) mg/dL POC Glucose (mg/dL) 130 H (70-110) mg/dL Osmolality (275-295) mOsm/kg Calcium 8.6 L (8.7-10.3) mg/dL Total Protein (6.3-8.2) g/dL Urine Protein (Negative) Urine Ketones (Negative) Ur Leukocyte Esterase (Negative) Urine WBC (0-5) /hpf Urine Bacteria (None) /hpf Urine Mucus (None) /hpf Urine Osmolality (400-1100) mOsm/kg Ur Random Sodium (40-220) mmol/L Thrombosis Risk Factor Assmnt - Choose All That Apply Any of the Below Risk Factors Present?: Yes Each Factor Represents 1 point: Abnormal pulmonary function (COPD) Each Risk Factor Represents 2 Points: Age 61-74 years Thrombosis Risk Factor Assessment Total Risk Factor Score: 3 Thrombosis Risk Factor Assessment Level: Moderate Risk Assessment and Plan Time with Patient: Greater than 30
--- NOTE | 2024-05-12 14:50 | US ---
EXAMINATION TYPE: US kidneys/renal and bladder DATE OF EXAM: 05/12/2024 COMPARISON: CT 2021 CLINICAL INDICATION: Male, 68 years old with history of UTI, weakened urinary stream; UTI, weakened u rinary stream TECHNIQUE: Grayscale imaging of the bilateral kidneys and urinary bladder: FINDINGS: EXAM MEASUREMENTS: Right Kidney: 11.2 x 5.2 x 4.0 cm Left Kidney: 10.9 x 4.9 x 5.8 cm Right Kidney: *Anechoic area seen upper: 1.0 x 1.0 x 0.9 cm Left Kidney: No hydronephrosis or masses seen Bladder: Not fully distended- unable to properly evaluate. Possible irregular, jagged bladder loving. Bilateral Jets seen: No Tiny hyperechoic foci seen within the spleen. IMPRESSION: 1. No evidence for obstructive uropathy. 2. Simple appearing right renal cyst. 3. Possible Calcified granulomas in the spleen. [facility], , 05/12/2024 2:48 PM
--- NOTE | 2024-05-12 16:26 | P.NPCON ---
History of Present Illness - Reason for Consult hyponatremia - History of Present Illness Patient is a 68-year-old male with history of COPD, coronary artery disease, alcohol abuse. He is admitted to the hospital with complaints of increased weakness and shortness of breath. He denied any fever or chills nausea vomiting abdominal pain or diarrhea. No new medications started recently. Serum sodium was 121. Patient has a chronic history of hyponatremia with previous sodium levels noted at 121-127 in 2022 and 2023 Maintained on normal saline and sodium has improved to 125. Blood pressure is not low. No diuretics noted. Past Medical History Past Medical History: Coronary Artery Disease (CAD), COPD, CVA/TIA, Seizure Disorder Additional Past Medical History / Comment(s): chronic bronchitis History of Any Multi-Drug Resistant Organisms: None Reported Past Surgical History: Tonsillectomy Additional Past Surgical History / Comment(s): tubes in ears at a young age- unsure if he had this Past Anesthesia/Blood Transfusion Reactions: No Reported Reaction Past Psychological History: No Psychological Hx Reported Smoking Status: Current every day smoker Past Alcohol Use History: Daily Additional Past Alcohol Use History / Comment(s): smokes 0.5 pack/day or uses nicotine patches. Drinks 4-5 beer/day Past Drug Use History: None Reported - Past Family History Father History Unknown: Yes Additional Family Medical History / Comment(s): "his heart stopped" Medications and Allergies Home Medications Medication Instructions Recorded Confirmed Type Albuterol Sulfate [Ventolin HFA] 2 puff INHALATION RT-Q4H PRN 02/25/22 05/11/24 History Fluticasone/Umeclidin/Vilanter 1 puff INHALATION RT-DAILY 02/25/22 05/11/24 History [Yesica Ellipta 200-62.5-25] Atorvastatin [Lipitor] 80 mg PO DAILY #30 tab 03/01/22 05/11/24 Rx Metoprolol Tartrate [Lopressor] 50 mg PO BID #60 tab 03/01/22 05/11/24 Rx amLODIPine [Norvasc] 5 mg PO DAILY #30 tab 06/24/22 05/11/24 Rx Aspirin 81 mg PO DAILY 09/27/22 05/11/24 History Acetaminophen Tab [Tylenol Tab] 1,000 mg PO Q6HR 05/11/24 05/11/24 History Allergies Allergy/AdvReac Type Severity Reaction Status Date / Time lisinopril Allergy Anaphylaxis Verified 05/11/24 15:15 Physical Exam Vitals: Vital Signs Temp Pulse Pulse Resp BP BP Pulse Ox 05/12/24 15:31 101 H 05/12/24 15:17 100 05/12/24 12:29 98.4 F 91 16 129/81 96 05/12/24 11:51 98 05/12/24 11:36 96 05/12/24 08:45 98.3 F 109 H 16 150/90 95 05/12/24 07:25 98.3 F 99 18 144/79 99 05/12/24 06:37 98.7 F 106 H 16 149/74 98 05/12/24 05:00 103 H 16 125/69 96 05/12/24 04:27 108 H 18 05/12/24 04:21 102 H 18 05/12/24 02:45 98.8 F 105 H 119/66 95 05/12/24 00:58 111 H 18 05/12/24 00:47 112 H 18 05/11/24 22:31 103 H 137/76 98 05/11/24 20:40 99.2 F 98 20 143/77 97 05/11/24 20:28 76 18 05/11/24 20:20 71 18 05/11/24 17:00 86 18 151/85 96 05/11/24 16:56 80 05/11/24 16:47 78 Intake and Output 05/12/24 05/12/24 05/12/24 06:59 14:59 22:59 Intake Total 2880 Balance 2880 Intake: Oral 2880 Other: Voiding Method Toilet Urinal # Voids 5 Weight 49.895 kg Patient is awake, distress Examination of the heart S1 and S2 Examination of the lungs bilateral breath sounds are heard Abdomen is soft nontender Patient lower extremities shows no evidence of edema 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 Results - Lab Results Most recent lab results Calcium 8.6 mg/dL (8.7-10.3) L 05/12/24 06:44 05/12/24 06:44 05/12/24 14:29 Assessment and Plan Assessment: 1. Hypovolemic hyponatremia improving with normal saline. There is a definite component of hyponatremia related to alcohol abuse with decreased urine osmolality. Continue with normal saline for now. Urine osmolality 253 and random urine sodium less than 20 2. Pyuria rule out UTI 3. COPD exacerbation Plan: Continue with normal saline for now Encourage increased oral intake Repeat labs in a.m. Check magnesium Thank you for the consultation. We will continue to follow the patient with you during his hospitalization.
[2024-05-12] MEDS: HEPARIN SODIUM,PORCINE 5,000 UNIT/ML 1 ML VIAL SQ SCH (20:31)
[2024-05-13] MEDS: LORazepam 2 MG/ML INJ IV PRN ×2 (05:54→09:38)
[2024-05-13] MEDS: IPRATROPIUM-ALBUTEROL 3 ML NEB INHALATION SCH (07:40)
[2024-05-13 09:30] LABS: Basophils # (A) 0.03 X 10*3/uL (0.00-0.10); Basophils % (A) 0.3 %; Eosinophils # (A) 0.03 X 10*3/uL (0.04-0.35); Eosinophils % (A) 0.3 %; HCT 36.3 % (39.6-50.0); HGB 12.9 g/dL (13.0-17.0); Lymphocytes # (A) 1.69 X 10*3/uL (0.90-5.00); Lymphocytes % (A) 16.9 %; MCH 36.8 pg (27.0-32.0); MCHC 35.5 g/dL (32.0-37.0); MCV 103.4 FL (80.0-97.0); Mean Platelet Volume 9.2 FL (9.5-12.2); Monocytes # (A) 1.21 X 10*3/uL (0.20-1.00); Monocytes % (A) 12.1 %; NRBC Per 100 WBC 0 X 10*3/uL (0.00-0.01); Neutrophils # (A) 6.97 X 10*3/uL (1.80-7.70); Neutrophils % (A) 69.9 %; Platelet Count 272 X 10*3/uL (140-440); RBC 3.51 X 10*6/uL (4.40-5.60); RDW 13.5 % (11.5-14.5); WBC 9.98 X 10*3/uL (4.50-10.00)
[2024-05-13 09:33] LABS: Glucose,Whole Blood 149 mg/dL (70-110)
[2024-05-13] MEDS: chlordiazePOXIDE 25 MG CAP PO STA (09:45)
--- NOTE | 2024-05-13 11:41 | P.PN ---
Subjective Patient is seen for follow-up for hyponatremia associated with alcohol abuse. Currently maintained on normal saline. Serum sodium has improved to 127 today. Patient is going through withdrawal. Objective - Vital Signs Vital signs: Vital Signs Temp 99.1 F 05/13/24 07:21 Pulse 150 H 05/13/24 09:24 Resp 30 H 05/13/24 09:24 BP 180/92 05/13/24 09:24 Pulse Ox 96 05/13/24 09:24 FiO2 Intake & Output 05/12/24 05/13/24 05/13/24 18:59 06:59 18:59 Intake Total 2880 200 Output Total 1075 Balance 2880 -875 Weight 49.895 kg Intake: Oral 2880 200 Output: Urine 1075 Other: Voiding Method Toilet Urinal Urinal Urinal # Voids 5 # Bowel Movements 1 - Exam Patient is awake, distress Examination of the heart S1 and S2 Examination of the lungs bilateral breath sounds are heard Abdomen is soft nontender Patient lower extremities shows no evidence of edema 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 - Labs CBC & Chem 7: 05/13/24 05:30 05/13/24 10:48 Labs: Abnormal Lab Results - Last 24 Hours (Table) 05/12/24 05/13/24 05/13/24 Range/Units 14:29 05:30 09:21 RBC 3.51 L (4.40-5.60) X 10*6/uL Hgb 12.9 L (13.0-17.0) g/dL Hct 36.3 L (39.6-50.0) % MCV 103.4 H (80.0-97.0) FL MCH 36.8 H (27.0-32.0) pg MPV 9.2 L (9.5-12.2) FL Immature Gran # 0.05 H (0.00-0.04) X 10*3/uL Monocytes # 1.21 H (0.20-1.00) X 10*3/uL Eosinophils # 0.03 L (0.04-0.35) X 10*3/uL Sodium 125 L (137-145) mmol/L POC Glucose (mg/dL) 149 H (70-110) mg/dL 05/13/24 Range/Units 10:48 RBC (4.40-5.60) X 10*6/uL Hgb (13.0-17.0) g/dL Hct (39.6-50.0) % MCV (80.0-97.0) FL MCH (27.0-32.0) pg MPV (9.5-12.2) FL Immature Gran # (0.00-0.04) X 10*3/uL Monocytes # (0.20-1.00) X 10*3/uL Eosinophils # (0.04-0.35) X 10*3/uL Sodium 127 L (137-145) mmol/L POC Glucose (mg/dL) (70-110) mg/dL Assessment and Plan Assessment: 1. Hypovolemic hyponatremia improving with normal saline. There is a definite component of hyponatremia related to alcohol abuse with decreased urine osmolality. Continue with normal saline for now. Urine osmolality 253 and random urine sodium less than 20 2. Pyuria rule out UTI 3. COPD exacerbation 4. Withdrawal from alcohol/DTs Plan: Continue with normal saline for now Encourage increased oral intake Repeat labs in a.m. Check magnesium
[2024-05-13 11:54] LABS: Magnesium 1.3 mg/dL (1.5-2.4)
[2024-05-13 11:55] LABS: Blood Urea Nitrogen 5.4 mg/dL (9.0-27.0); Calcium 8.8 mg/dL (8.7-10.3); Carbon Dioxide 21.7 mmol/L (21.6-31.8); Chloride 93 mmol/L (96-109); Glucose 127 mg/dL (70-110); Potassium 3.5 mmol/L (3.5-5.5); Sodium 129 mmol/L (135-145)
[2024-05-13 12:21] LABS: Glucose,Whole Blood 146 mg/dL (70-110)
[2024-05-13] MEDS ORDERED: Magnesium Replacement Protocol 1 EACH MISC MISCELLANE PRN (13:51)
[2024-05-13] MEDS ORDERED: MAGNESIUM SULFATE-D5W PMX 1 GM in DEXTROSE/WATER 1 100ML.BAG IVPB SCH (14:00)
[2024-05-13] MEDS: MAGNESIUM SULFATE-D5W PMX 1 GM in DEXTROSE/WATER 1 100ML.BAG IVPB SCH (14:52)
[2024-05-13] MEDS: THIAMINE 100 MG TAB PO SCH (15:01)
[2024-05-13] MEDS: FAMOTIDINE 20 MG TAB PO SCH (15:01)
[2024-05-13] MEDS: MULTIVITAMINS, THERA 1 EACH TAB PO SCH (15:01)
[2024-05-13] MEDS: FOLIC ACID 1 MG TAB PO SCH (15:01)
[2024-05-13 16:27] LABS: Allen Test Performed? Yes
--- NOTE | 2024-05-13 16:29 | XR ---
EXAMINATION TYPE: XR chest 1V DATE OF EXAM: 05/13/2024 3:58 PM COMPARISON: Chest radiographs from 05/11/2024 CLINICAL INDICATION: Male, 68 years old with history of fever; TECHNIQUE: XR chest 1V Frontal view of the chest. FINDINGS: Lungs/Pleura: There is flattening of the diaphragm with increased lucency of the lungs. No evidence o f pneumothorax, pleural effusion or focal consolidation. Pulmonary vascularity: Unremarkable. Heart/mediastinum: Cardiomediastinal silhouette is unremarkable. Atherosclerotic calcifications are seen in the aorta. Musculoskeletal: No acute osseous pathology. IMPRESSION: 1. No acute cardiopulmonary disease process. 2. COPD changes. [facility], , 05/13/2024 4:27 PM
[2024-05-13 16:49] LABS: ABG Base Excess 1.5 mmol/L; ABG HCO3 29 mmol/L (21-25); ABG Oxygen Saturation 83.9 % (94-97); ABG PCO2 56 mmHg (35-45); ABG PH 7.32 (7.35-7.45); ABG TCO2 31 mmol/L (19-24)
[2024-05-13 17:01] LABS: ABG PO2 52 mmHg (83-108)
[2024-05-13] MEDS: DILTIAZEM 5 MG/ML 5 ML VIAL IVP STA (17:06)
[2024-05-13] MEDS: chlordiazePOXIDE 25 MG CAP PO SCH (17:52)
[2024-05-13] MEDS: PIPERACILLIN-TAZOBACTAM 3.375 GM in SODIUM CHLORIDE 0.9% 100 ML IVPB SCH (18:01)
[2024-05-13 18:11] LABS: Influenza A Detected (Not Detectd); Influenza B Not Detected (Not Detectd); RSV Not Detected (Not Detectd)
--- NOTE | 2024-05-13 18:19 | P.PN ---
Subjective Progress Note Date: 05/13/24 This is a pleasant 68-year-old male with medical history significant for COPD, coronary artery disease, COPD, seizure disorder, chronic nicotine use and alcohol use. Patient comes in with a complaint of generalized weakness increased fatigue and shortness of breath. He states that since Tuesday he has not been able to tolerate much activity level and has been mostly just going from his bed to the bathroom and back. Because of his inability to tolerate activity he has eating and drinking well. He does feel dehydrated. He also reports feeling short of breath although this is chronic for him he also has a chronic cough with phlegm at baseline. He does not wear any home oxygen and does not see a otr driver. Patient does state that he continues to smoke about 1/2-3/4 of a pack per day and is requesting a nicotine patch. He also reports drinking beer a couple a day about every other day. He states that the shortness of breath is essentially his baseline however in the last 24 hours he has been having increased difficulty urinating with a trickling stream and reports that he is having some burning and discomfort. Initial labs reveal a white blood cell count of 7.4, hemoglobin 12.8, sodium level of 121, BUN of 8 creatinine of 0.57 and a glucose of 66, troponin level is negative. His LFTs are within normal limits. His viral scan is negative for influenza RSV and COVID. Patient's urinalysis was abnormal found to have trace protein and 1+ ketones large leukocyte Estrace 73 WBCs with rare bacteria. His urine osmolality is 253 and his urine random sodium is less than 20. Chest x-ray reveals COPD with no acute pulmonary process. There is hyperinflation compatible with COPD. In the ER patient received a dose of IV ceftriaxone he was admitted to the hospital under internal medicine. 05/13/2024 Patient is evaluated today on the medical floor resting in bed. His CIWA is up to 18 today and requiring IV ativan and additionally oral librium has been added. He was agitated and restless this AM and now has become sedated. Patient is febrile today with T-Max of 100.7, with significant tachycardia and features of sepsis. EKG done revealing sinus tachycardia with heart rate of 120s and blood pressure 180/100s. [facility]team was called however patient was able to get his morning dose of 50 mg metoprolol down did have some improvement in his heart rate but has become hypertensive again and dose of IVP cardizem will be given. Chest xray is negative for acute findings. Ammonia level of 43, magnesium 1.3, sodium level 126, BUN 14.30, creatinine 0.5. White blood cell count 9.98. ABGs were completed with findings of pH 7.32, pCO2 56, pO2 52, HCO3 29, total CO2 32. REVIEW OF SYSTEMS: Unable to complete due to clinical condition PHYSICAL EXAMINATION: GENERAL: The patient is alert and oriented x1, not in any acute distress. Well developed, well nourished. Sedated HEENT: Pupils are round and equally reacting to light. EOMI. No scleral icterus. No conjunctival pallor. Normocephalic, atraumatic. No pharyngeal erythema. No thyromegaly. CARDIOVASCULAR: S1 and S2 present. No murmurs, rubs, or gallops. PULMONARY: Chest is diminished, patient is tachypneic. ABDOMEN: Soft, nontender, nondistended, normoactive bowel sounds. No palpable organomegaly. MUSCULOSKELETAL: No joint swelling or deformity. EXTREMITIES: No cyanosis, clubbing, or pedal edema. NEUROLOGICAL: Gross neurological examination did not reveal any focal deficits. diffuse weakness SKIN: No rashes. Assessment and Plan Altered mental status from hepatic encephalopathy Hyperammonemia Acute alcohol withdrawal Acute hypoxemic respiratory failure requiring BiPAP Mild acute COPD exacerbation Urinary tract infection present on admission, patient now with features of sepsis has become tachycardic and febrile Leukocytosis resolved Weakened urinary stream will check renal ultrasound Hypovolemic hyponatremia from dehydration improving slowly with IV fluids likely component of beer potomania patient has been admitted to the hospital in the past for hyponatremia requiring ICU care. Macrocytic anemia likely from the alcoholism history of stroke History of coronary artery disease and prior cardiac stenting Hypertension Chronic and ongoing nicotine use Chronic alcoholism monitor for acute alcohol withdrawal and will add CIWA protocol GI prophylaxis DVT prophylaxis Full Code Plan Antibiotics changed to IV zosyn Continue nicotine patch Continue normal saline at 75 mls/hr for now with most recent sodium level 126 Nephrology following Continue ativan ciwa protocol and scheduled librium. Patient has been upgraded from the general medical floor to stepdown Continue symbicort scheduled and scheduled updrafts. Patient refuses systemic steroids at this time Rectal lactulose added, if patients mentation improves dose can be changed to oral and will check ammonia level in the AM. BiPAP 02/22 40% FiO2 and consult pulmonology Septic work up in place pending urine culture, blood culture. Repeat labs in the AM Physical therapy and occupational therapy have been consulted for evaluation The impression and plan of care has been dictated by Ashanti Cleary, Nurse Practitioner as directed. Dr. Bello MD I have performed a history and physical examination and medical decision making of this patient, discussed the same with the dictator, and agree with the dictators assessment and plan as written, documented as a scribe. Based on total visit time, I have performed more than 50% of this visit. Objective - Vital Signs Vital signs: Vital Signs Temp 100.7 F H 05/13/24 17:03 Pulse 133 H 05/13/24 17:03 Resp 40 H 05/13/24 17:47 BP 143/87 05/13/24 17:03 Pulse Ox 98 05/13/24 17:47 FiO2 40 05/13/24 17:47 Intake & Output 05/12/24 05/13/24 05/13/24 18:59 06:59 18:59 Intake Total 2880 200 10 Output Total 1075 Balance 2880 -875 10 Weight 49.895 kg Intake: IV 10 Invasive Line 2 10 Oral 2880 200 Output: Urine 1075 Other: Voiding Method Toilet Urinal Urinal Urinal # Voids 5 3 # Bowel Movements 1 - Labs CBC & Chem 7: 05/13/24 05:30 05/13/24 16:35 Labs: Abnormal Lab Results - Last 24 Hours (Table) 05/13/24 05/13/24 05/13/24 Range/Units 05:30 05:30 09:21 RBC 3.51 L (4.40-5.60) X 10*6/uL Hgb 12.9 L (13.0-17.0) g/dL Hct 36.3 L (39.6-50.0) % MCV 103.4 H (80.0-97.0) FL MCH 36.8 H (27.0-32.0) pg MPV 9.2 L (9.5-12.2) FL Immature Gran # 0.05 H (0.00-0.04) X 10*3/uL Monocytes # 1.21 H (0.20-1.00) X 10*3/uL Eosinophils # 0.03 L (0.04-0.35) X 10*3/uL ABG pH (7.35-7.45) ABG pCO2 (35-45) mmHg ABG pO2 (83-108) mmHg ABG HCO3 (21-25) mmol/L ABG Total CO2 (19-24) mmol/L ABG O2 Saturation (94-97) % Sodium 129 L (135-145) mmol/L Chloride 93 L (96-109) mmol/L Anion Gap 14.30 H (4.00-12.00) mmol/L BUN 5.4 L (9.0-27.0) mg/dL Creatinine 0.5 L (0.6-1.5) mg/dL BUN/Creatinine Ratio 10.80 L (12.00-20.00) Ratio Glucose 127 H (70-110) mg/dL POC Glucose (mg/dL) 149 H (70-110) mg/dL Magnesium 1.3 L (1.5-2.4) mg/dL Ammonia (<30) umol/L 05/13/24 05/13/24 05/13/24 Range/Units 10:48 12:13 16:21 RBC (4.40-5.60) X 10*6/uL Hgb (13.0-17.0) g/dL Hct (39.6-50.0) % MCV (80.0-97.0) FL MCH (27.0-32.0) pg MPV (9.5-12.2) FL Immature Gran # (0.00-0.04) X 10*3/uL Monocytes # (0.20-1.00) X 10*3/uL Eosinophils # (0.04-0.35) X 10*3/uL ABG pH 7.32 L (7.35-7.45) ABG pCO2 56 H (35-45) mmHg ABG pO2 52 L* (83-108) mmHg ABG HCO3 29 H (21-25) mmol/L ABG Total CO2 31 H (19-24) mmol/L ABG O2 Saturation 83.9 L (94-97) % Sodium 127 L (135-145) mmol/L Chloride (96-109) mmol/L Anion Gap (4.00-12.00) mmol/L BUN (9.0-27.0) mg/dL Creatinine (0.6-1.5) mg/dL BUN/Creatinine Ratio (12.00-20.00) Ratio Glucose (70-110) mg/dL POC Glucose (mg/dL) 146 H (70-110) mg/dL Magnesium (1.5-2.4) mg/dL Ammonia (<30) umol/L 05/13/24 05/13/24 Range/Units 16:35 16:35 RBC (4.40-5.60) X 10*6/uL Hgb (13.0-17.0) g/dL Hct (39.6-50.0) % MCV (80.0-97.0) FL MCH (27.0-32.0) pg MPV (9.5-12.2) FL Immature Gran # (0.00-0.04) X 10*3/uL Monocytes # (0.20-1.00) X 10*3/uL Eosinophils # (0.04-0.35) X 10*3/uL ABG pH (7.35-7.45) ABG pCO2 (35-45) mmHg ABG pO2 (83-108) mmHg ABG HCO3 (21-25) mmol/L ABG Total CO2 (19-24) mmol/L ABG O2 Saturation (94-97) % Sodium 126 L (135-145) mmol/L Chloride (96-109) mmol/L Anion Gap (4.00-12.00) mmol/L BUN (9.0-27.0) mg/dL Creatinine (0.6-1.5) mg/dL BUN/Creatinine Ratio (12.00-20.00) Ratio Glucose (70-110) mg/dL POC Glucose (mg/dL) (70-110) mg/dL Magnesium (1.5-2.4) mg/dL Ammonia 43 H (<30) umol/L Assessment and Plan Time with Patient: Greater than 30
[2024-05-13] MEDS: LACTULOSE 200 GM/300 ML (FROM 1/2 GAL JUG) RECTAL SCH (18:23)
[2024-05-13] MEDS: ACETAMINOPHEN IV (For NPO) 1,000 MG in EMPTY BAG 1 BAG IVPB PRN (19:04)
[2024-05-13 19:53] LABS: Glucose,Whole Blood 149 mg/dL (70-110)
[2024-05-13] MEDS: OSELTAMIVIR 75 MG CAP PO SCH (20:37)
[2024-05-14 05:56] LABS: Glucose,Whole Blood 119 mg/dL (70-110)
[2024-05-14 06:20] LABS: ABG Base Excess 1.3 mmol/L; ABG HCO3 29 mmol/L (21-25); ABG Oxygen Saturation 98.6 % (94-97); ABG PCO2 55 mmHg (35-45); ABG PH 7.32 (7.35-7.45); ABG PO2 123 mmHg (83-108); ABG TCO2 30 mmol/L (19-24); Allen Test Performed? Yes
[2024-05-14 06:39] LABS: HCT 43.2 % (39.0-53.0); HGB 14.1 gm/dL (13.0-17.5); MCH 36.3 pg (25.0-35.0); MCHC 32.6 g/dL (31.0-37.0); MCV 111.4 fL (80.0-100.0); Macrocytosis Marked; Mean Platelet Volume 7.3; Platelet Count 298 k/uL (150-450); RBC 3.88 m/uL (4.30-5.90); RDW 13.4 % (11.5-15.5); WBC 8.5 k/uL (3.8-10.6)
[2024-05-14 06:49] LABS: ALT 23 U/L (4-49); AST 39 U/L (17-59); African American GFR (CKD) >90 (>60 ml/min/1.73 sqM); Albumin 4.1 g/dL (3.5-5.0); Alkaline Phosphatase 80 U/L (38-126); Anion Gap 13 mmol/L; Blood Urea Nitrogen 5 mg/dL (9-20); Calcium 8.9 mg/dL (8.4-10.2); Carbon Dioxide 25 mmol/L (22-30); Chloride 90 mmol/L (98-107); Glucose 117 mg/dL (74-99); Magnesium 2.3 mg/dL (1.6-2.3); Non-African American GFR(CKD) >90 (>60 ml/min/1.73 sqM); Potassium 3.4 mmol/L (3.5-5.1); Sodium 128 mmol/L (137-145); Total Bilirubin 0.5 mg/dL (0.2-1.3); Total Protein 6.3 g/dL (6.3-8.2)
[2024-05-14] MEDS ORDERED: Potassium Replacement Protocol 1 EACH MISC MISCELLANE PRN (07:13)
--- NOTE | 2024-05-14 07:36 | XR ---
EXAMINATION TYPE: XR chest 1V portable DATE OF EXAM: 05/14/2024 CLINICAL HISTORY: Difficulty breathing progress study. COPD changes. TECHNIQUE: 2 AP portable upright views of the chest are obtained. COMPARISON: Chest x-ray from one day earlier FINDINGS: Chronic emphysematous change remains present. No suspicious new focal airspace opacity, pl eural effusion, or pneumothorax is seen bilaterally. Cardiac size stable and within normal limits. Os seous structures are intact. IMPRESSION: Chronic emphysematous changes without acute pulmonary process. No significant change from one day earlier. [facility], , 05/14/2024 7:34 AM
[2024-05-14] MEDS: LORazepam 2 MG/ML INJ IV PRN (08:00)
[2024-05-14] MEDS: POTASSIUM CHLORIDE 10 MEQ in WATER FOR INJECTION 1 100ML.BAG IVPB SCH (08:56)
[2024-05-14 09:41] LABS: Band Neutrophils % 2 %; Lymphocytes # (M) 2.21 k/uL (1.0-4.8); Neutrophils % (M) 65 %; Nucleated Red Blood Cells 0 /100 WBC (0-0); Total Cells Counted 100
--- NOTE | 2024-05-14 09:46 | P.PN ---
Subjective Patient is seen in follow-up for hyponatremia. Sodium level 128 this morning. On BiPAP. Oral intake has been poor per RN. Poor historian. Vital signs are stable. General: No acute distress. HEENT: On BiPAP. LUNGS: No audible rhonchi or wheezes. HEART: Rate and Rhythm are regular. ABDOMEN: No distention. EXTREMITITES: No edema. Objective - Vital Signs Vital signs: Vital Signs Temp 97.7 F 05/14/24 02:00 Pulse 140 H 05/14/24 08:13 Resp 38 H 05/14/24 08:13 BP 128/79 05/14/24 02:00 Pulse Ox 91 L 05/14/24 08:00 FiO2 40 05/14/24 08:13 Intake & Output 05/13/24 05/14/24 05/14/24 18:59 06:59 18:59 Intake Total 10 Balance 10 Intake: IV 10 Invasive Line 2 10 Other: Voiding Method Urinal Diaper # Voids 1 2 # Bowel Movements 1 - Labs CBC & Chem 7: 05/14/24 06:14 05/14/24 06:14 Labs: Abnormal Lab Results - Last 24 Hours (Table) 05/13/24 05/13/24 05/13/24 Range/Units 05:30 10:48 12:13 RBC (4.30-5.90) m/uL MCV (80.0-100.0) fL MCH (25.0-35.0) pg Macrocytosis ABG pH (7.35-7.45) ABG pCO2 (35-45) mmHg ABG pO2 (83-108) mmHg ABG HCO3 (21-25) mmol/L ABG Total CO2 (19-24) mmol/L ABG O2 Saturation (94-97) % Sodium 129 L 127 L (135-145) mmol/L Potassium (3.5-5.1) mmol/L Chloride 93 L (96-109) mmol/L Anion Gap 14.30 H (4.00-12.00) mmol/L BUN 5.4 L (9.0-27.0) mg/dL Creatinine 0.5 L (0.6-1.5) mg/dL BUN/Creatinine Ratio 10.80 L (12.00-20.00) Ratio Glucose 127 H (70-110) mg/dL POC Glucose (mg/dL) 146 H (70-110) mg/dL Magnesium 1.3 L (1.5-2.4) mg/dL Ammonia (<30) umol/L Influenza Type A (PCR) (Not Detectd) 05/13/24 05/13/24 05/13/24 Range/Units 16:21 16:35 16:35 RBC (4.30-5.90) m/uL MCV (80.0-100.0) fL MCH (25.0-35.0) pg Macrocytosis ABG pH 7.32 L (7.35-7.45) ABG pCO2 56 H (35-45) mmHg ABG pO2 52 L* (83-108) mmHg ABG HCO3 29 H (21-25) mmol/L ABG Total CO2 31 H (19-24) mmol/L ABG O2 Saturation 83.9 L (94-97) % Sodium 126 L (135-145) mmol/L Potassium (3.5-5.1) mmol/L Chloride (96-109) mmol/L Anion Gap (4.00-12.00) mmol/L BUN (9.0-27.0) mg/dL Creatinine (0.6-1.5) mg/dL BUN/Creatinine Ratio (12.00-20.00) Ratio Glucose (70-110) mg/dL POC Glucose (mg/dL) (70-110) mg/dL Magnesium (1.5-2.4) mg/dL Ammonia 43 H (<30) umol/L Influenza Type A (PCR) (Not Detectd) 05/13/24 05/13/24 05/14/24 Range/Units 17:12 19:51 05:53 RBC (4.30-5.90) m/uL MCV (80.0-100.0) fL MCH (25.0-35.0) pg Macrocytosis ABG pH (7.35-7.45) ABG pCO2 (35-45) mmHg ABG pO2 (83-108) mmHg ABG HCO3 (21-25) mmol/L ABG Total CO2 (19-24) mmol/L ABG O2 Saturation (94-97) % Sodium (135-145) mmol/L Potassium (3.5-5.1) mmol/L Chloride (96-109) mmol/L Anion Gap (4.00-12.00) mmol/L BUN (9.0-27.0) mg/dL Creatinine (0.6-1.5) mg/dL BUN/Creatinine Ratio (12.00-20.00) Ratio Glucose (70-110) mg/dL POC Glucose (mg/dL) 149 H 119 H (70-110) mg/dL Magnesium (1.5-2.4) mg/dL Ammonia (<30) umol/L Influenza Type A (PCR) Detected A (Not Detectd) 05/14/24 05/14/24 05/14/24 Range/Units 06:11 06:14 06:14 RBC 3.88 L (4.30-5.90) m/uL MCV 111.4 H (80.0-100.0) fL MCH 36.3 H (25.0-35.0) pg Macrocytosis Marked A ABG pH 7.32 L (7.35-7.45) ABG pCO2 55 H (35-45) mmHg ABG pO2 123 H (83-108) mmHg ABG HCO3 29 H (21-25) mmol/L ABG Total CO2 30 H (19-24) mmol/L ABG O2 Saturation 98.6 H (94-97) % Sodium 128 L (135-145) mmol/L Potassium 3.4 L (3.5-5.1) mmol/L Chloride 90 L (96-109) mmol/L Anion Gap (4.00-12.00) mmol/L BUN 5 L (9.0-27.0) mg/dL Creatinine 0.45 L (0.6-1.5) mg/dL BUN/Creatinine Ratio (12.00-20.00) Ratio Glucose 117 H (70-110) mg/dL POC Glucose (mg/dL) (70-110) mg/dL Magnesium (1.5-2.4) mg/dL Ammonia (<30) umol/L Influenza Type A (PCR) (Not Detectd) Microbiology - Last 24 Hours (Table) 05/12/24 14:45 Urine Culture - Final Urine,Clean Catch Assessment and Plan Plan: Assessment: 1. Hypovolemic hyponatremia with component of poor solute intake. Improving with normal saline. Sodium level 128 this morning. Urine sodium less than 20 and urine osmolality 253. 2. Alcohol abuse with withdrawals. 3. Influenza A infection. 4. Hypokalemia from poor intake. Magnesium normal. 5. Benign hypertension. Stable. Plan: Maintain normal saline. Replace potassium. Repeat labs in the morning. Check TSH.
[2024-05-14 11:29] LABS: Glucose,Whole Blood 116 mg/dL (70-110)
[2024-05-14] MEDS: METOPROLOL TARTRATE 5 MG/5 ML VIAL IVP STA (13:00)
[2024-05-14 15:54] LABS: Glucose,Whole Blood 112 mg/dL (70-110)
--- NOTE | 2024-05-14 17:09 | P.CNPUL ---
History of Present Illness Consult date: 05/14/24 Requesting physician: Randolph Monsalve Reason for consult: dyspnea, COPD, hypoxemia Chief complaint: Shortness of breath History of present illness: This is a 68-year-old male patient with a history of chronic and ongoing tobacco dependence, chronic obstructive pulmonary disease, CVA/TIA, alcohol disorder, seizure disorder who presented to the emergency room back on May 11, 2024 with complaints of increasing shortness of breath. Chest x-ray revealed evidence of COPD. No acute pulmonary process. White count 8.5. Hemoglobin 14.1. Platelets 298. Sodium 128. Potassium 3.4. Bicarb 25. BUN 5. Creatinine 0.45. Glucose 117. Tested positive for influenza A. Procalcitonin negative. Last evening his CIWA scale was up to 18 requiring additional IV Ativan and Librium. He was agitated and restless and was transferred to the selective care unit. We were consulted regarding increasing oxygen requirements. Arterial blood gases on 40% FiO2 revealed a PaO2 of 123, pCO2 of 55 and a pH of 7.32. Seen today in consultation. He is on BiPAP 12/5 and 40% FiO2. He is currently responsive but drifts off easily. analysis evaluator at the bedside. Review of Systems ROS unobtainable: due to mental status Past Medical History Past Medical History: Coronary Artery Disease (CAD), COPD, CVA/TIA, Seizure Dis order Additional Past Medical History / Comment(s): chronic bronchitis History of Any Multi-Drug Resistant Organisms: None Reported Past Surgical History: Tonsillectomy Additional Past Surgical History / Comment(s): tubes in ears at a young age- unsure if he had this Past Anesthesia/Blood Transfusion Reactions: No Reported Reaction Past Psychological History: No Psychological Hx Reported Smoking Status: Current every day smoker Past Alcohol Use History: Daily Additional Past Alcohol Use History / Comment(s): smokes 0.5 pack/day or uses nicotine patches. Drinks 4-5 beer/day Past Drug Use History: None Reported - Past Family History Father History Unknown: Yes Additional Family Medical History / Comment(s): "his heart stopped" Medications and Allergies Home Medications Medication Instructions Recorded Confirmed Type Albuterol Sulfate [Ventolin HFA] 2 puff INHALATION RT-Q4H PRN 02/25/22 05/11/24 History Fluticasone/Umeclidin/Vilanter 1 puff INHALATION RT-DAILY 02/25/22 05/11/24 History [Trelegy Ellipta 200-62.5-25] Atorvastatin [Lipitor] 80 mg PO DAILY #30 tab 03/01/22 05/11/24 Rx Metoprolol Tartrate [Lopressor] 50 mg PO BID #60 tab 03/01/22 05/11/24 Rx amLODIPine [Norvasc] 5 mg PO DAILY #30 tab 06/24/22 05/11/24 Rx Aspirin 81 mg PO DAILY 09/27/22 05/11/24 History Acetaminophen Tab [Tylenol Tab] 1,000 mg PO Q6HR 05/11/24 05/11/24 History Allergies Allergy/AdvReac Type Severity Reaction Status Date / Time lisinopril Allergy Anaphylaxis Verified 05/11/24 15:15 Physical Exam Vitals: Vital Signs Temp Pulse Pulse Resp BP Pulse Ox FiO2 05/14/24 15:49 123 H 32 H 05/14/24 15:42 112 H 22 40 05/14/24 12:19 140 H 32 H 05/14/24 12:04 138 H 38 H 40 05/14/24 08:13 140 H 38 H 40 05/14/24 08:00 127 H 35 H 91 L 40 05/14/24 03:13 40 05/14/24 02:00 97.7 F 102 H 24 128/79 40 L 05/14/24 00:24 40 05/13/24 21:10 98 05/13/24 20:51 101 H 40 05/13/24 20:00 99.9 F H 103 H 24 100/66 97 40 05/13/24 18:42 100.9 F H 05/13/24 17:47 40 H 98 40 05/13/24 17:35 40 05/13/24 17:12 40 05/13/24 17:03 100.7 F H 133 H 32 H 143/87 99 Intake and Output 05/14/24 05/14/24 05/14/24 06:59 14:59 22:59 Other: Voiding Method Diaper # Voids 2 1 # Bowel Movements 1 1 GENERAL EXAM: Arousable but drifts off easily, thin 68-year-old male on BiPAP 12/5 and 40% FiO2,, comfortable in no apparent distress. HEAD: Normocephalic. EYES: Normal reaction of pupils, equal size. NOSE: Clear with pink turbinates. THROAT: No erythema or exudates. NECK: No masses, no JVD. CHEST: No chest wall deformity. LUNGS: Equal air entry with wheeze, diminished. CVS: S1 and S2 normal with no audible murmur, regular rhythm. ABDOMEN: No hepatosplenomegaly, normal bowel sounds, no guarding or rigidity. SPINE: No scoliosis or deformity SKIN: No rashes CENTRAL NERVOUS SYSTEM: No focal deficits, tone is normal in all 4 extremities. EXTREMITIES: There is no peripheral edema. No clubbing, no cyanosis. Peripheral pulses are intact. Results - Laboratory Findings CBC and BMP: 05/14/24 06:14 05/14/24 06:14 ABG ABG pH 7.32 (7.35-7.45) L 05/14/24 06:11 ABG pCO2 55 mmHg (35-45) H 05/14/24 06:11 ABG pO2 123 mmHg (83-108) H 05/14/24 06:11 ABG O2 Saturation 98.6 % (94-97) H 05/14/24 06:11 PT/INR, D-dimer PT 9.4 sec (10.0-12.5) L 05/11/24 14:44 INR 0.8 (<1.2) 05/11/24 14:44 Abnormal lab findings: Abnormal Labs 05/11/24 05/11/24 05/11/24 14:44 14:44 14:44 WBC 17.4 H RBC 3.42 L Hgb 12.8 L Hct 36.9 L MCV 107.9 H MCH 37.5 H MPV Immature Gran # Neutrophils # 13.1 H Monocytes # Eosinophils # Macrocytosis PT 9.4 L ABG pH ABG pCO2 ABG pO2 ABG HCO3 ABG Total CO2 ABG O2 Saturation Sodium 121 L Potassium Chloride 87 L Carbon Dioxide 18 L Anion Gap BUN 8 L Creatinine 0.57 L BUN/Creatinine Ratio Glucose 66 L POC Glucose (mg/dL) Osmolality Calcium Magnesium Ammonia Total Protein 6.1 L Urine Protein Urine Ketones Ur Leukocyte Esterase Urine WBC Urine Bacteria Urine Mucus Urine Osmolality Ur Random Sodium Influenza Type A (PCR) 05/11/24 05/11/24 05/11/24 14:56 14:56 14:56 WBC RBC Hgb Hct MCV MCH MPV Immature Gran # Neutrophils # Monocytes # Eosinophils # Macrocytosis PT ABG pH ABG pCO2 ABG pO2 ABG HCO3 ABG Total CO2 ABG O2 Saturation Sodium Potassium Chloride Carbon Dioxide Anion Gap BUN Creatinine BUN/Creatinine Ratio Glucose POC Glucose (mg/dL) Osmolality Calcium Magnesium Ammonia Total Protein Urine Protein Trace H Urine Ketones 1+ H Ur Leukocyte Esterase Large H Urine WBC 73 H Urine Bacteria Rare H Urine Mucus Rare H Urine Osmolality 253 L Ur Random Sodium <20 L Influenza Type A (PCR) 05/11/24 05/11/24 05/12/24 20:11 20:11 06:44 WBC 15.81 H RBC 3.38 L Hgb 12.6 L Hct 34.9 L MCV 103.3 H MCH 37.3 H MPV 9.0 L Immature Gran # 0.09 H Neutrophils # 10.76 H Monocytes # 1.74 H Eosinophils # 0.02 L Macrocytosis PT ABG pH ABG pCO2 ABG pO2 ABG HCO3 ABG Total CO2 ABG O2 Saturation Sodium 123 L Potassium Chloride 87 L Carbon Dioxide 16 L Anion Gap BUN 8 L Creatinine 0.54 L BUN/Creatinine Ratio Glucose POC Glucose (mg/dL) Osmolality 265 L Calcium Magnesium Ammonia Total Protein Urine Protein Urine Ketones Ur Leukocyte Esterase Urine WBC Urine Bacteria Urine Mucus Urine Osmolality Ur Random Sodium Influenza Type A (PCR) 05/12/24 05/12/24 05/12/24 06:44 06:57 14:29 WBC RBC Hgb Hct MCV MCH MPV Immature Gran # Neutrophils # Monocytes # Eosinophils # Macrocytosis PT ABG pH ABG pCO2 ABG pO2 ABG HCO3 ABG Total CO2 ABG O2 Saturation Sodium 125 L 125 L Potassium Chloride 91 L Carbon Dioxide 18.8 L Anion Gap 15.20 H BUN 7.9 L Creatinine 0.5 L BUN/Creatinine Ratio Glucose 135 H POC Glucose (mg/dL) 130 H Osmolality Calcium 8.6 L Magnesium Ammonia Total Protein Urine Protein Urine Ketones Ur Leukocyte Esterase Urine WBC Urine Bacteria Urine Mucus Urine Osmolality Ur Random Sodium Influenza Type A (PCR) 05/13/24 05/13/24 05/13/24 05:30 05:30 09:21 WBC RBC 3.51 L Hgb 12.9 L Hct 36.3 L MCV 103.4 H MCH 36.8 H MPV 9.2 L Immature Gran # 0.05 H Neutrophils # Monocytes # 1.21 H Eosinophils # 0.03 L Macrocytosis PT ABG pH ABG pCO2 ABG pO2 ABG HCO3 ABG Total CO2 ABG O2 Saturation Sodium 129 L Potassium Chloride 93 L Carbon Dioxide Anion Gap 14.30 H BUN 5.4 L Creatinine 0.5 L BUN/Creatinine Ratio 10.80 L Glucose 127 H POC Glucose (mg/dL) 149 H Osmolality Calcium Magnesium 1.3 L Ammonia Total Protein Urine Protein Urine Ketones Ur Leukocyte Esterase Urine WBC Urine Bacteria Urine Mucus Urine Osmolality Ur Random Sodium Influenza Type A (PCR) 05/13/24 05/13/24 05/13/24 10:48 12:13 16:21 WBC RBC Hgb Hct MCV MCH MPV Immature Gran # Neutrophils # Monocytes # Eosinophils # Macrocytosis PT ABG pH 7.32 L ABG pCO2 56 H ABG pO2 52 L* ABG HCO3 29 H ABG Total CO2 31 H ABG O2 Saturation 83.9 L Sodium 127 L Potassium Chloride Carbon Dioxide Anion Gap BUN Creatinine BUN/Creatinine Ratio Glucose POC Glucose (mg/dL) 146 H Osmolality Calcium Magnesium Ammonia Total Protein Urine Protein Urine Ketones Ur Leukocyte Esterase Urine WBC Urine Bacteria Urine Mucus Urine Osmolality Ur Random Sodium Influenza Type A (PCR) 05/13/24 05/13/24 05/13/24 16:35 16:35 17:12 WBC RBC Hgb Hct MCV MCH MPV Immature Gran # Neutrophils # Monocytes # Eosinophils # Macrocytosis PT ABG pH ABG pCO2 ABG pO2 ABG HCO3 ABG Total CO2 ABG O2 Saturation Sodium 126 L Potassium Chloride Carbon Dioxide Anion Gap BUN Creatinine BUN/Creatinine Ratio Glucose POC Glucose (mg/dL) Osmolality Calcium Magnesium Ammonia 43 H Total Protein Urine Protein Urine Ketones Ur Leukocyte Esterase Urine WBC Urine Bacteria Urine Mucus Urine Osmolality Ur Random Sodium Influenza Type A (PCR) Detected A 05/13/24 05/14/24 05/14/24 19:51 05:53 06:11 WBC RBC Hgb Hct MCV MCH MPV Immature Gran # Neutrophils # Monocytes # Eosinophils # Macrocytosis PT ABG pH 7.32 L ABG pCO2 55 H ABG pO2 123 H ABG HCO3 29 H ABG Total CO2 30 H ABG O2 Saturation 98.6 H Sodium Potassium Chloride Carbon Dioxide Anion Gap BUN Creatinine BUN/Creatinine Ratio Glucose POC Glucose (mg/dL) 149 H 119 H Osmolality Calcium Magnesium Ammonia Total Protein Urine Protein Urine Ketones Ur Leukocyte Esterase Urine WBC Urine Bacteria Urine Mucus Urine Osmolality Ur Random Sodium Influenza Type A (PCR) 05/14/24 05/14/24 05/14/24 06:14 06:14 11:28 WBC RBC 3.88 L Hgb Hct MCV 111.4 H MCH 36.3 H MPV Immature Gran # Neutrophils # Monocytes # Eosinophils # Macrocytosis Marked A PT ABG pH ABG pCO2 ABG pO2 ABG HCO3 ABG Total CO2 ABG O2 Saturation Sodium 128 L Potassium 3.4 L Chloride 90 L Carbon Dioxide Anion Gap BUN 5 L Creatinine 0.45 L BUN/Creatinine Ratio Glucose 117 H POC Glucose (mg/dL) 116 H Osmolality Calcium Magnesium Ammonia Total Protein Urine Protein Urine Ketones Ur Leukocyte Esterase Urine WBC Urine Bacteria Urine Mucus Urine Osmolality Ur Random Sodium Influenza Type A (PCR) 05/14/24 15:52 WBC RBC Hgb Hct MCV MCH MPV Immature Gran # Neutrophils # Monocytes # Eosinophils # Macrocytosis PT ABG pH ABG pCO2 ABG pO2 ABG HCO3 ABG Total CO2 ABG O2 Saturation Sodium Potassium Chloride Carbon Dioxide Anion Gap BUN Creatinine BUN/Creatinine Ratio Glucose POC Glucose (mg/dL) 112 H Osmolality Calcium Magnesium Ammonia Total Protein Urine Protein Urine Ketones Ur Leukocyte Esterase Urine WBC Urine Bacteria Urine Mucus Urine Osmolality Ur Random Sodium Influenza Type A (PCR) - Diagnostic Findings Chest x-ray: image reviewed Assessment and Plan Assessment: Acute hypoxemic respiratory failure secondary to an acute exacerbation of chronic obstructive pulmonary disease complicated by influenza A Acute influenza A infection Acute alcohol withdrawal syndrome Altered mental status secondary to above Hyperammonemia, improved Hyponatremia secondary to beer Potomania Tachycardia secondary to above Chronic and ongoing tobacco dependence Chronic obstructive pulmonary disease History of seizure disorder Coronary artery disease with previous stent placement Hypertension Plan: The patient was seen and evaluated Chest x-ray, labs and medications reviewed Continue BiPAP support for now Titrate the FiO2 as tolerated Continue on the CIWA protocol Continue DuoNeb inhalations, Symbicort Patient has a sensitivity to steroids Continue Tamiflu NicoDerm patch in place Heparin for DVT prophylaxis We will continue to follow and make further recommendations based on his clinical status I have personally seen and examined the patient, performed the documentation and the assessment and plan as written. Number of minutes spent on the visit: 20 Dictation was produced using [employer] dictation software. Please excuse any grammatical, word or spelling errors.
[2024-05-14 20:05] LABS: Glucose,Whole Blood 100 mg/dL (70-110)
--- NOTE | 2024-05-15 01:14 | P.PN ---
Subjective Progress Note Date: 05/14/24 This is a pleasant 68-year-old male with medical history significant for COPD, coronary artery disease, COPD, seizure disorder, chronic nicotine use and alcohol use. Patient comes in with a complaint of generalized weakness increased fatigue and shortness of breath. He states that since Tuesday he has not been able to tolerate much activity level and has been mostly just going from his bed to the bathroom and back. Because of his inability to tolerate activity he has eating and drinking well. He does feel dehydrated. He also reports feeling short of breath although this is chronic for him he also has a chronic cough with phlegm at baseline. 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 Patient does state that he continues to smoke about 1/2-3/4 of a pack per day and is requesting a nicotine patch. He also reports drinking beer a couple a day about every other day. He states that the shortness of breath is essentially his baseline however in the last 24 hours he has been having increased difficulty urinating with a trickling stream and reports that he is having some burning and discomfort. Initial labs reveal a white blood cell count of 7.4, hemoglobin 12.8, sodium level of 121, BUN of 8 creatinine of 0.57 and a glucose of 66, troponin level is negative. His LFTs are within normal limits. His viral scan is negative for influenza RSV and COVID. Patient's urinalysis was abnormal found to have trace protein and 1+ ketones large leukocyte Estrace 73 WBCs with rare bacteria. His urine osmolality is 253 and his urine random sodium is less than 20. Chest x-ray reveals COPD with no acute pulmonary process. There is hyperinflation compatible with COPD. In the ER patient received a dose of IV ceftriaxone he was admitted to the hospital under internal medicine. 05/13/2024 Patient is evaluated today on the medical floor resting in bed. His CIWA is up to 18 today and requiring IV ativan and additionally oral librium has been added. He was agitated and restless this AM and now has become sedated. Patient is febrile today with T-Max of 100.7, with significant tachycardia and features of sepsis. EKG done revealing sinus tachycardia with heart rate of 120s and blood pressure 180/100s. [facility]team was called however patient was able to get his morning dose of 50 mg metoprolol down did have some improvement in his heart rate but has become hypertensive again and dose of IVP cardizem will be given. Chest xray is negative for acute findings. Ammonia level of 43, magnesium 1.3, sodium level 126, BUN 14.30, creatinine 0.5. White blood cell count 9.98. ABGs were completed with findings of pH 7.32, pCO2 56, pO2 52, HCO3 29, total CO2 32. 05/14/2024 Patient seen and evaluated in follow-up today continues on BiPAP and per nursing staff patient is BiPAP dependent and not following commands appropriately unable to take oral intake. Patient is not taking any of his medications and heart rate noted to be elevated and tacky. Pulmonary and cardiology following. Lactulose also given and ammonia levels improved. Sitter at the bedside. REVIEW OF SYSTEMS: Unable to complete due to clinical condition PHYSICAL EXAMINATION: GENERAL: The patient is alert and oriented x1, fatigued and minimally arousable. Well developed, thin built, cachectic, unkempt, ill-appearing, elderly appearing HEENT: Pupils are round and equally reacting to light. EOMI. No scleral icterus. No conjunctival pallor. Normocephalic, atraumatic. No pharyngeal erythema. No thyromegaly. CARDIOVASCULAR: S1 and S2 muffled, heart rate elevated PULMONARY: Chest is diminished, patient is tachypneic. ABDOMEN: Soft, thin, nondistended, normoactive bowel sounds. No palpable o rganomegaly. MUSCULOSKELETAL: No joint swelling or deformity. EXTREMITIES: No cyanosis, clubbing, or pedal edema. NEUROLOGICAL: Gross neurological examination did not reveal any focal deficits. diffuse weakness SKIN: No rashes. Multiple bruises and abrasions along with skin tears noted on upper and lower extremities Assessment: Altered mental status from hepatic encephalopathy Hyperammonemia, improved after lactulose Acute alcohol withdrawal Acute hypoxemic respiratory failure requiring BiPAP Mild acute COPD exacerbation Urinary tract infection present on admission, patient now with features of sepsis has become tachycardic and febrile Leukocytosis resolved Weakened urinary stream will check renal ultrasound Hypovolemic hyponatremia from dehydration improving slowly with IV fluids likely component of beer potomania patient has been admitted to the hospital in the past for hyponatremia requiring ICU care. Macrocytic anemia likely from the alcoholism history of stroke History of coronary artery disease and prior cardiac stenting Hypertension Chronic and ongoing nicotine use Chronic alcoholism monitor for acute alcohol withdrawal, continue CIWA protocol GI prophylaxis DVT prophylaxis Full Code Plan: Continue with antibiotics and have transition to Zosyn with concerns of patient having fevers and tachycardia, cultures and that have been obtained and pending at this time Continue nicotine patch Continue normal saline at 75 mls/hr for now with most recent sodium level 128, nephrology following recommend to continue with fluids. Will repeat labs Continue ativan ciwa protocol and scheduled librium. Patient currently on 3 S. and unable to take oral medications, has not been taking Librium but is continued on IV Ativan as needed Continue symbicort scheduled and scheduled updrafts. Patient refuses systemic steroids at this time. Patient is also BiPAP with pulmonary following recommend to continue current regimen Rectal lactulose added and recommend to continue, if patients mentation improves dose can be changed to oral and will check ammonia level in the AM. Repeat ammonia levels improved and will follow-up with repeat labs BiPAP 12/5 40% FiO2 and wean as tolerated Septic work up in place pending urine culture, blood culture. Repeat labs in the AM Physical therapy and occupational therapy have been consulted for evaluation The impression and plan of care has been dictated by Rosenda Pierre, Nurse Practitioner as directed. Dr. Bello MD I have performed a history and physical examination and medical decision making of this patient, discussed the same with the dictator, and agree with the dictators assessment and plan as written, documented as a scribe. Based on total visit time, I have performed more than 50% of this visit. Objective - Vital Signs Vital signs: Vital Signs Temp 97.7 F 05/14/24 02:00 Pulse 140 H 05/14/24 08:13 Resp 38 H 05/14/24 08:13 BP 128/79 05/14/24 02:00 Pulse Ox 40 L 05/14/24 02:00 FiO2 40 05/14/24 08:13 Intake & Output 05/13/24 05/14/24 05/14/24 18:59 06:59 18:59 Intake Total 10 Balance 10 Intake: IV 10 Invasive Line 2 10 Other: Voiding Method Urinal Diaper # Voids 1 2 # Bowel Movements 1 - Labs CBC & Chem 7: 05/14/24 06:14 05/14/24 06:14 Labs: Abnormal Lab Results - Last 24 Hours (Table) 05/13/24 05/13/24 05/13/24 Range/Units 05:30 05:30 09:21 RBC 3.51 L (4.40-5.60) X 10*6/uL Hgb 12.9 L (13.0-17.0) g/dL Hct 36.3 L (39.6-50.0) % MCV 103.4 H (80.0-97.0) FL MCH 36.8 H (27.0-32.0) pg MPV 9.2 L (9.5-12.2) FL Immature Gran # 0.05 H (0.00-0.04) X 10*3/uL Monocytes # 1.21 H (0.20-1.00) X 10*3/uL Eosinophils # 0.03 L (0.04-0.35) X 10*3/uL Macrocytosis ABG pH (7.35-7.45) ABG pCO2 (35-45) mmHg ABG pO2 (83-108) mmHg ABG HCO3 (21-25) mmol/L ABG Total CO2 (19-24) mmol/L ABG O2 Saturation (94-97) % Sodium 129 L (135-145) mmol/L Potassium (3.5-5.1) mmol/L Chloride 93 L (96-109) mmol/L Anion Gap 14.30 H (4.00-12.00) mmol/L BUN 5.4 L (9.0-27.0) mg/dL Creatinine 0.5 L (0.6-1.5) mg/dL BUN/Creatinine Ratio 10.80 L (12.00-20.00) Ratio Glucose 127 H (70-110) mg/dL POC Glucose (mg/dL) 149 H (70-110) mg/dL Magnesium 1.3 L (1.5-2.4) mg/dL Ammonia (<30) umol/L Influenza Type A (PCR) (Not Detectd) 05/13/24 05/13/24 05/13/24 Range/Units 10:48 12:13 16:21 RBC (4.40-5.60) X 10*6/uL Hgb (13.0-17.0) g/dL Hct (39.6-50.0) % MCV (80.0-97.0) FL MCH (27.0-32.0) pg MPV (9.5-12.2) FL Immature Gran # (0.00-0.04) X 10*3/uL Monocytes # (0.20-1.00) X 10*3/uL Eosinophils # (0.04-0.35) X 10*3/uL Macrocytosis ABG pH 7.32 L (7.35-7.45) ABG pCO2 56 H (35-45) mmHg ABG pO2 52 L* (83-108) mmHg ABG HCO3 29 H (21-25) mmol/L ABG Total CO2 31 H (19-24) mmol/L ABG O2 Saturation 83.9 L (94-97) % Sodium 127 L (135-145) mmol/L Potassium (3.5-5.1) mmol/L Chloride (96-109) mmol/L Anion Gap (4.00-12.00) mmol/L BUN (9.0-27.0) mg/dL Creatinine (0.6-1.5) mg/dL BUN/Creatinine Ratio (12.00-20.00) Ratio Glucose (70-110) mg/dL POC Glucose (mg/dL) 146 H (70-110) mg/dL Magnesium (1.5-2.4) mg/dL Ammonia (<30) umol/L Influenza Type A (PCR) (Not Detectd) 05/13/24 05/13/24 05/13/24 Range/Units 16:35 16:35 17:12 RBC (4.40-5.60) X 10*6/uL Hgb (13.0-17.0) g/dL Hct (39.6-50.0) % MCV (80.0-97.0) FL MCH (27.0-32.0) pg MPV (9.5-12.2) FL Immature Gran # (0.00-0.04) X 10*3/uL Monocytes # (0.20-1.00) X 10*3/uL Eosinophils # (0.04-0.35) X 10*3/uL Macrocytosis ABG pH (7.35-7.45) ABG pCO2 (35-45) mmHg ABG pO2 (83-108) mmHg ABG HCO3 (21-25) mmol/L ABG Total CO2 (19-24) mmol/L ABG O2 Saturation (94-97) % Sodium 126 L (135-145) mmol/L Potassium (3.5-5.1) mmol/L Chloride (96-109) mmol/L Anion Gap (4.00-12.00) mmol/L BUN (9.0-27.0) mg/dL Creatinine (0.6-1.5) mg/dL BUN/Creatinine Ratio (12.00-20.00) Ratio Glucose (70-110) mg/dL POC Glucose (mg/dL) (70-110) mg/dL Magnesium (1.5-2.4) mg/dL Ammonia 43 H (<30) umol/L Influenza Type A (PCR) Detected A (Not Detectd) 05/13/24 05/14/24 05/14/24 Range/Units 19:51 05:53 06:11 RBC (4.40-5.60) X 10*6/uL Hgb (13.0-17.0) g/dL Hct (39.6-50.0) % MCV (80.0-97.0) FL MCH (27.0-32.0) pg MPV (9.5-12.2) FL Immature Gran # (0.00-0.04) X 10*3/uL Monocytes # (0.20-1.00) X 10*3/uL Eosinophils # (0.04-0.35) X 10*3/uL Macrocytosis ABG pH 7.32 L (7.35-7.45) ABG pCO2 55 H (35-45) mmHg ABG pO2 123 H (83-108) mmHg ABG HCO3 29 H (21-25) mmol/L ABG Total CO2 30 H (19-24) mmol/L ABG O2 Saturation 98.6 H (94-97) % Sodium (135-145) mmol/L Potassium (3.5-5.1) mmol/L Chloride (96-109) mmol/L Anion Gap (4.00-12.00) mmol/L BUN (9.0-27.0) mg/dL Creatinine (0.6-1.5) mg/dL BUN/Creatinine Ratio (12.00-20.00) Ratio Glucose (70-110) mg/dL POC Glucose (mg/dL) 149 H 119 H (70-110) mg/dL Magnesium (1.5-2.4) mg/dL Ammonia (<30) umol/L Influenza Type A (PCR) (Not Detectd) 05/14/24 05/14/24 Range/Units 06:14 06:14 RBC 3.88 L (4.40-5.60) X 10*6/uL Hgb (13.0-17.0) g/dL Hct (39.6-50.0) % MCV 111.4 H (80.0-97.0) FL MCH 36.3 H (27.0-32.0) pg MPV (9.5-12.2) FL Immature Gran # (0.00-0.04) X 10*3/uL Monocytes # (0.20-1.00) X 10*3/uL Eosinophils # (0.04-0.35) X 10*3/uL Macrocytosis Marked A ABG pH (7.35-7.45) ABG pCO2 (35-45) mmHg ABG pO2 (83-108) mmHg ABG HCO3 (21-25) mmol/L ABG Total CO2 (19-24) mmol/L ABG O2 Saturation (94-97) % Sodium 128 L (135-145) mmol/L Potassium 3.4 L (3.5-5.1) mmol/L Chloride 90 L (96-109) mmol/L Anion Gap (4.00-12.00) mmol/L BUN 5 L (9.0-27.0) mg/dL Creatinine 0.45 L (0.6-1.5) mg/dL BUN/Creatinine Ratio (12.00-20.00) Ratio Glucose 117 H (70-110) mg/dL POC Glucose (mg/dL) (70-110) mg/dL Magnesium (1.5-2.4) mg/dL Ammonia (<30) umol/L Influenza Type A (PCR) (Not Detectd) Microbiology - Last 24 Hours (Table) 05/12/24 14:45 Urine Culture - Final Urine,Clean Catch
[2024-05-15 06:09] LABS: Glucose,Whole Blood 90 mg/dL (70-110)
[2024-05-15 07:26] LABS: Basophils % (A) 0 %; Eosinophils % (A) 1 %; HCT 38.8 % (39.0-53.0); Lymphocytes # (A) 1.8 k/uL (1.0-4.8); Lymphocytes % (A) 26 %; MCH 34.5 pg (25.0-35.0); MCV 111.1 fL (80.0-100.0); Macrocytosis Marked; Mean Platelet Volume 7.5; Monocytes # (A) 0.7 k/uL (0-1.0); Monocytes % (A) 10 %; Neutrophils # (A) 4.2 k/uL (1.3-7.7); Neutrophils % (A) 59 %; Platelet Count 279 k/uL (150-450); RBC 3.49 m/uL (4.30-5.90); RDW 13.6 % (11.5-15.5)
[2024-05-15 07:37] LABS: African American GFR (CKD) >90 (>60 ml/min/1.73 sqM); Anion Gap 8 mmol/L; Blood Urea Nitrogen 8 mg/dL (9-20); Calcium 8.6 mg/dL (8.4-10.2); Carbon Dioxide 28 mmol/L (22-30); Chloride 97 mmol/L (98-107); Glucose 91 mg/dL (74-99); Non-African American GFR(CKD) >90 (>60 ml/min/1.73 sqM); Potassium 3.6 mmol/L (3.5-5.1); Sodium 133 mmol/L (137-145)
--- NOTE | 2024-05-15 09:38 | P.PN ---
Subjective Patient is seen in follow-up for hyponatremia. Sodium level 133 this morning. On nasal cannula. Oral intake improved. Admits to a nonproductive cough. Vital signs are stable. General: No acute distress. HEENT: On nasal cannula. LUNGS: No audible rhonchi or wheezes. HEART: Rate and Rhythm are regular. ABDOMEN: No distention. EXTREMITITES: No edema. Objective - Vital Signs Vital signs: Vital Signs Temp 98.0 F 05/14/24 20:00 Pulse 110 H 05/15/24 07:55 Resp 20 05/15/24 02:00 BP 116/76 05/15/24 02:00 Pulse Ox 100 05/15/24 02:00 FiO2 40 05/15/24 07:42 Intake & Output 05/14/24 05/15/24 05/15/24 18:59 06:59 18:59 Other: Voiding Method Diaper Diaper # Voids 2 # Bowel Movements 1 - Labs CBC & Chem 7: 05/15/24 06:44 05/15/24 06:44 Labs: Abnormal Lab Results - Last 24 Hours (Table) 05/14/24 05/14/24 05/15/24 Range/Units 11:28 15:52 06:44 RBC (4.30-5.90) m/uL Hgb (13.0-17.5) gm/dL Hct (39.0-53.0) % MCV (80.0-100.0) fL Macrocytosis Sodium 133 L (137-145) mmol/L Chloride 97 L (98-107) mmol/L BUN 8 L (9-20) mg/dL Creatinine 0.60 L (0.66-1.25) mg/dL POC Glucose (mg/dL) 116 H 112 H (70-110) mg/dL 05/15/24 Range/Units 06:44 RBC 3.49 L (4.30-5.90) m/uL Hgb 12.0 L (13.0-17.5) gm/dL Hct 38.8 L (39.0-53.0) % MCV 111.1 H (80.0-100.0) fL Macrocytosis Marked A Sodium (137-145) mmol/L Chloride (98-107) mmol/L BUN (9-20) mg/dL Creatinine (0.66-1.25) mg/dL POC Glucose (mg/dL) (70-110) mg/dL Microbiology - Last 24 Hours (Table) 05/13/24 16:35 Blood Culture - Preliminary Blood 05/12/24 14:45 Urine Culture - Final Urine,Clean Catch Assessment and Plan Plan: Assessment: 1. Hypovolemic hyponatremia with component of poor solute intake. Improving with normal saline. Sodium level 133 this morning. Urine sodium less than 20 and urine osmolality 253. TSH normal. 2. Alcohol abuse with withdrawals. 3. Influenza A infection. 4. Hypokalemia from poor intake. Magnesium normal. 5. Benign hypertension. Stable. Plan: Maintain normal saline. Decrease rate to 50 cc an hour. Encouraged oral intake. Replace potassium. Repeat labs in the morning.
[2024-05-15] MEDS: POTASSIUM CHLORIDE ER 20 MEQ TAB.ER PO STA (10:20)
[2024-05-15 11:25] LABS: Glucose,Whole Blood 131 mg/dL (70-110)
--- NOTE | 2024-05-15 15:08 | P.PN ---
Subjective Progress Note Date: 05/15/24 This is a 68-year-old male patient with a history of chronic and ongoing tobacco dependence, chronic obstructive pulmonary disease, CVA/TIA, alcohol disorder, seizure disorder who presented to the emergency room back on May 11, 2024 with complaints of increasing shortness of breath. Chest x-ray revealed evidence of COPD. No acute pulmonary process. White count 8.5. Hemoglobin 14.1. Platelets 298. Sodium 128. Potassium 3.4. Bicarb 25. BUN 5. Creatinine 0.45. Glucose 117. Tested positive for influenza A. Procalcitonin negative. Last evening his CIWA scale was up to 18 requiring additional IV Ativan and Librium. He was agitated and restless and was transferred to the selective care unit. We were consulted regarding increasing oxygen requirements. Arterial blood gases on 40% FiO2 revealed a PaO2 of 123, pCO2 of 55 and a pH of 7.32. Seen today in consultation. He is on BiPAP 12/5 and 40% FiO2. He is currently responsive but drifts off easily. convalescent sitter at the bedside. The patient is seen today May 15, 2024 in follow-up on the selective care unit. He is awake and alert in no acute distress. Breathing a bit easier today compared to yesterday. Maintaining O2 saturations up to 100% on 4 L/min per nasal cannula. He is afebrile. Hemodynamically stable. Urine culture revealed no growth. Blood culture revealing no growth thus far. White count 7.0. Hemo globin 12.0. Platelets 279. Sodium 133. Potassium 3.6. Bicarb 28. BUN 8. Creatinine 0.6. Glucose 91. Acetone was negative at 0.10. He is continued on DuoNeb inhalations, Symbicort. NicoDerm patch in place. Heparin for DVT prophylaxis. Remains on Tamiflu. Remains on Zosyn. Normal saline at 75 mL/h. Objective - Vital Signs Vital signs: Vital Signs Temp 98.7 F 05/15/24 08:30 Pulse 110 H 05/15/24 11:34 Resp 16 05/15/24 08:30 BP 122/73 05/15/24 08:30 Pulse Ox 100 05/15/24 08:30 FiO2 40 05/15/24 07:42 Intake & Output 05/14/24 05/15/24 05/15/24 18:59 06:59 18:59 Intake Total 360 Balance 360 Intake: Oral 360 Other: Voiding Method Diaper Diaper Diaper # Voids 2 # Bowel Movements 1 - Exam GENERAL EXAM: Awake, alert, thin 68-year-old male, on 4 L/min per nasal cannula, comfortable in no apparent distress. HEAD: Normocephalic. EYES: Normal reaction of pupils, equal size. NOSE: Clear with pink turbinates. THROAT: No erythema or exudates. NECK: No masses, no JVD. CHEST: No chest wall deformity. LUNGS: Equal air entry with end expiratory wheeze, diminished. CVS: S1 and S2 normal with no audible murmur, regular rhythm. ABDOMEN: No hepatosplenomegaly, normal bowel sounds, no guarding or rigidity. SPINE: No scoliosis or deformity SKIN: No rashes CENTRAL NERVOUS SYSTEM: No focal deficits, tone is normal in all 4 extremities. EXTREMITIES: There is no peripheral edema. No clubbing, no cyanosis. Peripheral pulses are intact. - Labs CBC & Chem 7: 05/15/24 06:44 05/15/24 06:44 Labs: Abnormal Lab Results - Last 24 Hours (Table) 05/14/24 05/15/24 05/15/24 Range/Units 15:52 06:44 06:44 RBC 3.49 L (4.30-5.90) m/uL Hgb 12.0 L (13.0-17.5) gm/dL Hct 38.8 L (39.0-53.0) % MCV 111.1 H (80.0-100.0) fL Macrocytosis Marked A Sodium 133 L (137-145) mmol/L Chloride 97 L (98-107) mmol/L BUN 8 L (9-20) mg/dL Creatinine 0.60 L (0.66-1.25) mg/dL POC Glucose (mg/dL) 112 H (70-110) mg/dL 05/15/24 Range/Units 11:23 RBC (4.30-5.90) m/uL Hgb (13.0-17.5) gm/dL Hct (39.0-53.0) % MCV (80.0-100.0) fL Macrocytosis Sodium (137-145) mmol/L Chloride (98-107) mmol/L BUN (9-20) mg/dL Creatinine (0.66-1.25) mg/dL POC Glucose (mg/dL) 131 H (70-110) mg/dL Microbiology - Last 24 Hours (Table) 05/13/24 16:35 Blood Culture - Preliminary Blood Assessment and Plan Assessment: Acute hypoxemic respiratory failure secondary to an acute exacerbation of chronic obstructive pulmonary disease complicated by influenza A. Procalcitonin negative Acute influenza A infection Acute alcohol withdrawal syndrome Altered mental status secondary to above, improving Hyperammonemia, improved Hyponatremia secondary to beer Potomania, improving Tachycardia secondary to above Chronic and ongoing tobacco dependence Chronic obstructive pulmonary disease History of seizure disorder Coronary artery disease with previous stent placement Hypertension Plan: The patient was seen and evaluated Labs and medications reviewed Maintained on 4 L nasal cannula Titrate down the FiO2 as tolerated Continue on the CIWA protocol Continue DuoNeb inhalations, Symbicort Continue Tamiflu NicoDerm patch in place Heparin for DVT prophylaxis Blood and urine culture revealed no growth Procalcitonin was negative, Zosyn discontinued We will continue to follow I have personally seen and examined the patient, performed the documentation and the assessment and plan as written. Number of minutes spent on the visit: 10 Dictation was produced using [employer] dictation software. Please excuse any grammatical, word or spelling errors.
[2024-05-15] MEDS: POTASSIUM CHLORIDE 10 MEQ in WATER FOR INJECTION 1 100ML.BAG IVPB SCH (16:06)
[2024-05-15 16:21] LABS: Glucose,Whole Blood 123 mg/dL (70-110)
--- NOTE | 2024-05-15 16:49 | XR ---
EXAMINATION TYPE: XR chest 1V portable DATE OF EXAM: 05/15/2024 4:40 PM COMPARISON: Chest radiographs from 05/14/2024 TECHNIQUE: XR chest 1V portable Portable AP radiograph of the chest. CLINICAL INDICATION:Male, 68 years old with history of increased work of breathing; FINDINGS: Lungs/Pleura: There is flattening of the diaphragm with increased lucency of the lungs. Chronic senes cent parenchymal change. No evidence of pneumothorax, pleural effusion or focal consolidation. Pulmonary vascularity: Unremarkable. Heart/mediastinum: Cardiomediastinal silhouette is unremarkable. Atherosclerotic calcifications are seen in the aorta. Musculoskeletal: No acute osseous pathology. IMPRESSION: 1. No acute cardiopulmonary disease process. 2. COPD changes. [facility], , 05/15/2024 4:46 PM
[2024-05-15 19:54] LABS: Glucose,Whole Blood 114 mg/dL (70-110)
[2024-05-16 06:13] LABS: Glucose,Whole Blood 103 mg/dL (70-110)
--- NOTE | 2024-05-16 06:35 | P.PN ---
Subjective Progress Note Date: 05/15/24 T This is a pleasant 68-year-old male with medical history significant for COPD, coronary artery disease, COPD, seizure disorder, chronic nicotine use and alcohol use. Patient comes in with a complaint of generalized weakness increased fatigue and shortness of breath. He states that since Tuesday he has not been able to tolerate much activity level and has been mostly just going from his bed to the bathroom and back. Because of his inability to tolerate activity he has eating and drinking well. He does feel dehydrated. He also reports feeling short of breath although this is chronic for him he also has a chronic cough with phlegm at baseline. He does not wear any home oxygen and does not see a dock operator. Patient does state that he continues to smoke about 1/2-3/4 of a pack per day and is requesting a nicotine patch. He also reports drinking beer a couple a day about every other day. He states that the shortness of breath is essentially his baseline however in the last 24 hours he has been having increased difficulty urinating with a trickling stream and reports that he is having some burning and discomfort. Initial labs reveal a white blood cell count of 7.4, hemoglobin 12.8, sodium level of 121, BUN of 8 creatinine of 0.57 and a glucose of 66, troponin level is negative. His LFTs are within normal limits. His viral scan is negative for influenza RSV and COVID. Patient's urinalysis was abnormal found to have trace protein and 1+ ketones large leukocyte Estrace 73 WBCs with rare bacteria. His urine osmolality is 253 and his urine random sodium is less than 20. Chest x-ray reveals COPD with no acute pulmonary process. There is hyperinflation compatible with COPD. In the ER patient received a dose of IV ceftriaxone he was admitted to the hospital under internal medicine. 05/13/2024 Patient is evaluated today on the medical floor resting in bed. His CIWA is up to 18 today and requiring IV ativan and additionally oral librium has been added. He was agitated and restless this AM and now has become sedated. Patient is febrile today with T-Max of 100.7, with significant tachycardia and features of sepsis. EKG done revealing sinus tachycardia with heart rate of 120s and blood pressure 180/100s. Ateam was called however patient was able to get his morning dose of 50 mg metoprolol down did have some improvement in his heart rate but has become hypertensive again and dose of IVP cardizem will be given. Chest xray is negative for acute findings. Ammonia level of 43, magnesium 1.3, sodium level 126, BUN 14.30, creatinine 0.5. White blood cell count 9.98. ABGs were completed with findings of pH 7.32, pCO2 56, pO2 52, HCO3 29, total CO2 32. 05/14/2024 Patient seen and evaluated in follow-up today continues on BiPAP and per nursing staff patient is BiPAP dependent and not following commands appropriately unable to take oral intake. Patient is not taking any of his medications and heart rate noted to be elevated and tacky. Pulmonary and cardiology following. Lactulose also given and ammonia levels improved. Sitter at the bedside. 08/12/2024 Patient is evaluated today in follow up on the stepdown unit has been moved out of the ICU. He is awake alert and oriented. He is off the BiPAP and currently on 3L of oxygen. Urine culture negative. Sodium today is up to 133. Antibiotics have been stopped. He continues on normal saline at 50. REVIEW OF SYSTEMS: Unable to complete due to clinical condition PHYSICAL EXAMINATION: GENERAL: The patient is alert and oriented x1, fatigued and minimally arousable. Well developed, thin built, cachectic, unkempt, ill-appearing, elderly appearing HEENT: Pupils are round and equally reacting to light. EOMI. No scleral icterus. No conjunctival pallor. Normocephalic, atraumatic. No pharyngeal erythema. No thyromegaly. CARDIOVASCULAR: S1 and S2 muffled, heart rate elevated PULMONARY: Chest is diminished, patient is tachypneic. ABDOMEN: Soft, thin, nondistended, normoactive bowel sounds. No palpable organomegaly. MUSCULOSKELETAL: No joint swelling or deformity. EXTREMITIES: No cyanosis, clubbing, or pedal edema. NEUROLOGICAL: Gross neurological examination did not reveal any focal deficits. diffuse weakness SKIN: No rashes. Multiple bruises and abrasions along with skin tears noted on upper and lower extremities Assessment: Altered mental status from hepatic encephalopathy Hyperammonemia, improved after lactulose Acute alcohol withdrawal Acute hypoxemic respiratory failure requiring BiPAP Mild acute COPD exacerbation Urinary tract infection present on admission, patient now with features of sepsis has become tachycardic and febrile Leukocytosis resolved Weakened urinary stream will check renal ultrasound Hypovolemic hyponatremia from dehydration improving slowly with IV fluids likely component of beer potomania patient has been admitted to the hospital in the past for hyponatremia requiring ICU care. Macrocytic anemia likely from the alcoholism history of stroke History of coronary artery disease and prior cardiac stenting Hypertension Chronic and ongoing nicotine use Chronic alcoholism monitor for acute alcohol withdrawal, continue CIWA protocol GI prophylaxis DVT prophylaxis Full Code Plan: Cultures are negative, antibiotics have been discontinued. Continue nicotine patch Continue normal saline at 50 mls/hr for now with most recent sodium level 133, n ephrology following recommend to continue with fluids. Will repeat labs Continue ativan ciwa protocol and scheduled librium. Patient currently on 3 S. and unable to take oral medications, has not been taking Librium but is continued on IV Ativan as needed; has not received in 48 hours patient is more awake and alert today. Continue symbicort scheduled and scheduled updrafts. Patient refuses systemic steroids at this time. Patient has been weaned off the Bipap and currently on oxygen via nasal cannula. Rectal lactulose added and recommend to continue, if patients mentation improves dose can be changed to oral and will check ammonia level in the AM. Repeat ammonia levels improved and will follow-up with repeat labs BiPAP 12/5 40% FiO2 and wean as tolerated Septic work up in place pending urine culture, blood culture. Repeat labs in the AM Physical therapy and occupational therapy have been consulted for evaluation The impression and plan of care has been dictated by Ashanti Cleary, Nurse Practitioner as directed. Dr. Bello MD I have performed a history and physical examination and medical decision making of this patient, discussed the same with the dictator, and agree with the dictators assessment and plan as written, documented as a scribe. Based on total visit time, I have performed more than 50% of this visit. Objective - Vital Signs Vital signs: Vital Signs Temp 97.6 F 05/16/24 03:17 Pulse 83 05/16/24 03:17 Resp 17 05/16/24 03:17 BP 116/69 05/16/24 03:17 Pulse Ox 100 05/16/24 03:17 FiO2 40 05/15/24 15:23 Intake & Output 05/15/24 05/15/24 05/16/24 06:59 18:59 06:59 Intake Total 540 Output Total 200 1250 Balance 340 -1250 Weight 47 kg Intake: Oral 540 Output: Urine 200 1250 Other: Voiding Method Diaper Diaper External Catheter # Bowel Movements 1 - Labs CBC & Chem 7: 05/15/24 06:44 05/15/24 06:44 Labs: Abnormal Lab Results - Last 24 Hours (Table) 05/15/24 05/15/24 05/15/24 Range/Units 06:44 06:44 11:23 RBC 3.49 L (4.30-5.90) m/uL Hgb 12.0 L (13.0-17.5) gm/dL Hct 38.8 L (39.0-53.0) % MCV 111.1 H (80.0-100.0) fL Macrocytosis Marked A Sodium 133 L (137-145) mmol/L Chloride 97 L (98-107) mmol/L BUN 8 L (9-20) mg/dL Creatinine 0.60 L (0.66-1.25) mg/dL POC Glucose (mg/dL) 131 H (70-110) mg/dL 05/15/24 05/15/24 Range/Units 16:20 19:52 RBC (4.30-5.90) m/uL Hgb (13.0-17.5) gm/dL Hct (39.0-53.0) % MCV (80.0-100.0) fL Macrocytosis Sodium (137-145) mmol/L Chloride (98-107) mmol/L BUN (9-20) mg/dL Creatinine (0.66-1.25) mg/dL POC Glucose (mg/dL) 123 H 114 H (70-110) mg/dL Microbiology - Last 24 Hours (Table) 05/13/24 16:35 Blood Culture - Preliminary Blood Assessment and Plan Time with Patient: Less than 30
[2024-05-16 08:25] LABS: African American GFR (CKD) >90 (>60 ml/min/1.73 sqM); Anion Gap 8 mmol/L; Blood Urea Nitrogen 6 mg/dL (9-20); Calcium 8.4 mg/dL (8.4-10.2); Carbon Dioxide 31 mmol/L (22-30); Chloride 97 mmol/L (98-107); Glucose 92 mg/dL (74-99); Magnesium 1.8 mg/dL (1.6-2.3); Non-African American GFR(CKD) >90 (>60 ml/min/1.73 sqM); Potassium 3.6 mmol/L (3.5-5.1); Sodium 136 mmol/L (137-145)
--- NOTE | 2024-05-16 09:45 | P.PN ---
Subjective Patient is seen in follow-up for hyponatremia. Sodium level 136 this morning. On nasal cannula. Oral intake improved. Sitting up in bed. No active complaints. Not a very reliable historian. Vital signs are stable. General: No acute distress. HEENT: On nasal cannula. LUNGS: No audible rhonchi or wheezes. HEART: Rate and Rhythm are regular. ABDOMEN: No distention. EXTREMITITES: No edema. Objective - Vital Signs Vital signs: Vital Signs Temp 98.0 F 05/16/24 08:26 Pulse 109 H 05/16/24 08:27 Resp 17 05/16/24 08:27 BP 137/83 05/16/24 08:26 Pulse Ox 99 05/16/24 08:26 FiO2 40 05/15/24 15:23 Intake & Output 05/15/24 05/16/24 05/16/24 18:59 06:59 18:59 Intake Total 540 Output Total 200 1250 Balance 340 -1250 Weight 47 kg Intake: Oral 540 Output: Urine 200 1250 Other: Voiding Method Diaper External Catheter External Catheter # Bowel Movements 1 - Labs CBC & Chem 7: 05/15/24 06:44 05/16/24 07:18 Labs: Abnormal Lab Results - Last 24 Hours (Table) 05/15/24 05/15/24 05/15/24 Range/Units 11:23 16:20 19:52 Sodium (137-145) mmol/L Chloride (98-107) mmol/L Carbon Dioxide (22-30) mmol/L BUN (9-20) mg/dL Creatinine (0.66-1.25) mg/dL POC Glucose (mg/dL) 131 H 123 H 114 H (70-110) mg/dL 05/16/24 Range/Units 07:18 Sodium 136 L (137-145) mmol/L Chloride 97 L (98-107) mmol/L Carbon Dioxide 31 H (22-30) mmol/L BUN 6 L (9-20) mg/dL Creatinine 0.41 L (0.66-1.25) mg/dL POC Glucose (mg/dL) (70-110) mg/dL Microbiology - Last 24 Hours (Table) 05/13/24 16:35 Blood Culture - Preliminary Blood Assessment and Plan Plan: Assessment: 1. Hypovolemic hyponatremia with component of poor solute intake. Improving with normal saline. Sodium level 136 this morning. Urine sodium less than 20 and urine osmolality 253. TSH normal. 2. Alcohol abuse with withdrawals. 3. Influenza A infection. 4. Hypokalemia from poor intake. Magnesium normal. 5. Benign hypertension. Stable. Plan: Maintain normal saline. Encouraged oral intake. Replace potassium. Repeat labs in the morning.
[2024-05-16] MEDS: POTASSIUM CHLORIDE ER 20 MEQ TAB.ER PO STA (10:19)
[2024-05-16 11:47] LABS: Glucose,Whole Blood 176 mg/dL (70-110)
--- NOTE | 2024-05-16 15:41 | P.PN ---
Subjective Progress Note Date: 05/16/24 This is a 68-year-old male patient with a history of chronic and ongoing tobacco dependence, chronic obstructive pulmonary disease, CVA/TIA, alcohol disorder, seizure disorder who presented to the emergency room back on May 11, 2024 with complaints of increasing shortness of breath. Chest x-ray revealed evidence of COPD. No acute pulmonary process. White count 8.5. Hemoglobin 14.1. Platelets 298. Sodium 128. Potassium 3.4. Bicarb 25. BUN 5. Creatinine 0.45. Glucose 117. Tested positive for influenza A. Procalcitonin negative. Last evening his CIWA scale was up to 18 requiring additional IV Ativan and Librium. He was agitated and restless and was transferred to the selective care unit. We were consulted regarding increasing oxygen requirements. Arterial blood gases on 40% FiO2 revealed a PaO2 of 123, pCO2 of 55 and a pH of 7.32. Seen today in consultation. He is on BiPAP 12/5 and 40% FiO2. He is currently responsive but drifts off easily. industrial organizational psychologist at the bedside. The patient is seen today May 15, 2024 in follow-up on the selective care unit. He is awake and alert in no acute distress. Breathing a bit easier today compared to yesterday. Maintaining O2 saturations up to 100% on 4 L/min per nasal cannula. He is afebrile. Hemodynamically stable. Urine culture revealed no growth. Blood culture revealing no growth thus far. White count 7.0. Hemo globin 12.0. Platelets 279. Sodium 133. Potassium 3.6. Bicarb 28. BUN 8. Creatinine 0.6. Glucose 91. Acetone was negative at 0.10. He is continued on DuoNeb inhalations, Symbicort. NicoDerm patch in place. Heparin for DVT prophylaxis. Remains on Tamiflu. Remains on Zosyn. Normal saline at 75 mL/h. The patient is seen today May 16, 2024 in follow-up on the selective care unit. He is currently resting in bed. More awake and alert today. He is maintaining O2 saturations in the 90s on 3 L/min per nasal cannula. Is afebrile. Hemodynamically stable. Urine culture revealed no growth. Blood culture revealed no growth. Sodium 136. Potassium 3.6. Bicarb 31. BUN 6. Creatinine 0.41. Glucose 92. He is continued on DuoNeb inhalations, Symbicort, Tamiflu. He has a sensitivity to steroids. He is on heparin for DVT prophylaxis. NicoDerm patch in place. Normal saline at 50 mL/h. Objective - Vital Signs Vital signs: Vital Signs Temp 97.8 F 05/16/24 15:17 Pulse 90 05/16/24 15:23 Resp 18 05/16/24 15:17 BP 105/67 05/16/24 15:17 Pulse Ox 99 05/16/24 15:17 FiO2 40 05/15/24 15:23 Intake & Output 05/15/24 05/16/24 05/16/24 18:59 06:59 18:59 Intake Total 540 Output Total 200 1250 600 Balance 340 -1250 -600 Weight 47 kg Intake: Oral 540 Output: Urine 200 1250 600 Other: Voiding Method Diaper External Catheter External Catheter # Bowel Movements 1 1 - Exam GENERAL EXAM: Awake, alert, thin 68-year-old male, on 3 L/min per nasal cannula, comfortable in no apparent distress. HEAD: Normocephalic. EYES: Normal reaction of pupils, equal size. NOSE: Clear with pink turbinates. THROAT: No erythema or exudates. NECK: No masses, no JVD. CHEST: No chest wall deformity. LUNGS: Equal air entry with end expiratory wheeze, diminished. CVS: S1 and S2 normal with no audible murmur, regular rhythm. ABDOMEN: No hepatosplenomegaly, normal bowel sounds, no guarding or rigidity. SPINE: No scoliosis or deformity SKIN: No rashes CENTRAL NERVOUS SYSTEM: No focal deficits, tone is normal in all 4 extremities. EXTREMITIES: There is no peripheral edema. No clubbing, no cyanosis. Peripheral pulses are intact. - Labs CBC & Chem 7: 05/15/24 06:44 05/16/24 07:18 Labs: Abnormal Lab Results - Last 24 Hours (Table) 05/15/24 05/15/24 05/16/24 Range/Units 16:20 19:52 07:18 Sodium 136 L (137-145) mmol/L Chloride 97 L (98-107) mmol/L Carbon Dioxide 31 H (22-30) mmol/L BUN 6 L (9-20) mg/dL Creatinine 0.41 L (0.66-1.25) mg/dL POC Glucose (mg/dL) 123 H 114 H (70-110) mg/dL 05/16/24 Range/Units 11:45 Sodium (137-145) mmol/L Chloride (98-107) mmol/L Carbon Dioxide (22-30) mmol/L BUN (9-20) mg/dL Creatinine (0.66-1.25) mg/dL POC Glucose (mg/dL) 176 H (70-110) mg/dL Microbiology - Last 24 Hours (Table) 05/13/24 16:35 Blood Culture - Preliminary Blood Assessment and Plan Assessment: Acute hypoxemic respiratory failure secondary to an acute exacerbation of chr onic obstructive pulmonary disease complicated by influenza A. Procalcitonin negative Acute influenza A infection Acute alcohol withdrawal syndrome Altered mental status secondary to above, improving Hyperammonemia, improved Hyponatremia secondary to beer Potomania, improving Tachycardia secondary to above Chronic and ongoing tobacco dependence Chronic obstructive pulmonary disease History of seizure disorder Coronary artery disease with previous stent placement Hypertension Plan: The patient was seen and evaluated More awake and alert today Labs and medications reviewed Maintained on 3 L nasal cannula Titrate down the FiO2 as tolerated Continue on the CIWA protocol Continue DuoNeb inhalations, Symbicort Continue Tamiflu Heparin for DVT prophylaxis Educated regarding smoking cessation NicoDerm patch in place We will continue to follow I have personally seen and examined the patient, performed the documentation and the assessment and plan as written. Number of minutes spent on the visit: 10 Dictation was produced using [employer] dictation software. Please excuse any gr ammatical, word or spelling errors.
[2024-05-16 16:12] VITALS: BMI 17.2
[2024-05-16 17:05] LABS: Glucose,Whole Blood 174 mg/dL (70-110)
--- NOTE | 2024-05-16 21:31 | P.PN ---
Subjective Progress Note Date: 05/16/24 T This is a pleasant 68-year-old male with medical history significant for COPD, coronary artery disease, COPD, seizure disorder, chronic nicotine use and alcohol use. Patient comes in with a complaint of generalized weakness increased fatigue and shortness of breath. He states that since Tuesday he has not been able to tolerate much activity level and has been mostly just going from his bed to the bathroom and back. Because of his inability to tolerate activity he has eating and drinking well. He does feel dehydrated. He also reports feeling short of breath although this is chronic for him he also has a chronic cough with phlegm at baseline. He does not wear any home oxygen and does not see a senior sql database developer. Patient does state that he continues to smoke about 1/2-3/4 of a pack per day and is requesting a nicotine patch. He also reports drinking beer a couple a day about every other day. He states that the shortness of breath is essentially his baseline however in the last 24 hours he has been having increased difficulty urinating with a trickling stream and reports that he is having some burning and discomfort. Initial labs reveal a white blood cell count of 7.4, hemoglobin 12.8, sodium level of 121, BUN of 8 creatinine of 0.57 and a glucose of 66, troponin level is negative. His LFTs are within normal limits. His viral scan is negative for influenza RSV and COVID. Patient's urinalysis was abnormal found to have trace protein and 1+ ketones large leukocyte Estrace 73 WBCs with rare bacteria. His urine osmolality is 253 and his urine random sodium is less than 20. Chest x-ray reveals COPD with no acute pulmonary process. There is hyperinflation compatible with COPD. In the ER patient received a dose of IV ceftriaxone he was admitted to the hospital under internal medicine. 05/13/2024 Patient is evaluated today on the medical floor resting in bed. His CIWA is up to 18 today and requiring IV ativan and additionally oral librium has been added. He was agitated and restless this AM and now has become sedated. Patient is febrile today with T-Max of 100.7, with significant tachycardia and features of sepsis. EKG done revealing sinus tachycardia with heart rate of 120s and blood pressure 180/100s. [facility]team was called however patient was able to get his morning dose of 50 mg metoprolol down did have some improvement in his heart rate but has become hypertensive again and dose of IVP cardizem will be given. Chest xray is negative for acute findings. Ammonia level of 43, magnesium 1.3, sodium level 126, BUN 14.30, creatinine 0.5. White blood cell count 9.98. ABGs were completed with findings of pH 7.32, pCO2 56, pO2 52, HCO3 29, total CO2 32. 05/14/2024 Patient seen and evaluated in follow-up today continues on BiPAP and per nursing staff patient is BiPAP dependent and not following commands appropriately unable to take oral intake. Patient is not taking any of his medications and heart rate noted to be elevated and tacky. Pulmonary and cardiology following. Lactulose also given and ammonia levels improved. Sitter at the bedside. 08/12/2024 Patient is evaluated today in follow up on the stepdown unit has been moved out of the ICU. He is awake alert and oriented. He is off the BiPAP and currently on 3L of oxygen. Urine culture negative. Sodium today is up to 133. Antibiotics have been stopped. He continues on normal saline at 50. 05/16/2024 Patient evaluated today in follow up. He is more awake and alert as compared to yesterday. He continues on oxygen via nasal cannula down to 2L with oxygen saturations of 97%. Sodium up to 136, BUN of 6, creatinine of 0.41. Magnesium 1.8 and potassium 3.6. REVIEW OF SYSTEMS: Unable to complete due to clinical condition PHYSICAL EXAMINATION: GENERAL: The patient is alert and oriented x1, fatigued and minimally arousable. Well developed, thin built, cachectic, unkempt, ill-appearing, elderly appearing HEENT: Pupils are round and equally reacting to light. EOMI. No scleral icterus. No conjunctival pallor. Normocephalic, atraumatic. No pharyngeal erythema. No thyromegaly. CARDIOVASCULAR: S1 and S2 muffled, heart rate elevated PULMONARY: Chest is diminished, patient is tachypneic. ABDOMEN: Soft, thin, nondistended, normoactive bowel sounds. No palpable organomegaly. MUSCULOSKELETAL: No joint swelling or deformity. EXTREMITIES: No cyanosis, clubbing, or pedal edema. NEUROLOGICAL: Gross neurological examination did not reveal any focal deficits. diffuse weakness SKIN: No rashes. Multiple bruises and abrasions along with skin tears noted on upper and lower extremities Assessment: Altered mental status from hepatic encephalopathy Hyperammonemia, improved after lactulose Acute alcohol withdrawal Acute hypoxemic respiratory failure requiring BiPAP Mild acute COPD exacerbation Urinary tract infection present on admission, patient now with features of sepsis has become tachycardic and febrile Leukocytosis resolved Weakened urinary stream will check renal ultrasound Hypovolemic hyponatremia from dehydration improving slowly with IV fluids likely component of beer potomania patient has been admitted to the hospital in the past for hyponatremia requiring ICU care. Macrocytic anemia likely from the alcoholism history of stroke History of coronary artery disease and prior cardiac stenting Hypertension Chronic and ongoing nicotine use Chronic alcoholism monitor for acute alcohol withdrawal, continue CIWI protocol GI prophylaxis DVT prophylaxis Full Code Plan: Cultures are negative, antibiotics have been discontinued. Continue nicotine patch Continue normal saline at 50 mls/hr for now with most recent sodium level 136, nephrology following recommend to continue with fluids. Will repeat labs Continue ativan [facility] protocol. Patient has not required librium in days and will discontinue the medication. Continue symbicort scheduled and scheduled updrafts. Patient refuses systemic steroids at this time. Patient has been weaned off the Bipap and currently on oxygen via nasal cannula. Ammonia level significantly improved. Mentation has improved. Repeat labs in the AM Physical therapy and occupational therapy recommending subacute rehab and social work to follow up with the patient. The impression and plan of care has been dictated by Ashanti Cleary, Nurse Practitioner as directed. Dr. Bello MD I have performed a history and physical examination and medical decision making of this patient, discussed the same with the dictator, and agree with the dictators assessment and plan as written, documented as a scribe. Based on total visit time, I have performed more than 50% of this visit. Objective - Vital Signs Vital signs: Vital Signs Temp 98.5 F 05/16/24 21:08 Pulse 95 05/16/24 21:08 Resp 18 05/16/24 21:08 BP 118/72 05/16/24 21:08 Pulse Ox 97 05/16/24 21:08 FiO2 40 05/15/24 15:23 Intake & Output 05/16/24 05/16/24 05/17/24 06:59 18:59 06:59 Intake Total 240 Output Total 1250 600 Balance -1250 -360 Weight 47 kg 47 kg Intake: Oral 240 Output: Urine 1250 600 Other: Voiding Method External Catheter External Catheter # Bowel Movements 0 - Labs CBC & Chem 7: 05/15/24 06:44 05/16/24 07:18 Labs: Abnormal Lab Results - Last 24 Hours (Table) 05/16/24 05/16/24 05/16/24 Range/Units 07:18 11:45 17:04 Sodium 136 L (137-145) mmol/L Chloride 97 L (98-107) mmol/L Carbon Dioxide 31 H (22-30) mmol/L BUN 6 L (9-20) mg/dL Creatinine 0.41 L (0.66-1.25) mg/dL POC Glucose (mg/dL) 176 H 174 H (70-110) mg/dL Microbiology - Last 24 Hours (Table) 05/13/24 16:35 Blood Culture - Preliminary Blood Assessment and Plan Time with Patient: Less than 30
[2024-05-16] MEDS: MAGNESIUM SULFATE-D5W PMX 1 GM in DEXTROSE/WATER 1 100ML.BAG IVPB ONE (21:49)
[2024-05-17 07:46] LABS: African American GFR (CKD) >90 (>60 ml/min/1.73 sqM); Anion Gap 3 mmol/L; Blood Urea Nitrogen 7 mg/dL (9-20); Calcium 8.2 mg/dL (8.4-10.2); Carbon Dioxide 35 mmol/L (22-30); Chloride 95 mmol/L (98-107); Glucose 101 mg/dL (74-99); Magnesium 1.8 mg/dL (1.6-2.3); Non-African American GFR(CKD) >90 (>60 ml/min/1.73 sqM); Potassium 3.8 mmol/L (3.5-5.1); Sodium 133 mmol/L (137-145)
--- NOTE | 2024-05-17 09:11 | CDI ---
Documentation Clarification Form Date: 05/17/2024 08:11:55 AM From: Josefina Giraldo RN, CCDS Phone: [phone] Admit Date: 05/11/2024 03:49:00 PM Patient Name: Bud Wolfe Visit Number: [id number] Discharge Date: ATTENTION: The Clinical Documentation Specialists (CDI) and [facility] Coding Staff appreciate your assistance in clarifying documentation. Please respond to the clarification below the line at the bottom and electronically sign. The CDI & [facility] Coding staff will review the response and follow-up if needed. Please note: Queries are made part of the Legal Health Record. If you have any questions, please contact the author of this message via ITS. Provider: Ashanti CURRY The patient now with features of sepsis has become tachycardic and febrile in the progress notes on starting on 05/13/24. Based on this information and the findings below, is there an additional diagnosis that is clinically appropriate for this patient? History/Risk Factors: Urinary tract infection present on admission Clinical Indicators: 68-year-old male presents to ED with shortness of breath and painful, difficulties urinating. 05/11 WBC 17.4, [id number] Lactic acid: 2.0 UA: Ur Leukocyte Esterase Large, Urine WBC 73 Blood cultures: Preliminary: No Growth after 782 hours 05/11 Vital signs: (20:40) 143/77 98 20 99.2 97% RA, (22:31) 137/76 103 98% RA Treatment Zosyn 3.375 mg IVPB Q HRS .9NS @ 50 MLS/HR Is there an additional diagnosis that is clinically appropriate for this patient? [ ] Sepsis, present on admission 2/4 criteria, due to Urinary tract infection [ ] Sepsis, developed during stay, not present on admission [ ] No additional diagnosis/not clinically significant [ x ] Other, please specify - Sepsis on admission due to Acute influenza A infection with initial flu swab negative. [ ] Unable to determine SIRS Criteria: 2 or more of the following may indicate SIRS Temperature < 96.8F (36C) or > 101.0F (38.3C) Heart Rate > 90 bpm Respiratory Rate > 20 breaths/min or PaCO2 < 32 mmHg White Blood Cell Count > 12,000 or < 4,000 cells/mm3 or > 10% bands (Template Last Reviewed: March 2022) MTDD
[2024-05-17 10:36] VITALS: TEMP 97.6
--- NOTE | 2024-05-17 11:05 | P.PN ---
Subjective Patient is seen in follow-up for hyponatremia. Sodium level 133 today. On nasal cannula. Oral intake improved. Sitting up in chair. No active c omplaints. Vital signs are stable. General: No acute distress. HEENT: On nasal cannula. LUNGS: No audible rhonchi or wheezes. HEART: Rate and Rhythm are regular. ABDOMEN: No distention. EXTREMITITES: No edema. Objective - Vital Signs Vital signs: Vital Signs Temp 97.6 F 05/17/24 09:58 Pulse 91 05/17/24 09:59 Resp 17 05/17/24 09:59 BP 120/78 05/17/24 09:58 Pulse Ox 99 05/17/24 09:58 FiO2 40 05/17/24 08:30 Intake & Output 05/16/24 05/17/24 05/17/24 18:59 06:59 18:59 Intake Total 240 Output Total 600 500 Balance -360 -500 Weight 47 kg 47.5 kg Intake: Oral 240 Output: Urine 600 500 Other: Voiding Method External Catheter External Catheter External Catheter # Voids 1 # Bowel Movements 0 1 - Labs CBC & Chem 7: 05/15/24 06:44 05/17/24 06:45 Labs: Abnormal Lab Results - Last 24 Hours (Table) 05/16/24 05/16/24 05/17/24 Range/Units 11:45 17:04 06:45 Sodium 133 L (137-145) mmol/L Chloride 95 L (98-107) mmol/L Carbon Dioxide 35 H (22-30) mmol/L BUN 7 L (9-20) mg/dL Creatinine 0.52 L (0.66-1.25) mg/dL Glucose 101 H (74-99) mg/dL POC Glucose (mg/dL) 176 H 174 H (70-110) mg/dL Calcium 8.2 L (8.4-10.2) mg/dL Microbiology - Last 24 Hours (Table) 05/13/24 16:35 Blood Culture - Preliminary Blood Assessment and Plan Plan: Assessment: 1. Hypovolemic hyponatremia with component of poor solute intake. Improving with normal saline. Sodium level 133 this morning. Urine sodium less than 20 and urine osmolality 253. TSH normal. 2. Alcohol abuse with withdrawals. 3. Influenza A infection. 4. Hypokalemia from poor intake. Magnesium normal. 5. Benign hypertension. Stable. Plan: Hep-Lock IV fluids. Encouraged oral intake. Add 1500 cc fluid restriction. Repeat labs in the morning.
[2024-05-17 12:36] VITALS: BP 124/86; PULSE 82; RESP 17
--- NOTE | 2024-05-17 13:33 | P.DS ---
Providers Date of admission: 05/11/24 15:49 Attending physician: Sandee Dawson Consults: 05/11/24 15:48 Consult Physician Urgent Consulting Provider: Paula Stewart Consult Reason/Comments: acute hyponatremia Do you want consulting provider notified?: Yes 05/13/24 18:10 Consult Physician Routine Consulting Provider: Kelsy Sam Consult Reason/Comments: pneumonia BiPAP Do you want consulting provider notified?: Yes Primary care physician: Caridad Malone Hospital Course: Final Diagnosis Altered mental status from hepatic encephalopathy Hyperammonemia, improved after lactulose Acute alcohol withdrawal Acute hypoxemic respiratory failure requiring BiPAP Acute influenza A and sepsis Mild acute COPD exacerbation Urinary tract infection present on admission, patient now with features of seps is has become tachycardic and febrile Leukocytosis resolved Weakened urinary stream will check renal ultrasound Hypovolemic hyponatremia from dehydration improving slowly with IV fluids likely component of beer potomania patient has been admitted to the hospital in the past for hyponatremia requiring ICU care. Macrocytic anemia likely from the alcoholism history of stroke History of coronary artery disease and prior cardiac stenting Hypertension Chronic and ongoing nicotine use Chronic alcoholism monitor for acute alcohol withdrawal, continue CIWA protocol Discharge Disposition Stable for discharge to [facility] rehabilitation. Wean oxygen as tolerated. Continue updrafts. Completed course of IV ceftriaxone and tamiflu. No evidence of alcohol withdrawal at this point. Continue 1500 CC fluid restriction and repeat labs in 2 to 3 days. Follow up with nephrology and pulmonology on discharge. Hospital Course This is a pleasant 68-year-old male with medical history significant for COPD, coronary artery disease, COPD, seizure disorder, chronic nicotine use and alcohol use. Patient comes in with a complaint of generalized weakness increased fatigue and shortness of breath. He states that since Tuesday he has not been able to tolerate much activity level and has been mostly just going from his bed to the bathroom and back. Because of his inability to tolerate activity he has eating and drinking well. He does feel dehydrated. He also reports feeling short of breath although this is chronic for him he also has a chronic cough with phlegm at baseline. He does not wear any home oxygen and does not see a improvement manager. Patient does state that he continues to smoke about 1/2-3/4 of a pack per day and is requesting a nicotine patch. He also reports drinking beer a couple a day about every other day. He states that the shortness of breath is essentially his baseline however in the last 24 hours he has been having increased difficulty urinating with a trickling stream and reports that he is having some burning and discomfort. Initial labs reveal a white blood cell count of 7.4, hemoglobin 12.8, sodium level of 121, BUN of 8 creatinine of 0.57 and a glucose of 66, troponin level is negative. His LFTs are within normal limits. His viral scan is negative for influenza RSV and COVID. Patient's urinalysis was abnormal found to have trace protein and 1+ ketones large leukocyte Estrace 73 WBCs with rare bacteria. His urine osmolality is 253 and his urine random sodium is less than 20. Chest x-ray reveals COPD with no acute pulmonary process. There is hyperinflation compatible with COPD. In the ER patient received a dose of IV ceftriaxone he was admitted to the hospital under internal medicine. Patient doing well however hospital stay became complicated a s he developed acute alcohol withdrawal requiring BiPAP oxygen support and ICU care. found to have elevated ammonia level which was treated with lactulose. Patient on day 2 tested positive for influenza A was started on oral tamiflu and updraft treatments. He clinically improved. He was weaned off the BiPAP. Urine culture is negative and IV ceftriaxone was discontinued. He has been up in the chair now awake alert and oriented. His main complaint now is generalized weakness and he was evaluated by physical therapy and recommending subacute rehab. He has been accepted at [facility]. His sodium level today is 133 and nephrology recommending 1500 fluid restriction and to repeat labs. He has completed course of oral tamilu. He will be discharged to [facility] today. His lungs are clear. White blood cell count normal at 7.0. Hgb 12.0. Sodium 133, BUN 7, creatinine 0.52. Magnesium 1.8. Please see medication reconciliation for a list of current medications. Thank you for allowing us to participate in the care of this patient. The impression and plan of care has been dictated by Ashanti Cleary, Nurse Practitioner as directed. Dr. Bello MD I have performed a history and physical examination and medical decision making of this patient, discussed the same with the dictator, and agree with the dictators assessment and plan as written, documented as a scribe. Based on total visit time, I have performed more than 50% of this visit. Patient Condition at Discharge: Stable Plan - Discharge Summary Discharge Rx Participant: No New Discharge Prescriptions: New Folic Acid 1 mg PO DAILY tab Nicotine 14Mg/24Hr Patch [Habitrol] 1 patch TRANSDERM DAILY patch Famotidine [Pepcid] 20 mg PO DAILY tab Thiamine [Vitamin B-1] 100 mg PO DAILY tab Ipratropium-Albuterol Nebulize [Duoneb 0.5 mg-3 mg/3 ml Soln] 3 ml INHALATION RT-QID each Heparin Sodium,Porcine (1 ml) [Heparin Sodium] 5,000 unit SQ Q12HR each Multivitamins, Thera [Multivitamin (formulary)] 1 each PO DAILY tab Continue Fluticasone/Umeclidin/Vilanter [Trelegy Ellipta 200-62.5-25] 1 puff INHALATION RT-DAILY Metoprolol Tartrate [Lopressor] 50 mg PO BID #60 tab amLODIPine [Norvasc] 5 mg PO DAILY #30 tab Albuterol Sulfate [Ventolin HFA] 2 puff INHALATION RT-Q4H PRN PRN Reason: Shortness Of Breath Atorvastatin [Lipitor] 80 mg PO DAILY #30 tab Aspirin 81 mg PO DAILY Acetaminophen Tab [Tylenol] 1,000 mg PO Q6HR Discharge Medication List Albuterol Sulfate [Ventolin HFA] 2 puff INHALATION RT-Q4H PRN 02/25/22 [History] Fluticasone/Umeclidin/Vilanter [Trelegy Ellipta 200-62.5-25] 1 puff INHALATION RT-DAILY 02/25/22 [History] Atorvastatin [Lipitor] 80 mg PO DAILY #30 tab 03/01/22 [Rx] Metoprolol Tartrate [Lopressor] 50 mg PO BID #60 tab 03/01/22 [Rx] amLODIPine [Norvasc] 5 mg PO DAILY #30 tab 06/24/22 [Rx] Aspirin 81 mg PO DAILY 09/27/22 [History] Acetaminophen Tab [Tylenol] 1,000 mg PO Q6HR 05/11/24 [History] Famotidine [Pepcid] 20 mg PO DAILY tab 05/17/24 [Rx] Folic Acid 1 mg PO DAILY tab 05/17/24 [Rx] Heparin Sodium,Porcine (1 ml) [Heparin Sodium] 5,000 unit SQ Q12HR each 05/17/24 [Rx] Ipratropium-Albuterol Nebulize [Duoneb 0.5 mg-3 mg/3 ml Soln] 3 ml INHALATION RT-QID each 05/17/24 [Rx] Multivitamins, Thera [Multivitamin (formulary)] 1 each PO DAILY tab 05/17/24 [Rx] Nicotine 14Mg/24Hr Patch [Habitrol] 1 patch TRANSDERM DAILY patch 05/17/24 [Rx] Thiamine [Vitamin B-1] 100 mg PO DAILY tab 05/17/24 [Rx] Follow up Appointment(s)/Referral(s): Caridad Malone DO [Primary Care Provider] - 1-2 days Paula Stewart MD [STAFF PHYSICIAN] - 1 Week Sanjeev Santana MD [STAFF PHYSICIAN] - 1 Week Ambulatory/Diagnostic Orders: Basic Metabolic Panel [LAB.AMB] Location: None Selected Complete Blood Count w/diff [LAB.AMB] Time Frame: 3 Days, Location: None Selected Activity/Diet/Wound Care/Special Instructions: Continue 1500 CC fluid restriction and repeat labs in 2 to 3 days Continue oxygen support to keep saturations about 93%. Can wean off as tolerated. Discharge Disposition: TRANSFER TO SNF/ECF
--- NOTE | 2024-05-17 14:42 | P.PN ---
Subjective Progress Note Date: 05/17/24 This is a 68-year-old male patient with a history of chronic and ongoing tobacco dependence, chronic obstructive pulmonary disease, CVA/TIA, alcohol disorder, seizure disorder who presented to the emergency room back on May 11, 2024 with complaints of increasing shortness of breath. Chest x-ray revealed evidence of COPD. No acute pulmonary process. White count 8.5. Hemoglobin 14.1. Platelets 298. Sodium 128. Potassium 3.4. Bicarb 25. BUN 5. Creatinine 0.45. Glucose 117. Tested positive for influenza A. Procalcitonin negative. Last evening his CIWA scale was up to 18 requiring additional IV Ativan and Librium. He was agitated and restless and was transferred to the selective care unit. We were consulted regarding increasing oxygen requirements. Arterial blood gases on 40% FiO2 revealed a PaO2 of 123, pCO2 of 55 and a pH of 7.32. Seen today in consultation. He is on BiPAP 12/5 and 40% FiO2. He is currently responsive but drifts off easily. die mounter at the bedside. The patient is seen today May 15, 2024 in follow-up on the selective care unit. He is awake and alert in no acute distress. Breathing a bit easier today compared to yesterday. Maintaining O2 saturations up to 100% on 4 L/min per nasal cannula. He is afebrile. Hemodynamically stable. Urine culture revealed no growth. Blood culture revealing no growth thus far. White count 7.0. Hemo globin 12.0. Platelets 279. Sodium 133. Potassium 3.6. Bicarb 28. BUN 8. Creatinine 0.6. Glucose 91. Acetone was negative at 0.10. He is continued on DuoNeb inhalations, Symbicort. NicoDerm patch in place. Heparin for DVT prophylaxis. Remains on Tamiflu. Remains on Zosyn. Normal saline at 75 mL/h. The patient is seen today May 16, 2024 in follow-up on the selective care unit. He is currently resting in bed. More awake and alert today. He is maintaining O2 saturations in the 90s on 3 L/min per nasal cannula. Is afebrile. Hemodynamically stable. Urine culture revealed no growth. Blood culture revealed no growth. Sodium 136. Potassium 3.6. Bicarb 31. BUN 6. Creatinine 0.41. Glucose 92. He is continued on DuoNeb inhalations, Symbicort, Tamiflu. He has a sensitivity to steroids. He is on heparin for DVT prophylaxis. NicoDerm patch in place. Normal saline at 50 mL/h. The patient is seen today May 17, 2024 in follow-up on the selective care unit. He is currently on up in a chair at the bedside. Awake and alert in no acute distress. Maintaining O2 saturations in the mid 90s on room air. He is afebrile. Hemodynamically stable. Urine culture revealed no growth. Blood culture revealed no growth. Sodium 133. Potassium 3.8. Bicarb 35. BUN 7. Creatinine 0.52. Glucose 101. He remains on DuoNeb and elations, Symbicort, Tamiflu. Heparin for DVT prophylaxis. NicoDerm patch in place. Objective - Vital Signs Vital signs: Vital Signs Temp 97.6 F 05/17/24 09:58 Pulse 82 05/17/24 12:27 Resp 17 05/17/24 12:36 BP 124/86 05/17/24 12:27 Pulse Ox 98 05/17/24 12:36 FiO2 40 05/17/24 08:30 Intake & Output 05/16/24 05/17/24 05/17/24 18:59 06:59 18:59 Intake Total 240 Output Total 600 500 Balance -360 -500 Weight 47 kg 47.5 kg Intake: Oral 240 Output: Urine 600 500 Other: Voiding Method External Catheter External Catheter External Catheter # Voids 1 # Bowel Movements 0 1 - Exam GENERAL EXAM: Awake, alert, thin 68-year-old male, up in a chair, on room air, comfortable in no apparent distress. HEAD: Normocephalic. EYES: Normal reaction of pupils, equal size. NOSE: Clear with pink turbinates. THROAT: No erythema or exudates. NECK: No masses, no JVD. CHEST: No chest wall deformity. LUNGS: Equal air entry with end expiratory wheeze, diminished. CVS: S1 and S2 normal with no audible murmur, regular rhythm. ABDOMEN: No hepatosplenomegaly, normal bowel sounds, no guarding or rigidity. SPINE: No scoliosis or deformity SKIN: No rashes CENTRAL NERVOUS SYSTEM: No focal deficits, tone is normal in all 4 extremities. EXTREMITIES: There is no peripheral edema. No clubbing, no cyanosis. Peripheral pulses are intact. - Labs CBC & Chem 7: 05/15/24 06:44 05/17/24 06:45 Labs: Abnormal Lab Results - Last 24 Hours (Table) 05/16/24 05/17/24 Range/Units 17:04 06:45 Sodium 133 L (137-145) mmol/L Chloride 95 L (98-107) mmol/L Carbon Dioxide 35 H (22-30) mmol/L BUN 7 L (9-20) mg/dL Creatinine 0.52 L (0.66-1.25) mg/dL Glucose 101 H (74-99) mg/dL POC Glucose (mg/dL) 174 H (70-110) mg/dL Calcium 8.2 L (8.4-10.2) mg/dL Microbiology - Last 24 Hours (Table) 05/13/24 16:35 Blood Culture - Preliminary Blood Assessment and Plan Assessment: Acute hypoxemic respiratory failure secondary to an acute exacerbation of chronic obstructive pulmonary disease complicated by influenza A. Procalcitonin negative Acute influenza A infection Acute alcohol withdrawal syndrome Altered mental status secondary to above, improving Hyperammonemia, improved Hyponatremia secondary to beer Potomania, improving Tachycardia secondary to above Chronic and ongoing tobacco dependence Chronic obstructive pulmonary disease History of seizure disorder Coronary artery disease with previous stent placement Hypertension Plan: The patient was seen and evaluated Labs and medications reviewed Stable and on room air Continue Symbicort, albuterol Complete a course of Tamiflu Heparin for DVT prophylaxis Educated regarding smoking cessation NicoDerm patch in place Plan is for subacute rehab at [facility] I have personally seen and examined the patient, performed the documentation and the assessment and plan as written. Number of minutes spent on the visit: 10 Dictation was produced using [employer] dictation software. Please excuse any grammatical, word or spelling errors.
== END 2024-05-17 14:50 | DRG 871 ==
LOC: EC 13:00 → 1SOBS 15:49 → 4SSUR 17:04 → 5NMEDONC 05-12 00:13 → 3SCARD 05-13 17:55
PROVIDERS: ADMIT Hospitalist; ATTEND Hospitalist
PROC: HZ2ZZZZ Detoxification Services for Substance Abuse Treatment (ICD-10-PCS; principal; 2024-05-11)
PROC: 5A09457 Assistance with Respiratory Ventilation, 24-96 Consecutive Hours, Continuous Positive Airway Pressure (ICD-10-PCS; 2024-05-13)
DX: A41.89 Other specified sepsis (principal); G93.41 Metabolic encephalopathy; J96.01 Acute respiratory failure with hypoxia; F10.231 Alcohol dependence with withdrawal delirium; J44.1 Chronic obstructive pulmonary disease with (acute) exacerbation; G40.909 Epilepsy, unspecified, not intractable, without status epilepticus; I10 Essential (primary) hypertension; D53.9 Nutritional anemia, unspecified; Z86.16 Personal history of COVID-19; E72.20 Disorder of urea cycle metabolism, unspecified; E87.1 Hypo-osmolality and hyponatremia; N39.0 Urinary tract infection, site not specified; K76.82 Hepatic encephalopathy; J10.1 Influenza due to other identified influenza virus with other respiratory manifestations; E86.0 Dehydration; I25.10 Atherosclerotic heart disease of native coronary artery without angina pectoris; F17.210 Nicotine dependence, cigarettes, uncomplicated; E87.6 Hypokalemia; E86.1 Hypovolemia; Z79.82 Long term (current) use of aspirin; Z79.899 Other long term (current) drug therapy; Z86.73 Personal history of transient ischemic attack (TIA), and cerebral infarction without residual deficits; Z95.5 Presence of coronary angioplasty implant and graft; Z88.8 Allergy status to other drugs, medicaments and biological substances; Z71.6 Tobacco abuse counseling
CPT/HCPCS: 36415; 36600; 51798; 71045; 71046; 76770; 80048; 80053; 81001; 82140; 82607; 82746; 82747; 82805; 83605; 83735; 83880; 83930; 83935; 84145; 84295; 84300; 84443; 84484; 85025; 85610; 85730; 87040; 87086; 87636; 93005; 94640; 94660; 94760; 96361; 96374; 99285

== ENCOUNTER 2024-05-29 08:07 | Inpatient (IN) | payer MEDICARE ==
--- NOTE | 2024-05-29 08:20 | ED ---
General Adult HPI - General Chief complaint: Shortness of Breath Stated complaint: chest pain Time Seen by Provider: 05/29/24 08:10 Source: patient, EMS, RN notes reviewed, old records reviewed Mode of arrival: EMS Limitations: no limitations - History of Present Illness Initial comments: This is a 68-year-old male who presents to the emergency department past medical history significant for COPD and a month ago influenza with influenza pneumonia. Patient was sent to the shelter for rehabilitation. Patient started having difficulty breathing at the facility and he was oxygenating in the 70s so EMS was called. EMS placed the patient on a nonrebreather and he was oxygenating in the low 90s at this time but still breathing really fast and s till tachycardic with a heart rate about 150. Patient indicated he not want to be intubated he did not want CPR. Patient states he is having a cough. But patient is unable to give great detail to his history because he is breathing so hard. - Related Data Home Medications Medication Instructions Recorded Confirmed Albuterol Sulfate [Ventolin HFA] 2 puff INHALATION RT-Q4H PRN 02/25/22 05/29/24 Fluticasone/Umeclidin/Vilanter 1 puff INHALATION RT-DAILY 02/25/22 05/29/24 [Trelegy Ellipta 200-62.5-25] Acetaminophen Tab [Tylenol] 1,000 mg PO Q8H PRN 05/11/24 05/29/24 Aspirin EC [Ecotrin Low Dose] 81 mg PO DAILY 05/29/24 05/29/24 Atorvastatin [Lipitor] 80 mg PO HS 05/29/24 05/29/24 Gilbert Breakfast 1 packet PO DAILY 05/29/24 05/29/24 Famotidine [Pepcid] 20 mg PO DAILY@1700 05/29/24 05/29/24 Ipratropium-Albuterol Nebulize 3 ml INHALATION RT-Q6H 05/29/24 05/29/24 [Duoneb 0.5 mg-3 mg/3 ml Soln] Magnesium Hydroxide [Milk of 7,200 mg PO DAILY PRN 05/29/24 05/29/24 Magnesia Concentrate] Multivitamins, Thera [Multivitamin 1 tab PO DAILY 05/29/24 05/29/24 (formulary)] Na Phos,M-B/Na Phos,Di-Ba [Fleet 133 ml RECTAL DAILY PRN 05/29/24 05/29/24 Adult] Nicotine 21Mg/24Hr Patch [Habitrol] 1 patch TRANSDERM DAILY 05/29/24 05/29/24 bisacodyL [Dulcolax] 10 mg RECTAL DAILY PRN 05/29/24 05/29/24 Previous Rx's Medication Instructions Recorded Metoprolol Tartrate [Lopressor] 50 mg PO BID #60 tab 03/01/22 amLODIPine [Norvasc] 5 mg PO DAILY #30 tab 06/24/22 Folic Acid 1 mg PO DAILY tab 05/17/24 Heparin Sodium,Porcine (1 ml) 5,000 unit SQ Q12HR each 05/17/24 [Heparin Sodium] Thiamine [Vitamin B-1] 100 mg PO DAILY tab 05/17/24 Allergies Allergy/AdvReac Type Severity Reaction Status Date / Time lisinopril Allergy Anaphylaxis Verified 05/29/24 09:40 Review of Systems ROS Statement: Those systems with pertinent positive or pertinent negative responses have been documented in the HPI. ROS Other: All systems not noted in ROS Statement are negative. Past Medical History Past Medical History: Coronary Artery Disease (CAD), COPD, CVA/TIA, Seizure Disorder Additional Past Medical History / Comment(s): chronic bronchitis History of Any Multi-Drug Resistant Organisms: None Reported Past Surgical History: Tonsillectomy Additional Past Surgical History / Comment(s): tubes in ears at a young age- unsure if he had this Past Anesthesia/Blood Transfusion Reactions: No Reported Reaction Past Psychological History: No Psychological Hx Reported Smoking Status: Current every day smoker Past Alcohol Use History: Daily Past Drug Use History: None Reported - Past Family History Father History Unknown: Yes Additional Family Medical History / Comment(s): "his heart stopped" General Exam - General Exam Comments Initial Comments: GENERAL: Patient is well-developed and well-nourished. Patient is nontoxic and well- hydrated and is in severe distress. ENT: Neck is soft and supple. No significant lymphadenopathy is noted. Oropharynx is clear. Moist mucous membranes. Neck has full range of motion without eliciting any pain. EYES: The sclera were anicteric and conjunctiva were pink and moist. Extraocular movements were intact and pupils were equal round and reactive to light. Eyelids were unremarkable. PULMONARY: Significantly diminished breath sounds CARDIOVASCULAR: Heart rate is 160 beats a minute ABDOMEN: Soft and nontender with normal bowel sounds. SKIN: Skin is clear with no lesions or rashes and otherwise unremarkable. NEUROLOGIC: Patient is alert and oriented x3. Cranial nerves II through XII are grossly intact. Motor and sensory are also intact. Normal speech, volume and content. Symmetrical smile. MUSCULOSKELETAL: Normal extremities with adequate strength and full range of motion. No lower extremity swelling or edema. No calf tenderness. LYMPHATICS: No significant lymphadenopathy is noted PSYCHIATRIC: Normal psychiatric evaluation. Limitations: no limitations Course Vital Signs 05/29/24 05/29/24 05/29/24 08:08 08:13 08:18 Temperature 98.0 F 103.4 F H Pulse Rate 161 H 152 H Respiratory 28 H 30 H 30 H Rate Blood Pressure 132/87 O2 Sat by Pulse 92 L 97 Oximetry Fraction of Inspired Oxygen (FIO2) 05/29/24 05/29/24 05/29/24 08:30 08:33 08:45 Temperature Pulse Rate 134 H 129 H Respiratory 26 H 28 H Rate Blood Pressure 88/64 85/71 O2 Sat by Pulse 100 100 Oximetry Fraction of 90 Inspired Oxygen (FIO2) 05/29/24 05/29/24 05/29/24 09:01 09:06 09:15 Temperature Pulse Rate 116 H 112 H Respiratory 22 Rate Blood Pressure 93/66 O2 Sat by Pulse 99 Oximetry Fraction of 80 Inspired Oxygen (FIO2) 05/29/24 05/29/24 05/29/24 09:20 09:32 09:48 Temperature 102.1 F H Pulse Rate 117 H 112 H 110 H Respiratory 22 20 Rate Blood Pressure 80/62 93/58 O2 Sat by Pulse 99 99 Oximetry Fraction of Inspired Oxygen (FIO2) 05/29/24 10:20 Temperature Pulse Rate 106 H Respiratory 18 Rate Blood Pressure 99/60 O2 Sat by Pulse 100 Oximetry Fraction of Inspired Oxygen (FIO2) Procedures - Sepsis Sepsis Focused Exam #1 Time Sepsis Criteria Met: 10:00 Sepsis Focused Exam Date: 05/29/24 Sepsis Focused Exam Time: 10:21 Sepsis Focused Exam Complete: Yes Vital Signs & RN Notes Reviewed: Yes Capillary Refill: < 2 Seconds: Fingers Peripheral Pulses: Normal: Radial (R) Skin Color: Normal for Patient Respiratory Exam: normal lung sounds Cardiovascular Exam: tachycardia Medical Decision Making - Medical Decision Making EKG is interpreted by myself but EKG shows sinus tachycardia 152 bpm TX was 124 QRS is 81 QT interval 306 QTc is 392. Patient's EKG shows no ST segment elevation or depression Was pt. sent in by a medical professional or institution (ARELY Lenz, DIRECTOR TRADE, urgent care, hospital, or shelter...) When possible be specific @ -No Did you speak to anyone other than the patient for history (EMS, parent, family, police, friend...)? What history was obtained from this source @ -No Did you review nursing and triage notes (agree or disagree)? Why? @ -I reviewed and agree with nursing and triage notes Were old charts reviewed (outside hosp., previous admission, EMS record, old EKG, old radiological studies, urgent care reports/EKG's, shelter records)? Report findings @ -No old charts were reviewed Differential Diagnosis? @ -Differential Dyspnea: Coronary syndrome, arrhythmia, tamponade, asthma, COPD, pulmonary embolism, pneumonia, pneumothorax, pulmonary effusion, anaphylaxis, diabetic ketoacidosis, flailed chest, pulmonary contusion, diaphragmatic rupture, anemia, neuromuscular, this is not meant to be an all-inclusive list. EKG interpreted by me (3pts min.). @ -As above X-rays interpreted by me (1pt min.). @ -Chest x-ray shows multilobar infiltrates on the left CT interpreted by me (1pt min.). @ -None done U/S interpreted by me (1pt. min.). @ -None done What testing was considered but not performed or refused? (CT, X-rays, U/S, labs)? Why? @ -None What meds were considered but not given or refused? Why? @ -None Did you discuss the management of the patient with other professionals (professionals i.e. ARELY Lenz, DIRECTOR TRADE, lab, RT, psych nurse, social media director, ops analyst, teacher, correction officer, case management coordinator)? Give summary @ -I spoke with [facility] hospitalist they agreed to admit the patient made the patient wrote admitting orders. I spoke with Dr. Sam he agreed to admit the patient to the ICU. Was smoking cessation discussed for >3mins.? @ -No Was critical care preformed (if so, how long)? @ -35 minutes Were there social determinants of health that impacted care today? How? (Homelessness, low income, unemployed, alcoholism, drug addiction, transportation, low edu. Level, literacy, decrease access to med. care, custodial, rehab)? @ -No Was there de-escalation of care discussed even if they declined (Discuss DNR or withdrawal of care, Hospice)? DNR status @ -No What co-morbidities impacted this encounter? (DM, HTN, Smoking, COPD, CAD, Cancer, CVA, ARF, Chemo, Hep., AIDS, mental health diagnosis, sleep apnea, morbid obesity)? @ -None Was patient admitted / discharged? Hospital course, mention meds given and route, prescriptions, significant lab abnormalities, going to OR and other pertinent info. @ -Patient indicated to me that he was no CT as needed no intubation when patient arrived we put him on high flow oxygen because he states he could not tolerate BiPAP. So patient was put on high flow and it helped considerably he is heart rate went from 1 50-1 20 he was feeling much better. Patient's received 2 L of fluid antibiotics and will be admitted to [facility]. Undiagnosed new problem with uncertain prognosis? @ -No Drug Therapy requiring intensive monitoring for toxicity (Heparin, Nitro, Insul in, Cardizem)? @ -No Were any procedures done? @ -No Diagnosis/symptom? @ -Multilobar pneumonia Acute, or Chronic, or Acute on Chronic? @ -Acute Uncomplicated (without systemic symptoms) or Complicated (systemic symptoms)? @ -Complicated Side effects of treatment? @ -No Exacerbation, Progression, or Severe Exacerbation? @ -No Poses a threat to life or bodily function? How? (Chest pain, USA, MD, pneumonia, PE, COPD, DKA, ARF, appy, cholecystitis, CVA, Diverticulitis, Homicidal, Suicidal, threat to staff... and all critical care pts) @ -Yes this can lead to poor perfusion and Diagnosis/symptom? @ -Septic shock Acute, or Chronic, or Acute on Chronic? @ -Acute Uncomplicated (without systemic symptoms) or Complicated (systemic symptoms)? @ -Complicated Side effects of treatment? @ -None Exacerbation, Progression, or Severe Exacerbation] @ -No Poses a threat to life or bodily function? @ -Yes this can lead to poor perfusion and - Lab Data Result diagrams: 05/29/24 08:24 05/29/24 08:24 Lab Results 05/29/24 05/29/24 05/29/24 Range/Units 08:24 08:24 08:24 WBC 32.5 H (3.8-10.6) k/uL RBC 4.01 L (4.30-5.90) m/uL Hgb 14.5 (13.0-17.5) gm/dL Hct 44.7 (39.0-53.0) % MCV 111.7 H (80.0-100.0) fL MCH 36.3 H (25.0-35.0) pg MCHC 32.5 (31.0-37.0) g/dL RDW 13.7 (11.5-15.5) % Plt Count 701 H D (150-450) k/uL MPV 8.0 Neutrophils % 83 % Lymphocytes % 12 % Monocytes % 2 % Eosinophils % 1 % Basophils % 0 % Neutrophils # 27.1 H (1.3-7.7) k/uL Lymphocytes # 4.0 (1.0-4.8) k/uL Monocytes # 0.7 (0-1.0) k/uL Eosinophils # 0.3 (0-0.7) k/uL Basophils # 0.1 (0-0.2) k/uL Manual Slide Review Performed Macrocytosis Marked A PT 10.2 (10.0-12.5) sec INR 0.9 (<1.2) APTT 20.0 L (22.0-30.0) sec VBG pH (7.31-7.41) VBG pCO2 (37-51) mmHg VBG HCO3 (24-28) mmol/L Sodium 138 (137-145) mmol/L Potassium 4.8 (3.5-5.1) mmol/L Chloride 100 (98-107) mmol/L Carbon Dioxide 24 (22-30) mmol/L Anion Gap 14 mmol/L BUN 22 H (9-20) mg/dL Creatinine 0.72 (0.66-1.25) mg/dL Est GFR (CKD-EPI)AfAm >90 (>60 ml/min/1.73 sqM) Est GFR (CKD-EPI)NonAf >90 (>60 ml/min/1.73 sqM) Glucose 124 H (74-99) mg/dL Plasma Lactic Acid Sagar (0.7-2.0) mmol/L Calcium 9.7 (8.4-10.2) mg/dL Magnesium 1.5 L (1.6-2.3) mg/dL Total Bilirubin 1.0 (0.2-1.3) mg/dL AST 27 (17-59) U/L ALT 39 (4-49) U/L Alkaline Phosphatase 68 (38-126) U/L Troponin I (0.000-0.034) ng/mL NT-Pro-B Natriuret Pep 297 pg/mL Total Protein 6.6 (6.3-8.2) g/dL Albumin 4.4 (3.5-5.0) g/dL Influenza Type A (PCR) (Not Detectd) Influenza Type B (PCR) (Not Detectd) RSV (PCR) (Not Detectd) SARS-CoV-2 (PCR) (Not Detectd) 05/29/24 05/29/24 05/29/24 Range/Units 08:24 08:24 08:24 WBC (3.8-10.6) k/uL RBC (4.30-5.90) m/uL Hgb (13.0-17.5) gm/dL Hct (39.0-53.0) % MCV (80.0-100.0) fL MCH (25.0-35.0) pg MCHC (31.0-37.0) g/dL RDW (11.5-15.5) % Plt Count (150-450) k/uL MPV Neutrophils % % Lymphocytes % % Monocytes % % Eosinophils % % Basophils % % Neutrophils # (1.3-7.7) k/uL Lymphocytes # (1.0-4.8) k/uL Monocytes # (0-1.0) k/uL Eosinophils # (0-0.7) k/uL Basophils # (0-0.2) k/uL Manual Slide Review Macrocytosis PT (10.0-12.5) sec INR (<1.2) APTT (22.0-30.0) sec VBG pH (7.31-7.41) VBG pCO2 (37-51) mmHg VBG HCO3 (24-28) mmol/L Sodium (137-145) mmol/L Potassium (3.5-5.1) mmol/L Chloride (98-107) mmol/L Carbon Dioxide (22-30) mmol/L Anion Gap mmol/L BUN (9-20) mg/dL Creatinine (0.66-1.25) mg/dL Est GFR (CKD-EPI)AfAm (>60 ml/min/1.73 sqM) Est GFR (CKD-EPI)NonAf (>60 ml/min/1.73 sqM) Glucose (74-99) mg/dL Plasma Lactic Acid Sagar 4.5 H* (0.7-2.0) mmol/L Calcium (8.4-10.2) mg/dL Magnesium (1.6-2.3) mg/dL Total Bilirubin (0.2-1.3) mg/dL AST (17-59) U/L ALT (4-49) U/L Alkaline Phosphatase (38-126) U/L Troponin I <0.012 (0.000-0.034) ng/mL NT-Pro-B Natriuret Pep pg/mL Total Protein (6.3-8.2) g/dL Albumin (3.5-5.0) g/dL Influenza Type A (PCR) Not Detected (Not Detectd) Influenza Type B (PCR) Not Detected (Not Detectd) RSV (PCR) Not Detected (Not Detectd) SARS-CoV-2 (PCR) Not Detected (Not Detectd) 05/29/24 Range/Units 08:28 WBC (3.8-10.6) k/uL RBC (4.30-5.90) m/uL Hgb (13.0-17.5) gm/dL Hct (39.0-53.0) % MCV (80.0-100.0) fL MCH (25.0-35.0) pg MCHC (31.0-37.0) g/dL RDW (11.5-15.5) % Plt Count (150-450) k/uL MPV Neutrophils % % Lymphocytes % % Monocytes % % Eosinophils % % Basophils % % Neutrophils # (1.3-7.7) k/uL Lymphocytes # (1.0-4.8) k/uL Monocytes # (0-1.0) k/uL Eosinophils # (0-0.7) k/uL Basophils # (0-0.2) k/uL Manual Slide Review Macrocytosis PT (10.0-12.5) sec INR (<1.2) APTT (22.0-30.0) sec VBG pH 7.24 L (7.31-7.41) VBG pCO2 57 H (37-51) mmHg VBG HCO3 25 (24-28) mmol/L Sodium (137-145) mmol/L Potassium (3.5-5.1) mmol/L Chloride (98-107) mmol/L Carbon Dioxide (22-30) mmol/L Anion Gap mmol/L BUN (9-20) mg/dL Creatinine (0.66-1.25) mg/dL Est GFR (CKD-EPI)AfAm (>60 ml/min/1.73 sqM) Est GFR (CKD-EPI)NonAf (>60 ml/min/1.73 sqM) Glucose (74-99) mg/dL Plasma Lactic Acid Sagar (0.7-2.0) mmol/L Calcium (8.4-10.2) mg/dL Magnesium (1.6-2.3) mg/dL Total Bilirubin (0.2-1.3) mg/dL AST (17-59) U/L ALT (4-49) U/L Alkaline Phosphatase (38-126) U/L Troponin I (0.000-0.034) ng/mL NT-Pro-B Natriuret Pep pg/mL Total Protein (6.3-8.2) g/dL Albumin (3.5-5.0) g/dL Influenza Type A (PCR) (Not Detectd) Influenza Type B (PCR) (Not Detectd) RSV (PCR) (Not Detectd) SARS-CoV-2 (PCR) (Not Detectd) Disposition Clinical Impression: Septic shock, Pneumonia Disposition: ADMITTED IP TO THIS HOSP Referrals: Caridad Malone DO [Primary Care Provider] - 1-2 days Time of Disposition: 10:20
[2024-05-29] MEDS: IBUPROFEN 600 MG TAB PO STA (08:30)
[2024-05-29] MEDS: LACTATED RINGERS 1,000 ML IV ONE ×2 (08:33→09:30)
[2024-05-29] MEDS: methylPREDNISolone SOD SUCCI 125 MG/2 ML VIAL IV STA (08:34)
[2024-05-29] MEDS: cefTRIAXone IN SWFI 1,000 MG/10 ML SYRINGE IVP STA ×2 (08:37→08:38)
[2024-05-29 08:47] LABS: Basophils # (A) 0.1 k/uL (0-0.2); Basophils % (A) 0 %; Eosinophils # (A) 0.3 k/uL (0-0.7); Eosinophils % (A) 1 %; HCT 44.7 % (39.0-53.0); HGB 14.5 gm/dL (13.0-17.5); Lymphocytes % (A) 12 %; MCH 36.3 pg (25.0-35.0); MCHC 32.5 g/dL (31.0-37.0); MCV 111.7 fL (80.0-100.0); Macrocytosis Marked; Monocytes # (A) 0.7 k/uL (0-1.0); Monocytes % (A) 2 %; Neutrophils # (A) 27.1 k/uL (1.3-7.7); Neutrophils % (A) 83 %; RBC 4.01 m/uL (4.30-5.90); RDW 13.7 % (11.5-15.5); WBC 32.5 k/uL (3.8-10.6)
[2024-05-29 08:52] LABS: AST 27 U/L (17-59); African American GFR (CKD) >90 (>60 ml/min/1.73 sqM); Albumin 4.4 g/dL (3.5-5.0); Alkaline Phosphatase 68 U/L (38-126); Anion Gap 14 mmol/L; Blood Urea Nitrogen 22 mg/dL (9-20); Calcium 9.7 mg/dL (8.4-10.2); Carbon Dioxide 24 mmol/L (22-30); Chloride 100 mmol/L (98-107); Glucose 124 mg/dL (74-99); Magnesium 1.5 mg/dL (1.6-2.3); Non-African American GFR(CKD) >90 (>60 ml/min/1.73 sqM); Potassium 4.8 mmol/L (3.5-5.1); Sodium 138 mmol/L (137-145); Total Protein 6.6 g/dL (6.3-8.2)
[2024-05-29 08:57] LABS: INR 0.9 (<1.2); Prothrombin Time 10.2 sec (10.0-12.5)
[2024-05-29 09:00] LABS: Platelet Count 701 k/uL (150-450)
[2024-05-29 09:01] LABS: VBG PH 7.24 (7.31-7.41)
[2024-05-29 09:01] LABS: NT-Pro-B-Type Natriuretic Pept 297 pg/mL
[2024-05-29] MEDS: ALBUTEROL NEBULIZED 2.5 MG/3 ML INHALATION STA (09:05)
[2024-05-29] MEDS: IPRATROPIUM 0.5 MG/2.5 ML NEBU INHALATION STA (09:05)
[2024-05-29 09:07] LABS: ALT 39 U/L (4-49)
[2024-05-29 09:15] LABS: Influenza A Not Detected (Not Detectd); Influenza B Not Detected (Not Detectd); RSV Not Detected (Not Detectd)
--- NOTE | 2024-05-29 09:16 | XR ---
EXAMINATION TYPE: XR chest 1V DATE OF EXAM: 05/29/2024 COMPARISON: Chest x-ray May 15, 2024 CLINICAL INDICATION: Male, 68 years old with history of difficulty breathing; TECHNIQUE: Single frontal view of the chest is obtained. FINDINGS: There is chronic emphysematous change redemonstrated. There is new multifocal left lung i ncreased opacity. The cardiac silhouette size is stable and within normal limits with atherosclerotic change in the aortic knob redemonstrated. The osseous structures are intact. IMPRESSION: Chronic emphysematous change with new multifocal left lung acute infiltrates and/or magda a. Progress study advised. [facility], , 05/29/2024 9:14 AM
[2024-05-29] MEDS ORDERED: VANCOMYCIN IV PER PHARMACY 1 EACH MISC MISCELLANE PRN ×2 (10:22→10:48)
[2024-05-29] MEDS ORDERED: PNEUMONIA PROTOCOL UTILIZED 1 EACH MISC PO PRN (10:23)
[2024-05-29] MEDS: VANCOMYCIN 1,000 MG in SODIUM CHLORIDE 0.9% 250 ML IVPB ONE (10:42)
[2024-05-29] MEDS: MAGNESIUM SULFATE-D5W PMX 1 GM in DEXTROSE/WATER 1 100ML.BAG IVPB ONE (10:46)
[2024-05-29] MEDS: HYDROCORTISONE SUCCINATE 100 MG/2 ML VIAL IV STA (10:49)
[2024-05-29] MEDS: methylPREDNISolone SOD SUCCI 40 MG/ML 1 ML VIAL IV SCH (11:04)
[2024-05-29] MEDS: AZITHROMYCIN 500 MG in SODIUM CHLORIDE 0.9% 250 ML IVPB STA (11:10)
[2024-05-29] MEDS ORDERED: CEFEPIME 2 GM in SODIUM CHLORIDE 0.9% 100 ML IVPB SCH (11:30)
[2024-05-29] MEDS: SODIUM CHLORIDE 0.9% 1,000 ML IV SCH (11:30)
[2024-05-29] MEDS: CEFEPIME 2 GM in SODIUM CHLORIDE 0.9% 100 ML IVPB SCH (12:07)
[2024-05-29] MEDS: ENOXAPARIN 40 MG/0.4 ML SYRINGE SQ SCH (12:10)
[2024-05-29] MEDS ORDERED: MAGNESIUM HYDROXIDE 2,400 MG/30 ML CUP PO PRN (13:45)
[2024-05-29] MEDS ORDERED: bisacodyL 10 MG SUPP RECTAL PRN (13:45)
[2024-05-29] MEDS ORDERED: ALBUTEROL HFA INHALER INHALATION PRN (13:45)
[2024-05-29] MEDS ORDERED: NA PHOS,M-B/NA PHOS,DI-BA 133 ML ENEMA RECTAL PRN (13:45)
[2024-05-29] MEDS: MORPHINE SULFATE 2 MG/ML SYRINGE IVP PRN (14:37)
[2024-05-29] MEDS: IPRATROPIUM-ALBUTEROL 3 ML NEB INHALATION PRN (14:58)
--- NOTE | 2024-05-29 15:29 | P.HPIM ---
History of Present Illness H&P Date: 05/29/24 Patient is a 68-year-old female with history of CVA, COPD (not on home oxygen), nicotine and alcohol use, hypertension and hyperlipidemia is brought to the ER via EMS from [facility]. Patient patient states that he was endorsing cough last night which was associated with left-sided back and chest pain as well as shortness of breath which prompted him to come to the ER this morning for further evaluation. He describes his cough as productive with clear thick sputum. His pain in the left side of the chest and back is worse with cough which makes him difficult to breathe. Patient was recently hospitalized for shortness of breath and generalized weakness and was found to be positive for influenza A infection and UTI. He was treated with course of IV ceftriaxone and Tamiflu. He also had a brief stay in the ICU. Patient was discharged for subacute rehab at [facility]. Patient denies history of CAD, recent travel, sick contacts, VTE. Currently at the time of interview patient continues to experience 9 out of 10, sharp left-sided chest pain associated with mild shortness of breath which is nonradiating. Laboratory evaluation in the ER shows WBC 32.5, RBC 4.01, hemoglobin 14.5, MCV under 11.7, platelet count 71, neutrophil count 27.1, PT 10.2, INR was 0.9, APTT 20.0, blood gas shows pH 7.24, pCO2 57, HCO3 25, sodium 138, potassium 4.8, chloride 100, bicarb 24, BUN 22, creatinine 0.72, glucose 124, lactic acid 4.5 (reflex to 3.5), calcium 9.7, magnesium 1.5, total bilirubin 1.0, AST 27, ALT 39, troponin less than 0.012, NT proBNP 297. Serology negative for influenza type A, type B, RSV, COVID-19. Chest x-ray shows chronic emphysematous changes with new multifocal in left lung. EKG shows sinus tachycardia with ventricular rate of 152 bpm, RI interval 124 ms, QRS duration of 81 ms, QTc 392 ms. Normal R wave progression. Vitals on arrival Tmax 103.4 F, pulse rate 152, respirate 30, oxygen 97% on nonrebreather at 12 L of O2 Review of systems: Pertinent positives and negatives as discussed in HPI, a complete review of systems was performed and all other systems are negative. Social history: Tobacco: Chronic smoker, daily Alcohol: Chronic drinker daily; Last drink 1 month ago Recreational drugs: None Travel: None Physical examination: Vital signs reviewed General: non toxic, no distress, appears at older than stated age, chronically ill looking Derm: no unusual rashes/lesions, warm Head: atraumatic, normocephalic, symmetric Eyes: EOMI, no lid lag, anicteric sclera, pupils equal round reactive to light ENT: Nose and ears atraumatic Neck: No cervical lymphadenopathy, trachea midline, supple Mouth: no lip lesion, mucus membranes moist Cardiovascular: S1S2 reg, no murmur, positive dorsalis pedis pulse bilateral, no edema, left-sided chest tenderness upon palpation Lungs: Decreased breath sounds at the left midlung, no rhonchi, no rales, no accessory muscle use Abdominal: soft, nontender to palpation, no guarding Ext: muscle strength 5 out of 5 in all 4 extremities grossly, no gross muscle atrophy, no contractures, Neuro: CN II-XI grossly intact, no gross focal neuro deficits Psych: Alert, oriented, appropriate affect Assessment/Plan: This is a Patient is a 68-year-old female with history of CVA, COPD, nicotine and alcohol use, hypertension and hyperlipidemia was admitted to the hospital with complaint of shortness of breath. Case was discussed with the Emergency Room provider and decision was made to admit the patient for community-acquired pneumonia Labs and images: Laboratory evaluation in the ER shows WBC 32.5, RBC 4.01, hemoglobin 14.5, MCV under 11.7, platelet count 71, neutrophil count 27.1, PT 10.2, INR was 0.9, APTT 20.0, blood gas shows pH 7.24, pCO2 57, HCO3 25, sodium 138, potassium 4.8, c hloride 100, bicarb 24, BUN 22, creatinine 0.72, glucose 124, lactic acid 4.5 (reflex to 3.5), calcium 9.7, magnesium 1.5, total bilirubin 1.0, AST 27, ALT 39, troponin less than 0.012, NT proBNP 297. Serology negative for influenza type A, type B, RSV, COVID-19. Chest x-ray shows chronic emphysematous changes with new multifocal in left lung. EKG shows sinus tachycardia with ventricular rate of 152 bpm, RI interval 124 ms, QRS duration of 81 ms, QTc 392 ms. Normal R wave progression. Active: #Community-acquired pneumonia versus hospital-acquired pneumonia #Sepsis secondary to pneumonia as above #Lactic acidosis secondary to above #Acute on chronic hypoxic respiratory failure #COPD exacerbation #Left-sided chest pain secondary above Start patient on cefepime 2 g IVPB every 8 hours, Zithromax 500 mg p.o. daily, vancomycin 1000 mg IVPB every 12 hours for empiric coverage including Pseudomonas and MRSA Order urine culture, blood culture, urine Legionella antigen, procalcitonin, MRSA/MSSA screening Order D-dimer Continue with IV normal saline at 75 cc/h IV Solu-Medrol 40 mg every 12 hours DuoNebs as needed, resume Symbicort and Trelegy Ellipta Consult pulmonology and infectious disease Chest x-ray in the morning tomorrow Morphine 2 mg IVP every 4 hours as needed #Hyperglycemia Accu-Cheks and sliding scale insulin Order HbA1c Monitor for hypoglycemia #Macrocytosis At baseline Vitamin B12 517 and RBC folate 653 on 05/12/2024 Monitor CBC #Thrombocytosis Continue monitor with CBC #Hypomagnesemia Patient is status post 1 g of mag in ER Continue monitor magnesium Monitor BMP Chronic: #Chronic nicotine use #Chronic alcohol use #Hypertension #Constipation #Hyperlipidemia Resume thiamine 100 mg p.o. daily, nicotine patch, Lopressor 50 mg p.o. daily, atorvastatin 80 mg at bedtime, aspirin 81 mg p.o. daily DVT prophylaxis: Lovenox 40 mg subcu daily GI prophylaxis: Protonix 40 mg p.o. daily F: Normal saline drip 75 cc/h E: Replete as needed N: Regular diet A: Ambulatory baseline The patient is admitted with an anticipated more than than 2 midnight stay for evaluation of community-acquired versus hospital-acquired pneumonia with sepsis CODE STATUS: No code Discussed with: Patient Anticipated discharge place: Pending clinical course Dictation was produced using [employer] dictation software. Please excuse any grammatical, word or spelling errors. Attestation I have seen and examined this patient with my resident , discussed the same with the resident/FABI, and agree with the dictator's assessment and plan as written GENERAL: The patient is alert and oriented x3, ill looking HEENT: Pupils are round and equally reacting to light. EOMI. No scleral icterus. No conjunctival pallor. Normocephalic, atraumatic. No pharyngeal erythema. No thyromegaly. CARDIOVASCULAR: S1 and S2 present. No murmurs, rubs, or gallops. PULMONARY: Tachypneic, coarse breath bilaterally, crackles audible at the bases ABDOMEN: Soft, nontender, nondistended, normoactive bowel sounds. No palpable organomegaly. MUSCULOSKELETAL: No joint swelling or deformity. EXTREMITIES: No cyanosis, clubbing, or pedal edema. NEUROLOGICAL: Gross neurological examination did not reveal any focal deficits. SKIN: No rashes. Dr. Сергей hodges Past Medical History Past Medical History: Coronary Artery Disease (CAD), COPD, CVA/TIA, Seizure Disorder Additional Past Medical History / Comment(s): chronic bronchitis History of Any Multi-Drug Resistant Organisms: None Reported Past Surgical History: Tonsillectomy Additional Past Surgical History / Comment(s): tubes in ears at a young age- unsure if he had this Past Anesthesia/Blood Transfusion Reactions: No Reported Reaction Past Psychological History: No Psychological Hx Reported Smoking Status: Current every day smoker Past Alcohol Use History: Daily Past Drug Use History: None Reported - Past Family History Father History Unknown: Yes Additional Family Medical History / Comment(s): "his heart stopped" Medications and Allergies Home Medications Medication Instructions Recorded Confirmed Type Albuterol Sulfate [Ventolin HFA] 2 puff INHALATION RT-Q4H PRN 02/25/22 05/29/24 History Fluticasone/Umeclidin/Vilanter 1 puff INHALATION RT-DAILY 02/25/22 05/29/24 History [Trelegy Ellipta 200-62.5-25] Metoprolol Tartrate [Lopressor] 50 mg PO BID #60 tab 03/01/22 05/29/24 Rx amLODIPine [Norvasc] 5 mg PO DAILY #30 tab 06/24/22 05/29/24 Rx Acetaminophen Tab [Tylenol] 1,000 mg PO Q8H PRN 05/11/24 05/29/24 History Folic Acid 1 mg PO DAILY tab 05/17/24 05/29/24 Rx Heparin Sodium,Porcine (1 ml) 5,000 unit SQ Q12HR each 05/17/24 05/29/24 Rx [Heparin Sodium] Thiamine [Vitamin B-1] 100 mg PO DAILY tab 05/17/24 05/29/24 Rx Aspirin EC [Ecotrin Low Dose] 81 mg PO DAILY 05/29/24 05/29/24 History Atorvastatin [Lipitor] 80 mg PO HS 05/29/24 05/29/24 History [place] Breakfast 1 packet PO DAILY 05/29/24 05/29/24 History Famotidine [Pepcid] 20 mg PO DAILY@1700 05/29/24 05/29/24 History Ipratropium-Albuterol Nebulize 3 ml INHALATION RT-Q6H 05/29/24 05/29/24 History [Duoneb 0.5 mg-3 mg/3 ml Soln] Magnesium Hydroxide [Milk of 7,200 mg PO DAILY PRN 05/29/24 05/29/24 History Magnesia Concentrate] Multivitamins, Thera [Multivitamin 1 tab PO DAILY 05/29/24 05/29/24 History (formulary)] Na Phos,M-B/Na Phos,Di-Ba [Fleet 133 ml RECTAL DAILY PRN 05/29/24 05/29/24 History Adult] Nicotine 21Mg/24Hr Patch [Habitrol] 1 patch TRANSDERM DAILY 05/29/24 05/29/24 History bisacodyL [Dulcolax] 10 mg RECTAL DAILY PRN 05/29/24 05/29/24 History Allergies Allergy/AdvReac Type Severity Reaction Status Date / Time lisinopril Allergy Anaphylaxis Verified 05/29/24 09:40 Physical Exam Vitals: Vital Signs Temp Pulse Resp BP Pulse Ox FiO2 05/29/24 15:13 125 H 05/29/24 15:00 125 H 99 70 05/29/24 14:33 137 H 32 H 99 05/29/24 14:07 129 H 22 141/81 100 05/29/24 12:40 108 H 18 100 05/29/24 11:34 99 80 05/29/24 11:33 102 H 20 126/80 100 05/29/24 10:53 98.8 F 101 H 20 103/61 100 05/29/24 10:20 106 H 18 99/60 100 05/29/24 09:48 102.1 F H 110 H 20 93/58 99 05/29/24 09:32 112 H 22 80/62 99 05/29/24 09:20 117 H 05/29/24 09:15 112 H 22 93/66 99 05/29/24 09:06 116 H 05/29/24 09:01 80 05/29/24 08:45 129 H 28 H 85/71 100 05/29/24 08:33 134 H 26 H 88/64 100 05/29/24 08:30 90 05/29/24 08:18 103.4 F H 152 H 30 H 97 05/29/24 08:13 30 H 05/29/24 08:08 98.0 F 161 H 28 H 132/87 92 L Intake and Output 05/29/24 05/29/24 05/29/24 06:59 14:59 22:59 Other: Weight 54.431 kg Results CBC & Chem 7: 05/29/24 08:24 05/29/24 08:24 Labs: Abnormal Lab Results - Last 24 Hours (Table) 05/29/24 05/29/24 05/29/24 Range/Units 08:24 08:24 08:24 WBC 32.5 H (3.8-10.6) k/uL RBC 4.01 L (4.30-5.90) m/uL MCV 111.7 H (80.0-100.0) fL MCH 36.3 H (25.0-35.0) pg Plt Count 701 H D (150-450) k/uL Neutrophils # 27.1 H (1.3-7.7) k/uL Macrocytosis Marked A APTT 20.0 L (22.0-30.0) sec D-Dimer (<0.60) mg/L FEU VBG pH (7.31-7.41) VBG pCO2 (37-51) mmHg BUN 22 H (9-20) mg/dL Glucose 124 H (74-99) mg/dL Plasma Lactic Acid Sagar (0.7-2.0) mmol/L Magnesium 1.5 L (1.6-2.3) mg/dL 05/29/24 05/29/24 05/29/24 Range/Units 08:24 08:28 11:15 WBC (3.8-10.6) k/uL RBC (4.30-5.90) m/uL MCV (80.0-100.0) fL MCH (25.0-35.0) pg Plt Count (150-450) k/uL Neutrophils # (1.3-7.7) k/uL Macrocytosis APTT (22.0-30.0) sec D-Dimer (<0.60) mg/L FEU VBG pH 7.24 L (7.31-7.41) VBG pCO2 57 H (37-51) mmHg BUN (9-20) mg/dL Glucose (74-99) mg/dL Plasma Lactic Acid Sagar 4.5 H* 3.5 H* (0.7-2.0) mmol/L Magnesium (1.6-2.3) mg/dL 05/29/24 Range/Units 14:23 WBC (3.8-10.6) k/uL RBC (4.30-5.90) m/uL MCV (80.0-100.0) fL MCH (25.0-35.0) pg Plt Count (150-450) k/uL Neutrophils # (1.3-7.7) k/uL Macrocytosis APTT (22.0-30.0) sec D-Dimer 1.62 H (<0.60) mg/L FEU VBG pH (7.31-7.41) VBG pCO2 (37-51) mmHg BUN (9-20) mg/dL Glucose (74-99) mg/dL Plasma Lactic Acid Sagar (0.7-2.0) mmol/L Magnesium (1.6-2.3) mg/dL
[2024-05-29] MEDS ORDERED: DEXTROSE 50% SYRINGE 50 ML IVP PRN ×2 (16:14)
[2024-05-29 16:24] LABS: Glucose,Whole Blood 116 mg/dL (70-110)
[2024-05-29] MEDS: THIAMINE 100 MG TAB PO SCH (16:30)
[2024-05-29] MEDS: PANTOPRAZOLE 40 MG TABLET PO SCH (16:30)
[2024-05-29] MEDS: FAMOTIDINE 20 MG TAB PO SCH (16:30)
[2024-05-29] MEDS: ACETAMINOPHEN TAB 500 MG TAB PO PRN (16:51)
[2024-05-29] MEDS: INSULIN LISPRO (HumaLOG) 100 UNIT/ML 10 mL VL SQ SCH (16:51)
[2024-05-29] MEDS: LORazepam 2 MG/ML INJ IV STA ×2 (17:39)
--- NOTE | 2024-05-29 17:52 | P.CNPUL ---
History of Present Illness Consult date: 05/29/24 Reason for consult: dyspnea History of present illness: This is a 68-year-old male patient, presented to the emergency department with worsening shortness of breath. Noted, the patient was in the hospital back in April 2024 for an acute COPD exacerbation due to influenza A infection. At that time, the patient was treated and the patient was ultimately discharged on 05/17/2024 for further rehabilitation following this an acute COPD exacerbation. He has history of alcoholism and the patient has not drank alcohol for the past month. He is known to have coronary artery disease with previous coronary stenting, hypertension, COPD and previous history of smoking. The patient presents to the emergency department with acute hypoxic respiratory failure. The patient was also febrile with a Tmax of 103.2. The patient was placed on Airvo and currently is on Airvo 60 L with an FiO2 of 70% with a pulse ox of 95%. Chest x-ray was done and it showed COPD changes bilaterally in addition to new multifocal left lung pulmonary infiltrates consistent with pneumonia, likely bacterial in nature. His white cell count is 32.5 anemia 14.5 and a platelet count of 71. Coagulation profile is showing a PTT of 20, INR 0.9, D-dimer is at 1.62. Electrolytes are normal. BUN is 22 with a creatinine of 0.7. Lactic acid level venous samples were measured to be at 4.5, dropped down to 3.1. Troponins are negative. The viral screen came back negative. The patient was also having some underlying sinus tachycardia. Based on all this, the patient was started on broad-spectrum antibiotics. Started on a combination of cefepime and vancomycin. Started on bronchodilators and patient is also on IV Solu- Medrol 40 mg every 12 hours. Lovenox 40 mg subcu for DVT prophylaxis. Received IV fluids in the emergency and the patient is currently on normal saline at rate of 75 cc an hour. Received a total of 2 L of lactated Ringer. Review of Systems Constitutional: Reports fatigue, Reports fever, Reports weakness Eyes: denies as per HPI, denies blurred vision, denies bulging eye, denies decreased vision, denies diplopia, denies discharge, denies dry eye, denies irritation, denies itching, denies pain, denies photophobia, denies loss of peripheral vision, denies loss of vision, denies tunnel vision/blind spots Ears: deny: decreased hearing, ear discharge, earache, tinnitus Ears, nose, mouth and throat: Reports as per HPI Breasts: absent: as per HPI, gynecomastia Cardiovascular: Reports decreased exercise tolerance, Reports dyspnea on exertion Respiratory: Reports congestion, Reports cough, Reports cough with sputum, Reports dyspnea, Reports home oxygen, Reports respiratory infections, Reports wheezing Gastrointestinal: Reports as per HPI Genitourinary: Reports as per HPI Musculoskeletal: Reports as per HPI Musculoskeletal: absent: ankle pain, ankle stiffness, ankle swelling, as per HPI, elbow pain, elbow stiffness, elbow swelling, foot pain, foot stiffness, foot swelling, hand pain, hand stiffness, hand swelling, hip pain, hip stiffness, hip swelling, knee pain, knee stiffness, knee swelling, shoulder pain, shoulder stiffness, shoulder swelling, wrist pain, wrist stiffness, wrist swelling Integumentary: Reports as per HPI Neurological: Reports as per HPI Psychiatric: Reports as per HPI Endocrine: Reports as per HPI Hematologic/Lymphatic: Reports as per HPI Allergic/Immunologic: Reports as per HPI Past Medical History Past Medical History: Coronary Artery Disease (CAD), COPD, CVA/TIA, Seizure Disorder Additional Past Medical History / Comment(s): chronic bronchitis History of Any Multi-Drug Resistant Organisms: None Reported Past Surgical History: Tonsillectomy Additional Past Surgical History / Comment(s): tubes in ears at a young age- unsure if he had this Past Anesthesia/Blood Transfusion Reactions: No Reported Reaction Past Psychological History: No Psychological Hx Reported Smoking Status: Current every day smoker Past Alcohol Use History: Daily Past Drug Use History: None Reported - Past Family History Father History Unknown: Yes Additional Family Medical History / Comment(s): "his heart stopped" Medications and Allergies Home Medications Medication Instructions Recorded Confirmed Type Albuterol Sulfate [Ventolin HFA] 2 puff INHALATION RT-Q4H PRN 02/25/22 05/29/24 History Fluticasone/Umeclidin/Vilanter 1 puff INHALATION RT-DAILY 02/25/22 05/29/24 History [[place] Ellipta 200-62.5-25] Metoprolol Tartrate [Lopressor] 50 mg PO BID #60 tab 03/01/22 05/29/24 Rx amLODIPine [Norvasc] 5 mg PO DAILY #30 tab 06/24/22 05/29/24 Rx Acetaminophen Tab [Tylenol] 1,000 mg PO Q8H PRN 05/11/24 05/29/24 History Folic Acid 1 mg PO DAILY tab 05/17/24 05/29/24 Rx Heparin Sodium,Porcine (1 ml) 5,000 unit SQ Q12HR each 05/17/24 05/29/24 Rx [Heparin Sodium] Thiamine [Vitamin B-1] 100 mg PO DAILY tab 05/17/24 05/29/24 Rx Aspirin EC [Ecotrin Low Dose] 81 mg PO DAILY 05/29/24 05/29/24 History Atorvastatin [Lipitor] 80 mg PO HS 05/29/24 05/29/24 History [place] Breakfast 1 packet PO DAILY 05/29/24 05/29/24 History Famotidine [Pepcid] 20 mg PO DAILY@1700 05/29/24 05/29/24 History Ipratropium-Albuterol Nebulize 3 ml INHALATION RT-Q6H 05/29/24 05/29/24 History [Duoneb 0.5 mg-3 mg/3 ml Soln] Magnesium Hydroxide [Milk of 7,200 mg PO DAILY PRN 05/29/24 05/29/24 History Magnesia Concentrate] Multivitamins, Thera [Multivitamin 1 tab PO DAILY 05/29/24 05/29/24 History (formulary)] Na Phos,M-B/Na Phos,Di-Ba [Fleet 133 ml RECTAL DAILY PRN 05/29/24 05/29/24 History Adult] Nicotine 21Mg/24Hr Patch [Habitrol] 1 patch TRANSDERM DAILY 05/29/24 05/29/24 History bisacodyL [Dulcolax] 10 mg RECTAL DAILY PRN 05/29/24 05/29/24 History Allergies Allergy/AdvReac Type Severity Reaction Status Date / Time lisinopril Allergy Anaphylaxis Verified 05/29/24 09:40 Physical Exam Vitals: Vital Signs Temp Pulse Resp BP Pulse Ox FiO2 05/29/24 16:51 100.3 F H 05/29/24 15:52 99.4 F 126 H 26 H 125/75 99 05/29/24 15:13 125 H 05/29/24 15:00 125 H 99 70 05/29/24 14:33 137 H 32 H 99 05/29/24 14:07 129 H 22 141/81 100 05/29/24 12:40 108 H 18 100 05/29/24 11:34 99 80 05/29/24 11:33 102 H 20 126/80 100 05/29/24 10:53 98.8 F 101 H 20 103/61 100 05/29/24 10:20 106 H 18 99/60 100 05/29/24 09:48 102.1 F H 110 H 20 93/58 99 05/29/24 09:32 112 H 22 80/62 99 05/29/24 09:20 117 H 05/29/24 09:15 112 H 22 93/66 99 05/29/24 09:06 116 H 05/29/24 09:01 80 05/29/24 08:45 129 H 28 H 85/71 100 05/29/24 08:33 134 H 26 H 88/64 100 05/29/24 08:30 90 05/29/24 08:18 103.4 F H 152 H 30 H 97 05/29/24 08:13 30 H 05/29/24 08:08 98.0 F 161 H 28 H 132/87 92 L Intake and Output 05/29/24 05/29/24 05/29/24 06:59 14:59 22:59 Other: Weight 54.431 kg GENERAL EXAM: Awake, alert, thin 68-year-old male, in mild to moderate respiratory distress, currently on Airvo 60 L and FiO2 of 70% HEAD: Normocephalic. EYES: Normal reaction of pupils, equal size. NOSE: Clear with pink turbinates. THROAT: No erythema or exudates. NECK: No masses, no JVD. CHEST: No chest wall deformity. LUNGS: Equal air entry with end expiratory wheeze, diminished. CVS: S1 and S2 normal with no audible murmur, regular rhythm. Patient is in sinus tachycardia. ABDOMEN: No hepatosplenomegaly, normal bowel sounds, no guarding or rigidity. SPINE: No scoliosis or deformity SKIN: No rashes CENTRAL NERVOUS SYSTEM: No focal deficits, tone is normal in all 4 extremities. EXTREMITIES: There is no peripheral edema. No clubbing, no cyanosis. P eripheral pulses are intact. Results - Laboratory Findings CBC and BMP: 05/29/24 08:24 05/29/24 08:24 PT/INR, D-dimer PT 10.2 sec (10.0-12.5) 05/29/24 08:24 INR 0.9 (<1.2) 05/29/24 08:24 D-Dimer 1.62 mg/L FEU (<0.60) H 05/29/24 14:23 Abnormal lab findings: Abnormal Labs 05/29/24 05/29/24 05/29/24 08:24 08:24 08:24 WBC 32.5 H RBC 4.01 L MCV 111.7 H MCH 36.3 H Plt Count 701 H D Neutrophils # 27.1 H Macrocytosis Marked A APTT 20.0 L D-Dimer VBG pH VBG pCO2 BUN 22 H Glucose 124 H POC Glucose (mg/dL) Plasma Lactic Acid Sagar Magnesium 1.5 L 05/29/24 05/29/24 05/29/24 08:24 08:28 11:15 WBC RBC MCV MCH Plt Count Neutrophils # Macrocytosis APTT D-Dimer VBG pH 7.24 L VBG pCO2 57 H BUN Glucose POC Glucose (mg/dL) Plasma Lactic Acid Sagar 4.5 H* 3.5 H* Magnesium 05/29/24 05/29/24 05/29/24 14:23 14:43 16:21 WBC RBC MCV MCH Plt Count Neutrophils # Macrocytosis APTT D-Dimer 1.62 H VBG pH VBG pCO2 BUN Glucose POC Glucose (mg/dL) 116 H Plasma Lactic Acid Sagar 3.1 H* Magnesium - Diagnostic Findings Chest x-ray: image reviewed Assessment and Plan Plan: Acute left lung pneumonia with multifocal airspace disease involving the left lung, likely bacterial in nature. Rule out hospital-acquired/intermediate acquired pneumonia. Rule out staphylococcal pneumonia post influenza A infection. Acute hypoxic respiratory failure, currently on Airvo 60 L with FiO2 of 70% Acute leukocytosis secondary to above Acute on chronic shortness of breath secondary to above Sinus tachycardia secondary to above Acute lactic acidosis secondary to above History of alcoholism Advanced COPD, maintained on Trelegy Ellipta on outpatient basis Seizure disorder Coronary artery disease with previous coronary stenting/RCA Hypertension Plan Titrate oxygen flow to maintain saturation above 90%. Currently on Airvo Cover the patient with broad-spectrum antibiotics and the patient is currently on cefepime and vancomycin Sputum Gram stain and culture DuoNeb updrafts [id number] Replace Trelegy Ellipta with a combination of tiotropium and Symbicort as maintenance IV Solu-Medrol 40 mg every 12 hours Received a total of 2 L of lactated Ringer and the patient is currently on normal saline at rate of 75 cc an hour Lovenox 40 mg subcu for DVT prophylaxis Check procalcitonin level Check Legionella urine antigen Will admit to the hospital will continue to follow. Follow-up chest x-ray with the next 24 hours. Time with Patient: Greater than 30
[2024-05-29] MEDS: DEXMEDETOMIDINE/0.9% NACL(PMX) 400 MCG in EMPTY BAG 1 BAG IV SCH (18:39)
[2024-05-29 18:45] LABS: Glucose,Whole Blood 127 mg/dL (70-110)
[2024-05-29 20:13] LABS: Glucose,Whole Blood 119 mg/dL (70-110)
[2024-05-29 21:05] LABS: Glucose,Whole Blood 119 mg/dL (70-110)
[2024-05-29] MEDS: METOPROLOL TARTRATE 50 MG TAB PO SCH (21:47)
[2024-05-29] MEDS: ATORVASTATIN 80 MG TAB PO SCH (21:47)
[2024-05-29] MEDS: VANCOMYCIN 1,000 MG in SODIUM CHLORIDE 0.9% 250 ML IVPB SCH (21:55)
--- NOTE | 2024-05-29 22:41 | P.CONS ---
History of Present Illness - Reason for Consult Consult date: 05/29/24 Sepsis, pneumonia Requesting physician: Сергей Pace - Chief Complaint Shortness of breath and cough x days - History of Present Illness Patient is a 68-year-old male with a past medical history significant for COPD coronary artery disease CVA TIA seizure disorder currently undergoing rehabilitation at [facility] after the patient was discharged from [facility] facility with the patient was treated for influenza A UTI, patient has been brought into the ER via EMS concerning for increasing shortness of breath left- sided chest pain and cough that apparently has been getting worse over the last few days patient is currently cough to be moderate intensity and has been Thick Sputum but No Hemoptysis Also Complaining of Some Left-Sided Pleuritic Chest Pain Moderate Intensity without Radiation on Presentation to the Hospital Patient Did Have a Temperature of 103.4 F Patient Was Tachycardic Mildly Hypertensive Hypoxic Requiring BiPAP Patient Did Have White Count of 32.5 with a Left Shift Creatinine 0.72 Lactic Acid Was Elevated Liver Enzymes Are Normal Influenza RSV COVID Testing Was Negative Patient Did Have a Chest X-Ray Chronic Emphysematous Changes with New Multifocal Left Lung Acute Infiltrate Patient Has Been Admitted to the ICU patient did receive Rocephin and Zithromax in the ER admitted to ICU infectious disease was consulted for further management of antibiotic therapy Review of Systems Positive point and negatives has been mentioned in the HPI, complete review of systems was performed and all other systems are negative Past Medical History Past Medical History: Coronary Artery Disease (CAD), COPD, CVA/TIA, Seizure Disorder Additional Past Medical History / Comment(s): chronic bronchitis History of Any Multi-Drug Resistant Organisms: None Reported Past Surgical History: Tonsillectomy Additional Past Surgical History / Comment(s): tubes in ears at a young age- unsure if he had this Past Anesthesia/Blood Transfusion Reactions: No Reported Reaction Past Psychological History: No Psychological Hx Reported Smoking Status: Current every day smoker Past Alcohol Use History: Daily Past Drug Use History: None Reported - Past Family History Father History Unknown: Yes Additional Family Medical History / Comment(s): "his heart stopped" Medications and Allergies Home Medications Medication Instructions Recorded Confirmed Type Albuterol Sulfate [Ventolin HFA] 2 puff INHALATION RT-Q4H PRN 02/25/22 05/29/24 History Fluticasone/Umeclidin/Vilanter 1 puff INHALATION RT-DAILY 02/25/22 05/29/24 History [Trelegy Ellipta 200-62.5-25] Metoprolol Tartrate [Lopressor] 50 mg PO BID #60 tab 03/01/22 05/29/24 Rx amLODIPine [Norvasc] 5 mg PO DAILY #30 tab 06/24/22 05/29/24 Rx Acetaminophen Tab [Tylenol] 1,000 mg PO Q8H PRN 05/11/24 05/29/24 History Folic Acid 1 mg PO DAILY tab 05/17/24 05/29/24 Rx Heparin Sodium,Porcine (1 ml) 5,000 unit SQ Q12HR each 05/17/24 05/29/24 Rx [Heparin Sodium] Thiamine [Vitamin B-1] 100 mg PO DAILY tab 05/17/24 05/29/24 Rx Aspirin EC [Ecotrin Low Dose] 81 mg PO DAILY 05/29/24 05/29/24 History Atorvastatin [Lipitor] 80 mg PO HS 05/29/24 05/29/24 History [place] Breakfast 1 packet PO DAILY 05/29/24 05/29/24 History Famotidine [Pepcid] 20 mg PO DAILY@1700 05/29/24 05/29/24 History Ipratropium-Albuterol Nebulize 3 ml INHALATION RT-Q6H 05/29/24 05/29/24 History [Duoneb 0.5 mg-3 mg/3 ml Soln] Magnesium Hydroxide [Milk of 7,200 mg PO DAILY PRN 05/29/24 05/29/24 History Magnesia Concentrate] Multivitamins, Thera [Multivitamin 1 tab PO DAILY 05/29/24 05/29/24 History (formulary)] Na Phos,M-B/Na Phos,Di-Ba [Fleet 133 ml RECTAL DAILY PRN 05/29/24 05/29/24 History Adult] Nicotine 21Mg/24Hr Patch [Habitrol] 1 patch TRANSDERM DAILY 05/29/24 05/29/24 History bisacodyL [Dulcolax] 10 mg RECTAL DAILY PRN 05/29/24 05/29/24 History Allergies Allergy/AdvReac Type Severity Reaction Status Date / Time lisinopril Allergy Anaphylaxis Verified 05/29/24 09:40 Physical Exam Vitals: Vital Signs Temp Pulse Resp BP Pulse Ox FiO2 05/29/24 15:13 125 H 05/29/24 15:00 125 H 99 70 05/29/24 14:33 137 H 32 H 99 05/29/24 14:07 129 H 22 141/81 100 05/29/24 12:40 108 H 18 100 05/29/24 11:34 99 80 05/29/24 11:33 102 H 20 126/80 100 05/29/24 10:53 98.8 F 101 H 20 103/61 100 05/29/24 10:20 106 H 18 99/60 100 05/29/24 09:48 102.1 F H 110 H 20 93/58 99 05/29/24 09:32 112 H 22 80/62 99 05/29/24 09:20 117 H 05/29/24 09:15 112 H 22 93/66 99 05/29/24 09:06 116 H 05/29/24 09:01 80 05/29/24 08:45 129 H 28 H 85/71 100 05/29/24 08:33 134 H 26 H 88/64 100 05/29/24 08:30 90 05/29/24 08:18 103.4 F H 152 H 30 H 97 05/29/24 08:13 30 H 05/29/24 08:08 98.0 F 161 H 28 H 132/87 92 L Intake and Output 05/29/24 05/29/24 05/29/24 06:59 14:59 22:59 Other: Weight 54.431 kg GENERAL DESCRIPTION: Elderly male lying in bed, no distress. No tachypnea or accessory muscle of respiration use. HEENT: Shows Pallor , no scleral icterus. Oral mucous membrane is dry. NECK: Trachea central, no thyromegaly. LUNGS: Unlabored breathing. Coarse breath sounds bilaterally HEART: S1, S2, regular rate and rhythm. No loud murmur ABDOMEN: Soft, no tenderness , EXTREMITIES: No edema of feet. SKIN: No rash, no masses palpable. NEUROLOGICAL: The patient is awake, alert, oriented x3, mood and affect normal. Results CBC & Chem 7: 05/29/24 08:24 05/29/24 08:24 Labs: Abnormal Lab Results - Last 24 Hours (Table) 05/29/24 05/29/24 05/29/24 Range/Units 08:24 08:24 08:24 WBC 32.5 H (3.8-10.6) k/uL RBC 4.01 L (4.30-5.90) m/uL MCV 111.7 H (80.0-100.0) fL MCH 36.3 H (25.0-35.0) pg Plt Count 701 H D (150-450) k/uL Neutrophils # 27.1 H (1.3-7.7) k/uL Macrocytosis Marked A APTT 20.0 L (22.0-30.0) sec D-Dimer (<0.60) mg/L FEU VBG pH (7.31-7.41) VBG pCO2 (37-51) mmHg BUN 22 H (9-20) mg/dL Glucose 124 H (74-99) mg/dL Plasma Lactic Acid [place]agar (0.7-2.0) mmol/L Magnesium 1.5 L (1.6-2.3) mg/dL 05/29/24 05/29/24 05/29/24 Range/Units 08:24 08:28 11:15 WBC (3.8-10.6) k/uL RBC (4.30-5.90) m/uL MCV (80.0-100.0) fL MCH (25.0-35.0) pg Plt Count (150-450) k/uL Neutrophils # (1.3-7.7) k/uL Macrocytosis APTT (22.0-30.0) sec D-Dimer (<0.60) mg/L FEU VBG pH 7.24 L (7.31-7.41) VBG pCO2 57 H (37-51) mmHg BUN (9-20) mg/dL Glucose (74-99) mg/dL Plasma Lactic Acid Sagar 4.5 H* 3.5 H* (0.7-2.0) mmol/L Magnesium (1.6-2.3) mg/dL 05/29/24 Range/Units 14:23 WBC (3.8-10.6) k/uL RBC (4.30-5.90) m/uL MCV (80.0-100.0) fL MCH (25.0-35.0) pg Plt Count (150-450) k/uL Neutrophils # (1.3-7.7) k/uL Macrocytosis APTT (22.0-30.0) sec D-Dimer 1.62 H (<0.60) mg/L FEU VBG pH (7.31-7.41) VBG pCO2 (37-51) mmHg BUN (9-20) mg/dL Glucose (74-99) mg/dL Plasma Lactic Acid Sagar (0.7-2.0) mmol/L Magnesium (1.6-2.3) mg/dL Assessment and Plan (1) Pneumonia Current Visit: Yes Status: Acute Code(s): J18.9 - PNEUMONIA, UNSPECIFIED ORGANISM SNOMED Code(s): 916439781 (2) Septic shock Current Visit: Yes Status: Acute Code(s): A41.9 - SEPSIS, UNSPECIFIED ORGANISM; R65.21 - SEVERE SEPSIS WITH SEPTIC SHOCK SNOMED Code(s): 87287345 Plan: 1patient presented to hospital with sepsis in this patient who did have fever tachycardia hypotension and elevated lactic acid meeting currently for SIRS source is pneumonia in this patient has been in the hospital will need to cover for resistant gram-positive as well as gram-negative pathogen 2-blood and sputum culture has been obtained results will be followed 3-patient will be treated broadly with vancomycin pharmacy to dose and cefepime while waiting for the workup to be completed We will follow on clinical condition and cultures to further adjust medication if needed Thank you for this consultation we will follow the patient along with you Dictation was produced using [employer] dictation software. please excuse any grammatical, word or spelling errors. Time with Patient: Greater than 30
[2024-05-30] MEDS ORDERED: LORazepam 1 MG/0.5 ML VIAL IV PRN (00:04)
[2024-05-30 00:14] VITALS: TEMP 96
[2024-05-30 01:50] VITALS: BP 98/81; PULSE 40; RESP 35
[2024-05-30] MEDS ORDERED: TIOTROPIUM 2.5 MCG INHALER INHALATION SCH (08:00)
[2024-05-30] MEDS ORDERED: SYMBICORT 160-4.5 MCG INHALER INHALATION SCH (08:00)
[2024-05-30] MEDS ORDERED: FOLIC ACID 1 MG TAB PO SCH (09:00)
[2024-05-30] MEDS ORDERED: ASPIRIN 81 MG PO SCH (09:00)
[2024-05-30] MEDS ORDERED: NICOTINE 21MG/24HR PATCH TRANSDERM SCH (09:00)
[2024-05-30] MEDS ORDERED: AZITHROMYCIN 500 MG TAB PO SCH ×2 (09:00)
--- NOTE | 2024-05-30 18:02 | P.DS ---
Providers Date of admission: 05/29/24 10:25 Attending physician: Sandee Dawson Consults: 05/29/24 10:23 Consult Physician Routine Consulting Provider: Kelsy Sam Consult Reason/Comments: Pneumonia, septic shock Do you want consulting provider notified?: Yes 05/29/24 14:47 Consult Physician Routine Consulting Provider: Babatunde Gomez Consult Reason/Comments: pneumonia Do you want consulting provider notified?: Yes Primary care physician: Caridad Malone Hospital Course: Discharge Diagnosis: #Community-acquired pneumonia versus hospital-acquired pneumonia #Sepsis secondary to pneumonia as above #Lactic acidosis secondary to above #Acute on chronic hypoxic respiratory failure #COPD exacerbation #Left-sided chest pain secondary above #Hyperglycemia #Macrocytosis #Thrombocytosis #Hypomagnesemia Hospital Course: Patient is a 68-year-old female with history of CVA, COPD (not on home oxygen), nicotine and alcohol use, hypertension and hyperlipidemia is brought to the ER via EMS from [facility]. Patient patient states that he was endorsing cough last night which was associated with left-sided back and chest pain as well as shortness of breath which prompted him to come to the ER this morning for further evaluation. He describes his cough as productive with clear thick sputum. His pain in the left side of the chest and back is worse with cough which makes him difficult to breathe. Patient was recently hospitalized for shortness of breath and generalized weakness and was found to be positive for influenza A infection and UTI. He was treated with course of IV ceftriaxone and Tamiflu. He also had a brief stay in the ICU. Patient was discharged for subacute rehab at [facility]. Patient denies history of CAD, recent travel, sick contacts, VTE. Currently at the time of interview patient continues to experience 9 out of 10, sharp left-sided chest pain associated with mild shortness of breath which is nonradiating. Laboratory evaluation in the ER shows WBC 32.5, RBC 4.01, hemoglobin 14.5, MCV under 11.7, platelet count 71, neutrophil count 27.1, PT 10.2, INR was 0.9, APTT 20.0, blood gas shows pH 7.24, pCO2 57, HCO3 25, sodium 138, potassium 4.8, chloride 100, bicarb 24, BUN 22, creatinine 0.72, glucose 124, lactic acid 4.5 (reflex to 3.5), calcium 9.7, magnesium 1.5, total bilirubin 1.0, AST 27, ALT 39, troponin less than 0.012, NT proBNP 297. Serology negative for influenza type A, type B, RSV, COVID-19. Chest x-ray shows chronic emphysematous changes with new multifocal in left lung. EKG shows sinus tachycardia with ventricular rate of 152 bpm, VT interval 124 ms, QRS duration of 81 ms, QTc 392 ms. Normal R wave progression. Vitals on arrival Tmax 103.4 F, pulse rate 152, respirate 30, oxygen 97% on nonrebreather at 12 L of O2 05/30/2024: Patient was admitted to the ICU for further intensive care. Patient was admitted to ICU, patient continued to be very sick and 2 AM in the morning. Dictation was produced using [employer] dictation software. Please excuse any grammatical, word or spelling errors. Patient Condition at Discharge: Undetermined Plan - Discharge Summary Discharge Rx Participant: No New Discharge Prescriptions: No Action Fluticasone/Umeclidin/Vilanter [Trelegy Ellipta 200-62.5-25] 1 puff INHALATION RT-DAILY Metoprolol Tartrate [Lopressor] 50 mg PO BID #60 tab amLODIPine [Norvasc] 5 mg PO DAILY #30 tab Folic Acid 1 mg PO DAILY tab Thiamine [Vitamin B-1] 100 mg PO DAILY tab [place] Breakfast 1 packet PO DAILY Ipratropium-Albuterol Nebulize [Duoneb 0.5 mg-3 mg/3 ml Soln] 3 ml INHALATION RT-Q6H Nicotine 21Mg/24Hr Patch [Habitrol] 1 patch TRANSDERM DAILY Albuterol Sulfate [Ventolin HFA] 2 puff INHALATION RT-Q4H PRN PRN Reason: Shortness Of Breath Acetaminophen Tab [Tylenol] 1,000 mg PO Q8H PRN PRN Reason: Pain Heparin Sodium,Porcine (1 ml) [Heparin Sodium] 5,000 unit SQ Q12HR each Aspirin EC [Ecotrin Low Dose] 81 mg PO DAILY Atorvastatin [Lipitor] 80 mg PO HS bisacodyL [Dulcolax] 10 mg RECTAL DAILY PRN PRN Reason: Constipation Famotidine [Pepcid] 20 mg PO DAILY@1700 Magnesium Hydroxide [Milk of Magnesia Concentrate] 7,200 mg PO DAILY PRN PRN Reason: Constipation Multivitamins, Thera [Multivitamin (formulary)] 1 tab PO DAILY Na Phos,M-B/Na Phos,Di-Ba [Fleet Adult] 133 ml RECTAL DAILY PRN PRN Reason: Constipation Discharge Medication List Albuterol Sulfate [Ventolin HFA] 2 puff INHALATION RT-Q4H PRN 02/25/22 [History] Fluticasone/Umeclidin/Vilanter [Trelegy Ellipta 200-62.5-25] 1 puff INHALATION RT-DAILY 02/25/22 [History] Metoprolol Tartrate [Lopressor] 50 mg PO BID #60 tab 03/01/22 [Rx] amLODIPine [Norvasc] 5 mg PO DAILY #30 tab 06/24/22 [Rx] Acetaminophen Tab [Tylenol] 1,000 mg PO Q8H PRN 05/11/24 [History] Folic Acid 1 mg PO DAILY tab 05/17/24 [Rx] Heparin Sodium,Porcine (1 ml) [Heparin Sodium] 5,000 unit SQ Q12HR each 05/17/24 [Rx] Thiamine [Vitamin B-1] 100 mg PO DAILY tab 05/17/24 [Rx] Aspirin EC [Ecotrin Low Dose] 81 mg PO DAILY 05/29/24 [History] Atorvastatin [Lipitor] 80 mg PO HS 05/29/24 [History] [place] Breakfast 1 packet PO DAILY 05/29/24 [History] Famotidine [Pepcid] 20 mg PO DAILY@1700 05/29/24 [History] Ipratropium-Albuterol Nebulize [Duoneb 0.5 mg-3 mg/3 ml Soln] 3 ml INHALATION RT-Q6H 05/29/24 [History] Magnesium Hydroxide [Milk of Magnesia Concentrate] 7,200 mg PO DAILY PRN 05/29/24 [History] Multivitamins, Thera [Multivitamin (formulary)] 1 tab PO DAILY 05/29/24 [History] Na Phos,M-B/Na Phos,Di-Ba [Fleet Adult] 133 ml RECTAL DAILY PRN 05/29/24 [History] Nicotine 21Mg/24Hr Patch [Habitrol] 1 patch TRANSDERM DAILY 05/29/24 [History] bisacodyL [Dulcolax] 10 mg RECTAL DAILY PRN 05/29/24 [History] Follow up Appointment(s)/Referral(s): Caridad Malone DO [Primary Care Provider] - 1-2 days - Preliminary Cause of Preliminary Cause of : Septic shock
== END 2024-05-30 03:23 | disposition expired | DRG 871 ==
LOC: EC 08:07 → 2SICU 10:25 → 3SCARD 10:46 → 2SICU 18:32
PROVIDERS: ADMIT Hospitalist; ATTEND Hospitalist
PROC: 5A09357 Assistance with Respiratory Ventilation, Less than 24 Consecutive Hours, Continuous Positive Airway Pressure (ICD-10-PCS; principal; 2024-05-29)
DX: A41.9 Sepsis, unspecified organism (principal); J15.9 Unspecified bacterial pneumonia; R65.21 Severe sepsis with septic shock; J96.21 Acute and chronic respiratory failure with hypoxia; E87.21 Acute metabolic acidosis; J44.0 Chronic obstructive pulmonary disease with (acute) lower respiratory infection; G40.909 Epilepsy, unspecified, not intractable, without status epilepticus; F10.21 Alcohol dependence, in remission; I10 Essential (primary) hypertension; J44.1 Chronic obstructive pulmonary disease with (acute) exacerbation; Z66 Do not resuscitate; Y95 Nosocomial condition; R73.9 Hyperglycemia, unspecified; D75.89 Other specified diseases of blood and blood-forming organs; D75.839 Thrombocytosis, unspecified; E83.42 Hypomagnesemia; K59.00 Constipation, unspecified; I25.10 Atherosclerotic heart disease of native coronary artery without angina pectoris; F17.200 Nicotine dependence, unspecified, uncomplicated; E78.5 Hyperlipidemia, unspecified; Z86.73 Personal history of transient ischemic attack (TIA), and cerebral infarction without residual deficits; Z95.5 Presence of coronary angioplasty implant and graft; Z79.899 Other long term (current) drug therapy; Z79.82 Long term (current) use of aspirin; Z87.440 Personal history of urinary (tract) infections; Z88.8 Allergy status to other drugs, medicaments and biological substances
CPT/HCPCS: 36415; 71045; 80053; 82803; 83605; 83735; 83880; 84145; 84484; 85025; 85379; 85610; 85730; 87040; 87070; 87205; 87449; 87636; 93005; 94640; 94660; 96365; 96366; 96367; 96368; 96372; 96375; 96376; 99291